=== PATIENT | female | born 1945 ===

== ENCOUNTER 2017-05-14 15:07 | Inpatient (IN) | payer MEDICARE, OTHER ==
[~2017-05-14] VITALS: Ht 154.9 cm; Wt 58.3 kg
[2017-05-14] MEDS ORDERED: OLAN10VI2 IM (16:03)
[2017-05-14] MEDS ORDERED: CYAN500T17 PO (16:03)
[2017-05-14] MEDS ORDERED: QUET25TA5 PO (16:03)
[2017-05-14] MEDS ORDERED: MELA3TAB2 PO (16:03)
[2017-05-14] MEDS ORDERED: LORA2VIA4 IJ (16:03)
[2017-05-14] MEDS ORDERED: LORA-434 PO (16:03)
[2017-05-14] MEDS ORDERED: OLAN5TAB9 PO (16:03)
[2017-05-14] MEDS ORDERED: METHYL SALICYLATE/MENTHOL TOPICAL OINTMENT 29GM TUBE. TP PRN (17:15)
[2017-05-14] MEDS ORDERED: ACETAMINOPHEN 325 MG TABLET PO PRN (17:15)
[2017-05-14] MEDS ORDERED: MAG HYDROX/AL HYDROX/SIMETH 30 ML ORAL.SUSP PO PRN (17:15)
[2017-05-14] MEDS ORDERED: MAGNESIUM HYDROXIDE 2,400 MG/30 ML ORAL.SUSP. PO PRN (17:15)
[2017-05-14] MEDS ORDERED: NON FORMULARY ITEM (Melatonin 1 TAB) PO PRN (18:30)
[2017-05-14 18:38] LABS: ALBUMIN 3.4 g/dL (3.4-5.0); ALBUMIN/GLOBULIN RATIO 0.9 (1.0-1.7); CALCIUM 9.3 mg/dL (8.5-10.1); CREATININE 1.1 mg/dL (0.6-1.0); GFR 49.1; MAGNESIUM 2.1 mg/dL (1.8-2.4); POTASSIUM 4.9 mmol/L (3.5-5.1); TOTAL BILIRUBIN 0.3 mg/dL (0.2-1.0); TOTAL PROTEIN 7.4 g/dL (6.4-8.2)
[2017-05-14] MEDS: QUEtiapine 50 MG TABLET. PO SCH (20:24)
--- NOTE | 2017-05-14 21:56 | PDOC ---
Exam Jasper Demential Exam: Jasper Note: Please also refer to the separate dictated note~for this date of service dictated separately.~Patient seen individually. Discussed the patient with Nursing staff reviewed the chart.~Reviewed interim history and current functioning. Reviewed vital signs,~Labs/ Radiology~and current medications noted below. Continue current treatment with the changes noted in the dictated addendum note Assessment: I&O Intake and Output 05/15/17 07:00 Intake Total 240 ml Balance 240 ml Intake Oral 240 ml Labs: Laboratory Tests Test 05/14/17 18:15 Sodium Level 141 mmol/L (136-145) Potassium Level 4.9 mmol/L (3.5-5.1) Chloride Level 104 mmol/L (98-107) Carbon Dioxide Level 26 mmol/L (21-32) Anion Gap 11 (6-14) Blood Urea Nitrogen 26 mg/dL (7-20) H Creatinine 1.1 mg/dL (0.6-1.0) H Estimated GFR (Cockcroft-Gault) 49.1 BUN/Creatinine Ratio 24 (6-20) H Glucose Level 125 mg/dL (70-99) H Calcium Level 9.3 mg/dL (8.5-10.1) Magnesium Level 2.1 mg/dL (1.8-2.4) Total Bilirubin 0.3 mg/dL (0.2-1.0) Aspartate Amino Transferase (AST) 39 U/L (15-37) H Alanine Aminotransferase (ALT) 35 U/L (14-59) Alkaline Phosphatase 110 U/L (46-116) Total Protein 7.4 g/dL (6.4-8.2) Albumin 3.4 g/dL (3.4-5.0) Albumin/Globulin Ratio 0.9 (1.0-1.7) L Current Medications: Meds: Current Medications Acetaminophen (Tylenol) 650 mg PRN Q6HRS PRN PO PAIN / TEMP; Start 05/14/17 at 17:15 Multi-Ingredient Ointment (Analgesic [place]) 1 ene PRN QID PRN TP MUSCLE PAIN; Start 05/14/17 at 17:15 Al Hydroxide/Mg Hydroxide (Mylanta Plus Xs) 15 ml PRN AFTMEALHC PRN PO DYSPEPSIA; Start 05/14/17 at 17:15 Magnesium Hydroxide (Milk Of Magnesia) 2,400 mg PRN QHS PRN PO CONSTIPATION; Start 05/14/17 at 17:15 Lorazepam (Ativan) 1 mg PRN Q6HRS PRN PO ANXIETY / AGITATION; Start 05/14/17 at 18:30 Olanzapine (ZyPREXA) 5 mg PRN Q6HRS PRN PO ANXIETY / AGITATION; Start at 18:30 Quetiapine Fumarate (SEROquel) 50 mg BID PO Last administered on 05/14/17t 20: 24; Start 05/14/17 at 21:00 Non-Formulary Medication 1 tab QHS PRN PO INSOMNIA; Start 05/14/17 at 18:30; Status UNV Cyanocobalamin (Vitamin B-12) 1,000 mcg DAILY PO ; Start 05/15/17 at 09:00 Pneumococcal Polyvalent Vaccine (Pneumovax 23) 0.5 ml ONCE ONCE VAX IM ; Start 05/15/17 at 09:00; Stop 05/15/17 at 09:01 Influenza Virus Vaccine Quadrival (Fluarix Quad [id number] Syringe) 0.5 ml ONCE ONCE VAX IM ; Start 05/15/17 at 09:00; Stop 05/15/17 at 09:01 Active Scripts Active Reported Seroquel (Quetiapine Fumarate) 25 Mg Tablet 2 Tab PO BID Olanzapine 5 Mg Tablet 1 Tab PO PRN Q6HRS PRN Olanzapine Inj (Olanzapine) 10 Mg Vial 5 Mg IM PRN Q6HRS PRN Melatonin 3 Mg Tablet 1 Tab PO QHS PRN Ativan (Lorazepam) 1 Mg Tablet 1 Mg PO PRN Q6HRS PRN Ativan (Lorazepam) 2 Mg/1 Ml Vial 1 Mg IJ PRN Q6HRS PRN B-12 (Cyanocobalamin (Vitamin B-12)) 500 Mcg Tablet 1,000 Mcg PO DAILY Diagnosis: Problems: (1) Anxiety disorder (2) Dementia in Alzheimer's disease with delusions (3) Dementia in Alzheimer's disease with depression (4) Dementia, vascular, with delusions (5) Dementia, vascular, with depression (6) Impulse control disorder MAX BIGGS MD May 14, 2017 21:56
--- NOTE | 2017-05-14 23:25 | HP ---
ADMIT DATE: 05/14/2017 PSYCHIATRIC ADMISSION HISTORY/EVALUATION She is referred by her primary care physician, Dr. Reinaldo Casiano, telephone . IDENTIFYING DATA: The patient is a 71-year-old female referred to us from [facility] after she was medically stabilized. She presented there from home on account of increasing confusion, delusions, and agitation. Once she was medically stabilized, she was still extremely delusional, agitated, refusing cares and showers, anxious, compulsive, laps hysterically at nothing, paranoid about her medications and thinks her is stealing from her, had to be on one-on-one status at [facility] post-resolution of her UTI. She had failed outpatient psychiatric interventions and was referred for inpatient psychiatric stabilization to us. The patient was seen individually the evening of 05/14/2016. Discussed with nursing staff, reviewed the chart. This note covers the elements not covered in my initial note of 05/14/2017. CHIEF COMPLAINT: "No, I am not going there." I attempted to direct the patient to the dining room for her supper, but she is extremely paranoid, delusional, refusing to go, joking away from me. HISTORY OF PRESENT ILLNESS: The patient has a history of dementia, Alzheimer's vascular type. She has been residing at home, getting more confused, delusional, agitated, and then went to [facility]. The patient has had sleep and appetite changes. No clear history of bipolar disorder, suicidal or homicidal ideation, but behaviors have been dangerous needing a one-on-one to contain her. PAST PSYCHIATRIC HISTORY: As above. MEDICAL HISTORY: Status post tonsillectomy, colonoscopy, recent UTI and B12 deficiency. CODE STATUS: Full code. ALLERGIES: No known drug allergies. FAMILY HISTORY: Noncontributory. SOCIAL HISTORY: No alcohol, drug abuse, physical, sexual or elder abuse. She is not known to be a perpetrator. REACTION TO HOSPITALIZATION: The patient oblivious to assets, supportive, and family. MENTAL STATUS EXAMINATION: The patient is oriented to herself. I met with her the evening of 05/14/2017. She is very paranoid, delusional, refusing to go to the dining room, believes people are stealing from her, rapid in her speech, distractable. Insight, judgment, recent and remote memory, attention, concentration, fund of knowledge poor, consistent with her diagnosis mentioned in my initial note. LABORATORY DATA: Reviewed. IMPRESSION: Major Neurocognitive disorder, Alzheimer, vascular with depression, delusion, behavioral disturbance; anxiety disorder, unspecified; impulse control disorder, unspecified; psychotic disorder, unspecified. Rest as above. PLAN: Admit to the Geropsychiatry Unit at [facility]. I will see the patient daily individually from a psychiatric standpoint, medical followup per Dr. Sorensen/Dr. Haro. Continue the patient on her current psychotropics, observe baseline then adjust as clinically indicated. MAN Amauri BIGGS MD DR: MONICA/nts JOB#: [id number] / [id number]
[2017-05-15] MEDS: LORazepam 1 MG TABLET PO PRN (00:12)
[2017-05-15] MEDS: OLANZapine 5 MG TABLET PO PRN (02:02)
[2017-05-15] MEDS ORDERED: PNEUMOC CONJ VACC 23-VALENT 0.5 ML VIAL. VAX IM ONE (09:00)
[2017-05-15] MEDS ORDERED: FLU VACC QS2017-18 (36MOS+)/PF 0.5 ML SYRINGE. VAX IM ONE (09:00)
[2017-05-15] MEDS: QUEtiapine 50 MG TABLET. PO SCH (11:45)
[2017-05-15] MEDS: CYANOCOBALAMIN (VITAMIN B-12) 1,000 MCG TABLET. PO SCH ×2 (11:46→12:10)
--- NOTE | 2017-05-15 13:51 | CONS ---
DATE OF CONSULTATION: 05/15/2017 REASON FOR CONSULTATION: Medical management. HISTORY OF PRESENT ILLNESS: The patient is a 71-year-old female patient who apparently was admitted to [facility] by the police after the hairmasters manager called 911 as the patient was disturbing workers that were trying to clean carpets one apartment across from her apartment. Apparently, 2 guys moved out, the patient called the boy that moved out as her brother and said that her brother lives in [place]. She appeared to be confused, unable to complete sentences and she was evaluated initially in the Emergency Room, was found to have urinary tract infection where she was treated with IV antibiotic. She was also found to have vitamin B12 deficiency that was addressed; however, the patient continued to have periods of agitation, gets very argumentative and lacks insight into her behavior. She does not recognize her and after she completed treatment for her UTI, she was [facility] inpatient psychiatric stabilization where she continued to be completely confused and disorganized. PAST MEDICAL HISTORY: Really unremarkable. The patient herself does not give any useful information, extremely confused and there is no significant apparently past medical history in the reports from [facility]. PAST SURGICAL HISTORY: Unremarkable. ALLERGIES: She has no known drug allergies. MEDICATIONS: She is currently on following medications: She is on cyanocobalamin 1000 mcg once a day, lorazepam 1 mg every 6 hours as needed, lorazepam 1 mg every 6 hours orally, melatonin 3 mg at bedtime, olanzapine 5 mg every 6 hours intramuscularly, quetiapine fumarate 50 mg twice a day. FAMILY HISTORY: Unremarkable. SOCIAL HISTORY: She is and lives with her . She does not smoke according to her or drink alcohol. She was unable to be more specific. PAST SURGICAL HISTORY: She did have apparently tonsillectomy, colonoscopy, which was normal. REVIEW OF SYSTEMS: As per history of present illness. PHYSICAL EXAMINATION GENERAL: When I examined her, she was resting flat, comfortably in bed, in no apparent distress. She is awake, alert, but extremely confused. Apparently, the patient was extremely agitated and refused to have her vital signs checked; however, when I saw her this afternoon, she was resting flat, comfortably in bed, in no apparent distress, was pale, but no jaundice, cyanosis, lymphadenopathy or thyromegaly. No jugular venous distension. No lower limb edema. HEENT: Showed normocephalic, atraumatic. NECK: Supple. HEART: Showed normal first and second heart sounds with no gallop, rub or murmur. CHEST: Clear to auscultation. No crepitation or rhonchi. ABDOMEN: Slightly distended, soft, nontender. NEUROLOGIC: She is awake, but extremely confused and disoriented. All her cranial nerves intact. EXTREMITIES: She moves extremities without difficulty. She is able to ambulate without assistance or assistive devices. LABORATORY DATA: As of this morning showed a serum sodium of 141, potassium 4.9, chloride 104, bicarbonate 26, anion gap of 11, BUN 26, creatinine 1.1, estimated GFR was 49 mL per minute. His glucose was 125, calcium was 9.3, magnesium was 2.1. Total bilirubin, AST, ALT, alkaline phosphatase were normal. Her total protein was 7.4, albumin 3.4. She patient apparently was admitted to [facility] where she was diagnosed with UTI, acute psychosis, chronic confusion, delirium of mixed origin and paranoid behavior. She was also found to have B12 deficiency. She apparently has completed her antibiotic treatment. Her vitamin B12 was replenished and was transferred to [facility] for inpatient psychiatric stabilization. Her most recent blood count on 05/09/2017 showed a white cell count of 11,300, hemoglobin 34, MCV 93, white cell count of 7,500 and platelet count of 277,000. ASSESSMENT AND PLAN: In summary, this is a 71-year-old female patient who was admitted with acute psychosis, chronic confusion, delirium, paranoid behavior. She was treated for acute urinary tract infection due to Escherichia coli and completed her antibiotic therapy there. Her vitamin B12 was low and apparently was replenished there, although I do not have the actual values. She was admitted for inpatient psychiatric stabilization. From a medical point of view, she seemed to be stable. Her vital signs was done at [facility], her lab work are all within acceptable range. Thank you Dr. Zayas for allowing me to participate in the care of this patient. WES BRENNAN MD DR: ELYSE/daniel JOB#: [id number] / [id number]
[2017-05-15 16:24] VITALS: BP 134/82
[2017-05-15 20:11] LABS: BASO # 0.1 x10^3/uL (0.0-0.2); BASO % 1 % (0-3); EOS # 0.6 x10^3/uL (0.0-0.7); EOS % 4 % (0-3); HEMATOCRIT 38.3 % (36.0-47.0); HEMOGLOBIN 12.8 g/dL (12.0-15.5); LYMPH # 2.6 x10^3/uL (1.0-4.8); LYMPH % 19 % (24-48); MEAN CORPUSCULAR HEMOGLOBIN 31 pg (25-35); MEAN CORPUSCULAR HGB CONC 34 g/dL (31-37); MEAN CORPUSCULAR VOLUME 92 fL (79-100); MONO # 1.1 x10^3/uL (0.0-1.1); MONO % 8 % (0-9); NEUT # 9.1 x10^3uL (1.8-7.7); NEUT % 68 % (31-73); PLATELET COUNT 417 x10^3/uL (140-400); RED BLOOD COUNT 4.18 x10^6/uL (3.50-5.40); RED CELL DISTRIBUTION WIDTH 14.1 % (11.5-14.5); WHITE BLOOD COUNT 13.4 x10^3/uL (4.0-11.0)
[2017-05-15] MEDS: risperiDONE 0.25 MG TABLET. PO SCH (20:25)
[2017-05-15] MEDS: traZODone 50 MG TABLET. PO PRN ×2 (20:25→23:26)
--- NOTE | 2017-05-15 20:57 | PDOC ---
Exam Jasper Demential Exam: Jasper Note: Please also refer to the separate dictated note~for this date of service dictated separately.~Patient seen individually. Discussed the patient with Nursing staff reviewed the chart.~Reviewed interim history and current functioning. Reviewed vital signs,~Labs/ Radiology~and current medications noted below. Continue current treatment with the changes noted in the dictated addendum note Assessment: Vital Signs: Vital Signs Date Time Temp Pulse Resp B/P (MAP) Pulse Ox O2 Delivery O2 Flow Rate FiO2 05/15/17 16:24 97.3 6 20 134/82 (99) 95 Room Air I&O Intake and Output 05/16/17 07:00 Intake Total 240 ml Balance 240 ml Intake Oral 240 ml Labs: Laboratory Tests Test 05/15/17 19:55 White Blood Count 13.4 x10^3/uL (4.0-11.0) H Red Blood Count 4.18 x10^6/uL (3.50-5.40) Hemoglobin 12.8 g/dL (12.0-15.5) Hematocrit 38.3 % (36.0-47.0) Mean Corpuscular Volume 92 fL (79-100) Mean Corpuscular Hemoglobin 31 pg (25-35) Mean Corpuscular Hemoglobin Concent 34 g/dL (31-37) Red Cell Distribution Width 14.1 % (11.5-14.5) Platelet Count 417 x10^3/uL (140-400) H Neutrophils (%) (Auto) 68 % (31-73) Lymphocytes (%) (Auto) 19 % (24-48) L Monocytes (%) (Auto) 8 % (0-9) Eosinophils (%) (Auto) 4 % (0-3) H Basophils (%) (Auto) 1 % (0-3) Neutrophils # (Auto) 9.1 x10^3uL (1.8-7.7) H Lymphocytes # (Auto) 2.6 x10^3/uL (1.0-4.8) Monocytes # (Auto) 1.1 x10^3/uL (0.0-1.1) Eosinophils # (Auto) 0.6 x10^3/uL (0.0-0.7) Basophils # (Auto) 0.1 x10^3/uL (0.0-0.2) Current Medications: Meds: Current Medications Acetaminophen (Tylenol) 650 mg PRN Q6HRS PRN PO PAIN / TEMP; Start 05/14/17 at 17:15 Multi-Ingredient Ointment (Analgesic [place]) 1 ene PRN QID PRN TP MUSCLE PAIN; Start 05/14/17 at 17:15 Al Hydroxide/Mg Hydroxide (Mylanta Plus Xs) 15 ml PRN AFTMEALHC PRN PO DYSPEPSIA; Start 05/14/17 at 17:15 Magnesium Hydroxide (Milk Of Magnesia) 2,400 mg PRN QHS PRN PO CONSTIPATION; Start 05/14/17 at 17:15 Lorazepam (Ativan) 1 mg PRN Q6HRS PRN PO ANXIETY / AGITATION Last administered on 05/15/17 00:12; Start 05/14/17 at 18:30 Olanzapine (ZyPREXA) 5 mg PRN Q6HRS PRN PO ANXIETY / AGITATION Last administered on 05/15/17 02:02; Start 05/14/17 at 18:30 Quetiapine Fumarate (SEROquel) 50 mg BID PO Last administered on 05/15/17 11: 45; Start 05/14/17 at 21:00; Stop 05/15/17 at 19:07; Status DC Non-Formulary Medication 1 tab QHS PRN PO INSOMNIA; Start 05/14/17 at 18:30; Status UNV Cyanocobalamin (Vitamin B-12) 1,000 mcg DAILY PO ; Start 05/15/17 at 09:00 Pneumococcal Polyvalent Vaccine (Pneumovax 23) 0.5 ml ONCE ONCE VAX IM ; Start 05/15/17 at 09:00; Stop 05/15/17 at 09:01; Status DC Influenza Virus Vaccine Quadrival (Fluarix Quad Syringe) 0.5 ml ONCE ONCE VAX IM ; Start 05/15/17 at 09:00; Stop 05/15/17 at 09:01; Status DC Melatonin 3 mg PRN QHS PRN PO INSOMNIA; Start 05/15/17 at 07:30 Pneumococcal Polyvalent Vaccine (Pneumovax 23) 0.5 ml ONCE ONCE VAX IM ; Start 05/17/17 at 09:00; Stop 05/17/17 at 09:01 Influenza Virus Vaccine Quadrival (Fluarix Quad Syringe) 0.5 ml ONCE ONCE VAX IM ; Start 05/17/17 at 09:00; Stop 05/17/17 at 09:01 Mirtazapine (Remeron) 7.5 mg QHS PO Last administered on 05/15/17 20:25; Start 05/15/17 at 21:00 Risperidone (RisperDAL) 0.25 mg BID PO Last administered on 05/15/17 20:25; Start 05/15/17 at 21:00 Trazodone HCl (Desyrel) 50 mg PRN QHS PRN PO INSOMNIA, MAY REPEAT X1 Last administered on 05/15/17 20:25; Start 05/15/17 at 19:15 Active Scripts Active Reported Seroquel (Quetiapine Fumarate) 25 Mg Tablet 2 Tab PO BID Olanzapine 5 Mg Tablet 1 Tab PO PRN Q6HRS PRN Olanzapine Inj (Olanzapine) 10 Mg Vial 5 Mg IM PRN Q6HRS PRN Melatonin 3 Mg Tablet 1 Tab PO QHS PRN Ativan (Lorazepam) 1 Mg Tablet 1 Mg PO PRN Q6HRS PRN Ativan (Lorazepam) 2 Mg/1 Ml Vial 1 Mg IJ PRN Q6HRS PRN B-12 (Cyanocobalamin (Vitamin B-12)) 500 Mcg Tablet 1,000 Mcg PO DAILY Diagnosis: Problems: (1) Anxiety disorder (2) Dementia in Alzheimer's disease with delusions (3) Dementia in Alzheimer's disease with depression (4) Dementia, vascular, with delusions (5) Dementia, vascular, with depression (6) Impulse control disorder MAX BIGGS MD May 15, 2017 20:57
[2017-05-15] MEDS ORDERED: MIRTAZAPINE 7.5 MG TABLET. PO SCH (21:00)
[2017-05-15] MEDS: MELATONIN 3 MG TABLET PO PRN (23:27)
[2017-05-16 07:28] VITALS: BP 122/63
[2017-05-16] MEDS: risperiDONE 0.25 MG TABLET. PO SCH ×2 (08:43→19:04)
[2017-05-16] MEDS: CYANOCOBALAMIN (VITAMIN B-12) 1,000 MCG TABLET. PO SCH (08:50)
[2017-05-16 11:58] LABS: THYROID STIM HORMONE (TSH) 1.837 uIU/mL (0.358-3.740)
[2017-05-16] MEDS: PRENATAL MULTIVITAMIN TABLET. PO SCH (16:18)
[2017-05-16] MEDS: LORazepam 1 MG TABLET PO PRN (17:01)
[2017-05-16] MEDS ORDERED: traZODone 100 MG TABLET. PO PRN (18:30)
[2017-05-16] MEDS: MELATONIN 3 MG TABLET PO PRN (19:06)
[2017-05-16 19:09] LABS: HEMOGLOBIN A1C 5.4 % (4.8-5.6)
[2017-05-16] MEDS: MIRTAZAPINE 15 MG TABLET PO SCH (19:33)
[2017-05-16] MEDS: ATORVASTATIN CALCIUM 20 MG TABLET PO SCH (19:33)
--- NOTE | 2017-05-16 21:34 | PDOC ---
Exam Jasper Demential Exam: Jasper Note: Please also refer to the separate dictated note~for this date of service dictated separately.~Patient seen individually. Discussed the patient with Nursing staff reviewed the chart.~Reviewed interim history and current functioning. Reviewed vital signs,~Labs/ Radiology~and current medications noted below. Continue current treatment with the changes noted in the dictated addendum note Assessment: Vital Signs: Vital Signs Date Time Temp Pulse Resp B/P (MAP) Pulse Ox O2 Delivery O2 Flow Rate FiO2 05/16/17 07:28 98.1 78 18 122/63 (82) 97 05/15/17 16:24 Room Air I&O Intake and Output 05/17/17 07:00 Intake Total 840 ml Balance 840 ml Intake Oral 840 ml Current Medications: Meds: Current Medications Acetaminophen (Tylenol) 650 mg PRN Q6HRS PRN PO PAIN / TEMP; Start 05/14/17 at 17:15 Multi-Ingredient Ointment (Analgesic [place]) 1 ene PRN QID PRN TP MUSCLE PAIN; Start 05/14/17 at 17:15 Al Hydroxide/Mg Hydroxide (Mylanta Plus Xs) 15 ml PRN AFTMEALHC PRN PO DYSPEPSIA; Start 05/14/17 at 17:15 Magnesium Hydroxide (Milk Of Magnesia) 2,400 mg PRN QHS PRN PO CONSTIPATION; Start 05/14/17 at 17:15 Lorazepam (Ativan) 1 mg PRN Q6HRS PRN PO ANXIETY / AGITATION Last administered on 05/16/17 17:01; Start 05/14/17 at 18:30 Olanzapine (ZyPREXA) 5 mg PRN Q6HRS PRN PO ANXIETY / AGITATION Last administered on 05/15/17 02:02; Start 05/14/17 at 18:30 Quetiapine Fumarate (SEROquel) 50 mg BID PO Last administered on 05/15/17 11: 45; Start 05/14/17 at 21:00; Stop 05/15/17 at 19:07; Status DC Non-Formulary Medication 1 tab QHS PRN PO INSOMNIA; Start 05/14/17 at 18:30; Status UNV Cyanocobalamin (Vitamin B-12) 1,000 mcg DAILY PO ; Start 05/15/17 at 09:00 Pneumococcal Polyvalent Vaccine (Pneumovax 23) 0.5 ml ONCE ONCE VAX IM ; Start 05/15/17 at 09:00; Stop 05/15/17 at 09:01; Status DC Influenza Virus Vaccine Quadrival (Fluarix Quad [id number] Syringe) 0.5 ml ONCE ONCE VAX IM ; Start 05/15/17 at 09:00; Stop 05/15/17 at 09:01; Status DC Melatonin 3 mg PRN QHS PRN PO INSOMNIA Last administered on 05/16/17 19:06; Start 05/15/17 at 07:30 Pneumococcal Polyvalent Vaccine (Pneumovax 23) 0.5 ml ONCE ONCE VAX IM ; Start 05/17/17 at 09:00; Stop 05/17/17 at 09:01 Influenza Virus Vaccine Quadrival (Fluarix Quad Syringe) 0.5 ml ONCE ONCE VAX IM ; Start 05/17/17 at 09:00; Stop 05/17/17 at 09:01 Mirtazapine (Remeron) 7.5 mg QHS PO Last administered on 05/15/17 20:25; Start 05/15/17 at 21:00; Stop 05/16/17 at 18:21; Status DC Risperidone (RisperDAL) 0.25 mg BID PO Last administered on 05/16/17 19:04; Start 05/15/17 at 21:00 Trazodone HCl (Desyrel) 50 mg PRN QHS PRN PO INSOMNIA, MAY REPEAT X1 Last administered on 05/15/17 23:26; Start 05/15/17 at 19:15; Stop 05/16/17 at 18 :21; Status DC Prenat Multivit/ [place]/Iron/Folic Ac (Multivitamin ) 1 tab DAILYBFRSUP PO ; Start 05/16/17 at 17:00 Atorvastatin Calcium (Lipitor) 20 mg QHS PO Last administered on 05/16/17 19: 33; Start 05/16/17 at 21:00 Divalproex Sodium (Depakote [place]) 125 mg BID92 PO ; Start 05/17/17 at 09: 00 Mirtazapine (Remeron) 15 mg QHS PO Last administered on 05/16/17 19:33; Start 05/16/17 at 21:00 Trazodone HCl (Desyrel) 100 mg PRN QHS PRN PO INSOMNIA, MAY REPEAT X1 Last administered on 05/16/17t 19:06; Start 05/16/17 at 18:30 Active Scripts Active Reported Seroquel (Quetiapine Fumarate) 25 Mg Tablet 2 Tab PO BID Olanzapine 5 Mg Tablet 1 Tab PO PRN Q6HRS PRN Olanzapine Inj (Olanzapine) 10 Mg Vial 5 Mg IM PRN Q6HRS PRN Melatonin 3 Mg Tablet 1 Tab PO QHS PRN Ativan (Lorazepam) 1 Mg Tablet 1 Mg PO PRN Q6HRS PRN Ativan (Lorazepam) 2 Mg/1 Ml Vial 1 Mg IJ PRN Q6HRS PRN B-12 (Cyanocobalamin (Vitamin B-12)) 500 Mcg Tablet 1,000 Mcg PO DAILY Diagnosis: Problems: (1) Anxiety disorder (2) Dementia in Alzheimer's disease with delusions (3) Dementia in Alzheimer's disease with depression (4) Dementia, vascular, with delusions (5) Dementia, vascular, with depression (6) Impulse control disorder MAX BIGGS MD May 16, 2017 21:34
--- NOTE | 2017-05-16 23:02 | PN ---
DATE: 05/15/2017 PSYCHIATRIC PROGRESS NOTE This late entry 05/15/2017 covers elements, not covered in my initial note of 05/15/2017. SUBJECTIVE: I met with the patient in the evening of 05/15/2017. The patient remains confused, anxious, restless, quite paranoid, suspicious, slept very poorly the previous evening. She is quite intrusive, difficult to redirect at times. REVIEW OF SYSTEMS: No CV, , pulmonary, eye, ENT system symptoms on review. Reliability poor. MENTAL STATUS EXAM: Oriented to herself. Insight, judgment, recent and remote memory, attention, concentration, fund of knowledge poor, consistent with her diagnosis mentioned in my initial note. LABORATORY DATA: Reviewed. IMPRESSION: Major neurocognitive disorder, Alzheimer, vascular with depression, delusion, behavioral disturbance; anxiety disorder, unspecified; impulse control disorder, unspecified; Rest unchanged, status post urinary tract infection. PLAN: Change the Seroquel 50 mg b.i.d. to Risperdal 0.25 mg twice a day; start Remeron 7.5 mg at bedtime, trazodone 50 mg at bedtime p.r.n., may repeat x1 for insomnia. Continue Ativan p.r.n., melatonin 3 mg at bedtime p.r.n., Zyprexa p.r.n. Reviewed drug interactions. Risk/benefit ratio favors no further change at this time. MAN Amauri BIGGS MD DR: MONICA/daniel JOB#: [id number] / [id number]
[2017-05-16 23:08] LABS: T3 TOTAL 90 ng/dL (71-180)
[2017-05-17 06:22] VITALS: BP 101/63
[2017-05-17 06:50] LABS: BASO # 0.1 x10^3/uL (0.0-0.2); BASO % 1 % (0-3); EOS # 0.4 x10^3/uL (0.0-0.7); EOS % 6 % (0-3); HEMATOCRIT 34.1 % (36.0-47.0); HEMOGLOBIN 11.6 g/dL (12.0-15.5); LYMPH % 26 % (24-48); MEAN CORPUSCULAR HEMOGLOBIN 31 pg (25-35); MEAN CORPUSCULAR HGB CONC 34 g/dL (31-37); MEAN CORPUSCULAR VOLUME 91 fL (79-100); MONO # 0.8 x10^3/uL (0.0-1.1); MONO % 10 % (0-9); NEUT # 4.5 x10^3uL (1.8-7.7); NEUT % 58 % (31-73); PLATELET COUNT 328 x10^3/uL (140-400); RED BLOOD COUNT 3.74 x10^6/uL (3.50-5.40); RED CELL DISTRIBUTION WIDTH 14.1 % (11.5-14.5); WHITE BLOOD COUNT 7.8 x10^3/uL (4.0-11.0)
[2017-05-17 06:59] LABS: CALCIUM 8.6 mg/dL (8.5-10.1); CREATININE 1.1 mg/dL (0.6-1.0); GFR 49.1; POTASSIUM 4.2 mmol/L (3.5-5.1)
[2017-05-17] MEDS ORDERED: FLU VACC QS2017-18 (36MOS+)/PF 0.5 ML SYRINGE. VAX IM ONE (09:00)
[2017-05-17] MEDS ORDERED: PNEUMOC CONJ VACC 23-VALENT 0.5 ML VIAL. VAX IM ONE (09:00)
[2017-05-17] MEDS: risperiDONE 0.25 MG TABLET. PO SCH ×2 (09:10→19:50)
[2017-05-17] MEDS: CYANOCOBALAMIN (VITAMIN B-12) 1,000 MCG TABLET. PO SCH (09:10)
[2017-05-17] MEDS: DIVALPROEX 125 MG CAP.SPRINK PO SCH ×2 (09:11→15:36)
[2017-05-17] MEDS: PRENATAL MULTIVITAMIN TABLET. PO SCH (15:36)
[2017-05-17 16:12] VITALS: BP 135/72
[2017-05-17] MEDS: MELATONIN 3 MG TABLET PO PRN (19:50)
[2017-05-17] MEDS: MIRTAZAPINE 15 MG TABLET PO SCH (19:50)
[2017-05-17] MEDS: ATORVASTATIN CALCIUM 20 MG TABLET PO SCH (19:50)
--- NOTE | 2017-05-17 20:32 | PDOC ---
Exam Jasper Demential Exam: Jasper Note: Please also refer to the separate dictated note~for this date of service dictated separately.~Patient seen individually. Discussed the patient with Nursing staff reviewed the chart.~Reviewed interim history and current functioning. Reviewed vital signs,~Labs/ Radiology~and current medications noted below. Continue current treatment with the changes noted in the dictated addendum note Assessment: Vital Signs: Vital Signs Date Time Temp Pulse Resp B/P (MAP) Pulse Ox O2 Delivery O2 Flow Rate FiO2 05/17/17 16:12 98.1 93 20 135/72 (93) 97 05/15/17 16:24 Room Air I&O Intake and Output 05/18/17 07:00 Intake Total 1080 ml Balance 1080 ml Intake Oral 1080 ml Labs: Laboratory Tests Test 05/17/17 06:41 White Blood Count 7.8 x10^3/uL (4.0-11.0) Red Blood Count 3.74 x10^6/uL (3.50-5.40) Hemoglobin 11.6 g/dL (12.0-15.5) L Hematocrit 34.1 % (36.0-47.0) L Mean Corpuscular Volume 91 fL (79-100) Mean Corpuscular Hemoglobin 31 pg (25-35) Mean Corpuscular Hemoglobin Concent 34 g/dL (31-37) Red Cell Distribution Width 14.1 % (11.5-14.5) Platelet Count 328 x10^3/uL (140-400) Neutrophils (%) (Auto) 58 % (31-73) Lymphocytes (%) (Auto) 26 % (24-48) Monocytes (%) (Auto) 10 % (0-9) H Eosinophils (%) (Auto) 6 % (0-3) H Basophils (%) (Auto) 1 % (0-3) Neutrophils # (Auto) 4.5 x10^3uL (1.8-7.7) Lymphocytes # (Auto) 2.0 x10^3/uL (1.0-4.8) Monocytes # (Auto) 0.8 x10^3/uL (0.0-1.1) Eosinophils # (Auto) 0.4 x10^3/uL (0.0-0.7) Basophils # (Auto) 0.1 x10^3/uL (0.0-0.2) Sodium Level 142 mmol/L (136-145) Potassium Level 4.2 mmol/L (3.5-5.1) Chloride Level 108 mmol/L (98-107) H Carbon Dioxide Level 28 mmol/L (21-32) Anion Gap 6 (6-14) Blood Urea Nitrogen 25 mg/dL (7-20) H Creatinine 1.1 mg/dL (0.6-1.0) H Estimated GFR (Cockcroft-Gault) 49.1 Glucose Level 104 mg/dL (70-99) H Calcium Level 8.6 mg/dL (8.5-10.1) Current Medications: Meds: Current Medications Acetaminophen (Tylenol) 650 mg PRN Q6HRS PRN PO PAIN / TEMP; Start 05/14/17 at 17:15 Multi-Ingredient Ointment (Analgesic [place]) 1 ene PRN QID PRN TP MUSCLE PAIN; Start 05/14/17 at 17:15 Al Hydroxide/Mg Hydroxide (Mylanta Plus Xs) 15 ml PRN AFTMEALHC PRN PO DYSPEPSIA; Start 05/14/17 at 17:15 Magnesium Hydroxide (Milk Of Magnesia) 2,400 mg PRN QHS PRN PO CONSTIPATION; Start 05/14/17 at 17:15 Lorazepam (Ativan) 1 mg PRN Q6HRS PRN PO ANXIETY / AGITATION Last administered on 05/16/17t 17:01; Start 05/14/17 at 18:30 Olanzapine (ZyPREXA) 5 mg PRN Q6HRS PRN PO ANXIETY / AGITATION Last administered on 05/15/17 02:02; Start 05/14/17 at 18:30 Quetiapine Fumarate (SEROquel) 50 mg BID PO Last administered on 05/15/17 11: 45; Start 05/14/17 at 21:00; Stop 05/15/17 at 19:07; Status DC Non-Formulary Medication 1 tab QHS PRN PO INSOMNIA; Start 05/14/17 at 18:30; Status UNV Cyanocobalamin (Vitamin B-12) 1,000 mcg DAILY PO Last administered on 09:10; Start 05/15/17 at 09:00 Pneumococcal Polyvalent Vaccine (Pneumovax 23) 0.5 ml ONCE ONCE VAX IM ; Start 05/15/17 at 09:00; Stop 05/15/17 at 09:01; Status DC Influenza Virus Vaccine Quadrival (Fluarix Quad Syringe) 0.5 ml ONCE ONCE VAX IM ; Start 05/15/17 at 09:00; Stop 05/15/17 at 09:01; Status DC Melatonin 3 mg PRN QHS PRN PO INSOMNIA Last administered on 05/17/17 19:50; Start 05/15/17 at 07:30 Pneumococcal Polyvalent Vaccine (Pneumovax 23) 0.5 ml ONCE ONCE VAX IM ; Start 05/17/17 at 09:00; Stop 05/17/17 at 09:01; Status DC Influenza Virus Vaccine Quadrival (Fluarix Quad Syringe) 0.5 ml ONCE ONCE VAX IM ; Start 05/17/17 at 09:00; Stop 05/17/17 at 09:01; Status DC Mirtazapine (Remeron) 7.5 mg QHS PO Last administered on 05/15/17 20:25; Start 05/15/17 at 21:00; Stop 05/16/17 at 18:21; Status DC Risperidone (RisperDAL) 0.25 mg BID PO Last administered on 05/17/17 19:50; Start 05/15/17 at 21:00 Trazodone HCl (Desyrel) 50 mg PRN QHS PRN PO INSOMNIA, MAY REPEAT X1 Last administered on 05/15/17 23:26; Start 05/15/17 at 19:15; Stop 05/16/17 at 18 :21; Status DC Prenat Multivit/ [employer]/Iron/Folic Ac (Multivitamin ) 1 tab DAILYBFRSUP PO ; Start 05/16/17 at 17:00 Atorvastatin Calcium (Lipitor) 20 mg QHS PO Last administered on 05/17/17 19: 50; Start 05/16/17 at 21:00 Divalproex Sodium (Depakote Sprinkles) 125 mg BID92 PO Last administered on 15:36; Start 05/17/17 at 09:00 Mirtazapine (Remeron) 15 mg QHS PO Last administered on 05/17/17 19:50; Start 10/16/17 at 21:00 Trazodone HCl (Desyrel) 100 mg PRN QHS PRN PO INSOMNIA, MAY REPEAT X1 Last administered on 05/16/17t 19:06; Start 05/16/17 at 18:30 Influenza Virus Vaccine Quadrival (Fluarix Quad 0279-1464 Syringe) 0.5 ml ONCE ONCE VAX IM ; Start 05/19/17 at 09:00; Stop 05/19/17 at 09:01 Pneumococcal Polyvalent Vaccine (Pneumovax 23) 0.5 ml ONCE ONCE VAX IM ; Start 05/19/17 at 09:00; Stop 05/19/17 at 09:01 Active Scripts Active Reported Seroquel (Quetiapine Fumarate) 25 Mg Tablet 2 Tab PO BID Olanzapine 5 Mg Tablet 1 Tab PO PRN Q6HRS PRN Olanzapine Inj (Olanzapine) 10 Mg Vial 5 Mg IM PRN Q6HRS PRN Melatonin 3 Mg Tablet 1 Tab PO QHS PRN Ativan (Lorazepam) 1 Mg Tablet 1 Mg PO PRN Q6HRS PRN Ativan (Lorazepam) 2 Mg/1 Ml Vial 1 Mg IJ PRN Q6HRS PRN B-12 (Cyanocobalamin (Vitamin B-12)) 500 Mcg Tablet 1,000 Mcg PO DAILY Diagnosis: Problems: (1) Anxiety disorder (2) Dementia in Alzheimer's disease with delusions (3) Dementia in Alzheimer's disease with depression (4) Dementia, vascular, with delusions (5) Dementia, vascular, with depression (6) Impulse control disorder MAX BIGGS MD May 17, 2017 20:32
--- NOTE | 2017-05-18 03:19 | PN ---
DATE: 05/16/2017 PSYCHIATRIC PROGRESS NOTE This is a late entry for 05/16/2017, covers the elements not covered in my initial note of 05/16/2017. SUBJECTIVE: I met with the patient the evening of 05/16/2017. The patient did better in the morning of 05/16/2017, later was more agitated, more so in the evening, irritable, labile, suspicious, paranoid, especially with another demented patient on the unit. REVIEW OF SYSTEMS: No CV, , pulmonary, eye, ENT system symptoms on review. Reliability poor. She slept poorly the previous evening, was up till 5:00 a.m. MENTAL STATUS EXAM: Oriented to herself. Insight, judgment, recent and remote memory, attention, concentration, fund of knowledge poor, consistent with her diagnosis as mentioned in my initial note. PLAN: Increase Remeron from 7.5 mg at bedtime to 15 mg at bedtime, trazodone from 50 mg at bedtime p.r.n. ____ to 100 mg at bedtime p.r.n., may repeat x 1, continue Ativan p.r.n., melatonin 3 mg at bedtime p.r.n., Zyprexa p.r.n., Risperdal 0.25 mg b.i.d., start Depakote Sprinkles 125 mg twice a day as a mood stabilizer 9:00 a.m. and 2 p.m. Check CBC, CMP, valproic acid level in 3 days. Reviewed drug interactions, risk/benefit ratio favors no further change. MAX BIGGS MD DR: MONICA/daniel JOB#: [id number] / [id number]
[2017-05-18 06:05] VITALS: BP 129/68
[2017-05-18] MEDS: DIVALPROEX 125 MG CAP.SPRINK PO SCH ×2 (09:30→14:51)
[2017-05-18] MEDS: risperiDONE 0.25 MG TABLET. PO SCH ×2 (09:30→19:18)
[2017-05-18] MEDS: CYANOCOBALAMIN (VITAMIN B-12) 1,000 MCG TABLET. PO SCH (09:30)
[2017-05-18 16:23] VITALS: BP 139/96
[2017-05-18] MEDS: PRENATAL MULTIVITAMIN TABLET. PO SCH (17:07)
[2017-05-18] MEDS: MIRTAZAPINE 15 MG TABLET PO SCH (19:18)
[2017-05-18] MEDS: ATORVASTATIN CALCIUM 20 MG TABLET PO SCH (19:18)
--- NOTE | 2017-05-18 21:02 | PDOC ---
Exam Jasper Demential Exam: Jasper Note: Please also refer to the separate dictated note~for this date of service dictated separately.~Patient seen individually. Discussed the patient with Nursing staff reviewed the chart.~Reviewed interim history and current functioning. Reviewed vital signs,~Labs/ Radiology~and current medications noted below. Continue current treatment with the changes noted in the dictated addendum note Assessment: Vital Signs: Vital Signs Date Time Temp Pulse Resp B/P (MAP) Pulse Ox O2 Delivery O2 Flow Rate FiO2 05/18/17 16:23 97.8 101 20 139/96 (110) 97 05/15/17 16:24 Room Air I&O Intake and Output 05/19/17 06:59 Intake Total 720 ml Balance 720 ml Intake Oral 720 ml Current Medications: Meds: Current Medications Acetaminophen (Tylenol) 650 mg PRN Q6HRS PRN PO PAIN / TEMP; Start 05/14/17 at 17:15 Multi-Ingredient Ointment (Analgesic [place]) 1 ene PRN QID PRN TP MUSCLE PAIN; Start 05/14/17 at 17:15 Al Hydroxide/Mg Hydroxide (Mylanta Plus Xs) 15 ml PRN AFTMEALHC PRN PO DYSPEPSIA; Start 05/14/17 at 17:15 Magnesium Hydroxide (Milk Of Magnesia) 2,400 mg PRN QHS PRN PO CONSTIPATION; Start 05/14/17 at 17:15 Lorazepam (Ativan) 1 mg PRN Q6HRS PRN PO ANXIETY / AGITATION Last administered on 05/16/17 17:01; Start 05/14/17 at 18:30 Olanzapine (ZyPREXA) 5 mg PRN Q6HRS PRN PO ANXIETY / AGITATION Last administered on 05/15/17 02:02; Start 05/14/17 at 18:30 Quetiapine Fumarate (SEROquel) 50 mg BID PO Last administered on 05/15/17 11: 45; Start 05/14/17 at 21:00; Stop 05/15/17 at 19:07; Status DC Non-Formulary Medication 1 tab QHS PRN PO INSOMNIA; Start 05/14/17 at 18:30; Status UNV Cyanocobalamin (Vitamin B-12) 1,000 mcg DAILY PO Last administered on 09:30; Start 05/15/17 at 09:00 Pneumococcal Polyvalent Vaccine (Pneumovax 23) 0.5 ml ONCE ONCE VAX IM ; Start 05/15/17 at 09:00; Stop 05/15/17 at 09:01; Status DC Influenza Virus Vaccine Quadrival (Fluarix Quad Syringe) 0.5 ml ONCE ONCE VAX IM ; Start 05/15/17 at 09:00; Stop 05/15/17 at 09:01; Status DC Melatonin 3 mg PRN QHS PRN PO INSOMNIA Last administered on 05/17/17 19:50; Start 05/15/17 at 07:30 Pneumococcal Polyvalent Vaccine (Pneumovax 23) 0.5 ml ONCE ONCE VAX IM ; Start 05/17/17 at 09:00; Stop 05/17/17 at 09:01; Status DC Influenza Virus Vaccine Quadrival (Fluarix Quad Syringe) 0.5 ml ONCE ONCE VAX IM ; Start 05/17/17 at 09:00; Stop 05/17/17 at 09:01; Status DC Mirtazapine (Remeron) 7.5 mg QHS PO Last administered on 05/15/17 20:25; Start 05/15/17 at 21:00; Stop 05/16/17 at 18:21; Status DC Risperidone (RisperDAL) 0.25 mg BID PO Last administered on 05/18/17 19:18; Start 05/15/17 at 21:00 Trazodone HCl (Desyrel) 50 mg PRN QHS PRN PO INSOMNIA, MAY REPEAT X1 Last administered on 05/15/17 23:26; Start 05/15/17 at 19:15; Stop 05/16/17 at 18 :21; Status DC Prenat Multivit/ [place]/Iron/Folic Ac (Multivitamin ) 1 tab DAILYBFRSUP PO Last administered on 05/18/17 17:07; Start 05/16/17 at 17:00 Atorvastatin Calcium (Lipitor) 20 mg QHS PO Last administered on 05/18/17 19: 18; Start 05/16/17 at 21:00 Divalproex Sodium (Depakote Sprinkles) 125 mg BID92 PO Last administered on 14:51; Start 05/17/17 at 09:00 Mirtazapine (Remeron) 15 mg QHS PO Last administered on 05/18/17 19:18; Start 05/16/17 at 21:00 Trazodone HCl (Desyrel) 100 mg PRN QHS PRN PO INSOMNIA, MAY REPEAT X1 Last administered on 05/16/17 19:06; Start 05/16/17 at 18:30 Influenza Virus Vaccine Quadrival (Fluarix Quad [id number] Syringe) 0.5 ml ONCE ONCE VAX IM ; Start 05/19/17 at 09:00; Stop 05/19/17 at 09:01 Pneumococcal Polyvalent Vaccine (Pneumovax 23) 0.5 ml ONCE ONCE VAX IM ; Start 05/19/17 at 09:00; Stop 05/19/17 at 09:01 Active Scripts Active Reported Seroquel (Quetiapine Fumarate) 25 Mg Tablet 2 Tab PO BID Olanzapine 5 Mg Tablet 1 Tab PO PRN Q6HRS PRN Olanzapine Inj (Olanzapine) 10 Mg Vial 5 Mg IM PRN Q6HRS PRN Melatonin 3 Mg Tablet 1 Tab PO QHS PRN Ativan (Lorazepam) 1 Mg Tablet 1 Mg PO PRN Q6HRS PRN Ativan (Lorazepam) 2 Mg/1 Ml Vial 1 Mg IJ PRN Q6HRS PRN B-12 (Cyanocobalamin (Vitamin B-12)) 500 Mcg Tablet 1,000 Mcg PO DAILY Diagnosis: Problems: (1) Anxiety disorder (2) Dementia in Alzheimer's disease with delusions (3) Dementia in Alzheimer's disease with depression (4) Dementia, vascular, with delusions (5) Dementia, vascular, with depression (6) Impulse control disorder MAX BIGGS MD May 18, 2017 21:02
--- NOTE | 2017-05-19 04:08 | PN ---
DATE: 05/17/2017 This late entry 05/17/2017 covers elements not covered in my initial note of 05/17/2017. SUBJECTIVE: I met with the patient in the evening of 05/17/2016. Per nursing report, the patient remains confused, disorganized, labile, frequently not compliant with medications, often takes it crushed in ice cream, quite paranoid, delusional, slept 8 hours the previous evening. REVIEW OF SYSTEMS: No CV, , pulmonary, eye, ENT system symptoms on review. Reliability poor. MENTAL STATUS EXAM: Oriented to herself. Insight, judgment, recent and remote memory, attention, concentration, fund of knowledge poor, consistent with her diagnosis. She is expansive, lapse inappropriately. LABORATORY DATA: Reviewed. IMPRESSION: Unchanged from initial note. Major neurocognitive disorder, Alzheimer, vascular with depression, delusion, behavioral disturbance; anxiety disorder, unspecified; impulse control disorder, unspecified; bipolar 1 disorder, mixed, probable. LABORATORY DATA: Reviewed. PLAN: Increase Risperdal from 0.25 mg b.i.d. to 0.25 mg 3 times a day. Continue Depakote 125 mg b.i.d. Check labs level, adjust to reach a therapeutic level. Maintain Ativan p.r.n., melatonin p.r.n., Zyprexa p.r.n., Remeron 15 mg at bedtime, trazodone 100 mg at bedtime p.r.n., may repeat x 1 for insomnia. Reviewed drug interactions. Risk/benefit ratio favors no further change for now. MAX BIGGS MD DR: MONICA/daniel JOB#: [id number] / [id number]
[2017-05-19 06:41] VITALS: BP 108/58
[2017-05-19] MEDS ORDERED: FLU VACC QS2017-18 (36MOS+)/PF 0.5 ML SYRINGE. VAX IM ONE (09:00)
[2017-05-19] MEDS ORDERED: PNEUMOC CONJ VACC 23-VALENT 0.5 ML VIAL. VAX IM ONE (09:00)
[2017-05-19] MEDS: DIVALPROEX 125 MG CAP.SPRINK PO SCH ×2 (09:12→17:51)
[2017-05-19] MEDS: risperiDONE 0.25 MG TABLET. PO SCH ×2 (09:12→19:40)
[2017-05-19] MEDS: CYANOCOBALAMIN (VITAMIN B-12) 1,000 MCG TABLET. PO SCH (09:12)
[2017-05-19] MEDS: PRENATAL MULTIVITAMIN TABLET. PO SCH (17:51)
[2017-05-19] MEDS: MIRTAZAPINE 15 MG TABLET PO SCH (19:40)
[2017-05-19] MEDS: ATORVASTATIN CALCIUM 20 MG TABLET PO SCH (19:40)
[2017-05-19] MEDS: traZODone 100 MG TABLET. PO SCH (19:40)
--- NOTE | 2017-05-19 21:04 | PDOC ---
Exam Jasper Demential Exam: Jasper Note: Please also refer to the separate dictated note~for this date of service dictated separately.~Patient seen individually. Discussed the patient with Nursing staff reviewed the chart.~Reviewed interim history and current functioning. Reviewed vital signs,~Labs/ Radiology~and current medications noted below. Continue current treatment with the changes noted in the dictated addendum note Assessment: Vital Signs: Vital Signs Date Time Temp Pulse Resp B/P (MAP) Pulse Ox O2 Delivery O2 Flow Rate FiO2 05/19/17 16:26 97.7 18 05/19/17 06:41 73 108/58 (75) 97 05/15/17 16:24 Room Air I&O Intake and Output 05/20/17 07:00 Intake Total 740 ml Balance 740 ml Intake Oral 740 ml Current Medications: Meds: Current Medications Acetaminophen (Tylenol) 650 mg PRN Q6HRS PRN PO PAIN / TEMP; Start 05/14/17 at 17:15 Multi-Ingredient Ointment (Analgesic [place]) 1 ene PRN QID PRN TP MUSCLE PAIN; Start 05/14/17 at 17:15 Al Hydroxide/Mg Hydroxide (Mylanta Plus Xs) 15 ml PRN AFTMEALHC PRN PO DYSPEPSIA; Start 05/14/17 at 17:15 Magnesium Hydroxide (Milk Of Magnesia) 2,400 mg PRN QHS PRN PO CONSTIPATION; Start 05/14/17 at 17:15 Lorazepam (Ativan) 1 mg PRN Q6HRS PRN PO ANXIETY / AGITATION Last administered on 05/16/17 17:01; Start 05/14/17 at 18:30 Olanzapine (ZyPREXA) 5 mg PRN Q6HRS PRN PO ANXIETY / AGITATION Last administered on 05/15/17 02:02; Start 05/14/17 at 18:30 Quetiapine Fumarate (SEROquel) 50 mg BID PO Last administered on 05/15/17 11: 45; Start 05/14/17 at 21:00; Stop 05/15/17 at 19:07; Status DC Non-Formulary Medication 1 tab QHS PRN PO INSOMNIA; Start 05/14/17 at 18:30; Status UNV Cyanocobalamin (Vitamin B-12) 1,000 mcg DAILY PO Last administered on 09:12; Start 05/15/17 at 09:00 Pneumococcal Polyvalent Vaccine (Pneumovax 23) 0.5 ml ONCE ONCE VAX IM ; Start 05/15/17 at 09:00; Stop 05/15/17 at 09:01; Status DC Influenza Virus Vaccine Quadrival (Fluarix Quad Syringe) 0.5 ml ONCE ONCE VAX IM ; Start 05/15/17 at 09:00; Stop 05/15/17 at 09:01; Status DC Melatonin 3 mg PRN QHS PRN PO INSOMNIA Last administered on 05/17/17 19:50; Start 05/15/17 at 07:30 Pneumococcal Polyvalent Vaccine (Pneumovax 23) 0.5 ml ONCE ONCE VAX IM ; Start 05/17/17 at 09:00; Stop 05/17/17 at 09:01; Status DC Influenza Virus Vaccine Quadrival (Fluarix Quad Syringe) 0.5 ml ONCE ONCE VAX IM ; Start 05/17/17 at 09:00; Stop 05/17/17 at 09:01; Status DC Mirtazapine (Remeron) 7.5 mg QHS PO Last administered on 05/15/17 20:25; Start 05/15/17 at 21:00; Stop 05/16/17 at 18:21; Status DC Risperidone (RisperDAL) 0.25 mg BID PO Last administered on 05/19/17 19:40; Start 05/15/17 at 21:00 Trazodone HCl (Desyrel) 50 mg PRN QHS PRN PO INSOMNIA, MAY REPEAT X1 Last administered on 05/15/17 23:26; Start 05/15/17 at 19:15; Stop 05/16/17 at 18 :21; Status DC Prenat Multivit/ [place]/Iron/Folic Ac (Multivitamin ) 1 tab DAILYBFRSUP PO Last administered on 05/19/17 17:51; Start 05/16/17 at 17:00 Atorvastatin Calcium (Lipitor) 20 mg QHS PO Last administered on 05/19/17 19: 40; Start 05/16/17 at 21:00 Divalproex Sodium (Depakote Sprinkles) 125 mg BID92 PO Last administered on 17:51; Start 05/17/17 at 09:00 Mirtazapine (Remeron) 15 mg QHS PO Last administered on 05/19/17 19:40; Start 05/16/17 at 21:00 Trazodone HCl (Desyrel) 100 mg PRN QHS PRN PO INSOMNIA, MAY REPEAT X1 Last administered on 05/16/17 19:06; Start 05/16/17 at 18:30; Stop 05/19/17 at 11 :08; Status DC Influenza Virus Vaccine Quadrival (Fluarix Quad Syringe) 0.5 ml ONCE ONCE VAX IM ; Start 05/19/17 at 09:00; Stop 05/19/17 at 09:01; Status DC Pneumococcal Polyvalent Vaccine (Pneumovax 23) 0.5 ml ONCE ONCE VAX IM ; Start 05/19/17 at 09:00; Stop 05/19/17 at 09:01; Status DC Trazodone HCl (Desyrel) 100 mg HS PO Last administered on 05/19/17 19:40; Start 05/19/17 at 21:00 Pneumococcal Polyvalent Vaccine (Pneumovax 23) 0.5 ml ONCE ONCE VAX IM ; Start 05/23/17 at 09:00; Stop 05/23/17 at 09:01 Influenza Virus Vaccine Quadrival (Fluarix Quad Syringe) 0.5 ml ONCE ONCE VAX IM ; Start 05/23/17 at 09:00; Stop 05/23/17 at 09:01 Active Scripts Active Reported Seroquel (Quetiapine Fumarate) 25 Mg Tablet 2 Tab PO BID Olanzapine 5 Mg Tablet 1 Tab PO PRN Q6HRS PRN Olanzapine Inj (Olanzapine) 10 Mg Vial 5 Mg IM PRN Q6HRS PRN Melatonin 3 Mg Tablet 1 Tab PO QHS PRN Ativan (Lorazepam) 1 Mg Tablet 1 Mg PO PRN Q6HRS PRN Ativan (Lorazepam) 2 Mg/1 Ml Vial 1 Mg IJ PRN Q6HRS PRN B-12 (Cyanocobalamin (Vitamin B-12)) 500 Mcg Tablet 1,000 Mcg PO DAILY Diagnosis: Problems: (1) Anxiety disorder (2) Dementia in Alzheimer's disease with delusions (3) Dementia in Alzheimer's disease with depression (4) Dementia, vascular, with delusions (5) Dementia, vascular, with depression (6) Impulse control disorder MAX BIGGS MD May 19, 2017 21:04
[2017-05-19] MEDS: OLANZapine 5 MG TABLET PO PRN (23:20)
[2017-05-20 06:05] VITALS: BP 103/49
--- NOTE | 2017-05-20 06:21 | PN ---
DATE: 05/18/2017 PSYCHIATRIC PROGRESS NOTE This is a late entry for 05/18/2017, covers elements not covered in my initial note of 05/18/2017. SUBJECTIVE: I met with the patient the evening of 05/18/2017. The patient takes her medications in ice cream, needs to be coaxed for taking her medications, often spits them out. Somewhat withdrawn, laughing somewhat inappropriately, weird in her verbal comments at times, disorganized, confused. REVIEW OF SYSTEMS: No CV, , pulmonary, eye, ENT system symptoms on review. Reliability poor. MENTAL STATUS EXAM: Oriented to herself. Insight, judgment, recent and remote memory, attention, concentration, fund of knowledge poor, consistent with her diagnosis mentioned in my initial note. PLAN: Continue current psychotropics. Reviewed drug interactions. Risk/benefit ratio favors no further change. Overall, she is doing better, less psychotic, and we will have to adjust further as clinically indicated. MAX BIGGS MD DR: MONICA/daniel JOB#: [id number] / [id number]
[2017-05-20] MEDS: DIVALPROEX 125 MG CAP.SPRINK PO SCH ×3 (07:31→19:44)
[2017-05-20] MEDS: CYANOCOBALAMIN (VITAMIN B-12) 1,000 MCG TABLET. PO SCH (07:31)
[2017-05-20] MEDS: risperiDONE 0.25 MG TABLET. PO SCH ×2 (07:31→19:43)
[2017-05-20 07:39] LABS: BASO # 0.1 x10^3/uL (0.0-0.2); BASO % 1 % (0-3); EOS # 0.4 x10^3/uL (0.0-0.7); EOS % 5 % (0-3); HEMATOCRIT 31.3 % (36.0-47.0); HEMOGLOBIN 10.7 g/dL (12.0-15.5); LYMPH % 24 % (24-48); MEAN CORPUSCULAR HEMOGLOBIN 31 pg (25-35); MEAN CORPUSCULAR HGB CONC 34 g/dL (31-37); MEAN CORPUSCULAR VOLUME 91 fL (79-100); MONO # 0.8 x10^3/uL (0.0-1.1); MONO % 9 % (0-9); NEUT # 5.2 x10^3uL (1.8-7.7); NEUT % 61 % (31-73); PLATELET COUNT 320 x10^3/uL (140-400); RED BLOOD COUNT 3.46 x10^6/uL (3.50-5.40); RED CELL DISTRIBUTION WIDTH 13.6 % (11.5-14.5); WHITE BLOOD COUNT 8.4 x10^3/uL (4.0-11.0)
[2017-05-20 07:56] LABS: ALBUMIN 2.8 g/dL (3.4-5.0); ALBUMIN/GLOBULIN RATIO 0.9 (1.0-1.7); ALK PHOS 81 U/L (46-116); ALT (SGPT) 23 U/L (14-59); ANION GAP 8 (6-14); AST (SGOT) 16 U/L (15-37); BLOOD UREA NITROGEN 21 mg/dL (7-20); BUN/CREATININE RATIO 21 (6-20); CALCIUM 8.9 mg/dL (8.5-10.1); CARBON DIOXIDE 27 mmol/L (21-32); CHLORIDE 106 mmol/L (98-107); GFR 54.8; GLUCOSE 94 mg/dL (70-99); POTASSIUM 4.2 mmol/L (3.5-5.1); SODIUM 141 mmol/L (136-145); TOTAL BILIRUBIN 0.4 mg/dL (0.2-1.0)
[2017-05-20 07:57] LABS: VAL ACID 21 mcg/mL (50-100)
[2017-05-20 16:39] VITALS: BP 112/46
[2017-05-20] MEDS: PRENATAL MULTIVITAMIN TABLET. PO SCH (16:48)
[2017-05-20] MEDS: traZODone 100 MG TABLET. PO SCH (19:43)
[2017-05-20] MEDS: MIRTAZAPINE 15 MG TABLET PO SCH (19:43)
[2017-05-20] MEDS: ATORVASTATIN CALCIUM 20 MG TABLET PO SCH (19:43)
[2017-05-20] MEDS: MELATONIN 3 MG TABLET PO PRN (19:44)
--- NOTE | 2017-05-20 21:01 | PDOC ---
Exam Jasper Demential Exam: Jasper Note: Please also refer to the separate dictated note~for this date of service dictated separately.~Patient seen individually. Discussed the patient with Nursing staff reviewed the chart.~Reviewed interim history and current functioning. Reviewed vital signs,~Labs/ Radiology~and current medications noted below. Continue current treatment with the changes noted in the dictated addendum note Assessment: Vital Signs: Vital Signs Date Time Temp Pulse Resp B/P (MAP) Pulse Ox O2 Delivery O2 Flow Rate FiO2 05/20/17 16:39 98.0 75 18 112/46 (68) 99 05/15/17 16:24 Room Air I&O Intake and Output 05/21/17 07:00 Intake Total 240 ml Balance 240 ml Intake Oral 240 ml Labs: Laboratory Tests Test 05/20/17 07:25 White Blood Count 8.4 x10^3/uL (4.0-11.0) Red Blood Count 3.46 x10^6/uL (3.50-5.40) L Hemoglobin 10.7 g/dL (12.0-15.5) L Hematocrit 31.3 % (36.0-47.0) L Mean Corpuscular Volume 91 fL (79-100) Mean Corpuscular Hemoglobin 31 pg (25-35) Mean Corpuscular Hemoglobin Concent 34 g/dL (31-37) Red Cell Distribution Width 13.6 % (11.5-14.5) Platelet Count 320 x10^3/uL (140-400) Neutrophils (%) (Auto) 61 % (31-73) Lymphocytes (%) (Auto) 24 % (24-48) Monocytes (%) (Auto) 9 % (0-9) Eosinophils (%) (Auto) 5 % (0-3) H Basophils (%) (Auto) 1 % (0-3) Neutrophils # (Auto) 5.2 x10^3uL (1.8-7.7) Lymphocytes # (Auto) 2.0 x10^3/uL (1.0-4.8) Monocytes # (Auto) 0.8 x10^3/uL (0.0-1.1) Eosinophils # (Auto) 0.4 x10^3/uL (0.0-0.7) Basophils # (Auto) 0.1 x10^3/uL (0.0-0.2) Sodium Level 141 mmol/L (136-145) Potassium Level 4.2 mmol/L (3.5-5.1) Chloride Level 106 mmol/L (98-107) Carbon Dioxide Level 27 mmol/L (21-32) Anion Gap 8 (6-14) Blood Urea Nitrogen 21 mg/dL (7-20) H Creatinine 1.0 mg/dL (0.6-1.0) Estimated GFR (Cockcroft-Gault) 54.8 BUN/Creatinine Ratio 21 (6-20) H Glucose Level 94 mg/dL (70-99) Calcium Level 8.9 mg/dL (8.5-10.1) Total Bilirubin 0.4 mg/dL (0.2-1.0) Aspartate Amino Transferase (AST) 16 U/L (15-37) Alanine Aminotransferase (ALT) 23 U/L (14-59) Alkaline Phosphatase 81 U/L (46-116) Total Protein 6.0 g/dL (6.4-8.2) L Albumin 2.8 g/dL (3.4-5.0) L Albumin/Globulin Ratio 0.9 (1.0-1.7) L Valproic Acid Level 21 mcg/mL (50-100) L Valproic Acid Last Dose Date 05/19/17 Valproic Acid Last Dose Time 1400 Current Medications: Meds: Current Medications Acetaminophen (Tylenol) 650 mg PRN Q6HRS PRN PO PAIN / TEMP; Start 05/14/17 at 17:15 Multi-Ingredient Ointment (Analgesic Daniel) 1 ene PRN QID PRN TP MUSCLE PAIN; Start 05/14/17 at 17:15 Al Hydroxide/Mg Hydroxide (Mylanta Plus Xs) 15 ml PRN AFTMEALHC PRN PO DYSPEPSIA; Start 05/14/17 at 17:15 Magnesium Hydroxide (Milk Of Magnesia) 2,400 mg PRN QHS PRN PO CONSTIPATION; Start 05/14/17 at 17:15 Lorazepam (Ativan) 1 mg PRN Q6HRS PRN PO ANXIETY / AGITATION Last administered on 05/16/17 17:01; Start 05/14/17 at 18:30 Olanzapine (ZyPREXA) 5 mg PRN Q6HRS PRN PO ANXIETY / AGITATION Last administered on 05/19/17t 23:20; Start 05/14/17 at 18:30 Quetiapine Fumarate (SEROquel) 50 mg BID PO Last administered on 05/15/17 11: 45; Start 05/14/17 at 21:00; Stop 05/15/17 at 19:07; Status DC Non-Formulary Medication 1 tab QHS PRN PO INSOMNIA; Start 05/14/17 at 18:30; Status UNV Cyanocobalamin (Vitamin B-12) 1,000 mcg DAILY PO Last administered on 07:31; Start 05/15/17 at 09:00 Pneumococcal Polyvalent Vaccine (Pneumovax 23) 0.5 ml ONCE ONCE VAX IM ; Start 05/15/17 at 09:00; Stop 05/15/17 at 09:01; Status DC Influenza Virus Vaccine Quadrival (Fluarix Quad Syringe) 0.5 ml ONCE ONCE VAX IM ; Start 05/15/17 at 09:00; Stop 05/15/17 at 09:01; Status DC Melatonin 3 mg PRN QHS PRN PO INSOMNIA Last administered on 05/20/17 19:44; Start 05/15/17 at 07:30 Pneumococcal Polyvalent Vaccine (Pneumovax 23) 0.5 ml ONCE ONCE VAX IM ; Start 05/17/17 at 09:00; Stop 05/17/17 at 09:01; Status DC Influenza Virus Vaccine Quadrival (Fluarix Quad Syringe) 0.5 ml ONCE ONCE VAX IM ; Start 05/17/17 at 09:00; Stop 05/17/17 at 09:01; Status DC Mirtazapine (Remeron) 7.5 mg QHS PO Last administered on 05/15/17 20:25; Start 05/15/17 at 21:00; Stop 05/16/17 at 18:21; Status DC Risperidone (RisperDAL) 0.25 mg BID PO Last administered on 05/20/17 19:43; Start 05/15/17 at 21:00 Trazodone HCl (Desyrel) 50 mg PRN QHS PRN PO INSOMNIA, MAY REPEAT X1 Last administered on 05/15/17 23:26; Start 05/15/17 at 19:15; Stop 05/16/17 at 18 :21; Status DC Prenat Multivit/ Supply Coordinator/Iron/Folic Ac (Multivitamin ) 1 tab DAILYBFRSUP PO Last administered on 05/19/17 17:51; Start 05/16/17 at 17:00 Atorvastatin Calcium (Lipitor) 20 mg QHS PO Last administered on 05/20/17 19: 43; Start 05/16/17 at 21:00 Divalproex Sodium (Depakote Sprinkles) 125 mg BID92 PO Last administered on 12:25; Start 05/17/17 at 09:00 Mirtazapine (Remeron) 15 mg QHS PO Last administered on 05/20/17 19:43; Start 05/16/17 at 21:00 Trazodone HCl (Desyrel) 100 mg PRN QHS PRN PO INSOMNIA, MAY REPEAT X1 Last administered on 05/16/17 19:06; Start 05/16/17 at 18:30; Stop 05/19/17 at 11 :08; Status DC Influenza Virus Vaccine Quadrival (Fluarix Quad Syringe) 0.5 ml ONCE ONCE VAX IM ; Start 05/19/17 at 09:00; Stop 05/19/17 at 09:01; Status DC Pneumococcal Polyvalent Vaccine (Pneumovax 23) 0.5 ml ONCE ONCE VAX IM ; Start 05/19/17 at 09:00; Stop 05/19/17 at 09:01; Status DC Trazodone HCl (Desyrel) 100 mg HS PO Last administered on 05/20/17 19:43; Start 05/19/17 at 21:00 Pneumococcal Polyvalent Vaccine (Pneumovax 23) 0.5 ml ONCE ONCE VAX IM ; Start 05/23/17 at 09:00; Stop 05/23/17 at 09:01 Influenza Virus Vaccine Quadrival (Fluarix Quad Syringe) 0.5 ml ONCE ONCE VAX IM ; Start 05/23/17 at 09:00; Stop 05/23/17 at 09:01 Divalproex Sodium (Depakote Sprinkles) 250 mg HS PO Last administered on 19:44; Start 05/20/17 at 21:00 Active Scripts Active Reported Seroquel (Quetiapine Fumarate) 25 Mg Tablet 2 Tab PO BID Olanzapine 5 Mg Tablet 1 Tab PO PRN Q6HRS PRN Olanzapine Inj (Olanzapine) 10 Mg Vial 5 Mg IM PRN Q6HRS PRN Melatonin 3 Mg Tablet 1 Tab PO QHS PRN Ativan (Lorazepam) 1 Mg Tablet 1 Mg PO PRN Q6HRS PRN Ativan (Lorazepam) 2 Mg/1 Ml Vial 1 Mg IJ PRN Q6HRS PRN B-12 (Cyanocobalamin (Vitamin B-12)) 500 Mcg Tablet 1,000 Mcg PO DAILY Diagnosis: Problems: (1) Anxiety disorder (2) Dementia in Alzheimer's disease with delusions (3) Dementia in Alzheimer's disease with depression (4) Dementia, vascular, with delusions (5) Dementia, vascular, with depression (6) Impulse control disorder MAX BIGGS MD May 20, 2017 21:01
--- NOTE | 2017-05-21 04:33 | PN ---
DATE: 05/19/2017 PSYCHIATRIC PROGRESS NOTE This late entry, date of service, 05/19/2017 covers elements not covered in my initial note of 05/19/2017. SUBJECTIVE: I met with the patient individually evening of 05/19/2017 and the patient was staffed at a treatment team meeting with the entire team morning of 05/19/2017 and her , Giancarlo attended the conference. Reviewed the patient's history of worsening confusion, memory deficits and then the onset of psychosis. has visited the patient almost daily in the hospital and he is seeing improvement with her psychosis, agitation, restlessness and is pleased with this. She slept 4-1/2 hours previous evening, takes her meds in ice cream, showing less mood lability per nursing staff, slept 4-1/2 hours. REVIEW OF SYSTEMS: No CV, , pulmonary, eye, ENT system symptoms on review. Reliability poor. MENTAL STATUS EXAM: Oriented to herself. Insight, judgment, recent and remote memory, attention, concentration, fund of knowledge poor, consistent with her diagnosis. The evening of 05/19/2017, per nursing report, she has been somewhat arguing, sarcastic, wandering into rooms of other patients, refusing to leave, paranoid the previous evening, thought staff are talking about her. LABORATORIES: Reviewed. IMPRESSION: Unchanged from initial note. PLAN: Change the p.r.n. trazodone 100 mg to scheduled 100 mg at bedtime, may repeat x 1 p.r.n. insomnia. Continue Depakote along with Ativan p.r.n., melatonin p.r.n., Zyprexa p.r.n., Remeron, Risperdal is 0.25 mg 3 times a day and we may need to increase this depending on her ongoing psychosis. Review drug interactions, risk/benefit ratio favors no further change for now. MAX BIGGS MD DR: MONICA/daniel JOB#: [id number] / [id number]
[2017-05-21 06:04] VITALS: BP 102/65
[2017-05-21] MEDS: risperiDONE 0.25 MG TABLET. PO SCH ×2 (08:46→20:26)
[2017-05-21] MEDS: DIVALPROEX 125 MG CAP.SPRINK PO SCH ×3 (08:46→20:26)
[2017-05-21] MEDS: CYANOCOBALAMIN (VITAMIN B-12) 1,000 MCG TABLET. PO SCH (08:47)
[2017-05-21 16:33] VITALS: BP 104/72
[2017-05-21] MEDS: PRENATAL MULTIVITAMIN TABLET. PO SCH (17:04)
[2017-05-21] MEDS: ATORVASTATIN CALCIUM 20 MG TABLET PO SCH (20:26)
[2017-05-21] MEDS: MIRTAZAPINE 15 MG TABLET PO SCH (20:26)
[2017-05-21] MEDS: traZODone 150 MG TABLET. PO SCH (20:27)
--- NOTE | 2017-05-21 22:06 | PDOC ---
Exam Jasper Demential Exam: Jasper Note: Please also refer to the separate dictated note~for this date of service dictated separately.~Patient seen individually. Discussed the patient with Nursing staff reviewed the chart.~Reviewed interim history and current functioning. Reviewed vital signs,~Labs/ Radiology~and current medications noted below. Continue current treatment with the changes noted in the dictated addendum note Assessment: Vital Signs: Vital Signs Date Time Temp Pulse Resp B/P (MAP) Pulse Ox O2 Delivery O2 Flow Rate FiO2 05/21/17 16:33 98.2 72 20 104/72 (83) 97 05/21/17 06:04 Room Air I&O Intake and Output 05/22/17 07:00 Intake Total 720 ml Balance 720 ml Intake Oral 720 ml Current Medications: Meds: Current Medications Acetaminophen (Tylenol) 650 mg PRN Q6HRS PRN PO PAIN / TEMP; Start 05/14/17 at 17:15 Multi-Ingredient Ointment (Analgesic [place]) 1 ene PRN QID PRN TP MUSCLE PAIN; Start 05/14/17 at 17:15 Al Hydroxide/Mg Hydroxide (Mylanta Plus Xs) 15 ml PRN AFTMEALHC PRN PO DYSPEPSIA; Start 05/14/17 at 17:15 Magnesium Hydroxide (Milk Of Magnesia) 2,400 mg PRN QHS PRN PO CONSTIPATION; Start 05/14/17 at 17:15 Lorazepam (Ativan) 1 mg PRN Q6HRS PRN PO ANXIETY / AGITATION Last administered on 05/16/17 17:01; Start 05/14/17 at 18:30 Olanzapine (ZyPREXA) 5 mg PRN Q6HRS PRN PO ANXIETY / AGITATION Last administered on 05/19/17 23:20; Start 05/14/17 at 18:30 Quetiapine Fumarate (SEROquel) 50 mg BID PO Last administered on 05/15/17 11: 45; Start 05/14/17 at 21:00; Stop 05/15/17 at 19:07; Status DC Non-Formulary Medication 1 tab QHS PRN PO INSOMNIA; Start 05/14/17 at 18:30; Status UNV Cyanocobalamin (Vitamin B-12) 1,000 mcg DAILY PO Last administered on 08:47; Start 05/15/17 at 09:00 Pneumococcal Polyvalent Vaccine (Pneumovax 23) 0.5 ml ONCE ONCE VAX IM ; Start 05/15/17 at 09:00; Stop 05/15/17 at 09:01; Status DC Influenza Virus Vaccine Quadrival (Fluarix Quad Syringe) 0.5 ml ONCE ONCE VAX IM ; Start 05/15/17 at 09:00; Stop 05/15/17 at 09:01; Status DC Melatonin 3 mg PRN QHS PRN PO INSOMNIA Last administered on 05/20/17 19:44; Start 05/15/17 at 07:30 Pneumococcal Polyvalent Vaccine (Pneumovax 23) 0.5 ml ONCE ONCE VAX IM ; Start 05/17/17 at 09:00; Stop 05/17/17 at 09:01; Status DC Influenza Virus Vaccine Quadrival (Fluarix Quad Syringe) 0.5 ml ONCE ONCE VAX IM ; Start 05/17/17 at 09:00; Stop 05/17/17 at 09:01; Status DC Mirtazapine (Remeron) 7.5 mg QHS PO Last administered on 05/15/17 20:25; Start 05/15/17 at 21:00; Stop 05/16/17 at 18:21; Status DC Risperidone (RisperDAL) 0.25 mg BID PO Last administered on 05/21/17 20:26; Start 05/15/17 at 21:00 Trazodone HCl (Desyrel) 50 mg PRN QHS PRN PO INSOMNIA, MAY REPEAT X1 Last administered on 05/15/17 23:26; Start 05/15/17 at 19:15; Stop 05/16/17 at 18 :21; Status DC Prenat Multivit/ Ray/Iron/Folic Ac (Multivitamin ) 1 tab DAILYBFRSUP PO Last administered on 05/21/17 17:04; Start 05/16/17 at 17:00 Atorvastatin Calcium (Lipitor) 20 mg QHS PO Last administered on 05/21/17 20: 26; Start 05/16/17 at 21:00 Divalproex Sodium (Depakote Sprinkles) 125 mg BID92 PO Last administered on 13:43; Start 05/17/17 at 09:00 Mirtazapine (Remeron) 15 mg QHS PO Last administered on 05/21/17 20:26; Start 05/16/17 at 21:00 Trazodone HCl (Desyrel) 100 mg PRN QHS PRN PO INSOMNIA, MAY REPEAT X1 Last administered on 05/16/17 19:06; Start 05/16/17 at 18:30; Stop 05/19/17 at 11 :08; Status DC Influenza Virus Vaccine Quadrival (Fluarix Quad Syringe) 0.5 ml ONCE ONCE VAX IM ; Start 05/19/17 at 09:00; Stop 05/19/17 at 09:01; Status DC Pneumococcal Polyvalent Vaccine (Pneumovax 23) 0.5 ml ONCE ONCE VAX IM ; Start 05/19/17 at 09:00; Stop 05/19/17 at 09:01; Status DC Trazodone HCl (Desyrel) 100 mg HS PO Last administered on 05/20/17 19:43; Start 05/19/17 at 21:00; Stop 05/21/17 at 07:59; Status DC Pneumococcal Polyvalent Vaccine (Pneumovax 23) 0.5 ml ONCE ONCE VAX IM ; Start 05/23/17 at 09:00; Stop 05/23/17 at 09:01 Influenza Virus Vaccine Quadrival (Fluarix Quad Syringe) 0.5 ml ONCE ONCE VAX IM ; Start 05/23/17 at 09:00; Stop 05/23/17 at 09:01 Divalproex Sodium (Depakote Sprinkles) 250 mg HS PO Last administered on 20:26; Start 05/20/17 at 21:00 Trazodone HCl (Desyrel) 150 mg HS PO Last administered on 05/21/17 20:27; Start 05/21/17 at 21:00 Trazodone HCl (Desyrel) 50 mg PRN QHS PRN PO INSOMNIA; Start 05/21/17 at 08:00 Active Scripts Active Reported Seroquel (Quetiapine Fumarate) 25 Mg Tablet 2 Tab PO BID Olanzapine 5 Mg Tablet 1 Tab PO PRN Q6HRS PRN Olanzapine Inj (Olanzapine) 10 Mg Vial 5 Mg IM PRN Q6HRS PRN Melatonin 3 Mg Tablet 1 Tab PO QHS PRN Ativan (Lorazepam) 1 Mg Tablet 1 Mg PO PRN Q6HRS PRN Ativan (Lorazepam) 2 Mg/1 Ml Vial 1 Mg IJ PRN Q6HRS PRN B-12 (Cyanocobalamin (Vitamin B-12)) 500 Mcg Tablet 1,000 Mcg PO DAILY Diagnosis: Problems: (1) Anxiety disorder (2) Dementia in Alzheimer's disease with delusions (3) Dementia in Alzheimer's disease with depression (4) Dementia, vascular, with delusions (5) Dementia, vascular, with depression (6) Impulse control disorder MAX BIGGS MD May 21, 2017 22:06
[2017-05-22 06:10] VITALS: BP 91/52
[2017-05-22] MEDS: CYANOCOBALAMIN (VITAMIN B-12) 1,000 MCG TABLET. PO SCH (08:09)
[2017-05-22] MEDS: DIVALPROEX 125 MG CAP.SPRINK PO SCH ×3 (08:09→19:25)
[2017-05-22] MEDS: risperiDONE 0.25 MG TABLET. PO SCH ×2 (08:09→19:25)
[2017-05-22] MEDS: PRENATAL MULTIVITAMIN TABLET. PO SCH (08:10)
--- NOTE | 2017-05-22 14:22 | PN ---
DATE: 05/21/2017 PSYCHIATRIC PROGRESS NOTE This note covers the elements not covered in my initial note of 05/21/2017. I met with the patient in her room. Overall, she did well the previous evening, took her medications whole with some coaxing, not hidden. REVIEW OF SYSTEMS: No CV, , pulmonary, eye, ENT system symptoms on review. Reliability poor. MENTAL STATUS EXAM: Oriented to herself. Insight, judgment, recent and remote memory, attention, concentration, fund of knowledge poor, consistent with her diagnosis mentioned in my initial note. PLAN: Continue current psychotropics. Reviewed drug interactions. Risk/benefit ratio favors no further change. MAX BIGGS MD DR: MONICA/daniel JOB#: [id number] / [id number]
[2017-05-22 16:14] VITALS: BP 122/87
[2017-05-22] MEDS: ATORVASTATIN CALCIUM 20 MG TABLET PO SCH (19:25)
[2017-05-22] MEDS: traZODone 150 MG TABLET. PO SCH (19:25)
[2017-05-22] MEDS: MIRTAZAPINE 15 MG TABLET PO SCH (19:25)
[2017-05-23 06:15] VITALS: BP 119/54
[2017-05-23] MEDS: DIVALPROEX 125 MG CAP.SPRINK PO SCH ×3 (08:35→19:39)
[2017-05-23] MEDS: CYANOCOBALAMIN (VITAMIN B-12) 1,000 MCG TABLET. PO SCH (08:35)
[2017-05-23] MEDS: risperiDONE 0.25 MG TABLET. PO SCH ×2 (08:35→19:39)
[2017-05-23] MEDS: PRENATAL MULTIVITAMIN TABLET. PO SCH (08:38)
[2017-05-23] MEDS ORDERED: PNEUMOC CONJ VACC 23-VALENT 0.5 ML VIAL. VAX IM ONE (09:00)
[2017-05-23] MEDS ORDERED: FLU VACC QS2017-18 (36MOS+)/PF 0.5 ML SYRINGE. VAX IM ONE (09:00)
[2017-05-23 09:57] LABS: BASO # 0.1 x10^3/uL (0.0-0.2); BASO % 1 % (0-3); EOS # 0.5 x10^3/uL (0.0-0.7); EOS % 7 % (0-3); HEMATOCRIT 36.8 % (36.0-47.0); HEMOGLOBIN 12.4 g/dL (12.0-15.5); LYMPH # 2.5 x10^3/uL (1.0-4.8); LYMPH % 31 % (24-48); MEAN CORPUSCULAR HEMOGLOBIN 31 pg (25-35); MEAN CORPUSCULAR HGB CONC 34 g/dL (31-37); MEAN CORPUSCULAR VOLUME 92 fL (79-100); MONO # 0.4 x10^3/uL (0.0-1.1); MONO % 5 % (0-9); NEUT # 4.6 x10^3uL (1.8-7.7); NEUT % 56 % (31-73); PLATELET COUNT 349 x10^3/uL (140-400); RED BLOOD COUNT 4.02 x10^6/uL (3.50-5.40); WHITE BLOOD COUNT 8.1 x10^3/uL (4.0-11.0)
[2017-05-23 10:06] LABS: ALBUMIN 3.1 g/dL (3.4-5.0); ALBUMIN/GLOBULIN RATIO 0.9 (1.0-1.7); ALK PHOS 88 U/L (46-116); ALT (SGPT) 26 U/L (14-59); ANION GAP 10 (6-14); AST (SGOT) 16 U/L (15-37); BLOOD UREA NITROGEN 22 mg/dL (7-20); BUN/CREATININE RATIO 20 (6-20); CARBON DIOXIDE 26 mmol/L (21-32); CHLORIDE 107 mmol/L (98-107); CREATININE 1.1 mg/dL (0.6-1.0); GFR 49.1; GLUCOSE 119 mg/dL (70-99); POTASSIUM 3.9 mmol/L (3.5-5.1); SODIUM 143 mmol/L (136-145); TOTAL BILIRUBIN 0.3 mg/dL (0.2-1.0); TOTAL PROTEIN 6.6 g/dL (6.4-8.2)
[2017-05-23 10:12] LABS: VAL ACID 67 mcg/mL (50-100)
--- NOTE | 2017-05-23 11:29 | PN ---
DATE: 05/20/2017 This late entry, date of service 05/20/2017, covers elements not covered in my initial note of 05/20/2017. The patient slept two and quarter hours previous evening. She has been withdrawn, less sarcastic. Previous evening, she got quite agitated when nursing staff assisted her with a shower. She was using verbal profanities. REVIEW OF SYSTEMS: No CV, , pulmonary, eye, ENT system symptoms on review. Reliability poor. She is pleasant, smiling, quite confused as I met with her individually. MENTAL STATUS EXAM: Oriented to herself. Insight, judgment, recent and remote memory, attention, concentration, fund of knowledge poor, consistent with her diagnosis mentioned in my initial note. PLAN: Continue Depakote Sprinkles 125 mg b.i.d., level subtherapeutic at 21, we will add 250 mg p.o. at bedtime to the current dosage. Check CBC, CMP, valproic acid level in 3 days starting 05/21/2017. We will also increase the bedtime trazodone to 250 mg, may repeat x 1 for insomnia. I do feel as the Depakote helps her with the mood stabilization, the sleeping pattern will improve as well. Reviewed drug interactions, risk/benefit ratio favors no further change. MAX BIGGS MD DR: MONICA/daniel JOB#: [id number] / [id number]
[2017-05-23 16:16] VITALS: BP 125/61
[2017-05-23] MEDS: traZODone 150 MG TABLET. PO SCH (19:39)
[2017-05-23] MEDS: MIRTAZAPINE 15 MG TABLET PO SCH (19:39)
[2017-05-23] MEDS: ATORVASTATIN CALCIUM 20 MG TABLET PO SCH (19:39)
[2017-05-23] MEDS: traZODone 50 MG TABLET. PO PRN (21:17)
[2017-05-23] MEDS: LORazepam 1 MG TABLET PO PRN (21:18)
[2017-05-23] MEDS: MELATONIN 3 MG TABLET PO PRN (21:18)
--- NOTE | 2017-05-24 03:07 | PN ---
DATE: 05/23/2017 SUBJECTIVE: The patient was seen today, met with the staff, chart reviewed. Staff reports no major problems. The patient apparently has shown some improvement. The patient on admission was refusing medication, compulsive, aggressive and also delusional. The patient also had episodic confusion and behavior problems. OBJECTIVE: VITAL SIGNS: Temperature 97.5, blood pressure 119/54, respirations 20, pulse 100, slept about 6 hours last night. The patient did not have any falls. MEDICATIONS: Reviewed. Currently on Depakote Sprinkles, Remeron, Risperdal and trazodone. The patient is not presenting with any major behavior problems at this time. The patient is not having any side effects to the medications. ASSESSMENT: Major neurocognitive disorder, Alzheimer's, vascular with depression, delusions and behavioral disturbances. PLAN: To continue with the medications. The patient also planned for discharge as soon as the placement is available. JESSICA OTRO MD DR: ADRIANA/daniel JOB#: [id number] / [id number]
[2017-05-24 06:44] VITALS: BP 119/68
[2017-05-24] MEDS: risperiDONE 0.25 MG TABLET. PO SCH ×2 (08:53→19:19)
[2017-05-24] MEDS: DIVALPROEX 125 MG CAP.SPRINK PO SCH ×3 (08:53→19:19)
[2017-05-24] MEDS: CYANOCOBALAMIN (VITAMIN B-12) 1,000 MCG TABLET. PO SCH (08:53)
[2017-05-24 15:34] VITALS: BP 103/71
[2017-05-24] MEDS: PRENATAL MULTIVITAMIN TABLET. PO SCH (16:56)
[2017-05-24] MEDS: ATORVASTATIN CALCIUM 20 MG TABLET PO SCH (19:19)
[2017-05-24] MEDS: traZODone 150 MG TABLET. PO SCH (19:19)
[2017-05-24] MEDS: MIRTAZAPINE 15 MG TABLET PO SCH (19:19)
[2017-05-24] MEDS: MELATONIN 3 MG TABLET PO PRN (19:20)
--- NOTE | 2017-05-25 01:50 | PN ---
DATE: 05/24/2017 SUBJECTIVE: The patient was seen today, met with the staff, chart reviewed. The patient has shown some improvement. The patient is still confused, able to walk, but incoherent. The patient has difficulty holding a conversation. OBSERVATION: VITAL SIGNS: Temperature 97.7, blood pressure 118/78, pulse 81, respirations 16. CURRENT MEDICATIONS: Continue on all the medications. No change. PLAN: The patient is planned for discharge today. JESSICA TORO MD DR: ADRIANA/daniel JOB#: [id number] / [id number]
[2017-05-25 06:10] VITALS: BP 111/70
[2017-05-25] MEDS: DIVALPROEX 125 MG CAP.SPRINK PO SCH ×3 (08:56→19:07)
[2017-05-25] MEDS: CYANOCOBALAMIN (VITAMIN B-12) 1,000 MCG TABLET. PO SCH (08:56)
[2017-05-25] MEDS: risperiDONE 0.25 MG TABLET. PO SCH ×2 (08:56→19:07)
--- NOTE | 2017-05-25 10:05 | PN ---
DATE: 05/24/2017 SUBJECTIVE: The patient was seen today, met with the staff, chart reviewed. Staff reports no major problems. Still at times, refusing her meds and periods of delusional behaviors. Continues to have episodic confusion. OBSERVATION: VITAL SIGNS: Temperature 97.8, blood pressure 119/68, pulse 71, respiration 18, O2 sat 96%. Slept about 6 hours last night. CURRENT MEDICATIONS: The patient's current medications include Depakote Sprinkles, Remeron, Risperdal, and trazodone. The patient is not presenting with any major side effects. The patient denies of any physical problems. ASSESSMENT: Major neurocognitive disorder, Alzheimer's, vascular with depression, delusion and behavioral disturbances. PLAN: To continue with the medication. Awaiting for placement. JESSICA TORO MD DR: ADRIANA/daniel JOB#: [id number] / [id number]
[2017-05-25] MEDS: PRENATAL MULTIVITAMIN TABLET. PO SCH (16:05)
[2017-05-25 16:19] VITALS: BP 118/46
[2017-05-25] MEDS: ATORVASTATIN CALCIUM 20 MG TABLET PO SCH (19:07)
[2017-05-25] MEDS: MIRTAZAPINE 15 MG TABLET PO SCH (19:07)
[2017-05-25] MEDS: traZODone 150 MG TABLET. PO SCH (19:07)
[2017-05-25] MEDS: MELATONIN 3 MG TABLET PO PRN (19:07)
--- NOTE | 2017-05-26 05:02 | PN ---
DATE: 05/25/2017 SUBJECTIVE: The patient was seen today, met with the staff, chart reviewed. Staff reports no major problems, continues to be confused, significant cognitive deficits. The patient did not have any falls. OBSERVATION: VITAL SIGNS: Temperature 97.4, blood pressure 111/70, pulse 73, respirations 18, O2 sat 98%. Slept about 5-1/2 hours last night. CURRENT MEDICATIONS: The patient's current medications include Depakote Sprinkles 125 mg b.i.d., Ativan 1 mg q. 6 hours p.r.n., melatonin 3 mg at night p.r.n., Zyprexa 5 mg q. 6h p.r.n., Remeron 15 mg at night, Risperdal 0.25 mg b.i.d., trazodone 150 mg at night, Depakote Sprinkles 250 mg at night. The patient is not having any side effects to the medications. The patient's last Depakote level was 67. ASSESSMENT: Major neurocognitive disorder, Alzheimer's, vascular with depression, delusions and behavioral disturbances. PLAN: To continue with the treatment. She is awaiting for placement. JESSICA TORO MD DR: ADRIANA/daniel JOB#: [id number] / [id number]
[2017-05-26 06:02] VITALS: BP 105/49
[2017-05-26] MEDS: CYANOCOBALAMIN (VITAMIN B-12) 1,000 MCG TABLET. PO SCH (09:00)
[2017-05-26] MEDS: DIVALPROEX 125 MG CAP.SPRINK PO SCH ×3 (09:00→19:51)
[2017-05-26] MEDS: risperiDONE 0.25 MG TABLET. PO SCH ×2 (09:00→19:52)
[2017-05-26 15:39] VITALS: BP 106/53
[2017-05-26] MEDS: PRENATAL MULTIVITAMIN TABLET. PO SCH (15:50)
[2017-05-26] MEDS: ATORVASTATIN CALCIUM 20 MG TABLET PO SCH (19:52)
[2017-05-26] MEDS: MIRTAZAPINE 15 MG TABLET PO SCH (19:52)
[2017-05-26] MEDS: traZODone 150 MG TABLET. PO SCH (19:52)
[2017-05-27 05:55] VITALS: BP 119/68
--- NOTE | 2017-05-27 08:05 | PN ---
DATE: 05/26/2017 SUBJECTIVE: Discussed the treatment issues regarding the patient today in the treatment review conference. The patient continues to have problems, mostly behavior compulsive, aggressive, refusing medications, needing assistance with the ADL and also misidentification of people, at times gets paranoid and suspicious. OBSERVATION: VITAL SIGNS: Temperature 96.5, blood pressure 105/49, pulse 59, respirations 16, O2 sat 96%. Slept about 6 hours last night. CURRENT MEDICATIONS: The patient's current medications include Depakote Sprinkles 125 mg b.i.d., Ativan 1 mg q. 6 hours p.r.n., melatonin 3 mg at night p.r.n., Zyprexa 5 mg q. 6 hours p.r.n., Remeron 15 mg at night, Risperdal 0.25 mg b.i.d., trazodone 150 mg at night, and Depakote Sprinkles 250 mg at night. The patient is not having any side effects from any of these medications. No falls. ASSESSMENT: Major neurocognitive disorder, Alzheimer's, vascular with depression, delusions, and behavioral disturbances. PLAN: To continue with the treatment. Still awaiting for placement. JESSICA TORO MD DR: ADRIANA/daniel JOB#: [id number] / [id number]
[2017-05-27] MEDS: DIVALPROEX 125 MG CAP.SPRINK PO SCH ×3 (10:18→20:46)
[2017-05-27] MEDS: risperiDONE 0.25 MG TABLET. PO SCH ×2 (10:19→20:47)
[2017-05-27] MEDS: CYANOCOBALAMIN (VITAMIN B-12) 1,000 MCG TABLET. PO SCH (10:19)
[2017-05-27 16:42] VITALS: BP 115/70
[2017-05-27] MEDS: PRENATAL MULTIVITAMIN TABLET. PO SCH (17:41)
[2017-05-27] MEDS: traZODone 150 MG TABLET. PO SCH (20:46)
[2017-05-27] MEDS: MIRTAZAPINE 15 MG TABLET PO SCH (20:46)
[2017-05-27] MEDS: ATORVASTATIN CALCIUM 20 MG TABLET PO SCH (20:46)
[2017-05-28 06:01] VITALS: BP 121/62
[2017-05-28] MEDS: PRENATAL MULTIVITAMIN TABLET. PO SCH (08:26)
[2017-05-28] MEDS: DIVALPROEX 125 MG CAP.SPRINK PO SCH ×3 (08:26→19:49)
[2017-05-28] MEDS: CYANOCOBALAMIN (VITAMIN B-12) 1,000 MCG TABLET. PO SCH (08:26)
[2017-05-28] MEDS: risperiDONE 0.25 MG TABLET. PO SCH ×2 (08:26→19:49)
[2017-05-28 16:01] VITALS: BP 120/54
[2017-05-28] MEDS: traZODone 150 MG TABLET. PO SCH (19:48)
[2017-05-28] MEDS: MIRTAZAPINE 15 MG TABLET PO SCH (19:49)
[2017-05-28] MEDS: ATORVASTATIN CALCIUM 20 MG TABLET PO SCH (19:49)
--- NOTE | 2017-05-29 03:18 | PN ---
DATE: 05/28/2017 SUBJECTIVE: The patient was seen today, met with the staff, chart reviewed. Staff reports no falls. The patient continues to exhibit compulsive behaviors aggressiveness, refuses medications and also needing assistance with ADLs. The patient also getting confused with the ____ staff thinking that all her family members also get paranoid when they do not respond to her. OBSERVATION: VITAL SIGNS: Temperature 98, blood pressure ____/62, pulse 84, respiration 18, O2 sat 95%. Slept about 6 hours last night. CURRENT MEDICATIONS: The patient's current medications include Depakote Sprinkles 125 mg b.i.d., Ativan 1 mg q.6 hours p.r.n., melatonin 3 mg at night p.r.n., and Zyprexa 5 mg every 6 hours p.r.n. The patient is also on Risperdal 0.25 mg b.i.d., trazodone 150 mg at night, Remeron 15 mg at night. The patient is not having any side effects to the medications. ASSESSMENT: Major neurocognitive disorder, Alzheimer's, vascular with depression, delusion and behavioral disturbances. PLAN: To continue with the treatment, still awaiting for placement. JESSICA TORO MD DR: ADRIANA/daniel JOB#: [id number] / [id number]
[2017-05-29 06:03] VITALS: BP 114/69
[2017-05-29] MEDS: risperiDONE 0.25 MG TABLET. PO SCH ×2 (08:31→19:52)
[2017-05-29] MEDS: DIVALPROEX 125 MG CAP.SPRINK PO SCH ×3 (08:31→19:52)
[2017-05-29] MEDS: PRENATAL MULTIVITAMIN TABLET. PO SCH (08:33)
[2017-05-29] MEDS: CYANOCOBALAMIN (VITAMIN B-12) 1,000 MCG TABLET. PO SCH (08:33)
[2017-05-29 16:55] VITALS: BP 102/55
[2017-05-29] MEDS: traZODone 150 MG TABLET. PO SCH (19:52)
[2017-05-29] MEDS: ATORVASTATIN CALCIUM 20 MG TABLET PO SCH (19:52)
[2017-05-29] MEDS: MIRTAZAPINE 15 MG TABLET PO SCH (19:53)
[2017-05-29] MEDS ORDERED: OLANZapine ZYDIS 15 MG TAB.RAPDIS PO ONE (21:00)
[2017-05-29] MEDS: traZODone 50 MG TABLET. PO PRN (21:14)
--- NOTE | 2017-05-30 05:30 | PN ---
DATE: 05/29/2017 SUBJECTIVE: The patient was seen today, met with the staff, chart reviewed. The patient's behavior has improved, much calmer, presents no major behavior problems at this time. OBSERVATION: VITAL SIGNS: Temperature 97.5, blood pressure 114/69, pulse 70, respirations 14, O2 sat 96%. Slept about 6 hours last night. CURRENT MEDICATIONS: The patient's current medications include Depakote 125 mg twice a day, 250 at night; melatonin 3 mg at night; mirtazapine 15 mg at night; Zyprexa 5 mg p.r.n. q. 6 h.; Risperdal 0.25 mg b.i.d.; trazodone 150 mg at night. The patient is not having any physical complaints. ASSESSMENT: Major neurocognitive disorder, Alzheimer's, vascular with depression, delusions and behavioral disturbances. PLAN: To continue with the treatment. JESSICA TORO MD DR: ADRIANA/daniel JOB#: [id number] / [id number]
[2017-05-30 06:31] VITALS: BP 117/74
[2017-05-30 06:33] VITALS: BP 117/74
[2017-05-30] MEDS: risperiDONE 0.25 MG TABLET. PO SCH ×2 (08:52→19:41)
[2017-05-30] MEDS: DIVALPROEX 125 MG CAP.SPRINK PO SCH ×3 (08:52→19:41)
[2017-05-30] MEDS: CYANOCOBALAMIN (VITAMIN B-12) 1,000 MCG TABLET. PO SCH (08:52)
--- NOTE | 2017-05-30 12:37 | PN ---
DATE: 05/27/2017 SUBJECTIVE: The patient was seen today, met with the staff, chart reviewed. The patient's behavior remains the same. Episodes of agitation, aggressive behaviors, refusing the medications, needing assistance with ADLs, and also paranoid and suspicious at times. OBSERVATION: VITAL SIGNS: Stable. Her appetite and sleep have improved. MEDICATIONS: The patient's current medications include trazodone 150 mg at night, Depakote 250 mg at night and 125 mg b.i.d., mirtazapine 15 mg at night, Risperdal 0.25 mg b.i.d. and melatonin 3 mg at night p.r.n. The patient is also on olanzapine and lorazepam as p.r.n. The patient is not having any physical complaints. No side effects. ASSESSMENT: Major neurocognitive disorder, Alzheimer's, vascular with depression, delusion and behavioral disturbances. PLAN: To continue with the treatment. JESSICA TORO MD DR: ADRIANA/daniel JOB#: [id number] / [id number]
[2017-05-30 16:08] VITALS: BP 146/57
[2017-05-30] MEDS: PRENATAL MULTIVITAMIN TABLET. PO SCH (16:40)
[2017-05-30] MEDS: MIRTAZAPINE 15 MG TABLET PO SCH (19:41)
[2017-05-30] MEDS: ATORVASTATIN CALCIUM 20 MG TABLET PO SCH (19:41)
[2017-05-30] MEDS: traZODone 150 MG TABLET. PO SCH (19:41)
[2017-05-30] MEDS: MELATONIN 3 MG TABLET PO PRN (19:42)
--- NOTE | 2017-05-30 20:52 | PDOC ---
Exam Jasper Demential Exam: Jasper Note: Please also refer to the separate dictated note~for this date of service dictated separately.~Patient seen individually. Discussed the patient with Nursing staff reviewed the chart.~Reviewed interim history and current functioning. Reviewed vital signs,~Labs/ Radiology~and current medications noted below. Continue current treatment with the changes noted in the dictated addendum note Assessment: Vital Signs: Vital Signs Date Time Temp Pulse Resp B/P (MAP) Pulse Ox O2 Delivery O2 Flow Rate FiO2 05/30/17 16:08 97.5 92 20 146/57 (86) 100 05/30/17 06:31 Room Air I&O Intake and Output 05/31/17 07:00 Intake Total 300 ml Balance 300 ml Intake Oral 300 ml Current Medications: Meds: Current Medications Acetaminophen (Tylenol) 650 mg PRN Q6HRS PRN PO PAIN / TEMP; Start 05/14/17 at 17:15 Multi-Ingredient Ointment (Analgesic [place]) 1 ene PRN QID PRN TP MUSCLE PAIN; Start 05/14/17 at 17:15 Al Hydroxide/Mg Hydroxide (Mylanta Plus Xs) 15 ml PRN AFTMEALHC PRN PO DYSPEPSIA; Start 05/14/17 at 17:15 Magnesium Hydroxide (Milk Of Magnesia) 2,400 mg PRN QHS PRN PO CONSTIPATION; Start 05/14/17 at 17:15 Lorazepam (Ativan) 1 mg PRN Q6HRS PRN PO ANXIETY / AGITATION Last administered on 05/23/17 21:18; Start 05/14/17 at 18:30 Olanzapine (ZyPREXA) 5 mg PRN Q6HRS PRN PO ANXIETY / AGITATION Last administered on 05/19/17 23:20; Start 05/14/17 at 18:30 Quetiapine Fumarate (SEROquel) 50 mg BID PO Last administered on 05/15/17 11: 45; Start 05/14/17 at 21:00; Stop 05/15/17 at 19:07; Status DC Non-Formulary Medication 1 tab QHS PRN PO INSOMNIA; Start 05/14/17 at 18:30; Status UNV Cyanocobalamin (Vitamin B-12) 1,000 mcg DAILY PO Last administered on 08:52; Start 05/15/17 at 09:00 Pneumococcal Polyvalent Vaccine (Pneumovax 23) 0.5 ml ONCE ONCE VAX IM ; Start 05/15/17 at 09:00; Stop 05/15/17 at 09:01; Status DC Influenza Virus Vaccine Quadrival (Fluarix Quad Syringe) 0.5 ml ONCE ONCE VAX IM ; Start 05/15/17 at 09:00; Stop 05/15/17 at 09:01; Status DC Melatonin 3 mg PRN QHS PRN PO INSOMNIA Last administered on 05/30/17 19:42; Start 05/15/17 at 07:30 Pneumococcal Polyvalent Vaccine (Pneumovax 23) 0.5 ml ONCE ONCE VAX IM ; Start 05/17/17 at 09:00; Stop 05/17/17 at 09:01; Status DC Influenza Virus Vaccine Quadrival (Fluarix Quad Syringe) 0.5 ml ONCE ONCE VAX IM ; Start 05/17/17 at 09:00; Stop 05/17/17 at 09:01; Status DC Mirtazapine (Remeron) 7.5 mg QHS PO Last administered on 05/15/17 20:25; Start 05/15/17 at 21:00; Stop 05/16/17 at 18:21; Status DC Risperidone (RisperDAL) 0.25 mg BID PO Last administered on 05/30/17 19:41; Start 05/15/17 at 21:00 Trazodone HCl (Desyrel) 50 mg PRN QHS PRN PO INSOMNIA, MAY REPEAT X1 Last administered on 05/15/17 23:26; Start 05/15/17 at 19:15; Stop 05/16/17 at 18 :21; Status DC Prenat Multivit/ [place]/Iron/Folic Ac (Multivitamin ) 1 tab DAILYBFRSUP PO Last administered on 05/30/17 16:40; Start 05/16/17 at 17:00 Atorvastatin Calcium (Lipitor) 20 mg QHS PO Last administered on 05/30/17 19: 41; Start 05/16/17 at 21:00 Divalproex Sodium (Depakote Sprinkles) 125 mg BID92 PO Last administered on 13:57; Start 05/17/17 at 09:00 Mirtazapine (Remeron) 15 mg QHS PO Last administered on 05/30/17 19:41; Start 05/16/17 at 21:00 Trazodone HCl (Desyrel) 100 mg PRN QHS PRN PO INSOMNIA, MAY REPEAT X1 Last administered on 05/16/17 19:06; Start 05/16/17 at 18:30; Stop 05/19/17 at 11 :08; Status DC Influenza Virus Vaccine Quadrival (Fluarix Quad Syringe) 0.5 ml ONCE ONCE VAX IM ; Start 05/19/17 at 09:00; Stop 05/19/17 at 09:01; Status DC Pneumococcal Polyvalent Vaccine (Pneumovax 23) 0.5 ml ONCE ONCE VAX IM ; Start 05/19/17 at 09:00; Stop 05/19/17 at 09:01; Status DC Trazodone HCl (Desyrel) 100 mg HS PO Last administered on 05/20/17 19:43; Start 05/19/17 at 21:00; Stop 05/21/17 at 07:59; Status DC Pneumococcal Polyvalent Vaccine (Pneumovax 23) 0.5 ml ONCE ONCE VAX IM ; Start 05/23/17 at 09:00; Stop 05/23/17 at 09:02; Status DC Influenza Virus Vaccine Quadrival (Fluarix Quad Syringe) 0.5 ml ONCE ONCE VAX IM ; Start 05/23/17 at 09:00; Stop 05/23/17 at 09:02; Status DC Divalproex Sodium (Depakote Sprinkles) 250 mg HS PO Last administered on 19:41; Start 05/20/17 at 21:00 Trazodone HCl (Desyrel) 150 mg HS PO Last administered on 05/30/17 19:41; Start 05/21/17 at 21:00 Trazodone HCl (Desyrel) 50 mg PRN QHS PRN PO INSOMNIA Last administered on 21:14; Start 05/21/17 at 08:00 Olanzapine (ZyPREXA ZYDIS) 15 mg 1X ONCE PO Last administered on 05/29/17 19 :55; Start 05/29/17 at 21:00; Stop 05/29/17 at 21:01; Status DC Active Scripts Active Reported Seroquel (Quetiapine Fumarate) 25 Mg Tablet 2 Tab PO BID Olanzapine 5 Mg Tablet 1 Tab PO PRN Q6HRS PRN Olanzapine Inj (Olanzapine) 10 Mg Vial 5 Mg IM PRN Q6HRS PRN Melatonin 3 Mg Tablet 1 Tab PO QHS PRN Ativan (Lorazepam) 1 Mg Tablet 1 Mg PO PRN Q6HRS PRN Ativan (Lorazepam) 2 Mg/1 Ml Vial 1 Mg IJ PRN Q6HRS PRN B-12 (Cyanocobalamin (Vitamin B-12)) 500 Mcg Tablet 1,000 Mcg PO DAILY Diagnosis: Problems: (1) Anxiety disorder (2) Dementia in Alzheimer's disease with delusions (3) Dementia in Alzheimer's disease with depression (4) Dementia, vascular, with delusions (5) Dementia, vascular, with depression (6) Impulse control disorder MAX BIGGS MD May 30, 2017 20:52
[2017-05-31 05:58] VITALS: BP 128/82
[2017-05-31 07:06] LABS: ALBUMIN 2.8 g/dL (3.4-5.0); ALBUMIN/GLOBULIN RATIO 0.9 (1.0-1.7); CALCIUM 8.6 mg/dL (8.5-10.1); CREATININE 1.1 mg/dL (0.6-1.0); GFR 49.1; POTASSIUM 4.4 mmol/L (3.5-5.1); TOTAL BILIRUBIN 0.2 mg/dL (0.2-1.0); TOTAL PROTEIN 5.8 g/dL (6.4-8.2)
[2017-05-31 07:15] LABS: BASO # 0.1 x10^3/uL (0.0-0.2); BASO % 1 % (0-3); EOS # 0.7 x10^3/uL (0.0-0.7); EOS % 6 % (0-3); HEMOGLOBIN 11.4 g/dL (12.0-15.5); LYMPH # 2.4 x10^3/uL (1.0-4.8); LYMPH % 21 % (24-48); MEAN CORPUSCULAR HEMOGLOBIN 31 pg (25-35); MEAN CORPUSCULAR HGB CONC 34 g/dL (31-37); MEAN CORPUSCULAR VOLUME 92 fL (79-100); MONO # 1.2 x10^3/uL (0.0-1.1); MONO % 11 % (0-9); NEUT # 6.8 x10^3uL (1.8-7.7); NEUT % 61 % (31-73); PLATELET COUNT 227 x10^3/uL (140-400); RED CELL DISTRIBUTION WIDTH 14.2 % (11.5-14.5); WHITE BLOOD COUNT 11.1 x10^3/uL (4.0-11.0)
[2017-05-31 08:02] LABS: PLATELET CLUMP PRESENT; PLT ESTIMATE ADEQUATE (ADEQUATE)
[2017-05-31] MEDS: CYANOCOBALAMIN (VITAMIN B-12) 1,000 MCG TABLET. PO SCH (08:35)
[2017-05-31] MEDS: risperiDONE 0.25 MG TABLET. PO SCH ×2 (08:35→20:11)
[2017-05-31] MEDS: DIVALPROEX 125 MG CAP.SPRINK PO SCH ×3 (08:35→20:11)
[2017-05-31] MEDS: PRENATAL MULTIVITAMIN TABLET. PO SCH (13:12)
[2017-05-31 16:18] VITALS: BP 123/72
[2017-05-31] MEDS: ATORVASTATIN CALCIUM 20 MG TABLET PO SCH (20:11)
[2017-05-31] MEDS: traZODone 150 MG TABLET. PO SCH (20:11)
[2017-05-31] MEDS: MIRTAZAPINE 15 MG TABLET PO SCH (20:11)
--- NOTE | 2017-05-31 22:20 | PDOC ---
Exam Jasper Demential Exam: Jasper Note: Please also refer to the separate dictated note~for this date of service dictated separately.~Patient seen individually. Discussed the patient with Nursing staff reviewed the chart.~Reviewed interim history and current functioning. Reviewed vital signs,~Labs/ Radiology~and current medications noted below. Continue current treatment with the changes noted in the dictated addendum note Assessment: Vital Signs: Vital Signs Date Time Temp Pulse Resp B/P (MAP) Pulse Ox O2 Delivery O2 Flow Rate FiO2 05/31/17 16:18 97.5 73 20 123/72 (89) 99 05/30/17 06:31 Room Air I&O Intake and Output 06/01/17 07:00 Intake Total 1320 ml Balance 1320 ml Intake Oral 1320 ml Labs: Laboratory Tests Test 05/31/17 06:45 White Blood Count 11.1 x10^3/uL (4.0-11.0) H Red Blood Count 3.70 x10^6/uL (3.50-5.40) Hemoglobin 11.4 g/dL (12.0-15.5) L Hematocrit 34.0 % (36.0-47.0) L Mean Corpuscular Volume 92 fL (79-100) Mean Corpuscular Hemoglobin 31 pg (25-35) Mean Corpuscular Hemoglobin Concent 34 g/dL (31-37) Red Cell Distribution Width 14.2 % (11.5-14.5) Platelet Count 227 x10^3/uL (140-400) Neutrophils (%) (Auto) 61 % (31-73) Lymphocytes (%) (Auto) 21 % (24-48) L Monocytes (%) (Auto) 11 % (0-9) H Eosinophils (%) (Auto) 6 % (0-3) H Basophils (%) (Auto) 1 % (0-3) Neutrophils # (Auto) 6.8 x10^3uL (1.8-7.7) Lymphocytes # (Auto) 2.4 x10^3/uL (1.0-4.8) Monocytes # (Auto) 1.2 x10^3/uL (0.0-1.1) H Eosinophils # (Auto) 0.7 x10^3/uL (0.0-0.7) Basophils # (Auto) 0.1 x10^3/uL (0.0-0.2) Platelet Estimate Adequate (ADEQUATE) Platelet Clumps, EDTA Present Sodium Level 143 mmol/L (136-145) Potassium Level 4.4 mmol/L (3.5-5.1) Chloride Level 108 mmol/L (98-107) H Carbon Dioxide Level 29 mmol/L (21-32) Anion Gap 6 (6-14) Blood Urea Nitrogen 23 mg/dL (7-20) H Creatinine 1.1 mg/dL (0.6-1.0) H Estimated GFR (Cockcroft-Gault) 49.1 BUN/Creatinine Ratio 21 (6-20) H Glucose Level 90 mg/dL (70-99) Calcium Level 8.6 mg/dL (8.5-10.1) Magnesium Level 2.0 mg/dL (1.8-2.4) Total Bilirubin 0.2 mg/dL (0.2-1.0) Aspartate Amino Transferase (AST) 30 U/L (15-37) Alanine Aminotransferase (ALT) 37 U/L (14-59) Alkaline Phosphatase 79 U/L (46-116) Total Protein 5.8 g/dL (6.4-8.2) L Albumin 2.8 g/dL (3.4-5.0) L Albumin/Globulin Ratio 0.9 (1.0-1.7) L Current Medications: Meds: Current Medications Acetaminophen (Tylenol) 650 mg PRN Q6HRS PRN PO PAIN / TEMP; Start 05/14/17 at 17:15 Multi-Ingredient Ointment (Analgesic [place]) 1 ene PRN QID PRN TP MUSCLE PAIN; Start 05/14/17 at 17:15 Al Hydroxide/Mg Hydroxide (Mylanta Plus Xs) 15 ml PRN AFTMEALHC PRN PO DYSPEPSIA; Start 05/14/17 at 17:15 Magnesium Hydroxide (Milk Of Magnesia) 2,400 mg PRN QHS PRN PO CONSTIPATION; Start 05/14/17 at 17:15 Lorazepam (Ativan) 1 mg PRN Q6HRS PRN PO ANXIETY / AGITATION Last administered on 05/23/17t 21:18; Start 05/14/17 at 18:30 Olanzapine (ZyPREXA) 5 mg PRN Q6HRS PRN PO ANXIETY / AGITATION Last administered on 05/19/17 23:20; Start 05/14/17 at 18:30 Quetiapine Fumarate (SEROquel) 50 mg BID PO Last administered on 05/15/17 11: 45; Start 05/14/17 at 21:00; Stop 05/15/17 at 19:07; Status DC Non-Formulary Medication 1 tab QHS PRN PO INSOMNIA; Start 05/14/17 at 18:30; Status UNV Cyanocobalamin (Vitamin B-12) 1,000 mcg DAILY PO Last administered on 08:35; Start 05/15/17 at 09:00 Pneumococcal Polyvalent Vaccine (Pneumovax 23) 0.5 ml ONCE ONCE VAX IM ; Start 05/15/17 at 09:00; Stop 05/15/17 at 09:01; Status DC Influenza Virus Vaccine Quadrival (Fluarix Quad Syringe) 0.5 ml ONCE ONCE VAX IM ; Start 05/15/17 at 09:00; Stop 05/15/17 at 09:01; Status DC Melatonin 3 mg PRN QHS PRN PO INSOMNIA Last administered on 05/30/17 19:42; Start 05/15/17 at 07:30 Pneumococcal Polyvalent Vaccine (Pneumovax 23) 0.5 ml ONCE ONCE VAX IM ; Start 05/17/17 at 09:00; Stop 05/17/17 at 09:01; Status DC Influenza Virus Vaccine Quadrival (Fluarix Quad Syringe) 0.5 ml ONCE ONCE VAX IM ; Start 05/17/17 at 09:00; Stop 05/17/17 at 09:01; Status DC Mirtazapine (Remeron) 7.5 mg QHS PO Last administered on 05/15/17 20:25; Start 05/15/17 at 21:00; Stop 05/16/17 at 18:21; Status DC Risperidone (RisperDAL) 0.25 mg BID PO Last administered on 05/31/17 20:11; Start 05/15/17 at 21:00 Trazodone HCl (Desyrel) 50 mg PRN QHS PRN PO INSOMNIA, MAY REPEAT X1 Last administered on 05/15/17 23:26; Start 05/15/17 at 19:15; Stop 05/16/17 at 18 :21; Status DC Prenat Multivit/ [place]/Iron/Folic Ac (Multivitamin ) 1 tab DAILYBFRSUP PO Last administered on 05/31/17 13:12; Start 05/16/17 at 17:00 Atorvastatin Calcium (Lipitor) 20 mg QHS PO Last administered on 05/31/17 20: 11; Start 05/16/17 at 21:00 Divalproex Sodium (Depakote Sprinkles) 125 mg BID92 PO Last administered on 13:12; Start 05/17/17 at 09:00 Mirtazapine (Remeron) 15 mg QHS PO Last administered on 05/31/17 20:11; Start 05/16/17 at 21:00 Trazodone HCl (Desyrel) 100 mg PRN QHS PRN PO INSOMNIA, MAY REPEAT X1 Last administered on 05/16/17 19:06; Start 05/16/17 at 18:30; Stop 05/19/17 at 11 :08; Status DC Influenza Virus Vaccine Quadrival (Fluarix Quad Syringe) 0.5 ml ONCE ONCE VAX IM ; Start 05/19/17 at 09:00; Stop 05/19/17 at 09:01; Status DC Pneumococcal Polyvalent Vaccine (Pneumovax 23) 0.5 ml ONCE ONCE VAX IM ; Start 05/19/17 at 09:00; Stop 05/19/17 at 09:01; Status DC Trazodone HCl (Desyrel) 100 mg HS PO Last administered on 05/20/17 19:43; Start 05/19/17 at 21:00; Stop 05/21/17 at 07:59; Status DC Pneumococcal Polyvalent Vaccine (Pneumovax 23) 0.5 ml ONCE ONCE VAX IM ; Start 05/23/17 at 09:00; Stop 05/23/17 at 09:02; Status DC Influenza Virus Vaccine Quadrival (Fluarix Quad Syringe) 0.5 ml ONCE ONCE VAX IM ; Start 05/23/17 at 09:00; Stop 05/23/17 at 09:02; Status DC Divalproex Sodium (Depakote Sprinkles) 250 mg HS PO Last administered on 20:11; Start 05/20/17 at 21:00 Trazodone HCl (Desyrel) 150 mg HS PO Last administered on 05/31/17 20:11; Start 05/21/17 at 21:00 Trazodone HCl (Desyrel) 50 mg PRN QHS PRN PO INSOMNIA Last administered on 21:14; Start 05/21/17 at 08:00 Olanzapine (ZyPREXA ZYDIS) 15 mg 1X ONCE PO Last administered on 05/29/17 19 :55; Start 05/29/17 at 21:00; Stop 05/29/17 at 21:01; Status DC Sertraline HCl (Zoloft) 25 mg DAILY PO ; Start 06/01/17 at 09:00 Active Scripts Active Reported Seroquel (Quetiapine Fumarate) 25 Mg Tablet 2 Tab PO BID Olanzapine 5 Mg Tablet 1 Tab PO PRN Q6HRS PRN Olanzapine Inj (Olanzapine) 10 Mg Vial 5 Mg IM PRN Q6HRS PRN Melatonin 3 Mg Tablet 1 Tab PO QHS PRN Ativan (Lorazepam) 1 Mg Tablet 1 Mg PO PRN Q6HRS PRN Ativan (Lorazepam) 2 Mg/1 Ml Vial 1 Mg IJ PRN Q6HRS PRN B-12 (Cyanocobalamin (Vitamin B-12)) 500 Mcg Tablet 1,000 Mcg PO DAILY Diagnosis: Problems: (1) Anxiety disorder (2) Dementia in Alzheimer's disease with delusions (3) Dementia in Alzheimer's disease with depression (4) Dementia, vascular, with delusions (5) Dementia, vascular, with depression (6) Impulse control disorder MAX BIGGS MD May 31, 2017 22:20
[2017-05-31] MEDS: OLANZapine 5 MG TABLET PO PRN (22:30)
--- NOTE | 2017-06-01 02:06 | PN ---
DATE: 05/30/2017 This late entry, date of service 05/30/2017, covers elements not covered in my initial note of 05/30/2017. Met with the patient in the evening of 05/30/2017. The patient is oriented to herself, unaware of the year, but little less labile per nursing reports, wandering, redirectable. REVIEW OF SYSTEMS: No CV, , pulmonary, eye, ENT system symptoms on review. Reliability poor. MENTAL STATUS EXAM: Oriented to herself. Insight, judgment, recent and remote memory, attention, concentration, fund of knowledge poor, consistent with her diagnosis mentioned in my initial note. Valproic acid level therapeutic at 67. IMPRESSION: Unchanged from initial note. PLAN: Continue psychotropics mentioned in my initial note. Start Zoloft 25 mg a day for her mood, anxiety symptoms. Continue rest of psychotropics mentioned in my initial note. Reviewed drug interactions, risk/benefit ratio favors no further change. MAX BIGGS MD DR: MONICA/daniel JOB#: [id number] / [id number]
[2017-06-01 06:05] VITALS: BP 116/71
[2017-06-01] MEDS: risperiDONE 0.25 MG TABLET. PO SCH ×2 (09:09→20:06)
[2017-06-01] MEDS: CYANOCOBALAMIN (VITAMIN B-12) 1,000 MCG TABLET. PO SCH (09:09)
[2017-06-01] MEDS: DIVALPROEX 125 MG CAP.SPRINK PO SCH ×3 (09:09→20:05)
[2017-06-01] MEDS: PRENATAL MULTIVITAMIN TABLET. PO SCH (09:09)
[2017-06-01] MEDS ORDERED: SERTRALINE 25 MG TABLET. ONE (09:10)
[2017-06-01] MEDS: SERTRALINE 25 MG TABLET. PO SCH (09:10)
[2017-06-01 16:40] VITALS: BP 112/52
[2017-06-01] MEDS: ATORVASTATIN CALCIUM 20 MG TABLET PO SCH (20:05)
[2017-06-01] MEDS: MIRTAZAPINE 15 MG TABLET PO SCH (20:05)
[2017-06-01] MEDS: traZODone 150 MG TABLET. PO SCH (20:05)
--- NOTE | 2017-06-01 21:00 | PDOC ---
Exam Jasper Demential Exam: Jasper Note: Please also refer to the separate dictated note~for this date of service dictated separately.~Patient seen individually. Discussed the patient with Nursing staff reviewed the chart.~Reviewed interim history and current functioning. Reviewed vital signs,~Labs/ Radiology~and current medications noted below. Continue current treatment with the changes noted in the dictated addendum note Assessment: Vital Signs: Vital Signs Date Time Temp Pulse Resp B/P (MAP) Pulse Ox O2 Delivery O2 Flow Rate FiO2 06/01/17 16:40 97.2 80 22 112/52 (72) 96 Room Air I&O Intake and Output 06/02/17 07:00 Intake Total 480 ml Balance 480 ml Intake Oral 480 ml Current Medications: Meds: Current Medications Acetaminophen (Tylenol) 650 mg PRN Q6HRS PRN PO PAIN / TEMP; Start 05/14/17 at 17:15 Multi-Ingredient Ointment (Analgesic [place]) 1 ene PRN QID PRN TP MUSCLE PAIN; Start 05/14/17 at 17:15 Al Hydroxide/Mg Hydroxide (Mylanta Plus Xs) 15 ml PRN AFTMEALHC PRN PO DYSPEPSIA; Start 05/14/17 at 17:15 Magnesium Hydroxide (Milk Of Magnesia) 2,400 mg PRN QHS PRN PO CONSTIPATION; Start 05/14/17 at 17:15 Lorazepam (Ativan) 1 mg PRN Q6HRS PRN PO ANXIETY / AGITATION Last administered on 05/23/17 21:18; Start 05/14/17 at 18:30 Olanzapine (ZyPREXA) 5 mg PRN Q6HRS PRN PO ANXIETY / AGITATION Last administered on 05/31/17 22:30; Start 05/14/17 at 18:30 Quetiapine Fumarate (SEROquel) 50 mg BID PO Last administered on 05/15/17 11: 45; Start 05/14/17 at 21:00; Stop 05/15/17 at 19:07; Status DC Non-Formulary Medication 1 tab QHS PRN PO INSOMNIA; Start 05/14/17 at 18:30; Status UNV Cyanocobalamin (Vitamin B-12) 1,000 mcg DAILY PO Last administered on 09:09; Start 05/15/17 at 09:00 Pneumococcal Polyvalent Vaccine (Pneumovax 23) 0.5 ml ONCE ONCE VAX IM ; Start 05/15/17 at 09:00; Stop 05/15/17 at 09:01; Status DC Influenza Virus Vaccine Quadrival (Fluarix Quad Syringe) 0.5 ml ONCE ONCE VAX IM ; Start 05/15/17 at 09:00; Stop 05/15/17 at 09:01; Status DC Melatonin 3 mg PRN QHS PRN PO INSOMNIA Last administered on 05/30/17 19:42; Start 05/15/17 at 07:30 Pneumococcal Polyvalent Vaccine (Pneumovax 23) 0.5 ml ONCE ONCE VAX IM ; Start 05/17/17 at 09:00; Stop 05/17/17 at 09:01; Status DC Influenza Virus Vaccine Quadrival (Fluarix Quad Syringe) 0.5 ml ONCE ONCE VAX IM ; Start 05/17/17 at 09:00; Stop 05/17/17 at 09:01; Status DC Mirtazapine (Remeron) 7.5 mg QHS PO Last administered on 05/15/17 20:25; Start 05/15/17 at 21:00; Stop 05/16/17 at 18:21; Status DC Risperidone (RisperDAL) 0.25 mg BID PO Last administered on 06/01/17 20:06; Start 05/15/17 at 21:00 Trazodone HCl (Desyrel) 50 mg PRN QHS PRN PO INSOMNIA, MAY REPEAT X1 Last administered on 05/15/17 23:26; Start 05/15/17 at 19:15; Stop 05/16/17 at 18 :21; Status DC Prenat Multivit/ [place]/Iron/Folic Ac (Multivitamin ) 1 tab DAILYBFRSUP PO Last administered on 06/01/17 09:09; Start 05/16/17 at 17:00 Atorvastatin Calcium (Lipitor) 20 mg QHS PO Last administered on 06/01/17 20: 05; Start 05/16/17 at 21:00 Divalproex Sodium (Depakote Sprinkles) 125 mg BID92 PO Last administered on 14:42; Start 05/17/17 at 09:00 Mirtazapine (Remeron) 15 mg QHS PO Last administered on 06/01/17 20:05; Start 05/16/17 at 21:00 Trazodone HCl (Desyrel) 100 mg PRN QHS PRN PO INSOMNIA, MAY REPEAT X1 Last administered on 05/16/17 19:06; Start 05/16/17 at 18:30; Stop 05/19/17 at 11 :08; Status DC Influenza Virus Vaccine Quadrival (Fluarix Quad Syringe) 0.5 ml ONCE ONCE VAX IM ; Start 05/19/17 at 09:00; Stop 05/19/17 at 09:01; Status DC Pneumococcal Polyvalent Vaccine (Pneumovax 23) 0.5 ml ONCE ONCE VAX IM ; Start 05/19/17 at 09:00; Stop 05/19/17 at 09:01; Status DC Trazodone HCl (Desyrel) 100 mg HS PO Last administered on 05/20/17 19:43; Start 05/19/17 at 21:00; Stop 05/21/17 at 07:59; Status DC Pneumococcal Polyvalent Vaccine (Pneumovax 23) 0.5 ml ONCE ONCE VAX IM ; Start 05/23/17 at 09:00; Stop 05/23/17 at 09:02; Status DC Influenza Virus Vaccine Quadrival (Fluarix Quad Syringe) 0.5 ml ONCE ONCE VAX IM ; Start 05/23/17 at 09:00; Stop 05/23/17 at 09:02; Status DC Divalproex Sodium (Depakote Sprinkles) 250 mg HS PO Last administered on 20:05; Start 05/20/17 at 21:00 Trazodone HCl (Desyrel) 150 mg HS PO Last administered on 06/01/17 20:05; Start 05/21/17 at 21:00 Trazodone HCl (Desyrel) 50 mg PRN QHS PRN PO INSOMNIA Last administered on 21:14; Start 05/21/17 at 08:00 Olanzapine (ZyPREXA ZYDIS) 15 mg 1X ONCE PO Last administered on 05/29/17 19 :55; Start 05/29/17 at 21:00; Stop 05/29/17 at 21:01; Status DC Sertraline HCl (Zoloft) 25 mg DAILY PO Last administered on 06/01/17 09:10; Start 06/01/17 at 09:00 Sertraline HCl (Zoloft) 25 mg STK-MED ONCE .ROUTE Last administered on 09:10; Start 06/01/17 at 09:10; Stop 06/01/17 at 09:11; Status DC Active Scripts Active Reported Seroquel (Quetiapine Fumarate) 25 Mg Tablet 2 Tab PO BID Olanzapine 5 Mg Tablet 1 Tab PO PRN Q6HRS PRN Olanzapine Inj (Olanzapine) 10 Mg Vial 5 Mg IM PRN Q6HRS PRN Melatonin 3 Mg Tablet 1 Tab PO QHS PRN Ativan (Lorazepam) 1 Mg Tablet 1 Mg PO PRN Q6HRS PRN Ativan (Lorazepam) 2 Mg/1 Ml Vial 1 Mg IJ PRN Q6HRS PRN B-12 (Cyanocobalamin (Vitamin B-12)) 500 Mcg Tablet 1,000 Mcg PO DAILY Diagnosis: Problems: (1) Anxiety disorder (2) Dementia in Alzheimer's disease with delusions (3) Dementia in Alzheimer's disease with depression (4) Dementia, vascular, with delusions (5) Dementia, vascular, with depression (6) Impulse control disorder MAX BIGGS MD Jun 01, 2017 21:00
[2017-06-02 06:24] VITALS: BP 149/75
[2017-06-02] MEDS: PRENATAL MULTIVITAMIN TABLET. PO SCH (09:04)
[2017-06-02] MEDS: DIVALPROEX 125 MG CAP.SPRINK PO SCH ×3 (09:04→19:36)
[2017-06-02] MEDS: risperiDONE 0.25 MG TABLET. PO SCH ×2 (09:05→19:35)
[2017-06-02] MEDS: CYANOCOBALAMIN (VITAMIN B-12) 1,000 MCG TABLET. PO SCH (09:05)
[2017-06-02] MEDS: SERTRALINE 25 MG TABLET. PO SCH (09:05)
[2017-06-02 16:30] VITALS: BP 115/53
--- NOTE | 2017-06-02 17:31 | PN ---
DATE: 05/31/2017 PSYCHIATRIC PROGRESS NOTE This is a late entry. Covers elements not covered in my initial note of 05/31/2017, met with the patient evening of 05/31/2017. The patient's WBC is 11.1, we will defer to Dr. Sorensen as patient is asymptomatic. At times, she would state she does not like the Depakote because it sticks to her tongue, but did not say so on 05/31/2017, more redirectable. REVIEW OF SYSTEMS: No CV, , pulmonary, eye, ENT system symptoms on review. Reliability poor. She is quite oblivious of her surroundings, confused. MENTAL STATUS EXAM: Oriented to herself. Insight, judgment, recent and remote memory, attention, concentration, fund of knowledge poor, consistent with her diagnosis mentioned in my initial note. PLAN: Continue current psychotropics, reviewed drug interaction, stress benefit ratio favors no further change for now. MAX BIGGS MD DR: MONICA/daniel JOB#: [id number] / [id number]
[2017-06-02] MEDS: ATORVASTATIN CALCIUM 20 MG TABLET PO SCH (19:35)
[2017-06-02] MEDS: MIRTAZAPINE 15 MG TABLET PO SCH (19:35)
[2017-06-02] MEDS: traZODone 150 MG TABLET. PO SCH (19:36)
--- NOTE | 2017-06-02 20:56 | PDOC ---
Exam Jasper Demential Exam: Jasper Note: Please also refer to the separate dictated note~for this date of service dictated separately.~Patient seen individually. Discussed the patient with Nursing staff reviewed the chart.~Reviewed interim history and current functioning. Reviewed vital signs,~Labs/ Radiology~and current medications noted below. Continue current treatment with the changes noted in the dictated addendum note Assessment: Vital Signs: Vital Signs Date Time Temp Pulse Resp B/P (MAP) Pulse Ox O2 Delivery O2 Flow Rate FiO2 06/02/17 16:30 97.9 81 18 115/53 (73) 97 Room Air I&O Intake and Output 06/03/17 07:00 Intake Total 480 ml Balance 480 ml Intake Oral 480 ml Current Medications: Meds: Current Medications Acetaminophen (Tylenol) 650 mg PRN Q6HRS PRN PO PAIN / TEMP; Start 05/14/17 at 17:15 Multi-Ingredient Ointment (Analgesic [place]) 1 ene PRN QID PRN TP MUSCLE PAIN; Start 05/14/17 at 17:15 Al Hydroxide/Mg Hydroxide (Mylanta Plus Xs) 15 ml PRN AFTMEALHC PRN PO DYSPEPSIA; Start 05/14/17 at 17:15 Magnesium Hydroxide (Milk Of Magnesia) 2,400 mg PRN QHS PRN PO CONSTIPATION; Start 05/14/17 at 17:15 Lorazepam (Ativan) 1 mg PRN Q6HRS PRN PO ANXIETY / AGITATION Last administered on 05/23/17 21:18; Start 05/14/17 at 18:30 Olanzapine (ZyPREXA) 5 mg PRN Q6HRS PRN PO ANXIETY / AGITATION Last administered on 05/31/17 22:30; Start 05/14/17 at 18:30 Quetiapine Fumarate (SEROquel) 50 mg BID PO Last administered on 05/15/17 11: 45; Start 05/14/17 at 21:00; Stop 05/15/17 at 19:07; Status DC Non-Formulary Medication 1 tab QHS PRN PO INSOMNIA; Start 05/14/17 at 18:30; Status UNV Cyanocobalamin (Vitamin B-12) 1,000 mcg DAILY PO Last administered on 09:05; Start 05/15/17 at 09:00 Pneumococcal Polyvalent Vaccine (Pneumovax 23) 0.5 ml ONCE ONCE VAX IM ; Start 05/15/17 at 09:00; Stop 05/15/17 at 09:01; Status DC Influenza Virus Vaccine Quadrival (Fluarix Quad Syringe) 0.5 ml ONCE ONCE VAX IM ; Start 05/15/17 at 09:00; Stop 05/15/17 at 09:01; Status DC Melatonin 3 mg PRN QHS PRN PO INSOMNIA Last administered on 05/30/17 19:42; Start 05/15/17 at 07:30 Pneumococcal Polyvalent Vaccine (Pneumovax 23) 0.5 ml ONCE ONCE VAX IM ; Start 05/17/17 at 09:00; Stop 05/17/17 at 09:01; Status DC Influenza Virus Vaccine Quadrival (Fluarix Quad Syringe) 0.5 ml ONCE ONCE VAX IM ; Start 05/17/17 at 09:00; Stop 05/17/17 at 09:01; Status DC Mirtazapine (Remeron) 7.5 mg QHS PO Last administered on 05/15/17 20:25; Start 05/15/17 at 21:00; Stop 05/16/17 at 18:21; Status DC Risperidone (RisperDAL) 0.25 mg BID PO Last administered on 06/02/17 19:35; Start 05/15/17 at 21:00 Trazodone HCl (Desyrel) 50 mg PRN QHS PRN PO INSOMNIA, MAY REPEAT X1 Last administered on 05/15/17 23:26; Start 05/15/17 at 19:15; Stop 05/16/17 at 18 :21; Status DC Prenat Multivit/ Gallitzin/Iron/Folic Ac (Multivitamin ) 1 tab DAILYBFRSUP PO Last administered on 06/02/17 09:04; Start 05/16/17 at 17:00 Atorvastatin Calcium (Lipitor) 20 mg QHS PO Last administered on 06/02/17 19: 35; Start 05/16/17 at 21:00 Divalproex Sodium (Depakote Sprinkles) 125 mg BID92 PO Last administered on 14:19; Start 05/17/17 at 09:00 Mirtazapine (Remeron) 15 mg QHS PO Last administered on 06/02/17 19:35; Start 05/16/17 at 21:00 Trazodone HCl (Desyrel) 100 mg PRN QHS PRN PO INSOMNIA, MAY REPEAT X1 Last administered on 05/16/17 19:06; Start 05/16/17 at 18:30; Stop 05/19/17 at 11 :08; Status DC Influenza Virus Vaccine Quadrival (Fluarix Quad Syringe) 0.5 ml ONCE ONCE VAX IM ; Start 05/19/17 at 09:00; Stop 05/19/17 at 09:01; Status DC Pneumococcal Polyvalent Vaccine (Pneumovax 23) 0.5 ml ONCE ONCE VAX IM ; Start 05/19/17 at 09:00; Stop 05/19/17 at 09:01; Status DC Trazodone HCl (Desyrel) 100 mg HS PO Last administered on 05/20/17 19:43; Start 05/19/17 at 21:00; Stop 05/21/17 at 07:59; Status DC Pneumococcal Polyvalent Vaccine (Pneumovax 23) 0.5 ml ONCE ONCE VAX IM ; Start 05/23/17 at 09:00; Stop 05/23/17 at 09:02; Status DC Influenza Virus Vaccine Quadrival (Fluarix Quad Syringe) 0.5 ml ONCE ONCE VAX IM ; Start 05/23/17 at 09:00; Stop 05/23/17 at 09:02; Status DC Divalproex Sodium (Depakote Sprinkles) 250 mg HS PO Last administered on 19:36; Start 05/20/17 at 21:00 Trazodone HCl (Desyrel) 150 mg HS PO Last administered on 06/02/17 19:36; Start 05/21/17 at 21:00 Trazodone HCl (Desyrel) 50 mg PRN QHS PRN PO INSOMNIA Last administered on 21:14; Start 05/21/17 at 08:00 Olanzapine (ZyPREXA ZYDIS) 15 mg 1X ONCE PO Last administered on 05/29/17 19 :55; Start 05/29/17 at 21:00; Stop 05/29/17 at 21:01; Status DC Sertraline HCl (Zoloft) 25 mg DAILY PO Last administered on 06/02/17 09:05; Start 06/01/17 at 09:00 Sertraline HCl (Zoloft) 25 mg STK-MED ONCE .ROUTE Last administered on 09:10; Start 06/01/17 at 09:10; Stop 06/01/17 at 09:11; Status DC Active Scripts Active Reported Seroquel (Quetiapine Fumarate) 25 Mg Tablet 2 Tab PO BID Olanzapine 5 Mg Tablet 1 Tab PO PRN Q6HRS PRN Olanzapine Inj (Olanzapine) 10 Mg Vial 5 Mg IM PRN Q6HRS PRN Melatonin 3 Mg Tablet 1 Tab PO QHS PRN Ativan (Lorazepam) 1 Mg Tablet 1 Mg PO PRN Q6HRS PRN Ativan (Lorazepam) 2 Mg/1 Ml Vial 1 Mg IJ PRN Q6HRS PRN B-12 (Cyanocobalamin (Vitamin B-12)) 500 Mcg Tablet 1,000 Mcg PO DAILY Diagnosis: Problems: (1) Anxiety disorder (2) Dementia in Alzheimer's disease with delusions (3) Dementia in Alzheimer's disease with depression (4) Dementia, vascular, with delusions (5) Dementia, vascular, with depression (6) Impulse control disorder MAX BIGGS MD Jun 02, 2017 20:56
--- NOTE | 2017-06-02 23:31 | PN ---
DATE: 06/01/2017 This late entry 06/01/2017 covers elements not covered in my initial note of 06/01/2017. SUBJECTIVE: The patient was seen individually in the evening of 06/01/2017, staffed at treatment team meeting with the entire team in the morning of 06/01/2017. Reviewed the patient's history, diagnosis, current psychotropics, discharge and aftercare plans. wants her to return home rather than nursing facility. He does work and intends to leave her by herself for short periods of time and we are recommending against this that there should be someone with the patient at home at all times. Social service staff will address this with . She has been more social in the evening, slept through breakfast, took her Depakote. REVIEW OF SYSTEMS: No CV, , pulmonary, eye, ENT system symptoms on review. Reliability poor. MENTAL STATUS EXAM: Oriented to herself. Insight, judgment, recent and remote memory, attention, concentration, fund of knowledge poor, consistent with her diagnosis, quite pleasant, smiling, verbal, but quite disorganized as I met with her individually in the evening of 06/01/2017. LABORATORY DATA: Reviewed. IMPRESSION: Unchanged from initial note. PLAN: Continue current psychotropics mentioned in my initial note. Reviewed drug interactions. Risk/benefit ratio favors no further change for now. MAN Amauri BIGGS MD DR: MONICA/daniel JOB#: [id number] / [id number]
[2017-06-03 06:20] VITALS: BP 98/63
[2017-06-03] MEDS: DIVALPROEX 125 MG CAP.SPRINK PO SCH ×3 (08:15→19:38)
[2017-06-03] MEDS: CYANOCOBALAMIN (VITAMIN B-12) 1,000 MCG TABLET. PO SCH (08:15)
[2017-06-03] MEDS: SERTRALINE 25 MG TABLET. PO SCH (08:15)
[2017-06-03] MEDS: risperiDONE 0.25 MG TABLET. PO SCH ×2 (08:16→19:39)
[2017-06-03] MEDS: PRENATAL MULTIVITAMIN TABLET. PO SCH (08:16)
[2017-06-03 16:21] VITALS: BP 120/53
[2017-06-03] MEDS: traZODone 150 MG TABLET. PO SCH (19:38)
[2017-06-03] MEDS: ATORVASTATIN CALCIUM 20 MG TABLET PO SCH (19:39)
[2017-06-03] MEDS: MIRTAZAPINE 15 MG TABLET PO SCH (19:39)
--- NOTE | 2017-06-03 21:04 | PDOC ---
Exam Jasper Demential Exam: Jasper Note: Please also refer to the separate dictated note~for this date of service dictated separately.~Patient seen individually. Discussed the patient with Nursing staff reviewed the chart.~Reviewed interim history and current functioning. Reviewed vital signs,~Labs/ Radiology~and current medications noted below. Continue current treatment with the changes noted in the dictated addendum note Assessment: Vital Signs: Vital Signs Date Time Temp Pulse Resp B/P (MAP) Pulse Ox O2 Delivery O2 Flow Rate FiO2 06/03/17 16:21 98.4 73 20 120/53 (75) 99 06/02/17 16:30 Room Air I&O Intake and Output 06/04/17 07:00 Intake Total 840 ml Balance 840 ml Intake Oral 840 ml Current Medications: Meds: Current Medications Acetaminophen (Tylenol) 650 mg PRN Q6HRS PRN PO PAIN / TEMP; Start 05/14/17 at 17:15 Multi-Ingredient Ointment (Analgesic Advance) 1 ene PRN QID PRN TP MUSCLE PAIN; Start 05/14/17 at 17:15 Al Hydroxide/Mg Hydroxide (Mylanta Plus Xs) 15 ml PRN AFTMEALHC PRN PO DYSPEPSIA; Start 05/14/17 at 17:15 Magnesium Hydroxide (Milk Of Magnesia) 2,400 mg PRN QHS PRN PO CONSTIPATION; Start 05/14/17 at 17:15 Lorazepam (Ativan) 1 mg PRN Q6HRS PRN PO ANXIETY / AGITATION Last administered on 05/23/17 21:18; Start 05/14/17 at 18:30 Olanzapine (ZyPREXA) 5 mg PRN Q6HRS PRN PO ANXIETY / AGITATION Last administered on 05/31/17 22:30; Start 05/14/17 at 18:30 Quetiapine Fumarate (SEROquel) 50 mg BID PO Last administered on 05/15/17 11: 45; Start 05/14/17 at 21:00; Stop 05/15/17 at 19:07; Status DC Non-Formulary Medication 1 tab QHS PRN PO INSOMNIA; Start 05/14/17 at 18:30; Status UNV Cyanocobalamin (Vitamin B-12) 1,000 mcg DAILY PO Last administered on 08:15; Start 05/15/17 at 09:00 Pneumococcal Polyvalent Vaccine (Pneumovax 23) 0.5 ml ONCE ONCE VAX IM ; Start 05/15/17 at 09:00; Stop 05/15/17 at 09:01; Status DC Influenza Virus Vaccine Quadrival (Fluarix Quad Syringe) 0.5 ml ONCE ONCE VAX IM ; Start 05/15/17 at 09:00; Stop 05/15/17 at 09:01; Status DC Melatonin 3 mg PRN QHS PRN PO INSOMNIA Last administered on 05/30/17 19:42; Start 05/15/17 at 07:30 Pneumococcal Polyvalent Vaccine (Pneumovax 23) 0.5 ml ONCE ONCE VAX IM ; Start 05/17/17 at 09:00; Stop 05/17/17 at 09:01; Status DC Influenza Virus Vaccine Quadrival (Fluarix Quad Syringe) 0.5 ml ONCE ONCE VAX IM ; Start 05/17/17 at 09:00; Stop 05/17/17 at 09:01; Status DC Mirtazapine (Remeron) 7.5 mg QHS PO Last administered on 05/15/17 20:25; Start 05/15/17 at 21:00; Stop 05/16/17 at 18:21; Status DC Risperidone (RisperDAL) 0.25 mg BID PO Last administered on 06/03/17 19:39; Start 05/15/17 at 21:00 Trazodone HCl (Desyrel) 50 mg PRN QHS PRN PO INSOMNIA, MAY REPEAT X1 Last administered on 05/15/17 23:26; Start 05/15/17 at 19:15; Stop 05/16/17 at 18 :21; Status DC Prenat Multivit/ [employer]/Iron/Folic Ac (Multivitamin ) 1 tab DAILYBFRSUP PO Last administered on 06/03/17 08:16; Start 05/16/17 at 17:00 Atorvastatin Calcium (Lipitor) 20 mg QHS PO Last administered on 06/03/17 19: 39; Start 05/16/17 at 21:00 Divalproex Sodium (Depakote Sprinkles) 125 mg BID92 PO Last administered on 13:53; Start 05/17/17 at 09:00 Mirtazapine (Remeron) 15 mg QHS PO Last administered on 06/03/17 19:39; Start 05/16/17 at 21:00 Trazodone HCl (Desyrel) 100 mg PRN QHS PRN PO INSOMNIA, MAY REPEAT X1 Last administered on 05/16/17 19:06; Start 05/16/17 at 18:30; Stop 05/19/17 at 11 :08; Status DC Influenza Virus Vaccine Quadrival (Fluarix Quad Syringe) 0.5 ml ONCE ONCE VAX IM ; Start 05/19/17 at 09:00; Stop 05/19/17 at 09:01; Status DC Pneumococcal Polyvalent Vaccine (Pneumovax 23) 0.5 ml ONCE ONCE VAX IM ; Start 05/19/17 at 09:00; Stop 05/19/17 at 09:01; Status DC Trazodone HCl (Desyrel) 100 mg HS PO Last administered on 05/20/17 19:43; Start 05/19/17 at 21:00; Stop 05/21/17 at 07:59; Status DC Pneumococcal Polyvalent Vaccine (Pneumovax 23) 0.5 ml ONCE ONCE VAX IM ; Start 05/23/17 at 09:00; Stop 05/23/17 at 09:02; Status DC Influenza Virus Vaccine Quadrival (Fluarix Quad Syringe) 0.5 ml ONCE ONCE VAX IM ; Start 05/23/17 at 09:00; Stop 05/23/17 at 09:02; Status DC Divalproex Sodium (Depakote Sprinkles) 250 mg HS PO Last administered on 19:38; Start 05/20/17 at 21:00 Trazodone HCl (Desyrel) 150 mg HS PO Last administered on 06/03/17 19:38; Start 05/21/17 at 21:00 Trazodone HCl (Desyrel) 50 mg PRN QHS PRN PO INSOMNIA Last administered on 21:14; Start 05/21/17 at 08:00 Olanzapine (ZyPREXA ZYDIS) 15 mg 1X ONCE PO Last administered on 05/29/17 19 :55; Start 05/29/17 at 21:00; Stop 05/29/17 at 21:01; Status DC Sertraline HCl (Zoloft) 25 mg DAILY PO Last administered on 06/03/17 08:15; Start 06/01/17 at 09:00 Sertraline HCl (Zoloft) 25 mg STK-MED ONCE .ROUTE Last administered on 09:10; Start 06/01/17 at 09:10; Stop 06/01/17 at 09:11; Status DC Active Scripts Active Reported Seroquel (Quetiapine Fumarate) 25 Mg Tablet 2 Tab PO BID Olanzapine 5 Mg Tablet 1 Tab PO PRN Q6HRS PRN Olanzapine Inj (Olanzapine) 10 Mg Vial 5 Mg IM PRN Q6HRS PRN Melatonin 3 Mg Tablet 1 Tab PO QHS PRN Ativan (Lorazepam) 1 Mg Tablet 1 Mg PO PRN Q6HRS PRN Ativan (Lorazepam) 2 Mg/1 Ml Vial 1 Mg IJ PRN Q6HRS PRN B-12 (Cyanocobalamin (Vitamin B-12)) 500 Mcg Tablet 1,000 Mcg PO DAILY Diagnosis: Problems: (1) Anxiety disorder (2) Dementia in Alzheimer's disease with delusions (3) Dementia in Alzheimer's disease with depression (4) Dementia, vascular, with delusions (5) Dementia, vascular, with depression (6) Impulse control disorder MAX BIGGS MD Jun 03, 2017 21:04
[2017-06-04] MEDS ORDERED: ACET325T9 PO (01:46)
[2017-06-04] MEDS ORDERED: ATOR20TA58 PO (01:46)
[2017-06-04] MEDS ORDERED: DIVA125C PO ×2 (01:48)
[2017-06-04] MEDS ORDERED: MAGN400O7 PO (01:50)
[2017-06-04] MEDS ORDERED: MAG30ORA2 PO (01:50)
[2017-06-04] MEDS ORDERED: MIRT15TA PO (01:52)
[2017-06-04] MEDS ORDERED: METH29OI TP (01:52)
[2017-06-04] MEDS ORDERED: PREN1TAB58 PO (01:54)
[2017-06-04] MEDS ORDERED: SERT25TA PO (01:55)
[2017-06-04] MEDS ORDERED: TRAZ150T49 PO (01:56)
[2017-06-04] MEDS ORDERED: RISP0.2519 PO (01:56)
[2017-06-04] MEDS ORDERED: TRAZ50TA15 PO (01:57)
[2017-06-04 06:09] VITALS: BP 114/64
[2017-06-04] MEDS: risperiDONE 0.25 MG TABLET. PO SCH (08:32)
[2017-06-04] MEDS: SERTRALINE 25 MG TABLET. PO SCH (08:32)
[2017-06-04] MEDS: CYANOCOBALAMIN (VITAMIN B-12) 1,000 MCG TABLET. PO SCH (08:32)
[2017-06-04] MEDS: DIVALPROEX 125 MG CAP.SPRINK PO SCH (08:32)
--- NOTE | 2017-06-04 22:50 | PN ---
DATE: 06/03/2017 This late entry 06/03/2017 covers elements not covered in my initial note of 06/03/2017. SUBJECTIVE: Met with the patient evening of 06/03/2017. Overall, the patient remains confused, but not agitated, aggressive. REVIEW OF SYSTEMS: No eye, ENT, CV, , pulmonary system symptoms on review. MENTAL STATUS EXAM: Oriented to herself. Insight, judgment, recent and remote memory, attention, concentration, fund of knowledge poor, consistent with her diagnosis mentioned in my initial note. PLAN: Continue current psychotropics. The wants to discharge her home and we have recommended that she would do better in a placement structured with staff members present, but he is quite clear on wanting her home and we have recommended that someone be with her at all times since apparently the still works at times. Reviewed drug interactions, risk/benefit ratio favors no further change for now. MAN Amauri IBGGS MD DR: MONICA/daniel JOB#: [id number] / [id number]
--- NOTE | 2017-06-05 21:43 | DS ---
DATE OF DISCHARGE: 06/04/2017 DISCHARGE SUMMARY AND PSYCHIATRIC PROGRESS NOTE REASON FOR ADMISSION: Please refer to the admission history for details. Briefly, the patient is a 71-year-old female, referred to us from [facility] where she presented from home and after she was medically stabilized and was extremely psychotic, disorganized, refusing care, refusing medications, compulsive, aggressive, paranoid, did not believe her was who he said he was. Behaviors were deemed dangerous, unmanageable and had failed outpatient psychiatric interventions. She was referred for inpatient psychiatric stabilization. SIGNIFICANT FINDINGS AND CLINICAL COURSE: Following admission, the patient was seen daily individually by myself, followed medically per Dr. Sorensen/Dr. Haro. Following admission, the patient was extremely psychotic, disorganized, agitated, aggressive, disruptive. Adjustments were made in her psychotropics and she seemed to respond to a combination of Depakote Sprinkles 125 mg b.i.d., Ativan p.r.n., melatonin 3 mg at bedtime p.r.n., Zyprexa p.r.n., Remeron 15 mg at bedtime, Risperdal 0.25 mg b.i.d., trazodone 50 mg at bedtime and 50 mg at bedtime p.r.n. insomnia, Depakote Sprinkles 250 mg at bedtime, Zoloft 25 mg a day. REVIEW OF SYSTEMS: Prior to discharge on 06/04/2017, no CV, , eye, ENT or pulmonary system symptoms on review. Reliability poor. MENTAL STATUS EXAM: Oriented to herself. Insight, judgment, recent and remote memory, attention, concentration, fund of knowledge poor, consistent with her diagnoses. She was pleasant, smiling, not aggressive. CONDITION AT DISCHARGE: Improved. FINAL DIAGNOSES: Major neurocognitive disorder, Alzheimer, vascular with depression, delusion, behavioral disturbance; anxiety disorder, unspecified; impulse control disorder, unspecified. Rest unchanged from admission. DISCHARGE MEDICATIONS: Please refer to the MRAD. At discharge, we had recommended group home placement, though the was quite clear he wanted her home. He still works and we recommended that someone should be with the patient at all times. Outpatient psychiatric and medical followup was arranged prior to discharge. Time for discharge day management is greater than 30 minutes. MAN Amauri BIGGS MD DR: Brandee JOB#: [id number] / [id number]
--- NOTE | 2017-06-06 10:39 | PN ---
DATE: 06/02/2017 This late entry 06/02/2017 covers elements not covered in my note of 06/02/2017. I met with the patient evening of 06/02/2017. The patient remains confused, otherwise appropriate. Not aggressive, disruptive, no clear hallucinations noted. REVIEW OF SYSTEMS: No CV, , pulmonary, eye, ENT system symptoms on review. Reliability poor. MENTAL STATUS EXAM: Oriented to herself. Insight, judgment, recent and remote memory, attention, concentration, fund of knowledge poor consistent with her diagnosis mentioned in my initial note. PLAN: Continue current psychotropics mentioned in my initial note. Review drug interactions. Risk/benefit ratio favors no further change. AMX BIGGS MD DR: MONICA/daniel JOB#: [id number] / [id number]
== END 2017-06-04 11:59 | disposition home or self-care (01) | DRG 884 ==
LOC: EEVIPCON → GEROPSY 17:26
PROVIDERS: ADMIT Psychiatry & Neurology Psychiatry; ATTEND Psychiatry & Neurology Psychiatry
DX: F01.51 Vascular dementia, unspecified severity, with behavioral disturbance (principal); G30.9 Alzheimer's disease, unspecified; F02.81 Dementia in other diseases classified elsewhere, unspecified severity, with behavioral disturbance; F23 Brief psychotic disorder; F31.60 Bipolar disorder, current episode mixed, unspecified; G47.00 Insomnia, unspecified; E53.8 Deficiency of other specified B group vitamins; F41.9 Anxiety disorder, unspecified; F63.9 Impulse disorder, unspecified; Z79.899 Other long term (current) drug therapy; Z87.440 Personal history of urinary (tract) infections; Z91.14 Patient's other noncompliance with medication regimen; Z90.49 Acquired absence of other specified parts of digestive tract; Z91.83 Wandering in diseases classified elsewhere
CPT/HCPCS: 36415; 80048; 80053; 80061; 80164; 82306; 83036; 83540; 83550; 83735; 84436; 84443; 84480; 85025; 86592; 86593; 97110; 97530; 97535

== ENCOUNTER 2018-01-11 18:29 | Inpatient (IN) | payer MEDICARE, OTHER ==
[~2018-01-11] VITALS: Ht 154.9 cm; Wt 75.3 kg
[~2018-01-11 18:29] MED LIST: ACET325T9 PO; ATOR20TA58 PO; CYAN500T17 PO; DIVA125C PO; LORA-254 PO; LORA2VIA4 IJ; MAG30ORA2 PO; MAGN400O7 PO; MELA3TAB2 PO; METH29OI TP; MIRT15TA PO; OLAN10VI2 IM; OLAN5TAB9 PO; PREN1TAB58 PO; QUET25TA5 PO; RISP0.2519 PO; SERT25TA PO; TRAZ-85 PO; TRAZ150T49 PO
[2018-01-11 20:10] LABS: BASO # 0.1 x10^3/uL (0.0-0.2); BASO % 1 % (0-3); EOS # 0.5 x10^3/uL (0.0-0.7); EOS % 4 % (0-3); HEMATOCRIT 38.4 % (36.0-47.0); HEMOGLOBIN 12.8 g/dL (12.0-15.5); LYMPH # 2.6 x10^3/uL (1.0-4.8); LYMPH % 21 % (24-48); MEAN CORPUSCULAR HEMOGLOBIN 30 pg (25-35); MEAN CORPUSCULAR HGB CONC 33 g/dL (31-37); MEAN CORPUSCULAR VOLUME 90 fL (79-100); MONO # 1.1 x10^3/uL (0.0-1.1); MONO % 9 % (0-9); NEUT # 8.2 x10^3uL (1.8-7.7); NEUT % 66 % (31-73); PLATELET COUNT 317 x10^3/uL (140-400); RED BLOOD COUNT 4.26 x10^6/uL (3.50-5.40); RED CELL DISTRIBUTION WIDTH 13.6 % (11.5-14.5); WHITE BLOOD COUNT 12.4 x10^3/uL (4.0-11.0)
[2018-01-11 20:24] LABS: ALBUMIN 3.2 g/dL (3.4-5.0); ALBUMIN/GLOBULIN RATIO 0.8 (1.0-1.7); CALCIUM 8.9 mg/dL (8.5-10.1); CREATININE 1.1 mg/dL (0.6-1.0); TOTAL BILIRUBIN 0.3 mg/dL (0.2-1.0); TOTAL PROTEIN 7.2 g/dL (6.4-8.2)
[2018-01-11] MEDS ORDERED: DOCU100C28 PO (21:22)
[2018-01-11] MEDS ORDERED: DEXT1CAP PO (21:22)
[2018-01-11] MEDS ORDERED: HYDR453.3 TP (21:22)
[2018-01-11] MEDS ORDERED: POLY17PO5 PO (21:22)
--- NOTE | 2018-01-11 22:21 | PHYS DOC ---
Past History Past Medical History: Dementia, Depression Past Surgical History: No Surgical History Alcohol Use: None Drug Use: None Adult General Chief Complaint Chief Complaint: PSYCH EVALUATION HPI HPI Patient is a 72-year-old female who presents to the emergency department for medical clearance [facility] Patient was sent from [facility] where she was noted to have a change in mental status. Staff note that the patient has been having increasing agitation and has been causing disruption due to screaming, laughing, and these also state patient has been grabbing at males at the facility. Patient has history of dementia. The facility contacted the [facility] and patient was accepted pending a physical exam to the emergency department. Patient currently has no complaints and is cooperative the patient is oriented to self only at this time and is a poor historian. Review of Systems Review of Systems Caveat: Patient demented and very poor historian Constitutional: Denies fever or chills [] Eyes: Denies change in visual acuity, redness, or eye pain [] HENT: Denies nasal congestion or sore throat [] Respiratory: Denies cough or shortness of breath [] Cardiovascular: Denies chest pain or edema[] GI: Denies abdominal pain, nausea, vomiting, bloody stools or diarrhea [] : Denies dysuria or hematuria [] Musculoskeletal: Denies back pain or joint pain [] Integument: Denies rash or skin lesions [] Neurologic: Denies headache, focal weakness or sensory changes [] All other systems were reviewed and found to be within normal limits, except as documented in this note. Allergies Allergies Allergies Coded Allergies Type Severity Reaction Last Updated Verified No Known Drug Allergies 05/14/17 No Physical Exam Physical Exam Constitutional: Alert, afebrile, no acute distress. [] HENT: Normocephalic, atraumatic, bilateral external ears normal, oropharynx moist, no oral exudates, nose normal. [] Eyes: PERRLA, EOMI, conjunctiva normal, no discharge. [] Neck: Normal range of motion, no tenderness, supple, no stridor. [] Cardiovascular:Heart rate regular rhythm, no murmur [] Lungs & Thorax: Bilateral breath sounds clear to auscultation [] Abdomen: Bowel sounds normal, soft, no tenderness, no masses, no pulsatile masses. [] Skin: Warm, dry, no erythema, no rash. [] Back: No tenderness, no CVA tenderness. [] Extremities: No tenderness, no cyanosis, no clubbing, ROM intact, no edema. [] Neurologic: Alert, oriented to self only, normal motor function, normal sensory function, no focal deficits noted. [] Current Patient Data Vital Signs Vital Signs Date Time Temp Pulse Resp B/P (MAP) Pulse Ox O2 Delivery O2 Flow Rate FiO2 01/11/18 19:42 98.1 88 18 95 Room Air Lab Results Laboratory Tests Test 01/11/18 19:56 White Blood Count 12.4 x10^3/uL (4.0-11.0) H Red Blood Count 4.26 x10^6/uL (3.50-5.40) Hemoglobin 12.8 g/dL (12.0-15.5) Hematocrit 38.4 % (36.0-47.0) Mean Corpuscular Volume 90 fL (79-100) Mean Corpuscular Hemoglobin 30 pg (25-35) Mean Corpuscular Hemoglobin Concent 33 g/dL (31-37) Red Cell Distribution Width 13.6 % (11.5-14.5) Platelet Count 317 x10^3/uL (140-400) Neutrophils (%) (Auto) 66 % (31-73) Lymphocytes (%) (Auto) 21 % (24-48) L Monocytes (%) (Auto) 9 % (0-9) Eosinophils (%) (Auto) 4 % (0-3) H Basophils (%) (Auto) 1 % (0-3) Neutrophils # (Auto) 8.2 x10^3uL (1.8-7.7) H Lymphocytes # (Auto) 2.6 x10^3/uL (1.0-4.8) Monocytes # (Auto) 1.1 x10^3/uL (0.0-1.1) Eosinophils # (Auto) 0.5 x10^3/uL (0.0-0.7) Basophils # (Auto) 0.1 x10^3/uL (0.0-0.2) Sodium Level 143 mmol/L (136-145) Potassium Level 4.0 mmol/L (3.5-5.1) Chloride Level 105 mmol/L (98-107) Carbon Dioxide Level 26 mmol/L (21-32) Anion Gap 12 (6-14) Blood Urea Nitrogen 19 mg/dL (7-20) Creatinine 1.1 mg/dL (0.6-1.0) H Estimated GFR (Cockcroft-Gault) 49.0 BUN/Creatinine Ratio 17 (6-20) Glucose Level 105 mg/dL (70-99) H Calcium Level 8.9 mg/dL (8.5-10.1) Magnesium Level 2.0 mg/dL (1.8-2.4) Total Bilirubin 0.3 mg/dL (0.2-1.0) Aspartate Amino Transferase (AST) 15 U/L (15-37) Alanine Aminotransferase (ALT) 21 U/L (14-59) Alkaline Phosphatase 134 U/L (46-116) H Total Protein 7.2 g/dL (6.4-8.2) Albumin 3.2 g/dL (3.4-5.0) L Albumin/Globulin Ratio 0.8 (1.0-1.7) L EKG EKG Interpreted by me: Heart rate 67, sinus rhythm, normal intervals, normal axis, no acute ST/T-wave abnormalities present[] Radiology/Procedures Radiology/Procedures Not performed[] Course & Med Decision Making Course & Med Decision Making Pertinent Labs and Imaging studies reviewed. (See chart for details) Blood work showed a mild leukocytosis but no other significant findings. Multiple attempts were made to obtain a urine sample from the patient, however she is continuing to refuse a straight catheter for collection. [facility] issue and they stated that they would go ahead and accept patient to the unit. Patient is otherwise medically cleared. Dragon Disclaimer Dragon Disclaimer This electronic medical record was generated, in whole or in part, using a voice recognition dictation system. Departure Departure: Impression: Primary Impression: Medical clearance for psychiatric admission Disposition: 65 XFER TO PSYCH HOSP/UNIT Admitting Physician: Other Condition: STABLE Referrals: BALJINDER NEW DO (PCP) DUNCAN PENN MD Jan 11, 2018 22:21
--- NOTE | 2018-01-12 01:59 | NUR ---
Admission Note with Justification for Admission to [facility] Patient admitted to [facility] for protective oversight for emergency stabilization of acute psychiatric crisis. Pt admitted from: Hospital ER Mode of arrival: EMS Accompanied By: [facility] Staff Precipitating behaviors that initiated intake and admission:Increased agitation, grabbing men and cat calling, yelling out frequently, maniacal laughing and screaming Description of failure of out patient attempts at stabilization in previous setting list behavior and medication trials: treated for UA on 12/30, med changes, moved to [facility] memory unit Behaviors and assessment findings upon admission: Nervous, giggly, compliant but fearful Plan: Admit for protective oversight for adjustment and stabilization of medications, behaviors and mood. Intense treatment regimen including groups, medication adjustments, therapy, consistent regimen for ADL's, self care, and sleep hygiene. Daily monitoring by Inpatient staff, Psychiatry, and Medical Physician.
[2018-01-12] MEDS ORDERED: ACETAMINOPHEN 325 MG TABLET PO PRN ×2 (02:00→02:15)
[2018-01-12] MEDS ORDERED: METHYL SALICYLATE/MENTHOL TOPICAL OINTMENT 29GM TUBE. TP PRN (02:00)
[2018-01-12] MEDS ORDERED: MAGNESIUM HYDROXIDE 2,400 MG/30 ML ORAL.SUSP. PO PRN (02:00)
[2018-01-12] MEDS ORDERED: MAG HYDROX/AL HYDROX/SIMETH 30 ML ORAL.SUSP PO PRN (02:00)
[2018-01-12 02:19] VITALS: BP 147/82
[2018-01-12 02:48] LABS: BACTERIA,URINE 0 /HPF (0-FEW); BILIRUBIN,URINE NEG (NEG); CLARITY,URINE CLEAR; COLOR,URINE YELLOW; GLUCOSE,URINE NEG (NEG); NITRITE,URINE NEG (NEG); SQUAMOUS EPITHELIAL CELL,UR FEW /LPF; UROBILINOGEN,URINE 0.2 mg/dL (0.2 mg/dL)
[2018-01-12 02:58] LABS: VAL ACID 22 mcg/mL (50-100)
--- NOTE | 2018-01-12 07:08 | EKG ---
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
[2018-01-12] MEDS: HYDROCORTISONE 1% TOPICAL CREAM 30GM TUBE. TP SCH ×2 (09:00→20:18)
[2018-01-12] MEDS: POLYETHYLENE GLYCOL 3350 17 GM PACKET. PO SCH (12:18)
[2018-01-12] MEDS: DIVALPROEX 125 MG CAP.SPRINK PO SCH ×2 (12:18→13:37)
[2018-01-12] MEDS: DOCUSATE SODIUM 100 MG CAPSULE PO SCH ×2 (12:18→20:18)
[2018-01-12] MEDS: DEXTROMETHORPHAN/QUINIDINE 20/10MG CAPSULE. PO SCH ×2 (12:19→20:18)
[2018-01-12 12:21] LABS: THYROID STIM HORMONE (TSH) 2.702 uIU/mL (0.358-3.740)
--- NOTE | 2018-01-12 12:48 | HP ---
ADMIT DATE: 01/12/2018 PSYCHIATRIC ADMISSION HISTORY/EVALUATION This note covers elements not covered in the initial note of 01/12/2018. IDENTIFYING DATA: The patient is a 72-year-old female referred to us from [facility] by her primary care physician, Dr. Rahman on account of "increased agitation, grabbing man and cat calling, she has been screaming and laughing maniacally.'' Reportedly, the patient has had active hallucinations, extremely significant mood swings and behaviors have been deemed dangerous. She has failed outpatient psychiatric interventions including changes in her psychotropics initiated by Dr. Rahman and moving to the long-term care unit, memory unit. She has failed all of these interventions resulting in this referral. CHIEF COMPLAINT: "Get out of here." ''I am going to stay here forever." HISTORY OF PRESENT ILLNESS: The patient has a history of dementia, Alzheimer's vascular type. She has been residing at the above facility for some time, but more recently has been getting increasingly agitated, psychotic, aggressive. She has had sleep and appetite changes, marked mood lability, questionable episodes of manic behavior. No active suicidal or homicidal ideation other than above. PAST PSYCHIATRIC HISTORY: As above. PAST MEDICAL HISTORY: Medical history is positive for hyperlipidemia, dysphagia, frequent falls, muscle weakness, pseudobulbar affect. DRUG ALLERGIES: Negative. CODE STATUS: Full code. ACCU-CHEKS: Negative. DIET: Regular. She ambulates total left in wheelchair. CURRENT PSYCHOTROPICS: Depakote Sprinkles 125 mg b.i.d., Nuedexta 20/10 mg q. 12 hours. FAMILY HISTORY: Noncontributory. SOCIAL HISTORY: No history of alcohol, drug abuse, physical, sexual or elder abuse history is noted. Not known to be a perpetrator. REACTION TO HOSPITALIZATION: The patient is oblivious of this. ASSETS: Supportive living at the senior care. MENTAL STATUS EXAMINATION: The patient was seen individually in morning of 01/12/2018. She is oriented to herself, rambling in her speech, extremely angry, labile, paranoid, psychotic. Insight, judgment, recent, remote memory, attention, concentration, fund of knowledge is poor, consistent with her diagnoses. Association is loose. LABORATORY DATA: Reviewed. IMPRESSION: Major neurocognitive disorder, Alzheimer, vascular with delusion, depression, behavioral disturbance; anxiety disorder, unspecified; impulse control disorder, unspecified. Rest as above. PLAN: Admit to Geropsychiatry Unit at [facility], psychiatric followup with myself daily individually, and medical followup with Dr. Haro/Dr. Allen. Continue current psychotropics. Add Zyprexa p.r.n. Observe baseline. Check valproic acid level. Adjust further post-baseline assessment. MAX BIGGS MD DR: MONICA/daniel JOB#: [id number] / [id number]
--- NOTE | 2018-01-12 16:04 | NUR ---
Behavior Intervention Response and Plan: BIRP Note: Behavior: Assumed Care of patient, patient located in Dining Room at shift change. Patient exhibited the following behavior Interactive, Disorganized, Resistive. Brief assessment on rounds of vital signs, medication needs, lab studies, and pain. Treatment plan problems . Intervention: Patient assessed and the following interventions initiated safety checks 15 Minute Checks Head to toe Assessment , Medications , Cognitive Assessment. Response: After interactions and interventions patient responded in the following manner, Interactive , Disorganized ,Irritable. Continue to assess behaviors and condition will continue to monitor throughout the shift as needed. Patient educated on ADL's, and hand hygiene. 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 Continue to assess patient for changes in above assessment. Monitor for medication needs, pain, and safety concerns. Hourly rounding performed to ensure safe environment.
[2018-01-12 16:49] VITALS: BP 152/71
[2018-01-12] MEDS: ATORVASTATIN CALCIUM 20 MG TABLET PO SCH (20:18)
--- NOTE | 2018-01-12 20:20 | NUR ---
Behavior Intervention Response and Plan: BIRP Note: Behavior: Assumed Care of patient, patient located in Day Room at shift change. Patient exhibited the following behavior Interactive, Disorganized, Compliant. Brief assessment on rounds of vital signs, medication needs, lab studies, and pain. Treatment plan problems . Intervention: Patient assessed and the following interventions initiated safety checks 15 Minute Checks Cognitive Assessment , Head to toe Assessment , Medications. Response: After interactions and interventions patient responded in the following manner, Interactive , Disorganized ,Compliant. Continue to assess behaviors and condition will continue to monitor throughout the shift as needed. Patient educated on ADL's, and hand hygiene. Plan: Continue to monitor Master Treatment Plan for patient's progress toward short term goals of Decreased Agitation, Decreased Aggression, [facility] goals to return to previous living setting vs placement. Continue to assess patient for changes in above assessment. Monitor for medication needs, pain, and safety concerns. Hourly rounding performed to ensure safe environment.
--- NOTE | 2018-01-12 22:28 | PDOC ---
Exam Note: Jasper Note: Please also refer to the separate dictated note~for this date of service dictated separately.~Patient seen individually. Discussed the patient with Nursing staff reviewed the chart.~Reviewed interim history and current functioning. Reviewed vital signs,~Labs/ Radiology~and current medications noted below. Continue current treatment with the changes noted in the dictated addendum note Assessment: Vital Signs: Vital Signs Date Time Temp Pulse Resp B/P (MAP) Pulse Ox O2 Delivery O2 Flow Rate FiO2 01/12/18 16:49 97.9 109 22 152/71 (98) 92 Room Air Labs: Laboratory Tests Test 01/12/18 02:15 Urine Collection Type U cath Urine Color Yellow Urine Clarity Clear Urine pH 5.5 Urine Specific [place] 1.020 Urine Protein Neg (NEG-TRACE) Urine Glucose (UA) Neg mg/dL (NEG) Urine Ketones (Stick) Trace mg/dL (NEG) Urine Blood Small (NEG) Urine Nitrite Neg (NEG) Urine Bilirubin Neg (NEG) Urine Urobilinogen Dipstick 0.2 mg/dL (0.2 mg/dL) Urine Leukocyte Esterase Trace (NEG) Urine RBC 3-5 /HPF (0-2) Urine WBC 1-4 /HPF (0-4) Urine Squamous Epithelial Cells Few /LPF Urine Bacteria 0 /HPF (0-FEW) Current Medications: Meds: Current Medications Acetaminophen (Tylenol) 650 mg PRN Q6HRS PRN PO PAIN / TEMP; Start 01/12/18 at 02:00 Multi-Ingredient Ointment (Analgesic [place]) 1 eusebio PRN QID PRN TP MUSCLE PAIN; Start 01/12/18 at 02:00 Al Hydroxide/Mg Hydroxide (Mylanta Plus Xs) 15 ml PRN AFTMEALHC PRN PO DYSPEPSIA; Start 01/12/18 at 02:00 Magnesium Hydroxide (Milk Of Magnesia) 2,400 mg PRN QHS PRN PO CONSTIPATION; Start 01/12/18 at 02:00 Acetaminophen (Tylenol) 650 mg PRN Q6HRS PRN PO PAIN / TEMP; Start 01/12/18 at 02:15; Status UNV Atorvastatin Calcium (Lipitor) 20 mg QHS PO Last administered on 01/12/18at 20: 18; Start 01/12/18 at 21:00 Docusate Sodium (Colace) 100 mg BID PO Last administered on 01/12/18at 20:18; Start 01/12/18 at 09:00 Hydrocortisone (Cortaid) 1 eusebio BID TP Last administered on 01/12/18at 09:00; Start 01/12/18 at 09:00 Polyethylene Glycol (miraLAX) 17 gm DAILY PO Last administered on 01/12/18at 12: 18; Start 01/12/18 at 09:00 Dextromethorphan/ Quinidine (Nuedexta 20-10 Mg Capsule) 1 cap Q12HR PO Last administered on 01/12/18 20:18; Start 01/12/18 at 09:00 Divalproex Sodium (Depakote Sprinkles) 125 mg BID92 PO Last administered on 13:37; Start 01/12/18 at 09:00 Active Scripts Active Reported Miralax (Polyethylene Glycol 3350) 17 Gm Powd.pack 17 Gm PO DAILY Nuedexta 20-10 Mg Capsule (Dextromethorphan Hbr/Quinidine) 1 Each Capsule 1 Cap PO Q12HR Hydrocortisone 453.6 Gm Cream..g. 1 Eusebio TP BID Docusate Sodium 100 Mg Capsule 100 Mg PO BID Depakote Sprinkle (Divalproex Sodium) 125 Mg Cap.sprink 125 Mg PO BID92 Atorvastatin Calcium 20 Mg Tablet 20 Mg PO QHS Tylenol (Acetaminophen) 325 Mg Tablet 650 Mg PO PRN Q6HRS PRN I have reviewed the current psychotropics carefully including drug interactions. Risk benefit ratio favors no change other than as noted in my dictated progress note. Diagnosis: Problems: (1) Anxiety disorder (2) Dementia in Alzheimer's disease with delusions (3) Dementia in Alzheimer's disease with depression (4) Dementia, vascular, with delusions (5) Dementia, vascular, with depression (6) Impulse control disorder (7) Medical clearance for psychiatric admission MAX BIGGS MD Jan 12, 2018 22:28
[2018-01-13 00:10] LABS: THYROXINE 5.9 ug/dL (4.5-12.0)
[2018-01-13 02:12] LABS: HEMOGLOBIN A1C 5.5 % (4.8-5.6)
[2018-01-13 06:47] VITALS: BP 121/84
[2018-01-13] MEDS: POLYETHYLENE GLYCOL 3350 17 GM PACKET. PO SCH (08:28)
[2018-01-13] MEDS: DOCUSATE SODIUM 100 MG CAPSULE PO SCH ×2 (08:28→19:35)
[2018-01-13] MEDS: HYDROCORTISONE 1% TOPICAL CREAM 30GM TUBE. TP SCH ×2 (08:28→19:34)
[2018-01-13] MEDS: DIVALPROEX 125 MG CAP.SPRINK PO SCH ×2 (08:28→13:13)
[2018-01-13] MEDS: DEXTROMETHORPHAN/QUINIDINE 20/10MG CAPSULE. PO SCH ×2 (08:28→19:35)
--- NOTE | 2018-01-13 09:08 | NUR ---
Behavior Intervention Response and Plan: BIRP Note: Behavior: Assumed Care of patient, patient located in Dining Room at shift change. Patient exhibited the following behavior Interactive, Disorganized, Compliant. Brief assessment on rounds of vital signs, medication needs, lab studies, and pain. Treatment plan problems . Intervention: Patient assessed and the following interventions initiated safety checks 15 Minute Checks Cognitive Assessment , Head to toe Assessment , Medications. Response: After interactions and interventions patient responded in the following manner, Agitated , Disorganized ,Compliant. Continue to assess behaviors and condition will continue to monitor throughout the shift as needed. Patient educated on ADL's, and hand hygiene. Plan: Continue to monitor Master Treatment Plan for patient's progress toward short term goals of Decreased Agitation, Decreased Aggression, group home goals to return to previous living setting vs placement. Continue to assess patient for changes in above assessment. Monitor for medication needs, pain, and safety concerns. Hourly rounding performed to ensure safe environment.
--- NOTE | 2018-01-13 12:29 | HP ---
ADMIT DATE: 01/12/2018 PSYCHIATRIC ADMISSION HISTORY/EVALUATION This late entry 01/12/2018 covers elements not covered in my initial note of 01/12/2018. I met with the patient in the morning of 01/12/2018 and had previously discussed with nursing staff on several occasions to gather and review referral information from Dr. Hernandez Rahman at [facility] referring the patient for inpatient psychiatric hospitalization on account of increased agitation, calling out, more grabbing at men, cat calling. These have been worse after her 's visit. She has been screaming and laughing, psychotic and adjustments in her psychotropics at the [facility] had failed and she was tested for a UTI, which was negative thus resulting in this referral. IDENTIFYING DATA: A 72-year-old female referred as noted from [facility] by Dr. Hernandez Rahman, her primary care physician on account of the above behaviors. CHIEF COMPLAINT: ''Get out of here." The patient is quite agitated, labile, psychotic, paranoid, in her wheelchair, yelling out. HISTORY OF PRESENT ILLNESS: The patient has history of dementia, Alzheimer's vascular type. She has been residing at the [facility] for some time, but over the past 10 days or so behaviors have been worsening significantly. In addition to above, she has had sleep and appetite changes. No clear history of bipolar disorder, suicidal or homicidal ideation. She has been moved to a long-term Memory Care Unit and all of these interventions have failed. PAST PSYCHIATRIC HISTORY: As above. PAST MEDICAL HISTORY: Hyperlipidemia, dysphagia, falls, muscle weakness, pseudobulbar affect. She is total left in wheelchair. CODE STATUS: Full code. ALLERGIES: Negative. DIET: Regular. CURRENT PSYCHOTROPICS: Depakote Sprinkles 125 mg b.i.d., Nuedexta 20/10 mg q. 12 hours. FAMILY HISTORY: Noncontributory. SOCIAL HISTORY: No alcohol, drug abuse, physical, sexual or elder abuse history is noted. Not known to be a perpetrator. REACTION TO HOSPITALIZATION: The patient is oblivious of this. ASSETS: Supportive living at the [facility]. MENTAL STATUS EXAM: The patient was seen individually in morning of 01/12/2018. She is in a wheelchair, up and down the hallway. Insight, judgment, recent and remote memory, attention, concentration, fund of knowledge is poor, consistent with her diagnoses. She is quite labile, paranoid, psychotic, yelling, screaming at times. LABORATORY DATA: Reviewed. IMPRESSION: Major neurocognitive disorder, Alzheimer, vascular with delusion, depression, behavioral disturbance; anxiety disorder, unspecified; impulse control disorder, unspecified. Rest as above. PLAN: Admit to Geropsychiatry Unit at [facility]. I will see the patient daily individually from a psychiatric standpoint, medical followup per Dr. Haro/Dr Allen. Continue the patient on her current psychotropics. Check a valproic acid level. Adjust Depakote to reach therapeutic level. Consider adding Seroquel as a mood stabilizer. Maintain Nuedexta. Estimated length of stay 10-12 days. DISPOSITION: Will be back to [facility]. MAN Amauri BIGGS MD DR: MONICA/daniel JOB#: [id number] / [id number]
--- NOTE | 2018-01-13 15:10 | NUR ---
Activity Therapy Assessment: Patient was sitting down in her wheelchair during the assessment. Patient was not able to remember her past, present, location, or age. Patient needed to be redirected various times during observation and assessment and can verbally express herself. Patient will need help with ADLs and uses a wheelchair to ambulate. Initial Treatment Goals: To engage in 5 groups per week that will increase time management and assertiveness. Addendum: 01/20/18 at 0920 by RO FARNSWORTH ACT Goal changed 01/19/2018. New goal: Pt. will participate fully in at least three groups before discharge Addendum: 02/01/18 at 1446 by RO FARNSWORTH ACT Goal change 02/01/2018: Pt. will participate fully in at least three groups per week
[2018-01-13 16:37] VITALS: BP 152/92
[2018-01-13] MEDS: ATORVASTATIN CALCIUM 20 MG TABLET PO SCH (19:35)
--- NOTE | 2018-01-13 19:35 | NUR ---
Behavior Intervention Response and Plan: BIRP Note: Behavior: Assumed Care of patient, patient located in Day Room at shift change. Patient exhibited the following behavior Interactive, Disorganized, Compliant. Brief assessment on rounds of vital signs, medication needs, lab studies, and pain. Treatment plan problems . Intervention: Patient assessed and the following interventions initiated safety checks 15 Minute Checks Cognitive Assessment , Head to toe Assessment , Medications. Response: After interactions and interventions patient responded in the following manner, Interactive , Disorganized ,Compliant. Continue to assess behaviors and condition will continue to monitor throughout the shift as needed. Patient educated on ADL's, and hand hygiene. 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 Continue to assess patient for changes in above assessment. Monitor for medication needs, pain, and safety concerns. Hourly rounding performed to ensure safe environment.
--- NOTE | 2018-01-13 22:29 | PDOC ---
Exam Note: Jasper Note: Please also refer to the separate dictated note~for this date of service dictated separately.~Patient seen individually. Discussed the patient with Nursing staff reviewed the chart.~Reviewed interim history and current functioning. Reviewed vital signs,~Labs/ Radiology~and current medications noted below. Continue current treatment with the changes noted in the dictated addendum note Assessment: Vital Signs: Vital Signs Date Time Temp Pulse Resp B/P (MAP) Pulse Ox O2 Delivery O2 Flow Rate FiO2 01/13/18 16:37 98.0 75 20 152/92 (112) 94 Room Air I&O Intake and Output 01/13/18 07:00 Intake Total 480 ml Balance 480 ml Intake Oral 480 ml # Bowel Movements 1 Current Medications: Meds: Current Medications Acetaminophen (Tylenol) 650 mg PRN Q6HRS PRN PO PAIN / TEMP; Start 01/12/18 at 02:00 Multi-Ingredient Ointment (Analgesic [place]) 1 eusebio PRN QID PRN TP MUSCLE PAIN; Start 01/12/18 at 02:00 Al Hydroxide/Mg Hydroxide (Mylanta Plus Xs) 15 ml PRN AFTMEALHC PRN PO DYSPEPSIA; Start 01/12/18 at 02:00 Magnesium Hydroxide (Milk Of Magnesia) 2,400 mg PRN QHS PRN PO CONSTIPATION; Start 01/12/18 at 02:00 Acetaminophen (Tylenol) 650 mg PRN Q6HRS PRN PO PAIN / TEMP; Start 01/12/18 at 02:15; Status UNV Atorvastatin Calcium (Lipitor) 20 mg QHS PO Last administered on 01/13/18at 19: 35; Start 01/12/18 at 21:00 Docusate Sodium (Colace) 100 mg BID PO Last administered on 01/13/18 19:35; Start 01/12/18 at 09:00 Hydrocortisone (Cortaid) 1 eusebio BID TP Last administered on 01/13/18 19:34; Start 01/12/18 at 09:00 Polyethylene Glycol (miraLAX) 17 gm DAILY PO Last administered on 01/13/18at 08: 28; Start 01/12/18 at 09:00 Dextromethorphan/ Quinidine (Nuedexta 20-10 Mg Capsule) 1 cap Q12HR PO Last administered on 01/13/18at 19:35; Start 01/12/18 at 09:00 Divalproex Sodium (Depakote Sprinkles) 125 mg BID92 PO Last administered on at 13:13; Start 01/12/18 at 09:00 Sertraline HCl (Zoloft) 25 mg DAILY PO ; Start 01/14/18 at 09:00 Active Scripts Active Reported Miralax (Polyethylene Glycol 3350) 17 Gm Powd.pack 17 Gm PO DAILY Nuedexta 20-10 Mg Capsule (Dextromethorphan Hbr/Quinidine) 1 Each Capsule 1 Cap PO Q12HR Hydrocortisone 453.6 Gm Cream..g. 1 Eusebio TP BID Docusate Sodium 100 Mg Capsule 100 Mg PO BID Depakote Sprinkle (Divalproex Sodium) 125 Mg Cap.sprink 125 Mg PO BID92 Atorvastatin Calcium 20 Mg Tablet 20 Mg PO QHS Tylenol (Acetaminophen) 325 Mg Tablet 650 Mg PO PRN Q6HRS PRN I have reviewed the current psychotropics carefully including drug interactions. Risk benefit ratio favors no change other than as noted in my dictated progress note. Diagnosis: Problems: (1) Anxiety disorder (2) Dementia in Alzheimer's disease with delusions (3) Dementia in Alzheimer's disease with depression (4) Dementia, vascular, with delusions (5) Dementia, vascular, with depression (6) Impulse control disorder (7) Medical clearance for psychiatric admission MAX BIGGS MD Jan 13, 2018 22:29
--- NOTE | 2018-01-14 00:13 | CONS ---
DATE OF CONSULTATION: 01/13/2018 REASON FOR CONSULTATION: Medical management. HISTORY OF PRESENT ILLNESS: The patient is a 72-year-old female patient, a resident at [facility], who was referred by primary care physician on account of increased agitation, calling out more grabbing men, cat calling and these have been worse after her 's visit. She has been screaming and laughing psychotic and adjustment of her psychotropic medication at [facility] has failed and she was admitted for inpatient psychiatric stabilization. PAST PSYCHIATRIC HISTORY: Her past psychiatric history is significant for dementia, Alzheimer's, vascular type. PAST MEDICAL HISTORY: Her past medical history is significant for hyperlipidemia, dysphagia, falls and she has also marked muscle weakness, pseudobulbar affect. She is wheelchair bound. ALLERGIES: She has no known drug allergies. MEDICATIONS: She is currently on following medications, she is on atorvastatin 20 mg at bedtime, Tylenol 650 mg every 6 hours, divalproex sodium 125 mg twice a day, Nuedexta 20/10 twice a day, docusate sodium 100 mg twice a day, polyethylene glycol 17 grams daily, and hydrocortisone cream apply topically twice a day. FAMILY HISTORY: Unremarkable. SOCIAL HISTORY: She is , has no children of her own. She has never smoked, but drinks alcohol occasionally. 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 REVIEW OF SYSTEMS: Review of systems is difficult to obtain. PHYSICAL EXAMINATION: GENERAL: When I examined her this afternoon, she was sitting comfortably in her wheelchair, attempting to wean herself around. She did not seem to be in any respiratory distress. There was no pallor, jaundice, cyanosis, or thyromegaly. No jugular venous distention. No lower limb edema. VITAL SIGNS: Her heart rate was 73, blood pressure was 121/84, her temperature was 96.6, respiratory rate was 15, and oxygen saturation was 95% on room air. HEAD, EYES, EARS, NOSE AND THROAT: Showed she is normocephalic, atraumatic. NECK: Supple. HEART: Showed normal first and second sounds. No gallop, rub or murmur. CHEST: Clear to auscultation. No crepitation or rhonchi. ABDOMEN: Distended, soft, nontender. No guarding or rigidity. No organomegaly. Hernial orifices intact. Bowel sounds normal. NEUROLOGIC: She is awake, alert, responding appropriately. All her cranial nerves are intact. She moves her upper extremities to a much greater extent than lower extremities. She is mostly bedbound, chair bound. LABORATORY DATA: Her lab work showed a white cell count 12,400, hemoglobin 12.8, hematocrit 38, MCV 90, and platelet count of 317,000. Her chemistry showed that her serum sodium was 143, potassium 4, chloride 105, bicarbonate 26, anion gap of 12, BUN 19, creatinine 1.1, estimated GFR was 49 mL per minute. Her glucose was 105, calcium was 8.9, magnesium 2. Serum iron was 338, TIBC was 316, and iron percent saturation was 12. Alkaline phosphatase was slightly elevated. Total protein was 7.2, albumin was 3.2. Her vitamin B12 was 338 picogram/mL. Her TSH was 2.72, and her total T4 and total T3 were normal. Her 25-hydroxy vitamin D3 was 24.8 and her total bilirubin, AST, ALT, alkaline phosphatase was normal. Urinalysis was essentially unremarkable and toxic screen was negative. Her Treponema pallidum antibodies were nonreactive. IMPRESSION: So, in summary, this is a 72-year-old female patient, who was a resident at [facility], was admitted on account of increased agitation, calling out more grabbing men, cat calling. Apparently, this behavior was worsened after her visits. She has been screaming, laughing, psychotic. Adjustments to her psychotropic medication has failed and she was tested for urinary tract infection, which was negative and therefore she was admitted for inpatient psychiatric stabilization. Medically, she seemed to be stable, all her vital signs are within acceptable range. Her lab works are mostly within acceptable range. She has only vitamin D deficiency that I will start her on cholecalciferol 50,000 units once a week. Thank you, Dr. Zayas for allowing me to participate in the care of this patient. WES BRENNAN MD DR: ELYSE/daniel JOB#: [id number] / [id number]
[2018-01-14 06:34] VITALS: BP 137/67
[2018-01-14] MEDS: POLYETHYLENE GLYCOL 3350 17 GM PACKET. PO SCH (08:40)
[2018-01-14] MEDS: DOCUSATE SODIUM 100 MG CAPSULE PO SCH ×2 (08:41→19:36)
[2018-01-14] MEDS: DIVALPROEX 125 MG CAP.SPRINK PO SCH ×2 (08:41→14:05)
[2018-01-14] MEDS: HYDROCORTISONE 1% TOPICAL CREAM 30GM TUBE. TP SCH ×2 (08:41→19:36)
[2018-01-14] MEDS: DEXTROMETHORPHAN/QUINIDINE 20/10MG CAPSULE. PO SCH ×2 (08:41→19:36)
[2018-01-14] MEDS: SERTRALINE 25 MG TABLET. PO SCH (08:45)
[2018-01-14 16:49] VITALS: BP 139/67
--- NOTE | 2018-01-14 19:35 | NUR ---
Behavior Intervention Response and Plan: BIRP Note: Behavior: Assumed Care of patient, patient located in Day Room at shift change. Patient exhibited the following behavior Interactive, Disorganized, Social. Brief assessment on rounds of vital signs, medication needs, lab studies, and pain. Treatment plan problems . Intervention: Patient assessed and the following interventions initiated safety checks 15 Minute Checks Cognitive Assessment , Head to toe Assessment , Medications. Response: After interactions and interventions patient responded in the following manner, Interactive , Disorganized ,Resistive. Continue to assess behaviors and condition will continue to monitor throughout the shift as needed. Patient educated on ADL's, and hand hygiene. 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 Continue to assess patient for changes in above assessment. Monitor for medication needs, pain, and safety concerns. Hourly rounding performed to ensure safe environment.
[2018-01-14] MEDS: ATORVASTATIN CALCIUM 20 MG TABLET PO SCH (19:36)
--- NOTE | 2018-01-14 22:32 | PDOC ---
Exam Note: Jasper Note: Please also refer to the separate dictated note~for this date of service dictated separately.~Patient seen individually. Discussed the patient with Nursing staff reviewed the chart.~Reviewed interim history and current functioning. Reviewed vital signs,~Labs/ Radiology~and current medications noted below. Continue current treatment with the changes noted in the dictated addendum note Assessment: Vital Signs: Vital Signs Date Time Temp Pulse Resp B/P (MAP) Pulse Ox O2 Delivery O2 Flow Rate FiO2 01/14/18 16:49 98.0 69 20 139/67 (91) 01/14/18 06:34 94 Room Air I&O Intake and Output 01/14/18 07:01 Intake Total 780 ml Balance 780 ml Intake Oral 780 ml Current Medications: Meds: Current Medications Acetaminophen (Tylenol) 650 mg PRN Q6HRS PRN PO PAIN / TEMP; Start 01/12/18 at 02:00 Multi-Ingredient Ointment (Analgesic [place]) 1 eusebio PRN QID PRN TP MUSCLE PAIN; Start 01/12/18 at 02:00 Al Hydroxide/Mg Hydroxide (Mylanta Plus Xs) 15 ml PRN AFTMEALHC PRN PO DYSPEPSIA; Start 01/12/18 at 02:00 Magnesium Hydroxide (Milk Of Magnesia) 2,400 mg PRN QHS PRN PO CONSTIPATION; Start 01/12/18 at 02:00 Acetaminophen (Tylenol) 650 mg PRN Q6HRS PRN PO PAIN / TEMP; Start 01/12/18 at 02:15; Status UNV Atorvastatin Calcium (Lipitor) 20 mg QHS PO Last administered on 01/14/18at 19: 36; Start 01/12/18 at 21:00 Docusate Sodium (Colace) 100 mg BID PO Last administered on 01/14/18 19:36; Start 01/12/18 at 09:00 Hydrocortisone (Cortaid) 1 eusebio BID TP Last administered on 01/14/18 19:36; Start 01/12/18 at 09:00 Polyethylene Glycol (miraLAX) 17 gm DAILY PO Last administered on 01/14/18at 08: 40; Start 01/12/18 at 09:00 Dextromethorphan/ Quinidine (Nuedexta 20-10 Mg Capsule) 1 cap Q12HR PO Last administered on 6/16/18at 19:36; Start 01/12/18 at 09:00 Divalproex Sodium (Depakote Sprinkles) 125 mg BID92 PO Last administered on at 14:05; Start 01/12/18 at 09:00 Sertraline HCl (Zoloft) 25 mg DAILY PO Last administered on 01/14/18at 08:45; Start 01/14/18 at 09:00 Quetiapine Fumarate (SEROquel) 12.5 mg TID@0900,1300,1700 PO ; Start 01/15/18 at 09:00 Active Scripts Active Reported Miralax (Polyethylene Glycol 3350) 17 Gm Powd.pack 17 Gm PO DAILY Nuedexta 20-10 Mg Capsule (Dextromethorphan Hbr/Quinidine) 1 Each Capsule 1 Cap PO Q12HR Hydrocortisone 453.6 Gm Cream..g. 1 Eusebio TP BID Docusate Sodium 100 Mg Capsule 100 Mg PO BID Depakote Sprinkle (Divalproex Sodium) 125 Mg Cap.sprink 125 Mg PO BID92 Atorvastatin Calcium 20 Mg Tablet 20 Mg PO QHS Tylenol (Acetaminophen) 325 Mg Tablet 650 Mg PO PRN Q6HRS PRN I have reviewed the current psychotropics carefully including drug interactions. Risk benefit ratio favors no change other than as noted in my dictated progress note. Diagnosis: Problems: (1) Anxiety disorder (2) Dementia in Alzheimer's disease with delusions (3) Dementia in Alzheimer's disease with depression (4) Dementia, vascular, with delusions (5) Dementia, vascular, with depression (6) Impulse control disorder (7) Medical clearance for psychiatric admission MAX BIGGS MD Jan 14, 2018 22:32
[2018-01-15] MEDS: SERTRALINE 25 MG TABLET. PO SCH (10:04)
[2018-01-15] MEDS: DOCUSATE SODIUM 100 MG CAPSULE PO SCH ×2 (10:04→19:40)
[2018-01-15] MEDS: DIVALPROEX 125 MG CAP.SPRINK PO SCH ×2 (10:04→13:11)
[2018-01-15] MEDS: DEXTROMETHORPHAN/QUINIDINE 20/10MG CAPSULE. PO SCH ×2 (10:05→19:40)
[2018-01-15] MEDS: POLYETHYLENE GLYCOL 3350 17 GM PACKET. PO SCH (10:05)
[2018-01-15] MEDS: QUEtiapine 25 MG TABLET. PO SCH ×3 (10:06→17:17)
[2018-01-15] MEDS: HYDROCORTISONE 1% TOPICAL CREAM 30GM TUBE. TP SCH ×2 (12:09→19:40)
--- NOTE | 2018-01-15 14:11 | NUR ---
Nursing Note: Behavior Pt put herself on the floor in the dining room; as staff was helping pt back into chair, pt began to yell at staff, asking, "Are you going to kill me now?" Pt in the day room suddenly got up from her wheelchair and walked approximately 15 feet w/o any obvious difficultly and began to yell nonsensically pointing to a patient saying he was the son of someone she knows. On patient's intake form it states that she is full lift and WC bound.
[2018-01-15 15:51] VITALS: BP 132/71
--- NOTE | 2018-01-15 17:10 | NUR ---
Nursing Note: Pt's visited in the afternoon. Pt yelled at repeatedly even after asked pt to calm down. Pt was in room with pt and left the room to inquire about what was being served for dinner, asked pt to remain seated. When returned, pt had walked from her room to a chair in the hallway without assistance. remarked to this nurse in front of pt that it had been about two months since she had walked that far w/o assistance.
--- NOTE | 2018-01-15 17:13 | NUR ---
Behavior Intervention Response and Plan: BIRP Note: Behavior: Assumed Care of patient, patient located in Day Room at shift change. Patient exhibited the following behavior Restless, Disorganized, Resistive. Brief assessment on rounds of vital signs, medication needs, lab studies, and pain. Treatment plan problems dementia w/ bd and fall risk. Intervention: Patient assessed and the following interventions initiated safety checks 15 Minute Checks Head to toe Assessment , Cognitive Assessment , Medications. Response: After interactions and interventions patient responded in the following manner, Restless , Disorganized ,Resistive. Continue to assess behaviors and condition will continue to monitor throughout the shift as needed. Patient educated on ADL's, and hand hygiene. 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 Continue to assess patient for changes in above assessment. Monitor for medication needs, pain, and safety concerns. Hourly rounding performed to ensure safe environment.
[2018-01-15] MEDS: ATORVASTATIN CALCIUM 20 MG TABLET PO SCH (19:40)
--- NOTE | 2018-01-15 21:03 | PDOC ---
Exam Note: Jasper Note: Please also refer to the separate dictated note~for this date of service dictated separately.~Patient seen individually. Discussed the patient with Nursing staff reviewed the chart.~Reviewed interim history and current functioning. Reviewed vital signs,~Labs/ Radiology~and current medications noted below. Continue current treatment with the changes noted in the dictated addendum note Assessment: Vital Signs: Vital Signs Date Time Temp Pulse Resp B/P (MAP) Pulse Ox O2 Delivery O2 Flow Rate FiO2 01/15/18 15:51 97.6 84 20 132/71 (91) 98 01/14/18 06:34 Room Air I&O Intake and Output 01/15/18 07:01 Intake Total 965 ml Balance 965 ml Intake Oral 965 ml # Bowel Movements 2 Current Medications: Meds: Current Medications Acetaminophen (Tylenol) 650 mg PRN Q6HRS PRN PO PAIN / TEMP; Start 01/12/18 at 02:00 Multi-Ingredient Ointment (Analgesic [place]) 1 eusebio PRN QID PRN TP MUSCLE PAIN; Start 01/12/18 at 02:00 Al Hydroxide/Mg Hydroxide (Mylanta Plus Xs) 15 ml PRN AFTMEALHC PRN PO DYSPEPSIA; Start 01/12/18 at 02:00 Magnesium Hydroxide (Milk Of Magnesia) 2,400 mg PRN QHS PRN PO CONSTIPATION; Start 01/12/18 at 02:00 Acetaminophen (Tylenol) 650 mg PRN Q6HRS PRN PO PAIN / TEMP; Start 01/12/18 at 02:15; Status UNV Atorvastatin Calcium (Lipitor) 20 mg QHS PO Last administered on 01/15/18at 19: 40; Start 01/12/18 at 21:00 Docusate Sodium (Colace) 100 mg BID PO Last administered on 01/15/18at 19:40; Start 01/12/18 at 09:00 Hydrocortisone (Cortaid) 1 eusebio BID TP Last administered on 01/15/18at 19:40; Start 01/12/18 at 09:00 Polyethylene Glycol (miraLAX) 17 gm DAILY PO Last administered on 01/15/18at 10: 05; Start 01/12/18 at 09:00 Dextromethorphan/ Quinidine (Nuedexta 20-10 Mg Capsule) 1 cap Q12HR PO Last administered on 01/15/18at 19:40; Start 01/12/18 at 09:00 Divalproex Sodium (Depakote Sprinkles) 125 mg BID92 PO Last administered on at 13:11; Start 01/12/18 at 09:00 Sertraline HCl (Zoloft) 25 mg DAILY PO Last administered on 01/15/18at 10:04; Start 01/14/18 at 09:00 Quetiapine Fumarate (SEROquel) 12.5 mg TID@0900,1300,1700 PO Last administered on 01/15/18at 17:17; Start 01/15/18 at 09:00 Active Scripts Active Reported Miralax (Polyethylene Glycol 3350) 17 Gm Powd.pack 17 Gm PO DAILY Nuedexta 20-10 Mg Capsule (Dextromethorphan Hbr/Quinidine) 1 Each Capsule 1 Cap PO Q12HR Hydrocortisone 453.6 Gm Cream..g. 1 Eusebio TP BID Docusate Sodium 100 Mg Capsule 100 Mg PO BID Depakote Sprinkle (Divalproex Sodium) 125 Mg Cap.sprink 125 Mg PO BID92 Atorvastatin Calcium 20 Mg Tablet 20 Mg PO QHS Tylenol (Acetaminophen) 325 Mg Tablet 650 Mg PO PRN Q6HRS PRN I have reviewed the current psychotropics carefully including drug interactions. Risk benefit ratio favors no change other than as noted in my dictated progress note. Diagnosis: Problems: (1) Anxiety disorder (2) Dementia in Alzheimer's disease with delusions (3) Dementia in Alzheimer's disease with depression (4) Dementia, vascular, with delusions (5) Dementia, vascular, with depression (6) Impulse control disorder (7) Medical clearance for psychiatric admission MAX BIGGS MD Jan 15, 2018 21:03
--- NOTE | 2018-01-15 23:59 | NUR ---
Behavior Intervention Response and Plan: BIRP Note: Behavior: Assumed Care of patient, patient located in Hallway at shift change. Patient exhibited the following behavior Disorganized, Attention Seeking, Non Compliant. Brief assessment on rounds of vital signs, medication needs, lab studies, and pain. Treatment plan problems 1-2. Intervention: Patient assessed and the following interventions initiated safety checks 15 Minute Checks Cognitive Assessment , Head to toe Assessment , Medications. Response: After interactions and interventions patient responded in the following manner, Disorganized , Compulsive ,Resistive. Continue to assess behaviors and condition will continue to monitor throughout the shift as needed. Patient educated on ADL's, and hand hygiene. Plan: Continue to monitor Master Treatment Plan for patient's progress toward short term goals of Decreased Agitation, Decreased Anxiety, longterm goals to return to previous living setting vs placement. Continue to assess patient for changes in above assessment. Monitor for medication needs, pain, and safety concerns. Hourly rounding performed to ensure safe environment.
--- NOTE | 2018-01-16 02:39 | PN ---
DATE: 01/13/2018 PSYCHIATRIC PROGRESS NOTE This late entry 01/13/2018, covers elements not covered in my initial note. SUBJECTIVE: Met with the patient in the evening. The patient remains confused, anxious, laughing, yelling at times, extremely intrusive, disruptive. REVIEW OF SYSTEMS: Ambulation is impaired, in wheelchair. No CV, , pulmonary, eye, ENT system symptoms on review. Reliability is poor. MENTAL STATUS EXAM: Oriented to herself. Insight, judgment, recent, remote memory, attention, concentration, fund of knowledge is poor, consistent with her diagnoses mentioned in my initial note. PLAN: Start Zoloft 25 mg a day. Continue Nuedexta and Depakote. Adjust further as clinically indicated. MAN Amauri BIGGS MD DR: MONICA/daniel JOB#: [id number] / [id number]
[2018-01-16 06:24] VITALS: BP 120/67
[2018-01-16] MEDS: QUEtiapine 25 MG TABLET. PO SCH ×3 (09:16→16:04)
[2018-01-16] MEDS: DIVALPROEX 125 MG CAP.SPRINK PO SCH ×2 (09:16→13:34)
[2018-01-16] MEDS: SERTRALINE 25 MG TABLET. PO SCH (09:17)
[2018-01-16] MEDS: POLYETHYLENE GLYCOL 3350 17 GM PACKET. PO SCH (09:17)
[2018-01-16] MEDS: DEXTROMETHORPHAN/QUINIDINE 20/10MG CAPSULE. PO SCH ×2 (09:17→19:55)
[2018-01-16] MEDS: DOCUSATE SODIUM 100 MG CAPSULE PO SCH ×2 (09:17→19:55)
[2018-01-16] MEDS: HYDROCORTISONE 1% TOPICAL CREAM 30GM TUBE. TP SCH ×2 (09:22→19:56)
--- NOTE | 2018-01-16 14:42 | PN ---
DATE: 01/15/2018 PSYCHIATRIC PROGRESS NOTE This late entry 01/15/2018 covers elements not covered in my initial note. SUBJECTIVE: Met with the patient in the evening. The patient has had a difficult day, to be isolated in the [address] from stimuli from other patients, labile resistive with cares, screaming at times. Late in the evening after I met with her, she turned around rather rapidly fell on the floor. No injury noted. Her had calmed earlier in the day and she was able to ambulate, looking for him, which is quite an improvement. He said he has not seen her walking in about 2 months. Takes meds in pudding. REVIEW OF SYSTEMS: No CV, , eye, ENT system symptoms on review. Reliability poor. Gait is unsteady in wheelchair. MENTAL STATUS EXAM: Oriented to herself. Insight, judgment, recent, remote memory, attention, concentration, fund of knowledge is poor, consistent with her diagnoses mentioned in my initial note. PLAN: Continue current psychotropics, monitor past orthostatic blood pressures, dizziness is a problem. Maintain Seroquel, Depakote, Nuedexta, and Zoloft. MAN Amauri BIGGS MD DR: MONICA/daniel JOB#: [id number] / [id number]
--- NOTE | 2018-01-16 14:50 | PN ---
DATE: 01/14/2018 PSYCHIATRIC PROGRESS NOTE This late entry 01/14/2018 covers elements, not covered in my initial note. SUBJECTIVE: I met with the patient in the evening. The patient has been quite disruptive, confused, up and down the hallway in her wheelchair, loud, rambling in her speech, disorganized. REVIEW OF SYSTEMS: Ambulation impaired, in wheelchair. No CV, , pulmonary, eye, ENT system symptoms on review. MENTAL STATUS EXAM: Oriented to herself. Insight, judgment, recent and remote memory, attention, concentration, fund of knowledge poor, consistent with her diagnosis mentioned in my initial note. PLAN: Start Seroquel 12.5 mg 9 a.m., 1 p.m., 5 p.m. Continue rest unchanged. MAN Amauri BIGGS MD DR: MONICA/daniel JOB#: [id number] / [id number]
--- NOTE | 2018-01-16 14:51 | NUR ---
Behavior Intervention Response and Plan: BIRP Note: Behavior: Assumed Care of patient, patient located in Hallway at shift change. Patient exhibited the following behavior Disorganized, Irritable, Anxious. Brief assessment on rounds of vital signs, medication needs, lab studies, and pain. Treatment plan problems demtnia w/ bd and fall risk. Intervention: Patient assessed and the following interventions initiated safety checks 15 Minute Checks Head to toe Assessment , Cognitive Assessment , Medications. Response: After interactions and interventions patient responded in the following manner, Restless , Disorganized ,Interactive. Continue to assess behaviors and condition will continue to monitor throughout the shift as needed. Patient educated on ADL's, and hand hygiene. Plan: Continue to monitor Master Treatment Plan for patient's progress toward short term goals of Decreased Agitation, No harm To self/ others, senior care goals to return to previous living setting vs placement. Continue to assess patient for changes in above assessment. Monitor for medication needs, pain, and safety concerns. Hourly rounding performed to ensure safe environment.
[2018-01-16 16:20] VITALS: BP 148/63
--- NOTE | 2018-01-16 18:30 | NUR ---
Nursing Note: Behavior Pt became extremely agitated with cares, yelling, cursing at staff. Pt also tried to throw herself out of wheelchair. PRN given.
[2018-01-16] MEDS: ATORVASTATIN CALCIUM 20 MG TABLET PO SCH (19:55)
--- NOTE | 2018-01-16 20:58 | NUR ---
NUrsing note: Assumed care of patient in dayroom. She was cooperative, but mouthy w/other residents and staff, trying to insert herself into everyone's business. She was compliant w/meds and assessment. Pt attempts to stand w/o asst and gets irritated when redirected. She is often loud and vocal.
--- NOTE | 2018-01-16 21:05 | PDOC ---
Exam Note: Jasper Note: Please also refer to the separate dictated note~for this date of service dictated separately.~Patient seen individually. Discussed the patient with Nursing staff reviewed the chart.~Reviewed interim history and current functioning. Reviewed vital signs,~Labs/ Radiology~and current medications noted below. Continue current treatment with the changes noted in the dictated addendum note Assessment: Vital Signs: Vital Signs Date Time Temp Pulse Resp B/P (MAP) Pulse Ox O2 Delivery O2 Flow Rate FiO2 01/16/18 16:20 98.2 75 20 148/63 (91) 98 Room Air I&O Intake and Output 01/16/18 07:01 Intake Total 480 ml Balance 480 ml Intake Oral 480 ml Current Medications: Meds: Current Medications Acetaminophen (Tylenol) 650 mg PRN Q6HRS PRN PO PAIN / TEMP; Start 01/12/18 at 02:00 Multi-Ingredient Ointment (Analgesic [place]) 1 eusebio PRN QID PRN TP MUSCLE PAIN; Start 01/12/18 at 02:00 Al Hydroxide/Mg Hydroxide (Mylanta Plus Xs) 15 ml PRN AFTMEALHC PRN PO DYSPEPSIA; Start 01/12/18 at 02:00 Magnesium Hydroxide (Milk Of Magnesia) 2,400 mg PRN QHS PRN PO CONSTIPATION; Start 01/12/18 at 02:00 Acetaminophen (Tylenol) 650 mg PRN Q6HRS PRN PO PAIN / TEMP; Start 01/12/18 at 02:15; Status UNV Atorvastatin Calcium (Lipitor) 20 mg QHS PO Last administered on 01/16/18at 19: 55; Start 01/12/18 at 21:00 Docusate Sodium (Colace) 100 mg BID PO Last administered on 01/16/18at 19:55; Start 01/12/18 at 09:00 Hydrocortisone (Cortaid) 1 eusebio BID TP Last administered on 01/16/18 19:56; Start 01/12/18 at 09:00 Polyethylene Glycol (miraLAX) 17 gm DAILY PO Last administered on 01/16/18at 09: 17; Start 01/12/18 at 09:00 Dextromethorphan/ Quinidine (Nuedexta 20-10 Mg Capsule) 1 cap Q12HR PO Last administered on 01/16/18at 19:55; Start 01/12/18 at 09:00 Divalproex Sodium (Depakote Sprinkles) 125 mg BID92 PO Last administered on at 13:34; Start 01/12/18 at 09:00; Stop 01/16/18 at 18:21; Status DC Sertraline HCl (Zoloft) 25 mg DAILY PO Last administered on 01/16/18at 09:17; Start 01/14/18 at 09:00 Quetiapine Fumarate (SEROquel) 12.5 mg TID@0900,1300,1700 PO Last administered on 01/16/18at 16:04; Start 01/15/18 at 09:00; Stop 01/16/18 at 18:31; Status DC Olanzapine (ZyPREXA ZYDIS) 2.5 mg PRN Q2HR PRN PO PSYCHOSIS Last administered on 01/16/18at 18:33; Start 01/16/18 at 18:30 Divalproex Sodium (Depakote Sprinkles) 250 mg BID92 PO ; Start 01/17/18 at 09:00 Quetiapine Fumarate (SEROquel) 25 mg TID@0900,1300,1700 PO ; Start 01/17/18 at 09:00 Active Scripts Active Reported Miralax (Polyethylene Glycol 3350) 17 Gm Powd.pack 17 Gm PO DAILY Nuedexta 20-10 Mg Capsule (Dextromethorphan Hbr/Quinidine) 1 Each Capsule 1 Cap PO Q12HR Hydrocortisone 453.6 Gm Cream..g. 1 Eusebio TP BID Docusate Sodium 100 Mg Capsule 100 Mg PO BID Depakote Sprinkle (Divalproex Sodium) 125 Mg Cap.sprink 125 Mg PO BID92 Atorvastatin Calcium 20 Mg Tablet 20 Mg PO QHS Tylenol (Acetaminophen) 325 Mg Tablet 650 Mg PO PRN Q6HRS PRN I have reviewed the current psychotropics carefully including drug interactions. Risk benefit ratio favors no change other than as noted in my dictated progress note. Diagnosis: Problems: (1) Anxiety disorder (2) Dementia in Alzheimer's disease with delusions (3) Dementia in Alzheimer's disease with depression (4) Dementia, vascular, with delusions (5) Dementia, vascular, with depression (6) Impulse control disorder (7) Medical clearance for psychiatric admission MAX BIGGS MD Jan 16, 2018 21:05
[2018-01-17 06:34] VITALS: BP 146/71
[2018-01-17] MEDS: HYDROCORTISONE 1% TOPICAL CREAM 30GM TUBE. TP SCH ×2 (08:45→19:19)
[2018-01-17] MEDS: SERTRALINE 25 MG TABLET. PO SCH (08:46)
[2018-01-17] MEDS: POLYETHYLENE GLYCOL 3350 17 GM PACKET. PO SCH (08:46)
[2018-01-17] MEDS: DOCUSATE SODIUM 100 MG CAPSULE PO SCH ×2 (08:46→19:18)
[2018-01-17] MEDS: DEXTROMETHORPHAN/QUINIDINE 20/10MG CAPSULE. PO SCH ×2 (08:49→19:19)
[2018-01-17] MEDS: DIVALPROEX 125 MG CAP.SPRINK PO SCH ×2 (08:50→13:56)
[2018-01-17] MEDS: QUEtiapine 25 MG TABLET. PO SCH ×3 (08:55→17:05)
--- NOTE | 2018-01-17 11:56 | NUR ---
Behavior Intervention Response and Plan: BIRP Note: Behavior: Assumed Care of patient, patient located in Day Room at shift change. Patient exhibited the following behavior Disorganized, Interactive, Attention Seeking. Brief assessment on rounds of vital signs, medication needs, lab studies, and pain. Treatment plan problems 1-2. Intervention: Patient assessed and the following interventions initiated safety checks 15 Minute Checks Personal Alarm in place , Cognitive Assessment , Head to toe Assessment. Response: After interactions and interventions patient responded in the following manner, Disorganized , Compulsive ,Attention Seeking. Continue to assess behaviors and condition will continue to monitor throughout the shift as needed. Patient educated on ADL's, and hand hygiene. Plan: Continue to monitor Master Treatment Plan for patient's progress toward short term goals of Decreased Agitation, Decreased Aggression, custodial goals to return to previous living setting vs placement. Continue to assess patient for changes in above assessment. Monitor for medication needs, pain, and safety concerns. Hourly rounding performed to ensure safe environment.
--- NOTE | 2018-01-17 15:36 | NUR ---
Pt has been non compliant w whole medications. Meds have been hidden in food/coffee throughout the day. Pt has been argumentative and rude, calling staff names. Pt delusional, accusing staff of stealing money and stating that she is going to work. Pt has been intrusive with other pts and staff. Pt combative at times, attempting to bite, hit and scratch. When agitated, pt speaks [place]. PRN Ativan given in the afternoon. Addendum: 01/17/18 at 1551 by SMITHA LEMUS RN Note entered on wrong patient.
--- NOTE | 2018-01-17 15:41 | NUR ---
SW left a message for pt's /Guardian, Giancarlo to answer any potential questions and to invite to be a part of Treatment Team conference.
--- NOTE | 2018-01-17 15:41 | NUR ---
SW reviewed pt's insurance upon admit. Pt has Medicare part A, B and no part C. Pt also has [employer] for a secondary. No auth required.
--- NOTE | 2018-01-17 15:43 | NUR ---
Psychosocial Assessment completed w/Pt's , Nelson during previous admit on 05/2017. Pt. was born and raised in [place] w/ 3 sisters and 2 brothers. Pt's parents when Pt. was young and resided w/her grandparents for several years. PT's mother had Dementia. No family history of alcohol or substance abuse. Pt. completed HS and her first . Pt. has a son named Phoenix and a dtr named Alfredo w/her 1st . Pt and her 2nd , Nelson. Pt. has been since 1969. Pt. worked at [email or web address] and then they moved to [place] for Pt's 's employment. Pt. then worked at [employer] and [employer]. Pt. was diagnosed w/Dementia 7-8 years ago and has shown an increase in paranoia in the last 5 years. Pt. resided w/her in an apartment until she transitioned to [facility] in 10/16/17. Prior to moving to the apartment 3 years ago, Pt. sold her home and refused to leave the house. Pt. barricaded herself in the master bedroom and had to be detained by police. Pt's has contacted the police several times in the recent years due to Pt's inability to make safe or appropriate decisions. Pt. had refused services offered by [facility] including supports and counseling. Incidents at the apartment prior to moving to [facility] included Pt. wandering to her neighbor's apartment across the hallway and accusing them of stealing her things as they were moving out. Pt's attempted to detain her and Pt. became combative, police were called and [place] [facility] [place] then had her first admit to this facility 05/2017. Pt's was able to obtain Emergency Guardianship at that time due to PT's inability to make safe decisions due to her Dementia Diagnosis. GOALS: Decreased aggression 1. Strong marriage 2. Community Support
--- NOTE | 2018-01-17 15:52 | NUR ---
Pt has been very labile throughout the day. Pt's meds have been consumed crushed in pudding. Pt agitated and combative with cares. Pt restless in wheelchair at times, attempting to ambulate with unsteady gait.
[2018-01-17 15:54] VITALS: BP 116/51
--- NOTE | 2018-01-17 18:46 | NUR ---
Pt very argumentative and delusional this evening. Pt continuously yelling and was taken to [address]. Pt continued to yell and attempted to stand up from wheelchair numerous times. Pt placed on mats in quiet room for safety. Pt continues to yell. Will continue to monitor.
[2018-01-17] MEDS: ATORVASTATIN CALCIUM 20 MG TABLET PO SCH (19:18)
--- NOTE | 2018-01-17 20:53 | NUR ---
Nursing note: Assumed care of pt in dayroom. She was quiet and cooperative but had been in the quiet room d/t yelling and agitation. Pt is very labile. She was pleasant and took meds hidden in food. When pt was taken to bed she starte dyelling again and was difficult to redirect. Pt does not like to be touched.
--- NOTE | 2018-01-17 21:04 | PDOC ---
Exam Note: Jasper Note: Please also refer to the separate dictated note~for this date of service dictated separately.~Patient seen individually. Discussed the patient with Nursing staff reviewed the chart.~Reviewed interim history and current functioning. Reviewed vital signs,~Labs/ Radiology~and current medications noted below. Continue current treatment with the changes noted in the dictated addendum note Assessment: Vital Signs: Vital Signs Date Time Temp Pulse Resp B/P (MAP) Pulse Ox O2 Delivery O2 Flow Rate FiO2 01/17/18 15:54 97.2 72 20 116/51 (72) 99 01/16/18 16:20 Room Air I&O Intake and Output 01/17/18 07:00 Intake Total 720 ml Balance 720 ml Intake Oral 720 ml # Bowel Movements 1 Current Medications: Meds: Current Medications Acetaminophen (Tylenol) 650 mg PRN Q6HRS PRN PO PAIN / TEMP; Start 01/12/18 at 02:00 Multi-Ingredient Ointment (Analgesic [place]) 1 eusebio PRN QID PRN TP MUSCLE PAIN; Start 01/12/18 at 02:00 Al Hydroxide/Mg Hydroxide (Mylanta Plus Xs) 15 ml PRN AFTMEALHC PRN PO DYSPEPSIA; Start 01/12/18 at 02:00 Magnesium Hydroxide (Milk Of Magnesia) 2,400 mg PRN QHS PRN PO CONSTIPATION; Start 01/12/18 at 02:00 Acetaminophen (Tylenol) 650 mg PRN Q6HRS PRN PO PAIN / TEMP; Start 01/12/18 at 02:15; Status UNV Atorvastatin Calcium (Lipitor) 20 mg QHS PO Last administered on 01/17/18at 19: 18; Start 01/12/18 at 21:00 Docusate Sodium (Colace) 100 mg BID PO Last administered on 01/17/18at 19:18; Start 01/12/18 at 09:00 Hydrocortisone (Cortaid) 1 eusebio BID TP Last administered on 01/17/18at 19:19; Start 01/12/18 at 09:00 Polyethylene Glycol (miraLAX) 17 gm DAILY PO Last administered on 01/17/18at 08: 46; Start 01/12/18 at 09:00 Dextromethorphan/ Quinidine (Nuedexta 20-10 Mg Capsule) 1 cap Q12HR PO Last administered on 01/17/18at 19:19; Start 01/12/18 at 09:00 Divalproex Sodium (Depakote Sprinkles) 125 mg BID92 PO Last administered on at 13:34; Start 01/12/18 at 09:00; Stop 01/16/18 at 18:21; Status DC Sertraline HCl (Zoloft) 25 mg DAILY PO Last administered on 01/17/18at 08:46; Start 01/14/18 at 09:00; Stop 01/17/18 at 18:29; Status DC Quetiapine Fumarate (SEROquel) 12.5 mg TID@0900,1300,1700 PO Last administered on 01/16/18at 16:04; Start 01/15/18 at 09:00; Stop 01/16/18 at 18:31; Status DC Olanzapine (ZyPREXA ZYDIS) 2.5 mg PRN Q2HR PRN PO PSYCHOSIS Last administered on 01/16/18at 18:33; Start 01/16/18 at 18:30 Divalproex Sodium (Depakote Sprinkles) 250 mg BID92 PO Last administered on at 13:56; Start 01/17/18 at 09:00 Quetiapine Fumarate (SEROquel) 25 mg TID@0900,1300,1700 PO Last administered on 01/17/18at 17:05; Start 01/17/18 at 09:00 Sertraline HCl (Zoloft) 50 mg DAILY PO ; Start 01/18/18 at 09:00 Active Scripts Active Reported Miralax (Polyethylene Glycol 3350) 17 Gm Powd.pack 17 Gm PO DAILY Nuedexta 20-10 Mg Capsule (Dextromethorphan Hbr/Quinidine) 1 Each Capsule 1 Cap PO Q12HR Hydrocortisone 453.6 Gm Cream..g. 1 Eusebio TP BID Docusate Sodium 100 Mg Capsule 100 Mg PO BID Depakote Sprinkle (Divalproex Sodium) 125 Mg Cap.sprink 125 Mg PO BID92 Atorvastatin Calcium 20 Mg Tablet 20 Mg PO QHS Tylenol (Acetaminophen) 325 Mg Tablet 650 Mg PO PRN Q6HRS PRN I have reviewed the current psychotropics carefully including drug interactions. Risk benefit ratio favors no change other than as noted in my dictated progress note. Diagnosis: Problems: (1) Anxiety disorder (2) Dementia in Alzheimer's disease with delusions (3) Dementia in Alzheimer's disease with depression (4) Dementia, vascular, with delusions (5) Dementia, vascular, with depression (6) Impulse control disorder (7) Medical clearance for psychiatric admission MAX BIGGS MD Jan 17, 2018 21:04
--- NOTE | 2018-01-17 22:23 | PN ---
DATE: 01/16/2018 This is a late entry 01/16/2018 covers elements not covered in my initial note. SUBJECTIVE: I met with the patient in the evening. The patient slept 5-1/2 hours previous evening. Has had a very difficult day on 01/16/2018. She has been agitated, yelling at times with marked mood lability, agitated with cares and also when her visited, she was unable to settle her down. REVIEW OF SYSTEMS: Ambulation impaired, in wheelchair. No CV, , pulmonary, eye, ENT system symptoms on review. Reliability poor as I met with her individually. MENTAL STATUS EXAM: Oriented to herself. Insight, judgment, recent and remote memory, attention, concentration, fund of knowledge poor, consistent with her diagnosis mentioned in my initial note. PLAN: Increase Seroquel from 12.5 mg 3 times a day to 25 mg 3 times a day. Add Zyprexa 2.5 mg q.2 hours p.r.n. psychosis, agitation, max 15 mg in 24 hours. Increase Depakote Sprinkles from 125 mg b.i.d. with a level of ____ mg b.i.d. Check CBC, CMP, valproic acid level in 3 days. The patient slept 5-1/2 hours previous evening. MAN Amauri BIGGS MD DR: MONICA/daniel JOB#: [id number] / [id number]
[2018-01-18 06:06] VITALS: BP 129/58
[2018-01-18] MEDS: DIVALPROEX 125 MG CAP.SPRINK PO SCH ×2 (11:01→14:59)
[2018-01-18] MEDS: DOCUSATE SODIUM 100 MG CAPSULE PO SCH ×2 (11:01→19:08)
[2018-01-18] MEDS: QUEtiapine 25 MG TABLET. PO SCH ×3 (11:01→16:57)
[2018-01-18] MEDS: POLYETHYLENE GLYCOL 3350 17 GM PACKET. PO SCH (11:01)
[2018-01-18] MEDS: HYDROCORTISONE 1% TOPICAL CREAM 30GM TUBE. TP SCH ×2 (11:02→19:09)
[2018-01-18] MEDS: DEXTROMETHORPHAN/QUINIDINE 20/10MG CAPSULE. PO SCH ×2 (11:02→19:09)
[2018-01-18] MEDS: SERTRALINE 25 MG TABLET. PO SCH (11:03)
--- NOTE | 2018-01-18 11:15 | NUR ---
Nursing Note: Pt agitated, resistive w/ cares first thing this morning, yelling at staff the entire time they were helping her get ready in the morning. Medication hidden in pudding.
--- NOTE | 2018-01-18 13:56 | PN ---
DATE: 01/17/2018 PSYCHIATRIC PROGRESS NOTE This is a late entry 01/17/2018 covers elements not covered in my initial note. SUBJECTIVE: I met with the patient in the evening. The patient remains confused, very labile in her mood, combative with cares, yelling, worse in the evening. REVIEW OF SYSTEMS: No CV, , pulmonary, eye, ENT system symptoms on review. Reliability poor. MENTAL STATUS EXAM: Oriented to herself. Insight, judgment, recent and remote memory, attention, concentration, fund of knowledge poor, consistent with her diagnosis mentioned in my initial note. IMPRESSION: Major neurocognitive disorder, Alzheimer, vascular with delusion, depression, behavioral disturbance. PLAN: Continue current psychotropics from initial note. Increase Zoloft from 25 mg a day to 50 mg a day after she has been on 25 for 3 days. Continue rest unchanged per initial note. MAN Amauri BIGGS MD DR: MONICA/daniel JOB#: [id number] / [id number]
--- NOTE | 2018-01-18 15:00 | NUR ---
WEEKLY THERAPEUTIC RECREATION NOTE Date of Admission: 01/12/2018 Date of AT Assessment: 01/13/2018 Goal aimed: to increase time management and assertiveness Initial goal: Pt. will participate in at least five groups per week Weekly progress towards goal: achieved Group participation level: minimal Behaviors observed: disruptive, short attention span, tearful at times, yelling out, unpredictable emotions at times switches quickly, difficulty expressing needs Plan: change goal to: Pt. will participate fully in at least three groups before discharge
--- NOTE | 2018-01-18 16:10 | NUR ---
Behavior Intervention Response and Plan: BIRP Note: Behavior: Assumed Care of patient, patient located in Patient Room at shift change. Patient exhibited the following behavior Irritable, Disorganized, Agitated. Brief assessment on rounds of vital signs, medication needs, lab studies, and pain. Treatment plan problems dementia w/ bd and fall risk. Intervention: Patient assessed and the following interventions initiated safety checks 15 Minute Checks Head to toe Assessment , Cognitive Assessment , Medications. Response: After interactions and interventions patient responded in the following manner, Disorganized , Anxious ,Restless. Continue to assess behaviors and condition will continue to monitor throughout the shift as needed. Patient educated on ADL's, and hand hygiene. Plan: Continue to monitor Master Treatment Plan for patient's progress toward short term goals of Decreased Agitation, Decreased Anxiety, senior care goals to return to previous living setting vs placement. Continue to assess patient for changes in above assessment. Monitor for medication needs, pain, and safety concerns. Hourly rounding performed to ensure safe environment.
[2018-01-18 17:11] VITALS: BP 192/58
[2018-01-18] MEDS: ATORVASTATIN CALCIUM 20 MG TABLET PO SCH (19:08)
--- NOTE | 2018-01-18 20:10 | NUR ---
Nursing Note: Assumed care of pt in dayroom. As I walked into the dayroom she was saying that no one here cared about her. I walked up to her and said that I cared about her. She asked, do you really. I assured her that I did and she calmed down. She took her meds hidden in van pudding. She was compliant w/assessment but still very labile. Pt get s very agitated when touched.
--- NOTE | 2018-01-18 20:53 | PDOC ---
Exam Note: Jasper Note: Please also refer to the separate dictated note~for this date of service dictated separately.~Patient seen individually. Discussed the patient with Nursing staff reviewed the chart.~Reviewed interim history and current functioning. Reviewed vital signs,~Labs/ Radiology~and current medications noted below. Continue current treatment with the changes noted in the dictated addendum note Assessment: Vital Signs: Vital Signs Date Time Temp Pulse Resp B/P (MAP) Pulse Ox O2 Delivery O2 Flow Rate FiO2 01/18/18 17:11 97.6 96 22 192/58 (102) 99 01/16/18 16:20 Room Air I&O Intake and Output 01/18/18 07:00 Intake Total 720 ml Balance 720 ml Intake Oral 720 ml # Voids 1 # Bowel Movements 2 Current Medications: Meds: Current Medications Acetaminophen (Tylenol) 650 mg PRN Q6HRS PRN PO PAIN / TEMP; Start 01/12/18 at 02:00 Multi-Ingredient Ointment (Analgesic [place]) 1 eusebio PRN QID PRN TP MUSCLE PAIN; Start 01/12/18 at 02:00 Al Hydroxide/Mg Hydroxide (Mylanta Plus Xs) 15 ml PRN AFTMEALHC PRN PO DYSPEPSIA; Start 01/12/18 at 02:00 Magnesium Hydroxide (Milk Of Magnesia) 2,400 mg PRN QHS PRN PO CONSTIPATION; Start 01/12/18 at 02:00 Acetaminophen (Tylenol) 650 mg PRN Q6HRS PRN PO PAIN / TEMP; Start 01/12/18 at 02:15; Status UNV Atorvastatin Calcium (Lipitor) 20 mg QHS PO Last administered on 01/18/18at 19: 08; Start 01/12/18 at 21:00 Docusate Sodium (Colace) 100 mg BID PO Last administered on 01/18/18 19:08; Start 01/12/18 at 09:00 Hydrocortisone (Cortaid) 1 eusebio BID TP Last administered on 01/18/18 19:09; Start 01/12/18 at 09:00 Polyethylene Glycol (miraLAX) 17 gm DAILY PO Last administered on 01/18/18 11: 01; Start 01/12/18 at 09:00 Dextromethorphan/ Quinidine (Nuedexta 20-10 Mg Capsule) 1 cap Q12HR PO Last administered on 6/20/18at 19:09; Start 01/12/18 at 09:00 Divalproex Sodium (Depakote Sprinkles) 125 mg BID92 PO Last administered on at 13:34; Start 01/12/18 at 09:00; Stop 01/16/18 at 18:21; Status DC Sertraline HCl (Zoloft) 25 mg DAILY PO Last administered on 01/17/18at 08:46; Start 01/14/18 at 09:00; Stop 01/17/18 at 18:29; Status DC Quetiapine Fumarate (SEROquel) 12.5 mg TID@0900,1300,1700 PO Last administered on 01/16/18at 16:04; Start 01/15/18 at 09:00; Stop 01/16/18 at 18:31; Status DC Olanzapine (ZyPREXA ZYDIS) 2.5 mg PRN Q2HR PRN PO PSYCHOSIS Last administered on 01/16/18at 18:33; Start 01/16/18 at 18:30 Divalproex Sodium (Depakote Sprinkles) 250 mg BID92 PO Last administered on at 14:59; Start 01/17/18 at 09:00 Quetiapine Fumarate (SEROquel) 25 mg TID@0900,1300,1700 PO Last administered on 01/18/18at 16:57; Start 01/17/18 at 09:00 Sertraline HCl (Zoloft) 50 mg DAILY PO Last administered on 01/18/18at 11:03; Start 01/18/18 at 09:00 Active Scripts Active Reported Miralax (Polyethylene Glycol 3350) 17 Gm Powd.pack 17 Gm PO DAILY Nuedexta 20-10 Mg Capsule (Dextromethorphan Hbr/Quinidine) 1 Each Capsule 1 Cap PO Q12HR Hydrocortisone 453.6 Gm Cream..g. 1 Eusebio TP BID Docusate Sodium 100 Mg Capsule 100 Mg PO BID Depakote Sprinkle (Divalproex Sodium) 125 Mg Cap.sprink 125 Mg PO BID92 Atorvastatin Calcium 20 Mg Tablet 20 Mg PO QHS Tylenol (Acetaminophen) 325 Mg Tablet 650 Mg PO PRN Q6HRS PRN I have reviewed the current psychotropics carefully including drug interactions. Risk benefit ratio favors no change other than as noted in my dictated progress note. Diagnosis: Problems: (1) Anxiety disorder (2) Dementia in Alzheimer's disease with delusions (3) Dementia in Alzheimer's disease with depression (4) Dementia, vascular, with delusions (5) Dementia, vascular, with depression (6) Impulse control disorder (7) Medical clearance for psychiatric admission MAX BIGGS MD Jan 18, 2018 20:53
[2018-01-19 05:57] VITALS: BP 135/69
[2018-01-19 07:01] LABS: BASO # 0.1 x10^3/uL (0.0-0.2); BASO % 1 % (0-3); EOS # 0.6 x10^3/uL (0.0-0.7); EOS % 7 % (0-3); HEMATOCRIT 36.1 % (36.0-47.0); HEMOGLOBIN 12.1 g/dL (12.0-15.5); LYMPH # 2.6 x10^3/uL (1.0-4.8); LYMPH % 28 % (24-48); MEAN CORPUSCULAR HEMOGLOBIN 30 pg (25-35); MEAN CORPUSCULAR HGB CONC 34 g/dL (31-37); MEAN CORPUSCULAR VOLUME 90 fL (79-100); MONO # 0.8 x10^3/uL (0.0-1.1); MONO % 9 % (0-9); NEUT # 5.2 x10^3uL (1.8-7.7); NEUT % 56 % (31-73); PLATELET COUNT 313 x10^3/uL (140-400); RED BLOOD COUNT 4.01 x10^6/uL (3.50-5.40); WHITE BLOOD COUNT 9.3 x10^3/uL (4.0-11.0)
[2018-01-19 07:05] LABS: ALBUMIN 2.9 g/dL (3.4-5.0); ALBUMIN/GLOBULIN RATIO 0.8 (1.0-1.7); ALK PHOS 132 U/L (46-116); ALT (SGPT) 30 U/L (14-59); ANION GAP 8 (6-14); AST (SGOT) 17 U/L (15-37); BLOOD UREA NITROGEN 20 mg/dL (7-20); BUN/CREATININE RATIO 20 (6-20); CALCIUM 8.8 mg/dL (8.5-10.1); CARBON DIOXIDE 28 mmol/L (21-32); CHLORIDE 107 mmol/L (98-107); GFR 54.7; GLUCOSE 94 mg/dL (70-99); POTASSIUM 4.1 mmol/L (3.5-5.1); SODIUM 143 mmol/L (136-145); TOTAL BILIRUBIN 0.3 mg/dL (0.2-1.0); TOTAL PROTEIN 6.6 g/dL (6.4-8.2)
[2018-01-19 07:07] LABS: VAL ACID 38 mcg/mL (50-100)
[2018-01-19] MEDS: SERTRALINE 25 MG TABLET. PO SCH (09:24)
[2018-01-19] MEDS: DOCUSATE SODIUM 100 MG CAPSULE PO SCH ×2 (09:24→19:33)
[2018-01-19] MEDS: QUEtiapine 25 MG TABLET. PO SCH ×3 (09:24→17:05)
[2018-01-19] MEDS: POLYETHYLENE GLYCOL 3350 17 GM PACKET. PO SCH (09:24)
[2018-01-19] MEDS: DIVALPROEX 125 MG CAP.SPRINK PO SCH ×2 (09:24→13:31)
[2018-01-19] MEDS: DEXTROMETHORPHAN/QUINIDINE 20/10MG CAPSULE. PO SCH ×2 (09:25→19:33)
[2018-01-19] MEDS: HYDROCORTISONE 1% TOPICAL CREAM 30GM TUBE. TP SCH ×2 (09:25→19:32)
--- NOTE | 2018-01-19 15:02 | NUR ---
Behavior Intervention Response and Plan: BIRP Note: Behavior: Assumed Care of patient, patient located in Day Room at shift change. Patient exhibited the following behavior Labile, Restless, Disorganized. Brief assessment on rounds of vital signs, medication needs, lab studies, and pain. Treatment plan problems dementia w/ Bd and Fall risk. Intervention: Patient assessed and the following interventions initiated safety checks 15 Minute Checks Head to toe Assessment , Cognitive Assessment , Medications. Response: After interactions and interventions patient responded in the following manner, Restless , Disorganized ,Irritable. Continue to assess behaviors and condition will continue to monitor throughout the shift as needed. Patient educated on ADL's, and hand hygiene. 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 Continue to assess patient for changes in above assessment. Monitor for medication needs, pain, and safety concerns. Hourly rounding performed to ensure safe environment.
[2018-01-19 16:06] VITALS: BP 123/69
--- NOTE | 2018-01-19 16:59 | NUR ---
Nursing Note: Pt's visited today and brought a pair of sweat pants and two sweat shirts which were inventoried.
--- NOTE | 2018-01-19 19:30 | NUR ---
Behavior Intervention Response and Plan: BIRP Note: Behavior: Assumed Care of patient, patient located in Day Room at shift change. Patient exhibited the following behavior Interactive, Disorganized, Anxious. Brief assessment on rounds of vital signs, medication needs, lab studies, and pain. Treatment plan problems . Intervention: Patient assessed and the following interventions initiated safety checks 15 Minute Checks Cognitive Assessment , Head to toe Assessment , Medications. Response: After interactions and interventions patient responded in the following manner, Interactive , Disorganized ,Anxious. Continue to assess behaviors and condition will continue to monitor throughout the shift as needed. Patient educated on ADL's, and hand hygiene. 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 Continue to assess patient for changes in above assessment. Monitor for medication needs, pain, and safety concerns. Hourly rounding performed to ensure safe environment.
[2018-01-19] MEDS: ATORVASTATIN CALCIUM 20 MG TABLET PO SCH (19:33)
--- NOTE | 2018-01-19 20:52 | PDOC ---
Exam Note: Jasper Note: Please also refer to the separate dictated note~for this date of service dictated separately.~Patient seen individually. Discussed the patient with Nursing staff reviewed the chart.~Reviewed interim history and current functioning. Reviewed vital signs,~Labs/ Radiology~and current medications noted below. Continue current treatment with the changes noted in the dictated addendum note Assessment: Vital Signs: Vital Signs Date Time Temp Pulse Resp B/P (MAP) Pulse Ox O2 Delivery O2 Flow Rate FiO2 01/19/18 16:06 97.9 74 18 123/69 (87) 98 01/16/18 16:20 Room Air I&O Intake and Output 01/19/18 07:00 Intake Total 600 ml Balance 600 ml Intake Oral 600 ml # Bowel Movements 1 Labs: Laboratory Tests Test 01/19/18 06:41 White Blood Count 9.3 x10^3/uL (4.0-11.0) Red Blood Count 4.01 x10^6/uL (3.50-5.40) Hemoglobin 12.1 g/dL (12.0-15.5) Hematocrit 36.1 % (36.0-47.0) Mean Corpuscular Volume 90 fL (79-100) Mean Corpuscular Hemoglobin 30 pg (25-35) Mean Corpuscular Hemoglobin Concent 34 g/dL (31-37) Red Cell Distribution Width 14.0 % (11.5-14.5) Platelet Count 313 x10^3/uL (140-400) Neutrophils (%) (Auto) 56 % (31-73) Lymphocytes (%) (Auto) 28 % (24-48) Monocytes (%) (Auto) 9 % (0-9) Eosinophils (%) (Auto) 7 % (0-3) H Basophils (%) (Auto) 1 % (0-3) Neutrophils # (Auto) 5.2 x10^3uL (1.8-7.7) Lymphocytes # (Auto) 2.6 x10^3/uL (1.0-4.8) Monocytes # (Auto) 0.8 x10^3/uL (0.0-1.1) Eosinophils # (Auto) 0.6 x10^3/uL (0.0-0.7) Basophils # (Auto) 0.1 x10^3/uL (0.0-0.2) Sodium Level 143 mmol/L (136-145) Potassium Level 4.1 mmol/L (3.5-5.1) Chloride Level 107 mmol/L (98-107) Carbon Dioxide Level 28 mmol/L (21-32) Anion Gap 8 (6-14) Blood Urea Nitrogen 20 mg/dL (7-20) Creatinine 1.0 mg/dL (0.6-1.0) Estimated GFR (Cockcroft-Gault) 54.7 BUN/Creatinine Ratio 20 (6-20) Glucose Level 94 mg/dL (70-99) Calcium Level 8.8 mg/dL (8.5-10.1) Total Bilirubin 0.3 mg/dL (0.2-1.0) Aspartate Amino Transferase (AST) 17 U/L (15-37) Alanine Aminotransferase (ALT) 30 U/L (14-59) Alkaline Phosphatase 132 U/L (46-116) H Total Protein 6.6 g/dL (6.4-8.2) Albumin 2.9 g/dL (3.4-5.0) L Albumin/Globulin Ratio 0.8 (1.0-1.7) L Valproic Acid Level 38 mcg/mL (50-100) L Valproic Acid Last Dose Date 01/18/2018 Valproic Acid Last Dose Time 2100 Current Medications: Meds: Current Medications Acetaminophen (Tylenol) 650 mg PRN Q6HRS PRN PO PAIN / TEMP; Start 01/12/18 at 02:00 Multi-Ingredient Ointment (Analgesic [place]) 1 eusebio PRN QID PRN TP MUSCLE PAIN; Start 01/12/18 at 02:00 Al Hydroxide/Mg Hydroxide (Mylanta Plus Xs) 15 ml PRN AFTMEALHC PRN PO DYSPEPSIA; Start 01/12/18 at 02:00 Magnesium Hydroxide (Milk Of Magnesia) 2,400 mg PRN QHS PRN PO CONSTIPATION; Start 01/12/18 at 02:00 Acetaminophen (Tylenol) 650 mg PRN Q6HRS PRN PO PAIN / TEMP; Start 01/12/18 at 02:15; Status UNV Atorvastatin Calcium (Lipitor) 20 mg QHS PO Last administered on 01/19/18at 19: 33; Start 01/12/18 at 21:00 Docusate Sodium (Colace) 100 mg BID PO Last administered on 01/19/18 19:33; Start 01/12/18 at 09:00 Hydrocortisone (Cortaid) 1 eusebio BID TP Last administered on 01/19/18 19:32; Start 01/12/18 at 09:00 Polyethylene Glycol (miraLAX) 17 gm DAILY PO Last administered on 01/19/18 09: 24; Start 01/12/18 at 09:00 Dextromethorphan/ Quinidine (Nuedexta 20-10 Mg Capsule) 1 cap Q12HR PO Last administered on 01/19/18 19:33; Start 01/12/18 at 09:00 Divalproex Sodium (Depakote Sprinkles) 125 mg BID92 PO Last administered on 13:34; Start 01/12/18 at 09:00; Stop 01/16/18 at 18:21; Status DC Sertraline HCl (Zoloft) 25 mg DAILY PO Last administered on 01/17/18at 08:46; Start 01/14/18 at 09:00; Stop 01/17/18 at 18:29; Status DC Quetiapine Fumarate (SEROquel) 12.5 mg TID@0900,1300,1700 PO Last administered on 01/16/18 16:04; Start 01/15/18 at 09:00; Stop 01/16/18 at 18:31; Status DC Olanzapine (ZyPREXA ZYDIS) 2.5 mg PRN Q2HR PRN PO PSYCHOSIS Last administered on 01/16/18 18:33; Start 01/16/18 at 18:30 Divalproex Sodium (Depakote Sprinkles) 250 mg BID92 PO Last administered on 13:31; Start 01/17/18 at 09:00 Quetiapine Fumarate (SEROquel) 25 mg TID@0900,1300,1700 PO Last administered on 01/19/18 17:05; Start 01/17/18 at 09:00 Sertraline HCl (Zoloft) 50 mg DAILY PO Last administered on 01/19/18 09:24; Start 01/18/18 at 09:00 Active Scripts Active Reported Miralax (Polyethylene Glycol 3350) 17 Gm Powd.pack 17 Gm PO DAILY Nuedexta 20-10 Mg Capsule (Dextromethorphan Hbr/Quinidine) 1 Each Capsule 1 Cap PO Q12HR Hydrocortisone 453.6 Gm Cream..g. 1 Eusebio TP BID Docusate Sodium 100 Mg Capsule 100 Mg PO BID Depakote Sprinkle (Divalproex Sodium) 125 Mg Cap.sprink 125 Mg PO BID92 Atorvastatin Calcium 20 Mg Tablet 20 Mg PO QHS Tylenol (Acetaminophen) 325 Mg Tablet 650 Mg PO PRN Q6HRS PRN I have reviewed the current psychotropics carefully including drug interactions. Risk benefit ratio favors no change other than as noted in my dictated progress note. Diagnosis: Problems: (1) Anxiety disorder (2) Dementia in Alzheimer's disease with delusions (3) Dementia in Alzheimer's disease with depression (4) Dementia, vascular, with delusions (5) Dementia, vascular, with depression (6) Impulse control disorder (7) Medical clearance for psychiatric admission MAX BIGGS MD Jan 19, 2018 20:52
[2018-01-20 05:49] VITALS: BP 134/68
[2018-01-20 05:54] VITALS: BP 104/51
[2018-01-20] MEDS: HYDROCORTISONE 1% TOPICAL CREAM 30GM TUBE. TP SCH ×2 (09:00→19:43)
[2018-01-20] MEDS: POLYETHYLENE GLYCOL 3350 17 GM PACKET. PO SCH (09:19)
[2018-01-20] MEDS: DEXTROMETHORPHAN/QUINIDINE 20/10MG CAPSULE. PO SCH ×2 (09:19→19:43)
[2018-01-20] MEDS: DIVALPROEX 125 MG CAP.SPRINK PO SCH ×2 (09:19→14:19)
[2018-01-20] MEDS: SERTRALINE 25 MG TABLET. PO SCH (09:20)
[2018-01-20] MEDS: QUEtiapine 25 MG TABLET. PO SCH ×3 (09:20→18:13)
[2018-01-20] MEDS: DOCUSATE SODIUM 100 MG CAPSULE PO SCH ×2 (09:20→19:42)
--- NOTE | 2018-01-20 10:14 | NUR ---
Behavior Intervention Response and Plan: BIRP Note: Behavior: Assumed Care of patient, patient located in Hallway at shift change. Patient exhibited the following behavior Disorganized, Demanding, Resistive. Brief assessment on rounds of vital signs, medication needs, lab studies, and pain. Treatment plan problems 1-2. Intervention: Patient assessed and the following interventions initiated safety checks 15 Minute Checks Personal Alarm in place , Cognitive Assessment , Head to toe Assessment. Response: After interactions and interventions patient responded in the following manner, Disorganized , Restless ,Non Compliant. Continue to assess behaviors and condition will continue to monitor throughout the shift as needed. Patient educated on ADL's, and hand hygiene. 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 Continue to assess patient for changes in above assessment. Monitor for medication needs, pain, and safety concerns. Hourly rounding performed to ensure safe environment.
--- NOTE | 2018-01-20 10:16 | NUR ---
Pt very agitated in the shower. Pt yelling, attempting to bite and scratch. Staff members x3 assisted in shower. Pt taken to [facility] for de-escalation. AM medications administered crushed in vanilla pudding. Will continue to monitor.
[2018-01-20 16:14] VITALS: BP 107/68
--- NOTE | 2018-01-20 17:50 | NUR ---
Pt has been labile throughout the day. Pt goes back and forth between laughing and yelling/ cussing. Pt has been placed in the west hallway numerous times d/t disrupting group in the dayroom. Pt has been compliant with medications crushed in ice cream or pudding.
--- NOTE | 2018-01-20 18:09 | PN ---
DATE: 01/18/2018 PSYCHIATRIC PROGRESS NOTE This is a late entry, date of service on 01/18/2018, covers elements not covered in my initial note on 01/18/2018. SUBJECTIVE: I met with the patient in the evening, staffed at a treatment team meeting with the entire team earlier in the day. The patient is sleeping about 6-1/2 hours average at night. Appetite, eats about 80% of her meals, disorganized, labile, combative at times, yelling, loud, disruptive, compliant with medications. She was swinging at nursing aides earlier in the day. REVIEW OF SYSTEMS: Ambulation impaired, in wheelchair. No CV, , pulmonary, eye, ENT system symptoms on review. MENTAL STATUS EXAM: Oriented to herself. Insight, judgment, recent and remote memory, attention, concentration, fund of knowledge poor, consistent with her diagnosis mentioned in my initial note. PLAN: Continue current psychotropics. Her meds are being given in pudding. Adjust further as clinically indicated. MAX BIGGS MD DR: MONICA/daniel JOB#: [id number] / [id number]
--- NOTE | 2018-01-20 18:36 | PN ---
DATE: 01/19/2018 This late entry 01/19/2018 covers elements not covered in my initial note. SUBJECTIVE: I met with the patient in the evening. The patient slept 8-1/2 hours, quite agitated in the morning, labile. Her meds have to be hidden before she takes them. REVIEW OF SYSTEMS: Ambulation impaired, in wheelchair. No CV, , pulmonary, eye, ENT system symptoms on review. Reliability poor. MENTAL STATUS EXAM: Oriented to herself. Insight, judgment, recent and remote memory, attention, concentration, fund of knowledge poor, consistent with her diagnosis mentioned in my initial note. Valproic acid level is 38. PLAN: Continue psychotropics from initial note. Adjust further as clinically indicated. May need to increase Depakote. MAN Amauri BIGGS MD DR: MONICA/daniel JOB#: [id number] / [id number]
[2018-01-20] MEDS: ATORVASTATIN CALCIUM 20 MG TABLET PO SCH (19:42)
--- NOTE | 2018-01-20 20:52 | PDOC ---
Exam Note: Jasper Note: Please also refer to the separate dictated note~for this date of service dictated separately.~Patient seen individually. Discussed the patient with Nursing staff reviewed the chart.~Reviewed interim history and current functioning. Reviewed vital signs,~Labs/ Radiology~and current medications noted below. Continue current treatment with the changes noted in the dictated addendum note Assessment: Vital Signs: Vital Signs Date Time Temp Pulse Resp B/P (MAP) Pulse Ox O2 Delivery O2 Flow Rate FiO2 01/20/18 16:14 97.6 78 20 107/68 (81) 95 01/16/18 16:20 Room Air I&O Intake and Output 01/20/18 07:00 Intake Total 1200 ml Balance 1200 ml Intake Oral 1200 ml Current Medications: Meds: Current Medications Acetaminophen (Tylenol) 650 mg PRN Q6HRS PRN PO PAIN / TEMP; Start 01/12/18 at 02:00 Multi-Ingredient Ointment (Analgesic [place]) 1 eusebio PRN QID PRN TP MUSCLE PAIN; Start 01/12/18 at 02:00 Al Hydroxide/Mg Hydroxide (Mylanta Plus Xs) 15 ml PRN AFTMEALHC PRN PO DYSPEPSIA; Start 01/12/18 at 02:00 Magnesium Hydroxide (Milk Of Magnesia) 2,400 mg PRN QHS PRN PO CONSTIPATION; Start 01/12/18 at 02:00 Acetaminophen (Tylenol) 650 mg PRN Q6HRS PRN PO PAIN / TEMP; Start 01/12/18 at 02:15; Status UNV Atorvastatin Calcium (Lipitor) 20 mg QHS PO Last administered on 01/20/18at 19: 42; Start 01/12/18 at 21:00 Docusate Sodium (Colace) 100 mg BID PO Last administered on 01/20/18 19:42; Start 01/12/18 at 09:00 Hydrocortisone (Cortaid) 1 eusebio BID TP Last administered on 01/20/18 19:43; Start 01/12/18 at 09:00 Polyethylene Glycol (miraLAX) 17 gm DAILY PO Last administered on 01/20/18 09: 19; Start 01/12/18 at 09:00 Dextromethorphan/ Quinidine (Nuedexta 20-10 Mg Capsule) 1 cap Q12HR PO Last administered on 6/22/18at 19:43; Start 01/12/18 at 09:00 Divalproex Sodium (Depakote Sprinkles) 125 mg BID92 PO Last administered on at 13:34; Start 01/12/18 at 09:00; Stop 01/16/18 at 18:21; Status DC Sertraline HCl (Zoloft) 25 mg DAILY PO Last administered on 01/17/18at 08:46; Start 01/14/18 at 09:00; Stop 01/17/18 at 18:29; Status DC Quetiapine Fumarate (SEROquel) 12.5 mg TID@0900,1300,1700 PO Last administered on 01/16/18at 16:04; Start 01/15/18 at 09:00; Stop 01/16/18 at 18:31; Status DC Olanzapine (ZyPREXA ZYDIS) 2.5 mg PRN Q2HR PRN PO PSYCHOSIS Last administered on 01/16/18at 18:33; Start 01/16/18 at 18:30 Divalproex Sodium (Depakote Sprinkles) 250 mg BID92 PO Last administered on at 14:19; Start 01/17/18 at 09:00; Stop 01/20/18 at 17:35; Status DC Quetiapine Fumarate (SEROquel) 25 mg TID@0900,1300,1700 PO Last administered on 01/20/18at 18:13; Start 01/17/18 at 09:00 Sertraline HCl (Zoloft) 50 mg DAILY PO Last administered on 01/20/18at 09:20; Start 01/18/18 at 09:00 Divalproex Sodium (Depakote Sprinkles) 375 mg BID92 PO ; Start 01/21/18 at 09:00 Active Scripts Active Reported Miralax (Polyethylene Glycol 3350) 17 Gm Powd.pack 17 Gm PO DAILY Nuedexta 20-10 Mg Capsule (Dextromethorphan Hbr/Quinidine) 1 Each Capsule 1 Cap PO Q12HR Hydrocortisone 453.6 Gm Cream..g. 1 Eusebio TP BID Docusate Sodium 100 Mg Capsule 100 Mg PO BID Depakote Sprinkle (Divalproex Sodium) 125 Mg Cap.sprink 125 Mg PO BID92 Atorvastatin Calcium 20 Mg Tablet 20 Mg PO QHS Tylenol (Acetaminophen) 325 Mg Tablet 650 Mg PO PRN Q6HRS PRN I have reviewed the current psychotropics carefully including drug interactions. Risk benefit ratio favors no change other than as noted in my dictated progress note. Diagnosis: Problems: (1) Anxiety disorder (2) Dementia in Alzheimer's disease with delusions (3) Dementia in Alzheimer's disease with depression (4) Dementia, vascular, with delusions (5) Dementia, vascular, with depression (6) Impulse control disorder (7) Medical clearance for psychiatric admission MAX BIGGS MD Jan 20, 2018 20:52
--- NOTE | 2018-01-20 21:22 | NUR ---
Behavior Intervention Response and Plan: BIRP Note: Behavior: Assumed Care of patient, patient located in Hallway at shift change. Patient exhibited the following behavior Disorganized, Demanding, Resistive. Brief assessment on rounds of vital signs, medication needs, lab studies, and pain. Treatment plan problems 1-2. Intervention: Patient assessed and the following interventions initiated safety checks 15 Minute Checks Personal Alarm in place , Cognitive Assessment , Head to toe Assessment. Response: After interactions and interventions patient responded in the following manner, Disorganized , Restless ,Non Compliant. Continue to assess behaviors and condition will continue to monitor throughout the shift as needed. Patient educated on ADL's, and hand hygiene. 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 Continue to assess patient for changes in above assessment. Monitor for medication needs, pain, and safety concerns. Hourly rounding performed to ensure safe environment.
[2018-01-21 06:02] VITALS: BP 107/57
[2018-01-21] MEDS: DOCUSATE SODIUM 100 MG CAPSULE PO SCH ×2 (09:07→20:04)
[2018-01-21] MEDS: DEXTROMETHORPHAN/QUINIDINE 20/10MG CAPSULE. PO SCH ×2 (09:07→20:04)
[2018-01-21] MEDS: SERTRALINE 25 MG TABLET. PO SCH (09:07)
[2018-01-21] MEDS: POLYETHYLENE GLYCOL 3350 17 GM PACKET. PO SCH (09:07)
[2018-01-21] MEDS: QUEtiapine 25 MG TABLET. PO SCH ×3 (09:07→16:05)
[2018-01-21] MEDS: DIVALPROEX 125 MG CAP.SPRINK PO SCH ×2 (09:09→13:38)
[2018-01-21] MEDS: HYDROCORTISONE 1% TOPICAL CREAM 30GM TUBE. TP SCH ×2 (09:09→20:04)
--- NOTE | 2018-01-21 11:21 | NUR ---
Behavior Intervention Response and Plan: BIRP Note: Behavior: Assumed Care of patient, patient located in Day Room at shift change. Patient exhibited the following behavior Disorganized, Attention Seeking, Interactive. Brief assessment on rounds of vital signs, medication needs, lab studies, and pain. Treatment plan problems 1-2. Intervention: Patient assessed and the following interventions initiated safety checks 15 Minute Checks Cognitive Assessment , Head to toe Assessment , Medications. Response: After interactions and interventions patient responded in the following manner, Disorganized , Attention Seeking ,Non Compliant. Continue to assess behaviors and condition will continue to monitor throughout the shift as needed. Patient educated on ADL's, and hand hygiene. 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 Continue to assess patient for changes in above assessment. Monitor for medication needs, pain, and safety concerns. Hourly rounding performed to ensure safe environment.
[2018-01-21 16:03] VITALS: BP 107/57
--- NOTE | 2018-01-21 17:13 | NUR ---
Pt has been labile throughout the day. Pt has had episodes of yelling, screaming and crying. Pt screams when any cares are performed, even when staff is moving patient in her wheelchair from dining room to dayroom. All medications have been consumed crushed and hidden in ice cream or pudding. PRN Zyprexa administered at 1600 r/t pt screaming and crying, redirection unsuccessful.
[2018-01-21] MEDS: ATORVASTATIN CALCIUM 20 MG TABLET PO SCH (20:04)
--- NOTE | 2018-01-21 22:50 | PDOC ---
Exam Note: Jasper Note: Please also refer to the separate dictated note~for this date of service dictated separately.~Patient seen individually. Discussed the patient with Nursing staff reviewed the chart.~Reviewed interim history and current functioning. Reviewed vital signs,~Labs/ Radiology~and current medications noted below. Continue current treatment with the changes noted in the dictated addendum note Assessment: Vital Signs: Vital Signs Date Time Temp Pulse Resp B/P (MAP) Pulse Ox O2 Delivery O2 Flow Rate FiO2 01/21/18 16:03 97.7 83 18 107/57 (74) 97 01/16/18 16:20 Room Air I&O Intake and Output 01/21/18 07:00 Intake Total 620 ml Balance 620 ml Intake Oral 620 ml # Bowel Movements 1 Current Medications: Meds: Current Medications Acetaminophen (Tylenol) 650 mg PRN Q6HRS PRN PO PAIN / TEMP; Start 01/12/18 at 02:00 Multi-Ingredient Ointment (Analgesic [place]) 1 eusebio PRN QID PRN TP MUSCLE PAIN; Start 01/12/18 at 02:00 Al Hydroxide/Mg Hydroxide (Mylanta Plus Xs) 15 ml PRN AFTMEALHC PRN PO DYSPEPSIA; Start 01/12/18 at 02:00 Magnesium Hydroxide (Milk Of Magnesia) 2,400 mg PRN QHS PRN PO CONSTIPATION; Start 01/12/18 at 02:00 Acetaminophen (Tylenol) 650 mg PRN Q6HRS PRN PO PAIN / TEMP; Start 01/12/18 at 02:15; Status UNV Atorvastatin Calcium (Lipitor) 20 mg QHS PO Last administered on 01/21/18at 20: 04; Start 01/12/18 at 21:00 Docusate Sodium (Colace) 100 mg BID PO Last administered on 01/21/18at 20:04; Start 01/12/18 at 09:00 Hydrocortisone (Cortaid) 1 eusebio BID TP Last administered on 01/21/18 20:04; Start 01/12/18 at 09:00 Polyethylene Glycol (miraLAX) 17 gm DAILY PO Last administered on 01/21/18at 09: 07; Start 01/12/18 at 09:00 Dextromethorphan/ Quinidine (Nuedexta 20-10 Mg Capsule) 1 cap Q12HR PO Last administered on 01/21/18at 20:04; Start 01/12/18 at 09:00 Divalproex Sodium (Depakote Sprinkles) 125 mg BID92 PO Last administered on at 13:34; Start 01/12/18 at 09:00; Stop 01/16/18 at 18:21; Status DC Sertraline HCl (Zoloft) 25 mg DAILY PO Last administered on 01/17/18at 08:46; Start 01/14/18 at 09:00; Stop 01/17/18 at 18:29; Status DC Quetiapine Fumarate (SEROquel) 12.5 mg TID@0900,1300,1700 PO Last administered on 01/16/18 16:04; Start 01/15/18 at 09:00; Stop 01/16/18 at 18:31; Status DC Olanzapine (ZyPREXA ZYDIS) 2.5 mg PRN Q2HR PRN PO PSYCHOSIS Last administered on 01/21/18 16:05; Start 01/16/18 at 18:30 Divalproex Sodium (Depakote Sprinkles) 250 mg BID92 PO Last administered on at 14:19; Start 01/17/18 at 09:00; Stop 01/20/18 at 17:35; Status DC Quetiapine Fumarate (SEROquel) 25 mg TID@0900,1300,1700 PO Last administered on 01/21/18 16:05; Start 01/17/18 at 09:00 Sertraline HCl (Zoloft) 50 mg DAILY PO Last administered on 01/21/18at 09:07; Start 01/18/18 at 09:00 Divalproex Sodium (Depakote Sprinkles) 375 mg BID92 PO Last administered on at 13:38; Start 01/21/18 at 09:00 Active Scripts Active Reported Miralax (Polyethylene Glycol 3350) 17 Gm Powd.pack 17 Gm PO DAILY Nuedexta 20-10 Mg Capsule (Dextromethorphan Hbr/Quinidine) 1 Each Capsule 1 Cap PO Q12HR Hydrocortisone 453.6 Gm Cream..g. 1 Eusebio TP BID Docusate Sodium 100 Mg Capsule 100 Mg PO BID Depakote Sprinkle (Divalproex Sodium) 125 Mg Cap.sprink 125 Mg PO BID92 Atorvastatin Calcium 20 Mg Tablet 20 Mg PO QHS Tylenol (Acetaminophen) 325 Mg Tablet 650 Mg PO PRN Q6HRS PRN I have reviewed the current psychotropics carefully including drug interactions. Risk benefit ratio favors no change other than as noted in my dictated progress note. Diagnosis: Problems: (1) Anxiety disorder (2) Dementia in Alzheimer's disease with delusions (3) Dementia in Alzheimer's disease with depression (4) Dementia, vascular, with delusions (5) Dementia, vascular, with depression (6) Impulse control disorder (7) Medical clearance for psychiatric admission MAX BIGGS MD Jan 21, 2018 22:50
--- NOTE | 2018-01-21 23:00 | NUR ---
Behavior Intervention Response and Plan: BIRP Note: Behavior: Assumed Care of patient, patient located in Hallway at shift change. Patient exhibited the following behavior Disorganized, , Resistive. Brief assessment on rounds of vital signs, medication needs, lab studies, and pain. Treatment plan problems 1-2. Intervention: Patient assessed and the following interventions initiated safety checks 15 Minute Checks Personal Alarm in place , Cognitive Assessment , Head to toe Assessment. Response: After interactions and interventions patient responded in the following manner, Disorganized , Restless Compliant. Continue to assess behaviors and condition will continue to monitor throughout the shift as needed. Patient educated on ADL's, and hand hygiene. 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 Continue to assess patient for changes in above assessment. Monitor for medication needs, pain, and safety concerns. Hourly rounding performed to ensure safe environment.
[2018-01-22 06:49] VITALS: BP 103/46
[2018-01-22] MEDS: SERTRALINE 25 MG TABLET. PO SCH (09:21)
[2018-01-22] MEDS: POLYETHYLENE GLYCOL 3350 17 GM PACKET. PO SCH (09:21)
[2018-01-22] MEDS: DIVALPROEX 125 MG CAP.SPRINK PO SCH ×2 (09:21→13:38)
[2018-01-22] MEDS: DEXTROMETHORPHAN/QUINIDINE 20/10MG CAPSULE. PO SCH ×2 (09:21→20:24)
[2018-01-22] MEDS: DOCUSATE SODIUM 100 MG CAPSULE PO SCH ×2 (09:21→20:23)
[2018-01-22] MEDS: QUEtiapine 25 MG TABLET. PO SCH ×3 (09:21→16:37)
[2018-01-22] MEDS: HYDROCORTISONE 1% TOPICAL CREAM 30GM TUBE. TP SCH ×2 (09:23→20:25)
--- NOTE | 2018-01-22 10:50 | NUR ---
Behavior Intervention Response and Plan: BIRP Note: Behavior: Assumed Care of patient, patient located in Day Room at shift change. Patient exhibited the following behavior Disorganized, Demanding, Resistive. Brief assessment on rounds of vital signs, medication needs, lab studies, and pain. Treatment plan problems 1-2. Intervention: Patient assessed and the following interventions initiated safety checks 15 Minute Checks Personal Alarm in place , Cognitive Assessment , Head to toe Assessment. Response: After interactions and interventions patient responded in the following manner, Disorganized , Irritable ,Resistive. Continue to assess behaviors and condition will continue to monitor throughout the shift as needed. Patient educated on ADL's, and hand hygiene. 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 Continue to assess patient for changes in above assessment. Monitor for medication needs, pain, and safety concerns. Hourly rounding performed to ensure safe environment.
--- NOTE | 2018-01-22 15:21 | NUR ---
Pt very agitated in the shower this morning, yelling constantly and attempting to hit staff. Pt has had multiple occasions today of yelling out and tearfulness. Pt taken out of dining room during movie group d/t yelling and taken to the hallway. PRN Zyprexa administered in grape juice. Will continue to monitor.
[2018-01-22 16:18] VITALS: BP 146/83
--- NOTE | 2018-01-22 20:00 | NUR ---
Behavior Intervention Response and Plan: BIRP Note: Behavior: Assumed Care of patient, patient located in Hallway at shift change. Patient exhibited the following behavior Disorganized, Compulsive, Agitated. Brief assessment on rounds of vital signs, medication needs, lab studies, and pain. Treatment plan problems . Intervention: Patient assessed and the following interventions initiated safety checks 15 Minute Checks Cognitive Assessment , Head to toe Assessment , Medications. Response: After interactions and interventions patient responded in the following manner, Disorganized , Disorganized ,Irritable. Continue to assess behaviors and condition will continue to monitor throughout the shift as needed. Patient educated on ADL's, and hand hygiene. 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 Continue to assess patient for changes in above assessment. Monitor for medication needs, pain, and safety concerns. Hourly rounding performed to ensure safe environment.
[2018-01-22] MEDS: ATORVASTATIN CALCIUM 20 MG TABLET PO SCH (20:23)
--- NOTE | 2018-01-22 20:59 | PDOC ---
Exam Note: Jasper Note: Please also refer to the separate dictated note~for this date of service dictated separately.~Patient seen individually. Discussed the patient with Nursing staff reviewed the chart.~Reviewed interim history and current functioning. Reviewed vital signs,~Labs/ Radiology~and current medications noted below. Continue current treatment with the changes noted in the dictated addendum note Assessment: Vital Signs: Vital Signs Date Time Temp Pulse Resp B/P (MAP) Pulse Ox O2 Delivery O2 Flow Rate FiO2 01/22/18 16:18 97.6 83 18 146/83 (104) 98 01/16/18 16:20 Room Air I&O Intake and Output 01/22/18 07:00 Intake Total 540 ml Balance 540 ml Intake Oral 540 ml # Voids 1 # Bowel Movements 1 Current Medications: Meds: Current Medications Acetaminophen (Tylenol) 650 mg PRN Q6HRS PRN PO PAIN / TEMP; Start 01/12/18 at 02:00 Multi-Ingredient Ointment (Analgesic [place]) 1 eusebio PRN QID PRN TP MUSCLE PAIN; Start 01/12/18 at 02:00 Al Hydroxide/Mg Hydroxide (Mylanta Plus Xs) 15 ml PRN AFTMEALHC PRN PO DYSPEPSIA; Start 01/12/18 at 02:00 Magnesium Hydroxide (Milk Of Magnesia) 2,400 mg PRN QHS PRN PO CONSTIPATION; Start 01/12/18 at 02:00 Acetaminophen (Tylenol) 650 mg PRN Q6HRS PRN PO PAIN / TEMP; Start 01/12/18 at 02:15; Status UNV Atorvastatin Calcium (Lipitor) 20 mg QHS PO Last administered on 01/22/18at 20: 23; Start 01/12/18 at 21:00 Docusate Sodium (Colace) 100 mg BID PO Last administered on 01/22/18 20:23; Start 01/12/18 at 09:00 Hydrocortisone (Cortaid) 1 eusebio BID TP Last administered on 01/22/18 20:25; Start 01/12/18 at 09:00 Polyethylene Glycol (miraLAX) 17 gm DAILY PO Last administered on 01/22/18 09: 21; Start 01/12/18 at 09:00 Dextromethorphan/ Quinidine (Nuedexta 20-10 Mg Capsule) 1 cap Q12HR PO Last administered on 01/22/18 20:24; Start 01/12/18 at 09:00 Divalproex Sodium (Depakote Sprinkles) 125 mg BID92 PO Last administered on at 13:34; Start 01/12/18 at 09:00; Stop 01/16/18 at 18:21; Status DC Sertraline HCl (Zoloft) 25 mg DAILY PO Last administered on 01/17/18at 08:46; Start 01/14/18 at 09:00; Stop 01/17/18 at 18:29; Status DC Quetiapine Fumarate (SEROquel) 12.5 mg TID@0900,1300,1700 PO Last administered on 01/16/18 16:04; Start 01/15/18 at 09:00; Stop 01/16/18 at 18:31; Status DC Olanzapine (ZyPREXA ZYDIS) 2.5 mg PRN Q2HR PRN PO PSYCHOSIS Last administered on 01/22/18at 15:16; Start 01/16/18 at 18:30 Divalproex Sodium (Depakote Sprinkles) 250 mg BID92 PO Last administered on at 14:19; Start 01/17/18 at 09:00; Stop 01/20/18 at 17:35; Status DC Quetiapine Fumarate (SEROquel) 25 mg TID@0900,1300,1700 PO Last administered on 01/22/18at 16:37; Start 01/17/18 at 09:00 Sertraline HCl (Zoloft) 50 mg DAILY PO Last administered on 01/22/18 09:21; Start 01/18/18 at 09:00 Divalproex Sodium (Depakote Sprinkles) 375 mg BID92 PO Last administered on at 13:38; Start 01/21/18 at 09:00 Active Scripts Active Reported Miralax (Polyethylene Glycol 3350) 17 Gm Powd.pack 17 Gm PO DAILY Nuedexta 20-10 Mg Capsule (Dextromethorphan Hbr/Quinidine) 1 Each Capsule 1 Cap PO Q12HR Hydrocortisone 453.6 Gm Cream..g. 1 Eusebio TP BID Docusate Sodium 100 Mg Capsule 100 Mg PO BID Depakote Sprinkle (Divalproex Sodium) 125 Mg Cap.sprink 125 Mg PO BID92 Atorvastatin Calcium 20 Mg Tablet 20 Mg PO QHS Tylenol (Acetaminophen) 325 Mg Tablet 650 Mg PO PRN Q6HRS PRN I have reviewed the current psychotropics carefully including drug interactions. Risk benefit ratio favors no change other than as noted in my dictated progress note. Diagnosis: Problems: (1) Anxiety disorder (2) Dementia in Alzheimer's disease with delusions (3) Dementia in Alzheimer's disease with depression (4) Dementia, vascular, with delusions (5) Dementia, vascular, with depression (6) Impulse control disorder (7) Medical clearance for psychiatric admission MAX BIGGS MD Jan 22, 2018 20:59
--- NOTE | 2018-01-22 22:26 | PN ---
DATE: 01/20/2018 This is a late entry for 01/20/2018 covers elements not covered in my initial note. SUBJECTIVE: I met with the patient in the evening. Overall, the patient has been labile, laughing and smiling alternatively in rapid succession and then screaming out names. She had problems in the shower. REVIEW OF SYSTEMS: Ambulation impaired, in wheelchair. No CV, , pulmonary, eye, ENT system symptoms on review. Reliability poor. MENTAL STATUS EXAM: Oriented to herself. Insight, judgment, recent and remote memory, attention, concentration, fund of knowledge poor, consistent with her diagnosis mentioned in my initial note. PLAN: Valproic acid level is 38, subtherapeutic on Depakote Sprinkles 250 mg b.i.d. We will increase to 375 mg twice a day. Check CBC, CMP, valproic acid level in 3 days. Continue rest unchanged. MAN Amauri BIGGS MD DR: MONICA/daniel JOB#: [id number] / [id number]
--- NOTE | 2018-01-22 22:55 | PN ---
DATE: 01/21/2018 This is a late entry for 01/21/2018 covers elements not covered in my initial note. SUBJECTIVE: I met with the patient in the evening. The patient remains confused, anxious, restless in her wheelchair. Mood is labile, was mean to her during visits. REVIEW OF SYSTEMS: No CV, , pulmonary, eye, ENT system symptoms on review. Reliability poor, in a wheelchair. MENTAL STATUS EXAM: Oriented to herself. Insight, judgment, recent and remote memory, attention, concentration, fund of knowledge poor, consistent with her diagnosis from my initial note. PLAN: No change from a psychiatric standpoint from initial note. MAN Amauri BIGGS MD DR: MONICA/daniel JOB#: [id number] / [id number]
--- NOTE | 2018-01-22 23:31 | PN ---
DATE: 01/22/2018 This note covers the elements not covered in my initial note. SUBJECTIVE: I met with the patient in the evening. The patient slept 7-3/4 hours the previous evening. REVIEW OF SYSTEMS: Ambulation impaired, in wheelchair. No CV, , pulmonary, eye, ENT system symptoms on review. The patient is disorganized, very labile, and combative with cares at times. MENTAL STATUS EXAM: Oriented to herself. Insight, judgment, recent and remote memory, attention, concentration, fund of knowledge poor, consistent with her diagnosis as mentioned in my initial note. PLAN: Continue current psychotropics, follow labs level on 01/23/2018. For Depakote, adjust to reach therapeutic level. MAX BIGGS MD DR: MONICA/daniel JOB#: [id number] / [id number]
[2018-01-23 06:04] VITALS: BP 114/53
[2018-01-23 06:54] LABS: BASO # 0.1 x10^3/uL (0.0-0.2); BASO % 1 % (0-3); EOS # 0.6 x10^3/uL (0.0-0.7); EOS % 7 % (0-3); HEMATOCRIT 30.5 % (36.0-47.0); HEMOGLOBIN 10.3 g/dL (12.0-15.5); LYMPH % 25 % (24-48); MEAN CORPUSCULAR HEMOGLOBIN 30 pg (25-35); MEAN CORPUSCULAR HGB CONC 34 g/dL (31-37); MEAN CORPUSCULAR VOLUME 90 fL (79-100); MONO # 0.8 x10^3/uL (0.0-1.1); MONO % 9 % (0-9); NEUT # 4.7 x10^3uL (1.8-7.7); NEUT % 58 % (31-73); PLATELET COUNT 269 x10^3/uL (140-400); RED BLOOD COUNT 3.39 x10^6/uL (3.50-5.40); RED CELL DISTRIBUTION WIDTH 13.6 % (11.5-14.5); WHITE BLOOD COUNT 8.1 x10^3/uL (4.0-11.0)
[2018-01-23 07:09] LABS: ALBUMIN 2.4 g/dL (3.4-5.0); ALBUMIN/GLOBULIN RATIO 0.8 (1.0-1.7); ALK PHOS 100 U/L (46-116); ALT (SGPT) 17 U/L (14-59); ANION GAP 6 (6-14); AST (SGOT) 13 U/L (15-37); BLOOD UREA NITROGEN 16 mg/dL (7-20); BUN/CREATININE RATIO 16 (6-20); CALCIUM 8.3 mg/dL (8.5-10.1); CARBON DIOXIDE 28 mmol/L (21-32); CHLORIDE 108 mmol/L (98-107); GFR 54.7; GLUCOSE 88 mg/dL (70-99); POTASSIUM 4.3 mmol/L (3.5-5.1); SODIUM 142 mmol/L (136-145); TOTAL BILIRUBIN 0.3 mg/dL (0.2-1.0); TOTAL PROTEIN 5.5 g/dL (6.4-8.2)
[2018-01-23 07:13] LABS: VAL ACID 46 mcg/mL (50-100)
[2018-01-23] MEDS: QUEtiapine 25 MG TABLET. PO SCH ×3 (09:28→16:30)
[2018-01-23] MEDS: DOCUSATE SODIUM 100 MG CAPSULE PO SCH ×2 (09:28→20:05)
[2018-01-23] MEDS: SERTRALINE 25 MG TABLET. PO SCH (09:28)
[2018-01-23] MEDS: DIVALPROEX 125 MG CAP.SPRINK PO SCH ×2 (09:29→13:08)
[2018-01-23] MEDS: POLYETHYLENE GLYCOL 3350 17 GM PACKET. PO SCH (09:29)
[2018-01-23] MEDS: DEXTROMETHORPHAN/QUINIDINE 20/10MG CAPSULE. PO SCH ×2 (09:35→20:06)
[2018-01-23] MEDS: HYDROCORTISONE 1% TOPICAL CREAM 30GM TUBE. TP SCH ×2 (09:35→20:06)
--- NOTE | 2018-01-23 11:39 | NUR ---
Behavior Intervention Response and Plan: BIRP Note: Behavior: Assumed Care of patient, patient located in Day Room at shift change. Patient exhibited the following behavior Cooperative, Disorganized, Social. Brief assessment on rounds of vital signs, medication needs, lab studies, and pain. Treatment plan problems . Intervention: Patient assessed and the following interventions initiated safety checks 15 Minute Checks Head to toe Assessment , Medications , Cognitive Assessment. Response: After interactions and interventions patient responded in the following manner, Compliant , Social ,Cooperative. Continue to assess behaviors and condition will continue to monitor throughout the shift as needed. Patient educated on ADL's, and hand hygiene. Plan: Continue to monitor Master Treatment Plan for patient's progress toward short term goals of Improved Mood, Medication Compliance, nursing home goals to return to previous living setting vs placement. Continue to assess patient for changes in above assessment. Monitor for medication needs, pain, and safety concerns. Hourly rounding performed to ensure safe environment.
[2018-01-23 16:28] VITALS: BP 147/55
--- NOTE | 2018-01-23 20:00 | NUR ---
Behavior Intervention Response and Plan: BIRP Note: Behavior: Assumed Care of patient, patient located in Day Room at shift change. Patient exhibited the following behavior Interactive, Disorganized, Delusions. Brief assessment on rounds of vital signs, medication needs, lab studies, and pain. Treatment plan problems . Intervention: Patient assessed and the following interventions initiated safety checks 15 Minute Checks Cognitive Assessment , Head to toe Assessment , Medications. Response: After interactions and interventions patient responded in the following manner, Disorganized , Disorganized ,Resistive. Continue to assess behaviors and condition will continue to monitor throughout the shift as needed. Patient educated on ADL's, and hand hygiene. 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 Continue to assess patient for changes in above assessment. Monitor for medication needs, pain, and safety concerns. Hourly rounding performed to ensure safe environment.
[2018-01-23] MEDS: ATORVASTATIN CALCIUM 20 MG TABLET PO SCH (20:05)
--- NOTE | 2018-01-23 20:55 | PDOC ---
Exam Note: Jasper Note: Please also refer to the separate dictated note~for this date of service dictated separately.~Patient seen individually. Discussed the patient with Nursing staff reviewed the chart.~Reviewed interim history and current functioning. Reviewed vital signs,~Labs/ Radiology~and current medications noted below. Continue current treatment with the changes noted in the dictated addendum note Assessment: Vital Signs: Vital Signs Date Time Temp Pulse Resp B/P (MAP) Pulse Ox O2 Delivery O2 Flow Rate FiO2 01/23/18 16:28 97.6 69 20 147/55 (85) 94 Room Air I&O Intake and Output 01/23/18 07:01 Intake Total 1200 ml Balance 1200 ml Intake Oral 1200 ml Labs: Laboratory Tests Test 01/23/18 06:40 White Blood Count 8.1 x10^3/uL (4.0-11.0) Red Blood Count 3.39 x10^6/uL (3.50-5.40) L Hemoglobin 10.3 g/dL (12.0-15.5) L Hematocrit 30.5 % (36.0-47.0) L Mean Corpuscular Volume 90 fL (79-100) Mean Corpuscular Hemoglobin 30 pg (25-35) Mean Corpuscular Hemoglobin Concent 34 g/dL (31-37) Red Cell Distribution Width 13.6 % (11.5-14.5) Platelet Count 269 x10^3/uL (140-400) Neutrophils (%) (Auto) 58 % (31-73) Lymphocytes (%) (Auto) 25 % (24-48) Monocytes (%) (Auto) 9 % (0-9) Eosinophils (%) (Auto) 7 % (0-3) H Basophils (%) (Auto) 1 % (0-3) Neutrophils # (Auto) 4.7 x10^3uL (1.8-7.7) Lymphocytes # (Auto) 2.0 x10^3/uL (1.0-4.8) Monocytes # (Auto) 0.8 x10^3/uL (0.0-1.1) Eosinophils # (Auto) 0.6 x10^3/uL (0.0-0.7) Basophils # (Auto) 0.1 x10^3/uL (0.0-0.2) Sodium Level 142 mmol/L (136-145) Potassium Level 4.3 mmol/L (3.5-5.1) Chloride Level 108 mmol/L (98-107) H Carbon Dioxide Level 28 mmol/L (21-32) Anion Gap 6 (6-14) Blood Urea Nitrogen 16 mg/dL (7-20) Creatinine 1.0 mg/dL (0.6-1.0) Estimated GFR (Cockcroft-Gault) 54.7 BUN/Creatinine Ratio 16 (6-20) Glucose Level 88 mg/dL (70-99) Calcium Level 8.3 mg/dL (8.5-10.1) L Total Bilirubin 0.3 mg/dL (0.2-1.0) Aspartate Amino Transferase (AST) 13 U/L (15-37) L Alanine Aminotransferase (ALT) 17 U/L (14-59) Alkaline Phosphatase 100 U/L (46-116) Total Protein 5.5 g/dL (6.4-8.2) L Albumin 2.4 g/dL (3.4-5.0) L Albumin/Globulin Ratio 0.8 (1.0-1.7) L Valproic Acid Level 46 mcg/mL (50-100) L Valproic Acid Last Dose Date 01/22/2018 Valproic Acid Last Dose Time 2100 Current Medications: Meds: Current Medications Acetaminophen (Tylenol) 650 mg PRN Q6HRS PRN PO PAIN / TEMP; Start 01/12/18 at 02:00 Multi-Ingredient Ointment (Analgesic [place]) 1 eusebio PRN QID PRN TP MUSCLE PAIN; Start 01/12/18 at 02:00 Al Hydroxide/Mg Hydroxide (Mylanta Plus Xs) 15 ml PRN AFTMEALHC PRN PO DYSPEPSIA; Start 01/12/18 at 02:00 Magnesium Hydroxide (Milk Of Magnesia) 2,400 mg PRN QHS PRN PO CONSTIPATION; Start 01/12/18 at 02:00 Acetaminophen (Tylenol) 650 mg PRN Q6HRS PRN PO PAIN / TEMP; Start 01/12/18 at 02:15; Status UNV Atorvastatin Calcium (Lipitor) 20 mg QHS PO Last administered on 01/23/18at 20: 05; Start 01/12/18 at 21:00 Docusate Sodium (Colace) 100 mg BID PO Last administered on 01/23/18 20:05; Start 01/12/18 at 09:00 Hydrocortisone (Cortaid) 1 eusebio BID TP Last administered on 01/23/18 20:06; Start 01/12/18 at 09:00 Polyethylene Glycol (miraLAX) 17 gm DAILY PO Last administered on 01/23/18 09: 29; Start 01/12/18 at 09:00 Dextromethorphan/ Quinidine (Nuedexta 20-10 Mg Capsule) 1 cap Q12HR PO Last administered on 01/23/18 20:06; Start 01/12/18 at 09:00 Divalproex Sodium (Depakote Sprinkles) 125 mg BID92 PO Last administered on 13:34; Start 01/12/18 at 09:00; Stop 01/16/18 at 18:21; Status DC Sertraline HCl (Zoloft) 25 mg DAILY PO Last administered on 01/17/18at 08:46; Start 01/14/18 at 09:00; Stop 01/17/18 at 18:29; Status DC Quetiapine Fumarate (SEROquel) 12.5 mg TID@0900,1300,1700 PO Last administered on 01/16/18 16:04; Start 01/15/18 at 09:00; Stop 01/16/18 at 18:31; Status DC Olanzapine (ZyPREXA ZYDIS) 2.5 mg PRN Q2HR PRN PO PSYCHOSIS Last administered on 01/22/18 15:16; Start 01/16/18 at 18:30 Divalproex Sodium (Depakote Sprinkles) 250 mg BID92 PO Last administered on 14:19; Start 01/17/18 at 09:00; Stop 01/20/18 at 17:35; Status DC Quetiapine Fumarate (SEROquel) 25 mg TID@0900,1300,1700 PO Last administered on 01/23/18 16:30; Start 01/17/18 at 09:00 Sertraline HCl (Zoloft) 50 mg DAILY PO Last administered on 01/23/18 09:28; Start 01/18/18 at 09:00; Stop 01/23/18 at 11:23; Status DC Divalproex Sodium (Depakote Sprinkles) 375 mg BID92 PO Last administered on at 13:08; Start 01/21/18 at 09:00 Sertraline HCl (Zoloft) 50 mg DAILY PO ; Start 01/24/18 at 09:00 Active Scripts Active Reported Miralax (Polyethylene Glycol 3350) 17 Gm Powd.pack 17 Gm PO DAILY Nuedexta 20-10 Mg Capsule (Dextromethorphan Hbr/Quinidine) 1 Each Capsule 1 Cap PO Q12HR Hydrocortisone 453.6 Gm Cream..g. 1 Eusebio TP BID Docusate Sodium 100 Mg Capsule 100 Mg PO BID Depakote Sprinkle (Divalproex Sodium) 125 Mg Cap.sprink 125 Mg PO BID92 Atorvastatin Calcium 20 Mg Tablet 20 Mg PO QHS Tylenol (Acetaminophen) 325 Mg Tablet 650 Mg PO PRN Q6HRS PRN I have reviewed the current psychotropics carefully including drug interactions. Risk benefit ratio favors no change other than as noted in my dictated progress note. Diagnosis: Problems: (1) Anxiety disorder (2) Dementia in Alzheimer's disease with delusions (3) Dementia in Alzheimer's disease with depression (4) Dementia, vascular, with delusions (5) Dementia, vascular, with depression (6) Impulse control disorder (7) Medical clearance for psychiatric admission MAX BIGGS MD Jan 23, 2018 20:55
[2018-01-24 07:27] VITALS: BP 100/60
[2018-01-24] MEDS: DEXTROMETHORPHAN/QUINIDINE 20/10MG CAPSULE. PO SCH ×2 (08:46→20:09)
[2018-01-24] MEDS: QUEtiapine 25 MG TABLET. PO SCH ×3 (08:46→16:56)
[2018-01-24] MEDS: DOCUSATE SODIUM 100 MG CAPSULE PO SCH ×2 (08:46→20:09)
[2018-01-24] MEDS: POLYETHYLENE GLYCOL 3350 17 GM PACKET. PO SCH (08:46)
[2018-01-24] MEDS: DIVALPROEX 125 MG CAP.SPRINK PO SCH ×3 (08:46→16:56)
[2018-01-24] MEDS: SERTRALINE 50 MG TABLET. PO SCH (08:48)
[2018-01-24] MEDS: HYDROCORTISONE 1% TOPICAL CREAM 30GM TUBE. TP SCH ×2 (08:49→20:48)
--- NOTE | 2018-01-24 15:33 | NUR ---
Update faxed to [facility] including target d/c date possible next week.
[2018-01-24 16:40] VITALS: BP 124/52
--- NOTE | 2018-01-24 19:59 | PN ---
DATE: 01/23/2018 PSYCHIATRIC PROGRESS NOTE This is a late entry for 01/23/2018, covers elements not covered in my initial note. SUBJECTIVE: I met with the patient in the evening. The patient slept 7 hours previous evening. She has had a better day. No PRNs were given in the evening. She was agitated, labile, screaming at times, redirected. REVIEW OF SYSTEMS: Ambulation impaired, in wheelchair. No CV, , pulmonary, eye, ENT system symptoms on review. Reliability poor. MENTAL STATUS EXAM: Oriented to herself. Insight, judgment, recent and remote memory, attention, concentration, fund of knowledge poor, consistent with her diagnosis mentioned in my initial note. PLAN: Continue current psychotropics from initial note. Adjust further as clinically indicated. MAN Amauri BIGGS MD DR: MONICA/daniel JOB#: [id number] / [id number]
[2018-01-24] MEDS: ATORVASTATIN CALCIUM 20 MG TABLET PO SCH (20:09)
[2018-01-24] MEDS: DIVALPROEX SODIUM 250 MG TABLET.DR. PO SCH (20:10)
[2018-01-25 05:39] VITALS: BP 112/52
[2018-01-25] MEDS: POLYETHYLENE GLYCOL 3350 17 GM PACKET. PO SCH (09:25)
[2018-01-25] MEDS: HYDROCORTISONE 1% TOPICAL CREAM 30GM TUBE. TP SCH ×2 (09:26→19:25)
[2018-01-25] MEDS: SERTRALINE 50 MG TABLET. PO SCH (09:26)
[2018-01-25] MEDS: DEXTROMETHORPHAN/QUINIDINE 20/10MG CAPSULE. PO SCH ×2 (09:26→19:25)
[2018-01-25] MEDS: DOCUSATE SODIUM 100 MG CAPSULE PO SCH ×2 (09:26→19:24)
[2018-01-25] MEDS: QUEtiapine 25 MG TABLET. PO SCH ×3 (09:26→17:12)
[2018-01-25] MEDS: DIVALPROEX SODIUM 250 MG TABLET.DR. PO SCH (09:26)
[2018-01-25] MEDS: DIVALPROEX 125 MG CAP.SPRINK PO SCH ×2 (10:11→13:51)
--- NOTE | 2018-01-25 10:33 | NUR ---
Behavior Intervention Response and Plan: BIRP Note: Behavior: Assumed Care of patient, patient located in Hallway at shift change. Patient exhibited the following behavior Disorganized, Irritable, Non Compliant with Meds. Brief assessment on rounds of vital signs, medication needs, lab studies, and pain. Treatment plan problems 1-2. Intervention: Patient assessed and the following interventions initiated safety checks 15 Minute Checks Personal Alarm in place , Cognitive Assessment , Head to toe Assessment. Response: After interactions and interventions patient responded in the following manner, Disorganized , Restless ,Non Compliant with Meds. Continue to assess behaviors and condition will continue to monitor throughout the shift as needed. Patient educated on ADL's, and hand hygiene. Plan: Continue to monitor Master Treatment Plan for patient's progress toward short term goals of Medication Compliance, Improved Mood, supervisor intermediates goals to return to previous living setting vs placement. Continue to assess patient for changes in above assessment. Monitor for medication needs, pain, and safety concerns. Hourly rounding performed to ensure safe environment.
--- NOTE | 2018-01-25 10:39 | NUR ---
Pt compliant with crushed medications hidden in ice cream. Pt very agitated during her shower this morning, screaming the entire time. Addendum: 01/25/18 at 1522 by SMITHA LEMUS RN Pt is agitated during every brief change, refusing to bear weight and screaming the entire time.
--- NOTE | 2018-01-25 15:00 | NUR ---
WEEKLY THERAPEUTIC RECREATION NOTE Date of Admission: 01/12/2018 Date of AT Assessment: 01/13/2018 Goal aimed: to increase time management and assertiveness Goal change 01/19/2018: Pt. will participate fully in at least three groups before discharge Weekly progress towards goal: on track; group one of three: 01/19 coffee group Group participation level: varies Behaviors observed: sometimes disruptive and noncompliant, varies in participation level, seems more compliant and interested in groups in the morning Plan: no change to goal
[2018-01-25 15:59] VITALS: BP 97/54
[2018-01-25] MEDS: ATORVASTATIN CALCIUM 20 MG TABLET PO SCH (19:24)
--- NOTE | 2018-01-25 20:14 | PDOC ---
Exam Note: Jasper Note: Please also refer to the separate dictated note~for this date of service dictated separately.~Patient seen individually. Discussed the patient with Nursing staff reviewed the chart.~Reviewed interim history and current functioning. Reviewed vital signs,~Labs/ Radiology~and current medications noted below. Continue current treatment with the changes noted in the dictated addendum note Assessment: Vital Signs: Vital Signs Date Time Temp Pulse Resp B/P (MAP) Pulse Ox O2 Delivery O2 Flow Rate FiO2 01/25/18 15:59 98.2 75 22 97/54 (68) 96 Room Air I&O Intake and Output 01/25/18 07:00 Intake Total 720 ml Balance 720 ml Intake Oral 720 ml # Voids 1 # Bowel Movements 1 Current Medications: Meds: Current Medications Acetaminophen (Tylenol) 650 mg PRN Q6HRS PRN PO PAIN / TEMP; Start 01/12/18 at 02:00 Multi-Ingredient Ointment (Analgesic [place]) 1 eusebio PRN QID PRN TP MUSCLE PAIN; Start 01/12/18 at 02:00 Al Hydroxide/Mg Hydroxide (Mylanta Plus Xs) 15 ml PRN AFTMEALHC PRN PO DYSPEPSIA; Start 01/12/18 at 02:00 Magnesium Hydroxide (Milk Of Magnesia) 2,400 mg PRN QHS PRN PO CONSTIPATION; Start 01/12/18 at 02:00 Acetaminophen (Tylenol) 650 mg PRN Q6HRS PRN PO PAIN / TEMP; Start 01/12/18 at 02:15; Status UNV Atorvastatin Calcium (Lipitor) 20 mg QHS PO Last administered on 01/25/18at 19: 24; Start 01/12/18 at 21:00 Docusate Sodium (Colace) 100 mg BID PO Last administered on 01/25/18 19:24; Start 01/12/18 at 09:00 Hydrocortisone (Cortaid) 1 eusebio BID TP Last administered on 01/25/18 19:25; Start 01/12/18 at 09:00 Polyethylene Glycol (miraLAX) 17 gm DAILY PO Last administered on 01/25/18 09: 25; Start 01/12/18 at 09:00 Dextromethorphan/ Quinidine (Nuedexta 20-10 Mg Capsule) 1 cap Q12HR PO Last administered on 6/27/18at 19:25; Start 01/12/18 at 09:00 Divalproex Sodium (Depakote Sprinkles) 125 mg BID92 PO Last administered on at 13:34; Start 01/12/18 at 09:00; Stop 01/16/18 at 18:21; Status DC Sertraline HCl (Zoloft) 25 mg DAILY PO Last administered on 01/17/18at 08:46; Start 01/14/18 at 09:00; Stop 01/17/18 at 18:29; Status DC Quetiapine Fumarate (SEROquel) 12.5 mg TID@0900,1300,1700 PO Last administered on 01/16/18at 16:04; Start 01/15/18 at 09:00; Stop 01/16/18 at 18:31; Status DC Olanzapine (ZyPREXA ZYDIS) 2.5 mg PRN Q2HR PRN PO PSYCHOSIS Last administered on 01/22/18at 15:16; Start 01/16/18 at 18:30 Divalproex Sodium (Depakote Sprinkles) 250 mg BID92 PO Last administered on at 14:19; Start 01/17/18 at 09:00; Stop 01/20/18 at 17:35; Status DC Quetiapine Fumarate (SEROquel) 25 mg TID@0900,1300,1700 PO Last administered on 01/25/18at 17:12; Start 01/17/18 at 09:00 Sertraline HCl (Zoloft) 50 mg DAILY PO Last administered on 01/23/18at 09:28; Start 01/18/18 at 09:00; Stop 01/23/18 at 11:23; Status DC Divalproex Sodium (Depakote Sprinkles) 375 mg BID92 PO Last administered on at 16:56; Start 01/21/18 at 09:00; Stop 01/24/18 at 18:40; Status DC Sertraline HCl (Zoloft) 50 mg DAILY PO Last administered on 01/25/18at 09:26; Start 01/24/18 at 09:00 Divalproex Sodium (Depakote) 500 mg BID PO Last administered on 01/25/18at 09:26 ; Start 01/24/18 at 21:00; Stop 01/25/18 at 09:30; Status DC Divalproex Sodium (Depakote Sprinkles) 500 mg BID92 PO Last administered on at 13:51; Start 01/25/18 at 10:00 Active Scripts Active Reported Miralax (Polyethylene Glycol 3350) 17 Gm Powd.pack 17 Gm PO DAILY Nuedexta 20-10 Mg Capsule (Dextromethorphan Hbr/Quinidine) 1 Each Capsule 1 Cap PO Q12HR Hydrocortisone 453.6 Gm Cream..g. 1 Eusebio TP BID Docusate Sodium 100 Mg Capsule 100 Mg PO BID Depakote Sprinkle (Divalproex Sodium) 125 Mg Cap.sprink 125 Mg PO BID92 Atorvastatin Calcium 20 Mg Tablet 20 Mg PO QHS Tylenol (Acetaminophen) 325 Mg Tablet 650 Mg PO PRN Q6HRS PRN I have reviewed the current psychotropics carefully including drug interactions. Risk benefit ratio favors no change other than as noted in my dictated progress note. Diagnosis: Problems: (1) Anxiety disorder (2) Dementia in Alzheimer's disease with delusions (3) Dementia in Alzheimer's disease with depression (4) Dementia, vascular, with delusions (5) Dementia, vascular, with depression (6) Impulse control disorder (7) Medical clearance for psychiatric admission MAX BIGGS MD Jan 25, 2018 20:14
--- NOTE | 2018-01-25 20:14 | PDOC ---
Exam Note: Jasper Note: Late entry for date of service 24 January 2018. Please also refer to the separate dictated note~for this date of service dictated separately.~Patient seen individually. Discussed the patient with Nursing staff reviewed the chart.~ Reviewed interim history and current functioning. Reviewed vital signs,~Labs/ Radiology~and current medications noted below. Continue current treatment with the changes noted in the dictated addendum note Assessment: Vital Signs: VS - Last 72 Hours, by Label Date Time Temp Pulse Resp B/P (MAP) Pulse Ox O2 Delivery O2 Flow Rate FiO2 01/25/18 15:59 98.2 75 22 97/54 (68) 96 Room Air 01/25/18 05:39 97.5 68 20 112/52 (72) 97 Room Air 01/24/18 16:40 78 20 124/52 (76) 95 01/24/18 07:27 67 18 100/60 (73) 95 01/23/18 16:28 97.6 69 20 147/55 (85) 94 Room Air 01/23/18 06:04 97.6 86 18 114/53 (73) 97 Room Air Vital Signs Date Time Temp Pulse Resp B/P (MAP) Pulse Ox O2 Delivery O2 Flow Rate FiO2 01/25/18 15:59 98.2 75 22 97/54 (68) 96 Room Air I&O Intake and Output 01/25/18 07:00 Intake Total 720 ml Balance 720 ml Intake Oral 720 ml # Voids 1 # Bowel Movements 1 Current Medications: Meds: Current Medications Acetaminophen (Tylenol) 650 mg PRN Q6HRS PRN PO PAIN / TEMP; Start 01/12/18 at 02:00 Multi-Ingredient Ointment (Analgesic [place]) 1 eusebio PRN QID PRN TP MUSCLE PAIN; Start 01/12/18 at 02:00 Al Hydroxide/Mg Hydroxide (Mylanta Plus Xs) 15 ml PRN AFTMEALHC PRN PO DYSPEPSIA; Start 01/12/18 at 02:00 Magnesium Hydroxide (Milk Of Magnesia) 2,400 mg PRN QHS PRN PO CONSTIPATION; Start 01/12/18 at 02:00 Acetaminophen (Tylenol) 650 mg PRN Q6HRS PRN PO PAIN / TEMP; Start 01/12/18 at 02:15; Status UNV Atorvastatin Calcium (Lipitor) 20 mg QHS PO Last administered on 01/25/18 19: 24; Start 01/12/18 at 21:00 Docusate Sodium (Colace) 100 mg BID PO Last administered on 01/25/18 19:24; Start 01/12/18 at 09:00 Hydrocortisone (Cortaid) 1 eusebio BID TP Last administered on 01/25/18 19:25; Start 01/12/18 at 09:00 Polyethylene Glycol (miraLAX) 17 gm DAILY PO Last administered on 01/25/18 09: 25; Start 01/12/18 at 09:00 Dextromethorphan/ Quinidine (Nuedexta 20-10 Mg Capsule) 1 cap Q12HR PO Last administered on 01/25/18 19:25; Start 01/12/18 at 09:00 Divalproex Sodium (Depakote Sprinkles) 125 mg BID92 PO Last administered on 13:34; Start 01/12/18 at 09:00; Stop 01/16/18 at 18:21; Status DC Sertraline HCl (Zoloft) 25 mg DAILY PO Last administered on 01/17/18at 08:46; Start 01/14/18 at 09:00; Stop 01/17/18 at 18:29; Status DC Quetiapine Fumarate (SEROquel) 12.5 mg TID@0900,1300,1700 PO Last administered on 01/16/18at 16:04; Start 01/15/18 at 09:00; Stop 01/16/18 at 18:31; Status DC Olanzapine (ZyPREXA ZYDIS) 2.5 mg PRN Q2HR PRN PO PSYCHOSIS Last administered on 01/22/18 15:16; Start 01/16/18 at 18:30 Divalproex Sodium (Depakote Sprinkles) 250 mg BID92 PO Last administered on 14:19; Start 01/17/18 at 09:00; Stop 01/20/18 at 17:35; Status DC Quetiapine Fumarate (SEROquel) 25 mg TID@0900,1300,1700 PO Last administered on 01/25/18at 17:12; Start 01/17/18 at 09:00 Sertraline HCl (Zoloft) 50 mg DAILY PO Last administered on 01/23/18at 09:28; Start 01/18/18 at 09:00; Stop 01/23/18 at 11:23; Status DC Divalproex Sodium (Depakote Sprinkles) 375 mg BID92 PO Last administered on at 16:56; Start 01/21/18 at 09:00; Stop 01/24/18 at 18:40; Status DC Sertraline HCl (Zoloft) 50 mg DAILY PO Last administered on 01/25/18at 09:26; Start 01/24/18 at 09:00 Divalproex Sodium (Depakote) 500 mg BID PO Last administered on 01/25/18at 09:26 ; Start 01/24/18 at 21:00; Stop 01/25/18 at 09:30; Status DC Divalproex Sodium (Depakote Sprinkles) 500 mg BID92 PO Last administered on at 13:51; Start 01/25/18 at 10:00 Active Scripts Active Reported Miralax (Polyethylene Glycol 3350) 17 Gm Powd.pack 17 Gm PO DAILY Nuedexta 20-10 Mg Capsule (Dextromethorphan Hbr/Quinidine) 1 Each Capsule 1 Cap PO Q12HR Hydrocortisone 453.6 Gm Cream..g. 1 Eusebio TP BID Docusate Sodium 100 Mg Capsule 100 Mg PO BID Depakote Sprinkle (Divalproex Sodium) 125 Mg Cap.sprink 125 Mg PO BID92 Atorvastatin Calcium 20 Mg Tablet 20 Mg PO QHS Tylenol (Acetaminophen) 325 Mg Tablet 650 Mg PO PRN Q6HRS PRN I have reviewed the current psychotropics carefully including drug interactions. Risk benefit ratio favors no change other than as noted in my dictated progress note. Diagnosis: Problems: (1) Anxiety disorder (2) Dementia in Alzheimer's disease with delusions (3) Dementia in Alzheimer's disease with depression (4) Dementia, vascular, with delusions (5) Dementia, vascular, with depression (6) Impulse control disorder (7) Medical clearance for psychiatric admission MAX BIGGS MD Jan 25, 2018 20:14
--- NOTE | 2018-01-25 21:26 | PN ---
DATE: 01/24/2018 PSYCHIATRIC PROGRESS NOTE This late entry 01/24/2018 covers elements not covered in my initial note 01/24/2018. Met with the patient in the evening. The patient slept 6-3/4 hours previous evening, slept until noon. She is confused, unable to recognize her at times, telling him "you are not my ." REVIEW OF SYSTEMS: Ambulation impaired, in wheelchair. No CV, , pulmonary, eye, ENT system symptoms on review. MENTAL STATUS EXAM: Oriented to herself. Insight, judgment, recent and remote memory, attention, concentration, fund of knowledge poor, consistent with her diagnosis mentioned in my initial note. PLAN: Valproic acid level subtherapeutic at 46 on Depakote Sprinkles 375 mg b.i.d. We will increase to 500 mg b.i.d. Check CBC, CMP, valproic acid level in 3 days. Rest unchanged from initial note. MAN Amauri BIGGS MD DR: MONICA/daniel JOB#: [id number] / [id number]
--- NOTE | 2018-01-25 23:24 | NUR ---
Behavior Intervention Response and Plan: BIRP Note: Behavior: Assumed Care of patient, patient located in Day Room at shift change. Patient exhibited the following behavior Disorganized, Restless, Anxious. Brief assessment on rounds of vital signs, medication needs, lab studies, and pain. Treatment plan problems 1 and 2. Intervention: Patient assessed and the following interventions initiated safety checks 15 Minute Checks Cognitive Assessment , Head to toe Assessment , Medications. Response: After interactions and interventions patient responded in the following manner, Calm , Compliant ,Cooperative. Continue to assess behaviors and condition will continue to monitor throughout the shift as needed. Patient educated on ADL's, and hand hygiene. Plan: Continue to monitor Master Treatment Plan for patient's progress toward short term goals of Decreased Agitation, Decreased Aggression, fur dressing supervisor goals to return to previous living setting vs placement. Continue to assess patient for changes in above assessment. Monitor for medication needs, pain, and safety concerns. Hourly rounding performed to ensure safe environment.
[2018-01-26 05:33] VITALS: BP 134/55
[2018-01-26] MEDS: POLYETHYLENE GLYCOL 3350 17 GM PACKET. PO SCH (07:36)
[2018-01-26] MEDS: DIVALPROEX 125 MG CAP.SPRINK PO SCH ×2 (07:36→11:55)
[2018-01-26] MEDS: HYDROCORTISONE 1% TOPICAL CREAM 30GM TUBE. TP SCH (07:36)
[2018-01-26] MEDS: DEXTROMETHORPHAN/QUINIDINE 20/10MG CAPSULE. PO SCH ×2 (07:36→19:15)
[2018-01-26] MEDS: DOCUSATE SODIUM 100 MG CAPSULE PO SCH ×2 (07:36→19:15)
[2018-01-26] MEDS: SERTRALINE 50 MG TABLET. PO SCH (07:36)
[2018-01-26] MEDS: QUEtiapine 25 MG TABLET. PO SCH ×3 (07:36→16:43)
--- NOTE | 2018-01-26 09:04 | NUR ---
Behavior Intervention Response and Plan: BIRP Note: Behavior: Assumed Care of patient, patient located in Hallway at shift change. Patient exhibited the following behavior Disorganized, Irritable, compliant with meds. Brief assessment on rounds of vital signs, medication needs, lab studies, and pain. Treatment plan problems 1-2. Intervention: Patient assessed and the following interventions initiated safety checks 15 Minute Checks Personal Alarm in place , Cognitive Assessment , Head to toe Assessment. Response: After interactions and interventions patient responded in the following manner, Disorganized , Restless ,Non Compliant with Meds. Continue to assess behaviors and condition will continue to monitor throughout the shift as needed. Patient educated on ADL's, and hand hygiene. Pt labile and loud. Pt did take am medications. Plan: Continue to monitor Master Treatment Plan for patient's progress toward short term goals of Medication Compliance, Improved Mood, chcf goals to return to previous living setting vs placement. Continue to assess patient for changes in above assessment. Monitor for medication needs, pain, and safety concerns. Hourly rounding performed to ensure safe environment.
--- NOTE | 2018-01-26 14:39 | RAD ---
Portable chest, 01/26/2018: HISTORY: Shortness of breath, leg swelling No previous radiographs are available at this time for comparison purposes. The left ventricle is mildly prominent. The pulmonary vascularity is within normal limits. There is a mild streaky opacity laterally in the left base suggesting atelectasis or scarring. A small amount of left-sided pleural fluid cannot be excluded. The right lung is clear. The bony structures are demineralized. IMPRESSION: 1. Borderline cardiomegaly. 2. Mild left basilar opacity suggesting atelectasis or scarring. A small amount of pleural fluid cannot be excluded. Electronically signed by: Nadeem Rodriguez MD (01/26/2018 2:37 PM) [facility]
--- NOTE | 2018-01-26 15:19 | NUR ---
PT has 3 plus edema in Bilateral legs and Zainab with Dietary saw that the pt had a increased weight gain of 15 pounds. Unsure of how the pt was weighed. Xray done and no CHF noted on xray at this time. If pt sounds wet or problem exist pt may need updated lab with BNP. Will continue to monitor at this time. Jose Luis CUPOLA REPAIRER CMSRN [facility]
[2018-01-26 16:03] VITALS: BP 112/91
[2018-01-26] MEDS: ATORVASTATIN CALCIUM 20 MG TABLET PO SCH (19:15)
[2018-01-26] MEDS ORDERED: HYDROCORTISONE 1% TOPICAL CREAM 30GM TUBE. TP PRN (20:00)
--- NOTE | 2018-01-26 20:53 | PDOC ---
Exam Note: Jasper Note: Please also refer to the separate dictated note~for this date of service dictated separately.~Patient seen individually. Discussed the patient with Nursing staff reviewed the chart.~Reviewed interim history and current functioning. Reviewed vital signs,~Labs/ Radiology~and current medications noted below. Continue current treatment with the changes noted in the dictated addendum note Assessment: Vital Signs: Vital Signs Date Time Temp Pulse Resp B/P (MAP) Pulse Ox O2 Delivery O2 Flow Rate FiO2 01/26/18 16:03 98.4 74 20 112/91 (98) 99 Room Air I&O Intake and Output 01/26/18 06:59 Intake Total 720 ml Balance 720 ml Intake Oral 720 ml # Voids 1 # Bowel Movements 2 Current Medications: Meds: Current Medications Acetaminophen (Tylenol) 650 mg PRN Q6HRS PRN PO PAIN / TEMP; Start 01/12/18 at 02:00 Multi-Ingredient Ointment (Analgesic [place]) 1 eusebio PRN QID PRN TP MUSCLE PAIN; Start 01/12/18 at 02:00 Al Hydroxide/Mg Hydroxide (Mylanta Plus Xs) 15 ml PRN AFTMEALHC PRN PO DYSPEPSIA; Start 01/12/18 at 02:00 Magnesium Hydroxide (Milk Of Magnesia) 2,400 mg PRN QHS PRN PO CONSTIPATION; Start 01/12/18 at 02:00 Acetaminophen (Tylenol) 650 mg PRN Q6HRS PRN PO PAIN / TEMP; Start 01/12/18 at 02:15; Status UNV Atorvastatin Calcium (Lipitor) 20 mg QHS PO Last administered on 01/26/18at 19: 15; Start 01/12/18 at 21:00 Docusate Sodium (Colace) 100 mg BID PO Last administered on 01/26/18at 19:15; Start 01/12/18 at 09:00 Hydrocortisone (Cortaid) 1 eusebio BID TP Last administered on 01/26/18at 07:36; Start 01/12/18 at 09:00; Stop 01/26/18 at 13:57; Status DC Polyethylene Glycol (miraLAX) 17 gm DAILY PO Last administered on 01/26/18at 07: 36; Start 01/12/18 at 09:00 Dextromethorphan/ Quinidine (Nuedexta 20-10 Mg Capsule) 1 cap Q12HR PO Last administered on 01/26/18 19:15; Start 01/12/18 at 09:00 Divalproex Sodium (Depakote Sprinkles) 125 mg BID92 PO Last administered on at 13:34; Start 01/12/18 at 09:00; Stop 01/16/18 at 18:21; Status DC Sertraline HCl (Zoloft) 25 mg DAILY PO Last administered on 01/17/18at 08:46; Start 01/14/18 at 09:00; Stop 01/17/18 at 18:29; Status DC Quetiapine Fumarate (SEROquel) 12.5 mg TID@0900,1300,1700 PO Last administered on 01/16/18 16:04; Start 01/15/18 at 09:00; Stop 01/16/18 at 18:31; Status DC Olanzapine (ZyPREXA ZYDIS) 2.5 mg PRN Q2HR PRN PO PSYCHOSIS Last administered on 01/22/18at 15:16; Start 01/16/18 at 18:30 Divalproex Sodium (Depakote Sprinkles) 250 mg BID92 PO Last administered on 14:19; Start 01/17/18 at 09:00; Stop 01/20/18 at 17:35; Status DC Quetiapine Fumarate (SEROquel) 25 mg TID@0900,1300,1700 PO Last administered on 01/26/18at 16:43; Start 01/17/18 at 09:00 Sertraline HCl (Zoloft) 50 mg DAILY PO Last administered on 01/23/18 09:28; Start 01/18/18 at 09:00; Stop 01/23/18 at 11:23; Status DC Divalproex Sodium (Depakote Sprinkles) 375 mg BID92 PO Last administered on 16:56; Start 01/21/18 at 09:00; Stop 01/24/18 at 18:40; Status DC Sertraline HCl (Zoloft) 50 mg DAILY PO Last administered on 01/26/18 07:36; Start 01/24/18 at 09:00 Divalproex Sodium (Depakote) 500 mg BID PO Last administered on 6/27/18at 09:26 ; Start 01/24/18 at 21:00; Stop 01/25/18 at 09:30; Status DC Divalproex Sodium (Depakote Sprinkles) 500 mg BID92 PO Last administered on at 11:55; Start 01/25/18 at 10:00 Hydrocortisone (Cortaid) 1 eusebio BID PRN TP ITCHING; Start 01/26/18 at 20:00 Active Scripts Active Reported Miralax (Polyethylene Glycol 3350) 17 Gm Powd.pack 17 Gm PO DAILY Nuedexta 20-10 Mg Capsule (Dextromethorphan Hbr/Quinidine) 1 Each Capsule 1 Cap PO Q12HR Hydrocortisone 453.6 Gm Cream..g. 1 Eusebio TP BID Docusate Sodium 100 Mg Capsule 100 Mg PO BID Depakote Sprinkle (Divalproex Sodium) 125 Mg Cap.sprink 125 Mg PO BID92 Atorvastatin Calcium 20 Mg Tablet 20 Mg PO QHS Tylenol (Acetaminophen) 325 Mg Tablet 650 Mg PO PRN Q6HRS PRN I have reviewed the current psychotropics carefully including drug interactions. Risk benefit ratio favors no change other than as noted in my dictated progress note. Diagnosis: Problems: (1) Anxiety disorder (2) Dementia in Alzheimer's disease with delusions (3) Dementia in Alzheimer's disease with depression (4) Dementia, vascular, with delusions (5) Dementia, vascular, with depression (6) Impulse control disorder (7) Medical clearance for psychiatric admission MAX BIGGS MD Jan 26, 2018 20:53
--- NOTE | 2018-01-27 01:13 | NUR ---
Behavior Intervention Response and Plan: BIRP Note: Behavior: Assumed Care of patient, patient located in Day Room at shift change. Patient exhibited the following behavior Calm, Interactive, Social. Brief assessment on rounds of vital signs, medication needs, lab studies, and pain. Treatment plan problems . Intervention: Patient assessed and the following interventions initiated safety checks 15 Minute Checks Head to toe Assessment , Cognitive Assessment , Medications. Response: After interactions and interventions patient responded in the following manner, Compliant , Cooperative ,Delusions. Continue to assess behaviors and condition will continue to monitor throughout the shift as needed. Patient educated on ADL's, and hand hygiene. Plan: Continue to monitor Master Treatment Plan for patient's progress toward short term goals of Improved Mood, Decreased Agitation, snf goals to return to previous living setting vs placement. Continue to assess patient for changes in above assessment. Monitor for medication needs, pain, and safety concerns. Hourly rounding performed to ensure safe environment.
[2018-01-27 05:54] VITALS: BP 123/52
[2018-01-27 07:17] LABS: HEMATOCRIT 35.3 % (36.0-47.0); HEMOGLOBIN 11.7 g/dL (12.0-15.5); RED BLOOD COUNT 3.9 x10^6/uL (3.50-5.40); RED CELL DISTRIBUTION WIDTH 13.8 % (11.5-14.5); WHITE BLOOD COUNT 7.8 x10^3/uL (4.0-11.0)
[2018-01-27 07:32] LABS: ALBUMIN 2.8 g/dL (3.4-5.0); ALBUMIN/GLOBULIN RATIO 0.8 (1.0-1.7); ALK PHOS 113 U/L (46-116); ALT (SGPT) 16 U/L (14-59); ANION GAP 5 (6-14); AST (SGOT) 12 U/L (15-37); BLOOD UREA NITROGEN 26 mg/dL (7-20); BUN/CREATININE RATIO 24 (6-20); CALCIUM 8.9 mg/dL (8.5-10.1); CARBON DIOXIDE 30 mmol/L (21-32); CHLORIDE 108 mmol/L (98-107); CREATININE 1.1 mg/dL (0.6-1.0); GLUCOSE 92 mg/dL (70-99); POTASSIUM 4.6 mmol/L (3.5-5.1); SODIUM 143 mmol/L (136-145); TOTAL BILIRUBIN 0.2 mg/dL (0.2-1.0); TOTAL PROTEIN 6.4 g/dL (6.4-8.2)
[2018-01-27 07:41] LABS: VAL ACID 58 mcg/mL (50-100)
[2018-01-27] MEDS: POLYETHYLENE GLYCOL 3350 17 GM PACKET. PO SCH (09:26)
[2018-01-27] MEDS: DOCUSATE SODIUM 100 MG CAPSULE PO SCH ×2 (09:26→19:56)
[2018-01-27] MEDS: DIVALPROEX 125 MG CAP.SPRINK PO SCH ×2 (09:26→14:16)
[2018-01-27] MEDS: SERTRALINE 50 MG TABLET. PO SCH (09:26)
[2018-01-27] MEDS: QUEtiapine 25 MG TABLET. PO SCH ×3 (09:26→16:49)
[2018-01-27] MEDS: DEXTROMETHORPHAN/QUINIDINE 20/10MG CAPSULE. PO SCH (09:26)
--- NOTE | 2018-01-27 10:30 | NUR ---
Behavior Intervention Response and Plan: BIRP Note: Behavior: Assumed Care of patient, patient located in Day Room at shift change. Patient exhibited the following behavior Disorganized, Non Compliant with Meds, Interactive. Brief assessment on rounds of vital signs, medication needs, lab studies, and pain. Treatment plan problems 1-2. Intervention: Patient assessed and the following interventions initiated safety checks 15 Minute Checks Personal Alarm in place , Cognitive Assessment , Head to toe Assessment. Response: After interactions and interventions patient responded in the following manner, Disorganized , Social ,Non Compliant with Meds. Continue to assess behaviors and condition will continue to monitor throughout the shift as needed. Patient educated on ADL's, and hand hygiene. Plan: Continue to monitor Master Treatment Plan for patient's progress toward short term goals of Medication Compliance, Decreased Agitation, care home goals to return to previous living setting vs placement. Continue to assess patient for changes in above assessment. Monitor for medication needs, pain, and safety concerns. Hourly rounding performed to ensure safe environment.
[2018-01-27 15:56] VITALS: BP 121/56
[2018-01-27] MEDS: ATORVASTATIN CALCIUM 20 MG TABLET PO SCH (19:56)
--- NOTE | 2018-01-27 19:59 | PDOC ---
Exam Note: Jasper Note: Please also refer to the separate dictated note~for this date of service dictated separately.~Patient seen individually. Discussed the patient with Nursing staff reviewed the chart.~Reviewed interim history and current functioning. Reviewed vital signs,~Labs/ Radiology~and current medications noted below. Continue current treatment with the changes noted in the dictated addendum note Assessment: Vital Signs: Vital Signs Date Time Temp Pulse Resp B/P (MAP) Pulse Ox O2 Delivery O2 Flow Rate FiO2 01/27/18 15:56 98.6 73 20 121/56 (77) 93 01/26/18 16:03 Room Air I&O Intake and Output 01/27/18 06:59 Intake Total 840 ml Balance 840 ml Intake Oral 840 ml Labs: Laboratory Tests Test 01/27/18 07:04 White Blood Count 7.8 x10^3/uL (4.0-11.0) Red Blood Count 3.90 x10^6/uL (3.50-5.40) Hemoglobin 11.7 g/dL (12.0-15.5) L Hematocrit 35.3 % (36.0-47.0) L Mean Corpuscular Volume 91 fL (79-100) Mean Corpuscular Hemoglobin 30 pg (25-35) Mean Corpuscular Hemoglobin Concent 33 g/dL (31-37) Red Cell Distribution Width 13.8 % (11.5-14.5) Platelet Count 314 x10^3/uL (140-400) Sodium Level 143 mmol/L (136-145) Potassium Level 4.6 mmol/L (3.5-5.1) Chloride Level 108 mmol/L (98-107) H Carbon Dioxide Level 30 mmol/L (21-32) Anion Gap 5 (6-14) L Blood Urea Nitrogen 26 mg/dL (7-20) H Creatinine 1.1 mg/dL (0.6-1.0) H Estimated GFR (Cockcroft-Gault) 49.0 BUN/Creatinine Ratio 24 (6-20) H Glucose Level 92 mg/dL (70-99) Calcium Level 8.9 mg/dL (8.5-10.1) Total Bilirubin 0.2 mg/dL (0.2-1.0) Aspartate Amino Transferase (AST) 12 U/L (15-37) L Alanine Aminotransferase (ALT) 16 U/L (14-59) Alkaline Phosphatase 113 U/L (46-116) Total Protein 6.4 g/dL (6.4-8.2) Albumin 2.8 g/dL (3.4-5.0) L Albumin/Globulin Ratio 0.8 (1.0-1.7) L Valproic Acid Level 58 mcg/mL (50-100) Valproic Acid Last Dose Date 01/26/18 Valproic Acid Last Dose Time 2100 Current Medications: Meds: Current Medications Acetaminophen (Tylenol) 650 mg PRN Q6HRS PRN PO PAIN / TEMP; Start 01/12/18 at 02:00 Multi-Ingredient Ointment (Analgesic [place]) 1 eusebio PRN QID PRN TP MUSCLE PAIN; Start 01/12/18 at 02:00 Al Hydroxide/Mg Hydroxide (Mylanta Plus Xs) 15 ml PRN AFTMEALHC PRN PO DYSPEPSIA; Start 01/12/18 at 02:00 Magnesium Hydroxide (Milk Of Magnesia) 2,400 mg PRN QHS PRN PO CONSTIPATION; Start 01/12/18 at 02:00 Acetaminophen (Tylenol) 650 mg PRN Q6HRS PRN PO PAIN / TEMP; Start 01/12/18 at 02:15; Status UNV Atorvastatin Calcium (Lipitor) 20 mg QHS PO Last administered on 01/27/18at 19: 56; Start 01/12/18 at 21:00 Docusate Sodium (Colace) 100 mg BID PO Last administered on 01/27/18at 19:56; Start 01/12/18 at 09:00 Hydrocortisone (Cortaid) 1 eusebio BID TP Last administered on 01/26/18at 07:36; Start 01/12/18 at 09:00; Stop 01/26/18 at 13:57; Status DC Polyethylene Glycol (miraLAX) 17 gm DAILY PO Last administered on 01/27/18 09: 26; Start 01/12/18 at 09:00 Dextromethorphan/ Quinidine (Nuedexta 20-10 Mg Capsule) 1 cap Q12HR PO Last administered on 01/27/18 09:26; Start 01/12/18 at 09:00; Stop 01/27/18 at 18:22 ; Status DC Divalproex Sodium (Depakote Sprinkles) 125 mg BID92 PO Last administered on at 13:34; Start 01/12/18 at 09:00; Stop 01/16/18 at 18:21; Status DC Sertraline HCl (Zoloft) 25 mg DAILY PO Last administered on 01/17/18at 08:46; Start 01/14/18 at 09:00; Stop 01/17/18 at 18:29; Status DC Quetiapine Fumarate (SEROquel) 12.5 mg TID@0900,1300,1700 PO Last administered on 01/16/18at 16:04; Start 01/15/18 at 09:00; Stop 01/16/18 at 18:31; Status DC Olanzapine (ZyPREXA ZYDIS) 2.5 mg PRN Q2HR PRN PO PSYCHOSIS Last administered on 01/22/18at 15:16; Start 01/16/18 at 18:30 Divalproex Sodium (Depakote Sprinkles) 250 mg BID92 PO Last administered on at 14:19; Start 01/17/18 at 09:00; Stop 01/20/18 at 17:35; Status DC Quetiapine Fumarate (SEROquel) 25 mg TID@0900,1300,1700 PO Last administered on 01/27/18at 16:49; Start 01/17/18 at 09:00 Sertraline HCl (Zoloft) 50 mg DAILY PO Last administered on 01/23/18at 09:28; Start 01/18/18 at 09:00; Stop 01/23/18 at 11:23; Status DC Divalproex Sodium (Depakote Sprinkles) 375 mg BID92 PO Last administered on at 16:56; Start 01/21/18 at 09:00; Stop 01/24/18 at 18:40; Status DC Sertraline HCl (Zoloft) 50 mg DAILY PO Last administered on 01/27/18at 09:26; Start 01/24/18 at 09:00 Divalproex Sodium (Depakote) 500 mg BID PO Last administered on 01/25/18at 09:26 ; Start 01/24/18 at 21:00; Stop 01/25/18 at 09:30; Status DC Divalproex Sodium (Depakote Sprinkles) 500 mg BID92 PO Last administered on at 14:16; Start 01/25/18 at 10:00 Hydrocortisone (Cortaid) 1 eusebio BID PRN TP ITCHING; Start 01/26/18 at 20:00 Active Scripts Active Reported Miralax (Polyethylene Glycol 3350) 17 Gm Powd.pack 17 Gm PO DAILY Nuedexta 20-10 Mg Capsule (Dextromethorphan Hbr/Quinidine) 1 Each Capsule 1 Cap PO Q12HR Hydrocortisone 453.6 Gm Cream..g. 1 Eusebio TP BID Docusate Sodium 100 Mg Capsule 100 Mg PO BID Depakote Sprinkle (Divalproex Sodium) 125 Mg Cap.sprink 125 Mg PO BID92 Atorvastatin Calcium 20 Mg Tablet 20 Mg PO QHS Tylenol (Acetaminophen) 325 Mg Tablet 650 Mg PO PRN Q6HRS PRN I have reviewed the current psychotropics carefully including drug interactions. Risk benefit ratio favors no change other than as noted in my dictated progress note. Diagnosis: Problems: (1) Anxiety disorder (2) Dementia in Alzheimer's disease with delusions (3) Dementia in Alzheimer's disease with depression (4) Dementia, vascular, with delusions (5) Dementia, vascular, with depression (6) Impulse control disorder (7) Medical clearance for psychiatric admission MAX BIGGS MD Jan 27, 2018 19:59
--- NOTE | 2018-01-27 20:00 | NUR ---
Behavior Intervention Response and Plan: BIRP Note: Behavior: Assumed Care of patient, patient located in Day Room at shift change. Patient exhibited the following behavior Interactive, Disorganized, Compulsive. Brief assessment on rounds of vital signs, medication needs, lab studies, and pain. Treatment plan problems . Intervention: Patient assessed and the following interventions initiated safety checks 15 Minute Checks Cognitive Assessment , Head to toe Assessment , Medications. Response: After interactions and interventions patient responded in the following manner, Demanding , Compulsive ,Irritable. Continue to assess behaviors and condition will continue to monitor throughout the shift as needed. Patient educated on ADL's, and hand hygiene. 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 Continue to assess patient for changes in above assessment. Monitor for medication needs, pain, and safety concerns. Hourly rounding performed to ensure safe environment.
--- NOTE | 2018-01-28 00:02 | PN ---
DATE: 01/25/2018 PSYCHIATRIC PROGRESS NOTE This is a late entry 01/25/2018 covers elements not covered in my initial note. SUBJECTIVE: I met with the patient in the evening. The patient slept 7 hours previous evening, continues to have some mood lability, yelling at times, compliant with her medications. REVIEW OF SYSTEMS: No CV, , pulmonary, eye, ENT system symptoms on review. Reliability poor. She is in a wheelchair. MENTAL STATUS EXAM: Oriented to herself. Insight, judgment, recent and remote memory, attention, concentration, fund of knowledge poor, consistent with her diagnosis from initial note. PLAN: Continue psychotropics from initial note including Depakote. Valproic acid level is 46. Repeat labs on 01/27/2018 since Depakote was increased. MAN Amauri BIGGS MD DR: MONICA/daniel JOB#: [id number] / [id number]
--- NOTE | 2018-01-28 00:05 | PN ---
DATE: 01/26/2018 This is a late entry, 01/26/2018, covers the elements not covered in my initial note. SUBJECTIVE: The patient staffed at a treatment team meeting with the entire team in the morning, seen individually in the evening. Appetite 80%. Slept 6-3/4 hours previous evening, average 8 hours, compliant with medications, yells out with cares at times, loud, redirects. REVIEW OF SYSTEMS: Ambulation impaired, in wheelchair. No CV, , pulmonary, eye, ENT system symptoms on review. Reliability poor. MENTAL STATUS EXAM: Oriented to herself. Insight, judgment, recent and remote memory, attention, concentration, fund of knowledge poor, consistent with her diagnosis as mentioned in my initial note. PLAN: Continue current psychotropics. Repeat labs level on Depakote 01/27/2018, and then adjust to reach therapeutic level since last level was 46, subtherapeutic. MAX BIGGS MD DR: MONICA/daniel JOB#: [id number] / [id number]
[2018-01-28 05:57] VITALS: BP 119/45
[2018-01-28] MEDS: SERTRALINE 50 MG TABLET. PO SCH (08:58)
[2018-01-28] MEDS: DIVALPROEX 125 MG CAP.SPRINK PO SCH ×2 (08:58→12:31)
[2018-01-28] MEDS: QUEtiapine 25 MG TABLET. PO SCH ×3 (08:58→16:44)
[2018-01-28] MEDS: DOCUSATE SODIUM 100 MG CAPSULE PO SCH ×2 (08:59→19:22)
[2018-01-28] MEDS: POLYETHYLENE GLYCOL 3350 17 GM PACKET. PO SCH (08:59)
--- NOTE | 2018-01-28 10:49 | NUR ---
Behavior Intervention Response and Plan: BIRP Note: Behavior: Assumed Care of patient, patient located in Hallway at shift change. Patient exhibited the following behavior Disorganized, Demanding, Irritable. Brief assessment on rounds of vital signs, medication needs, lab studies, and pain. Treatment plan problems 1-2. Intervention: Patient assessed and the following interventions initiated safety checks 15 Minute Checks Cognitive Assessment , Head to toe Assessment , Medications. Response: After interactions and interventions patient responded in the following manner, Restless , Disorganized ,Demanding. Continue to assess behaviors and condition will continue to monitor throughout the shift as needed. Patient educated on ADL's, and hand hygiene. 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 Continue to assess patient for changes in above assessment. Monitor for medication needs, pain, and safety concerns. Hourly rounding performed to ensure safe environment.
[2018-01-28 16:16] VITALS: BP 130/82
[2018-01-28] MEDS: ATORVASTATIN CALCIUM 20 MG TABLET PO SCH (19:22)
--- NOTE | 2018-01-28 22:28 | PDOC ---
Exam Note: Jasper Note: Please also refer to the separate dictated note~for this date of service dictated separately.~Patient seen individually. Discussed the patient with Nursing staff reviewed the chart.~Reviewed interim history and current functioning. Reviewed vital signs,~Labs/ Radiology~and current medications noted below. Continue current treatment with the changes noted in the dictated addendum note Assessment: Vital Signs: Vital Signs Date Time Temp Pulse Resp B/P (MAP) Pulse Ox O2 Delivery O2 Flow Rate FiO2 01/28/18 16:16 98.4 70 18 130/82 (98) 96 01/26/18 16:03 Room Air I&O Intake and Output 01/28/18 06:59 Intake Total 1020 ml Balance 1020 ml Intake Oral 1020 ml # Bowel Movements 1 Current Medications: Meds: Current Medications Acetaminophen (Tylenol) 650 mg PRN Q6HRS PRN PO PAIN / TEMP; Start 01/12/18 at 02:00 Multi-Ingredient Ointment (Analgesic [place]) 1 eusebio PRN QID PRN TP MUSCLE PAIN; Start 01/12/18 at 02:00 Al Hydroxide/Mg Hydroxide (Mylanta Plus Xs) 15 ml PRN AFTMEALHC PRN PO DYSPEPSIA; Start 01/12/18 at 02:00 Magnesium Hydroxide (Milk Of Magnesia) 2,400 mg PRN QHS PRN PO CONSTIPATION; Start 01/12/18 at 02:00 Acetaminophen (Tylenol) 650 mg PRN Q6HRS PRN PO PAIN / TEMP; Start 01/12/18 at 02:15; Status UNV Atorvastatin Calcium (Lipitor) 20 mg QHS PO Last administered on 01/28/18at 19: 22; Start 01/12/18 at 21:00 Docusate Sodium (Colace) 100 mg BID PO Last administered on 01/28/18at 19:22; Start 01/12/18 at 09:00 Hydrocortisone (Cortaid) 1 eusebio BID TP Last administered on 01/26/18at 07:36; Start 01/12/18 at 09:00; Stop 01/26/18 at 13:57; Status DC Polyethylene Glycol (miraLAX) 17 gm DAILY PO Last administered on 01/28/18at 08: 59; Start 01/12/18 at 09:00 Dextromethorphan/ Quinidine (Nuedexta 20-10 Mg Capsule) 1 cap Q12HR PO Last administered on 01/27/18 09:26; Start 01/12/18 at 09:00; Stop 01/27/18 at 18:22 ; Status DC Divalproex Sodium (Depakote Sprinkles) 125 mg BID92 PO Last administered on at 13:34; Start 01/12/18 at 09:00; Stop 01/16/18 at 18:21; Status DC Sertraline HCl (Zoloft) 25 mg DAILY PO Last administered on 01/17/18at 08:46; Start 01/14/18 at 09:00; Stop 01/17/18 at 18:29; Status DC Quetiapine Fumarate (SEROquel) 12.5 mg TID@0900,1300,1700 PO Last administered on 01/16/18at 16:04; Start 01/15/18 at 09:00; Stop 01/16/18 at 18:31; Status DC Olanzapine (ZyPREXA ZYDIS) 2.5 mg PRN Q2HR PRN PO PSYCHOSIS Last administered on 01/22/18at 15:16; Start 01/16/18 at 18:30 Divalproex Sodium (Depakote Sprinkles) 250 mg BID92 PO Last administered on at 14:19; Start 01/17/18 at 09:00; Stop 01/20/18 at 17:35; Status DC Quetiapine Fumarate (SEROquel) 25 mg TID@0900,1300,1700 PO Last administered on 01/28/18at 16:44; Start 01/17/18 at 09:00 Sertraline HCl (Zoloft) 50 mg DAILY PO Last administered on 01/23/18 09:28; Start 01/18/18 at 09:00; Stop 01/23/18 at 11:23; Status DC Divalproex Sodium (Depakote Sprinkles) 375 mg BID92 PO Last administered on 16:56; Start 01/21/18 at 09:00; Stop 01/24/18 at 18:40; Status DC Sertraline HCl (Zoloft) 50 mg DAILY PO Last administered on 01/28/18at 08:58; Start 6/26/18 at 09:00 Divalproex Sodium (Depakote) 500 mg BID PO Last administered on 01/25/18at 09:26 ; Start 01/24/18 at 21:00; Stop 01/25/18 at 09:30; Status DC Divalproex Sodium (Depakote Sprinkles) 500 mg BID92 PO Last administered on at 12:31; Start 01/25/18 at 10:00 Hydrocortisone (Cortaid) 1 eusebio BID PRN TP ITCHING; Start 01/26/18 at 20:00 Active Scripts Active Reported Miralax (Polyethylene Glycol 3350) 17 Gm Powd.pack 17 Gm PO DAILY Nuedexta 20-10 Mg Capsule (Dextromethorphan Hbr/Quinidine) 1 Each Capsule 1 Cap PO Q12HR Hydrocortisone 453.6 Gm Cream..g. 1 Eusebio TP BID Docusate Sodium 100 Mg Capsule 100 Mg PO BID Depakote Sprinkle (Divalproex Sodium) 125 Mg Cap.sprink 125 Mg PO BID92 Atorvastatin Calcium 20 Mg Tablet 20 Mg PO QHS Tylenol (Acetaminophen) 325 Mg Tablet 650 Mg PO PRN Q6HRS PRN I have reviewed the current psychotropics carefully including drug interactions. Risk benefit ratio favors no change other than as noted in my dictated progress note. Diagnosis: Problems: (1) Anxiety disorder (2) Dementia in Alzheimer's disease with delusions (3) Dementia in Alzheimer's disease with depression (4) Dementia, vascular, with delusions (5) Dementia, vascular, with depression (6) Impulse control disorder (7) Medical clearance for psychiatric admission MAX BIGGS MD Jan 28, 2018 22:27
--- NOTE | 2018-01-28 22:51 | NUR ---
Behavior Intervention Response and Plan: BIRP Note: Behavior: Assumed Care of patient, patient located in Hallway at shift change. Patient exhibited the following behavior Disorganized, Irritable, Resistive. Brief assessment on rounds of vital signs, medication needs, lab studies, and pain. Treatment plan problems 1-2. Intervention: Patient assessed and the following interventions initiated safety checks 15 Minute Checks Personal Alarm in place , Cognitive Assessment , Head to toe Assessment. Response: After interactions and interventions patient responded in the following manner, Disorganized , Irritable ,Non Compliant. Continue to assess behaviors and condition will continue to monitor throughout the shift as needed. Patient educated on ADL's, and hand hygiene. 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 Continue to assess patient for changes in above assessment. Monitor for medication needs, pain, and safety concerns. Hourly rounding performed to ensure safe environment.
[2018-01-29 06:11] VITALS: BP 144/61
[2018-01-29] MEDS: QUEtiapine 25 MG TABLET. PO SCH ×3 (07:32→18:09)
[2018-01-29] MEDS: POLYETHYLENE GLYCOL 3350 17 GM PACKET. PO SCH (07:32)
[2018-01-29] MEDS: DIVALPROEX 125 MG CAP.SPRINK PO SCH ×2 (07:32→15:06)
[2018-01-29] MEDS: SERTRALINE 50 MG TABLET. PO SCH (07:32)
[2018-01-29] MEDS: DOCUSATE SODIUM 100 MG CAPSULE PO SCH ×2 (07:32→20:12)
--- NOTE | 2018-01-29 10:00 | NUR ---
Pt screaming at another pt in [place]. was taken to shower and screamed thru all ADL. was calm and quiet after shower. sitting in day room quietly.
--- NOTE | 2018-01-29 10:48 | NUR ---
Behavior Intervention Response and Plan: BIRP Note: Behavior: Assumed Care of patient, patient located in Dining Room at shift change. Patient exhibited the following behavior Calm, Disorganized, Compliant. Brief assessment on rounds of vital signs, medication needs, lab studies, and pain. Treatment plan problems . Intervention: Patient assessed and the following interventions initiated safety checks 15 Minute Checks Cognitive Assessment , Head to toe Assessment , Medications. Response: After interactions and interventions patient responded in the following manner, calm, Disorganized ,Compliant. Continue to assess behaviors and condition will continue to monitor throughout the shift as needed. Patient educated on ADL's, and hand hygiene. Plan: Continue to monitor Master Treatment Plan for patient's progress toward short term goals of Decreased Agitation, Decreased Aggression, intermediate goals to return to previous living setting vs placement. Continue to assess patient for changes in above assessment. Monitor for medication needs, pain, and safety concerns. Hourly rounding performed to ensure safe environment.
--- NOTE | 2018-01-29 16:05 | NUR ---
pt yelling at staff in afternoon. usually redirectable. meds taken in ice cream. usually sits quietly in [place].
[2018-01-29 16:21] VITALS: BP 142/76
[2018-01-29] MEDS: ATORVASTATIN CALCIUM 20 MG TABLET PO SCH (20:12)
--- NOTE | 2018-01-29 20:59 | PDOC ---
Exam Note: Jasper Note: Please also refer to the separate dictated note~for this date of service dictated separately.~Patient seen individually. Discussed the patient with Nursing staff reviewed the chart.~Reviewed interim history and current functioning. Reviewed vital signs,~Labs/ Radiology~and current medications noted below. Continue current treatment with the changes noted in the dictated addendum note Assessment: Vital Signs: Vital Signs Date Time Temp Pulse Resp B/P (MAP) Pulse Ox O2 Delivery O2 Flow Rate FiO2 01/29/18 16:21 98.0 65 18 142/76 (98) 96 01/29/18 06:11 Room Air I&O Intake and Output 01/29/18 07:00 Intake Total 365 ml Balance 365 ml Intake Oral 365 ml Current Medications: Meds: Current Medications Acetaminophen (Tylenol) 650 mg PRN Q6HRS PRN PO PAIN / TEMP; Start 01/12/18 at 02:00 Multi-Ingredient Ointment (Analgesic [place]) 1 eusebio PRN QID PRN TP MUSCLE PAIN; Start 01/12/18 at 02:00 Al Hydroxide/Mg Hydroxide (Mylanta Plus Xs) 15 ml PRN AFTMEALHC PRN PO DYSPEPSIA; Start 01/12/18 at 02:00 Magnesium Hydroxide (Milk Of Magnesia) 2,400 mg PRN QHS PRN PO CONSTIPATION; Start 01/12/18 at 02:00 Acetaminophen (Tylenol) 650 mg PRN Q6HRS PRN PO PAIN / TEMP; Start 01/12/18 at 02:15; Status UNV Atorvastatin Calcium (Lipitor) 20 mg QHS PO Last administered on 01/29/18at 20:12 ; Start 01/12/18 at 21:00 Docusate Sodium (Colace) 100 mg BID PO Last administered on 01/29/18at 20:12; Start 01/12/18 at 09:00 Hydrocortisone (Cortaid) 1 eusebio BID TP Last administered on 01/26/18at 07:36; Start 01/12/18 at 09:00; Stop 01/26/18 at 13:57; Status DC Polyethylene Glycol (miraLAX) 17 gm DAILY PO Last administered on 01/29/18at 07: 32; Start 01/12/18 at 09:00 Dextromethorphan/ Quinidine (Nuedexta 20-10 Mg Capsule) 1 cap Q12HR PO Last administered on 01/27/18at 09:26; Start 01/12/18 at 09:00; Stop 01/27/18 at 18:22 ; Status DC Divalproex Sodium (Depakote Sprinkles) 125 mg BID92 PO Last administered on at 13:34; Start 01/12/18 at 09:00; Stop 01/16/18 at 18:21; Status DC Sertraline HCl (Zoloft) 25 mg DAILY PO Last administered on 01/17/18at 08:46; Start 01/14/18 at 09:00; Stop 01/17/18 at 18:29; Status DC Quetiapine Fumarate (SEROquel) 12.5 mg TID@0900,1300,1700 PO Last administered on 01/16/18at 16:04; Start 01/15/18 at 09:00; Stop 01/16/18 at 18:31; Status DC Olanzapine (ZyPREXA ZYDIS) 2.5 mg PRN Q2HR PRN PO PSYCHOSIS Last administered on 01/22/18at 15:16; Start 01/16/18 at 18:30 Divalproex Sodium (Depakote Sprinkles) 250 mg BID92 PO Last administered on at 14:19; Start 01/17/18 at 09:00; Stop 01/20/18 at 17:35; Status DC Quetiapine Fumarate (SEROquel) 25 mg TID@0900,1300,1700 PO Last administered on 01/29/18at 18:09; Start 01/17/18 at 09:00 Sertraline HCl (Zoloft) 50 mg DAILY PO Last administered on 01/23/18at 09:28; Start 01/18/18 at 09:00; Stop 01/23/18 at 11:23; Status DC Divalproex Sodium (Depakote Sprinkles) 375 mg BID92 PO Last administered on at 16:56; Start 01/21/18 at 09:00; Stop 01/24/18 at 18:40; Status DC Sertraline HCl (Zoloft) 50 mg DAILY PO Last administered on 01/29/18at 07:32; Start 01/24/18 at 09:00 Divalproex Sodium (Depakote) 500 mg BID PO Last administered on 01/25/18at 09:26 ; Start 01/24/18 at 21:00; Stop 01/25/18 at 09:30; Status DC Divalproex Sodium (Depakote Sprinkles) 500 mg BID92 PO Last administered on 01/29at 15:06; Start 01/25/18 at 10:00 Hydrocortisone (Cortaid) 1 eusebio BID PRN TP ITCHING; Start 01/26/18 at 20:00 Active Scripts Active Reported Miralax (Polyethylene Glycol 3350) 17 Gm Powd.pack 17 Gm PO DAILY Nuedexta 20-10 Mg Capsule (Dextromethorphan Hbr/Quinidine) 1 Each Capsule 1 Cap PO Q12HR Hydrocortisone 453.6 Gm Cream..g. 1 Eusebio TP BID Docusate Sodium 100 Mg Capsule 100 Mg PO BID Depakote Sprinkle (Divalproex Sodium) 125 Mg Cap.sprink 125 Mg PO BID92 Atorvastatin Calcium 20 Mg Tablet 20 Mg PO QHS Tylenol (Acetaminophen) 325 Mg Tablet 650 Mg PO PRN Q6HRS PRN I have reviewed the current psychotropics carefully including drug interactions. Risk benefit ratio favors no change other than as noted in my dictated progress note. Diagnosis: Problems: (1) Anxiety disorder (2) Dementia in Alzheimer's disease with delusions (3) Dementia in Alzheimer's disease with depression (4) Dementia, vascular, with delusions (5) Dementia, vascular, with depression (6) Impulse control disorder (7) Medical clearance for psychiatric admission MAX BIGGS MD Jan 29, 2018 20:59
--- NOTE | 2018-01-30 00:21 | PN ---
DATE: 01/27/2018 PSYCHIATRIC PROGRESS NOTE This is a late entry 01/27/2018, covers elements not covered in my initial note 01/27/2018. SUBJECTIVE: I met with the patient evening of 01/27/2018. The patient slept 7-1/4 hours. She has had a difficult day, screaming in the showers and with cares and with moving her around the unit, but perhaps a little less so at times. REVIEW OF SYSTEMS: No CV, , pulmonary, eye, ENT system symptoms on review. Reliability poor. Gait unsteady in wheelchair. MENTAL STATUS EXAM: Oriented to herself. Insight, judgment, recent and remote memory, attention, concentration, fund of knowledge poor, consistent with her diagnoses from initial note. Valproic acid level is 58 therapeutic. PLAN: Discontinue the Nuedexta as it has probably little benefit for her. Continue rest unchanged and adjust as clinically indicated. MAX BIGGS MD DR: MONICA/daniel JOB#: [id number] / [id number]
--- NOTE | 2018-01-30 00:24 | PN ---
DATE: 01/28/2018 PSYCHIATRIC PROGRESS NOTE This is a late entry 01/28/2018, covers elements not covered in my initial note. SUBJECTIVE: I met with the patient evening of 01/28/2018. The patient slept 7-3/4 hours previous evening, has been better per nursing report. Her visited and reportedly she told the "I love you." This is unusual for her. She often refuses to recognize the for who he is. REVIEW OF SYSTEMS: No CV, , pulmonary, eye, ENT system symptoms on review. Gait unsteady in wheelchair. MENTAL STATUS EXAM: Oriented to herself. Insight, judgment, recent and remote memory, attention, concentration, fund of knowledge poor, consistent with the diagnoses unchanged from initial note. PLAN: No change from initial note. MAN Amauri BIGGS MD DR: MONICA/daniel JOB#: [id number] / [id number]
--- NOTE | 2018-01-30 00:30 | PN ---
DATE: 01/29/2018 PSYCHIATRIC PROGRESS NOTE This note covers elements not covered in my initial note 01/29/2018. SUBJECTIVE: I met with the patient in the evening of 01/29/2018. The patient slept 9 hours previous evening, takes her meds in ice cream, still yelling out at times, tearful at times, perhaps better than before. REVIEW OF SYSTEMS: Ambulation impaired, in wheelchair. No CV, , pulmonary, eye, ENT system symptoms on review. Reliability poor. MENTAL STATUS EXAM: Oriented to herself. Insight, judgment, recent and remote memory, attention, concentration, fund of knowledge poor, consistent with her diagnoses from initial note. PLAN: No change from initial note. MAN Amauri BIGGS MD DR: MONICA/daniel JOB#: [id number] / [id number]
--- NOTE | 2018-01-30 00:46 | NUR ---
Nursing note: At shift patient is sitting in the dayroom, at a table with staff members. She was quiet and cooperative, but yells out ever now and then. Pt is very labile. She was pleasant and took medications hidden in ice cream. When assisting patient to bed patient was very resistive with cares, crying and yelling out. Patient is currently resting comfortably in bed.
[2018-01-30 06:22] VITALS: BP 122/88
[2018-01-30] MEDS: DOCUSATE SODIUM 100 MG CAPSULE PO SCH ×2 (09:23→19:33)
[2018-01-30] MEDS: QUEtiapine 25 MG TABLET. PO SCH ×3 (09:23→17:29)
[2018-01-30] MEDS: DIVALPROEX 125 MG CAP.SPRINK PO SCH ×2 (09:23→13:36)
[2018-01-30] MEDS: SERTRALINE 50 MG TABLET. PO SCH (09:23)
[2018-01-30] MEDS: POLYETHYLENE GLYCOL 3350 17 GM PACKET. PO SCH (09:23)
--- NOTE | 2018-01-30 10:02 | NUR ---
Behavior Intervention Response and Plan: BIRP Note: Behavior: Assumed Care of patient, patient located in Day Room at shift change. Patient exhibited the following behavior Disorganized, Drowsy, Non Compliant with Meds. Brief assessment on rounds of vital signs, medication needs, lab studies, and pain. Treatment plan problems 1-2. Intervention: Patient assessed and the following interventions initiated safety checks 15 Minute Checks Personal Alarm in place , Cognitive Assessment , Head to toe Assessment. Response: After interactions and interventions patient responded in the following manner, Disorganized , Restless ,Drowsy. Continue to assess behaviors and condition will continue to monitor throughout the shift as needed. Patient educated on ADL's, and hand hygiene. 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 Continue to assess patient for changes in above assessment. Monitor for medication needs, pain, and safety concerns. Hourly rounding performed to ensure safe environment.
[2018-01-30 16:04] VITALS: BP 114/71
[2018-01-30] MEDS: ATORVASTATIN CALCIUM 20 MG TABLET PO SCH (19:33)
--- NOTE | 2018-01-30 21:01 | PDOC ---
Exam Note: Jasper Note: Please also refer to the separate dictated note~for this date of service dictated separately.~Patient seen individually. Discussed the patient with Nursing staff reviewed the chart.~Reviewed interim history and current functioning. Reviewed vital signs,~Labs/ Radiology~and current medications noted below. Continue current treatment with the changes noted in the dictated addendum note Assessment: Vital Signs: Vital Signs Date Time Temp Pulse Resp B/P (MAP) Pulse Ox O2 Delivery O2 Flow Rate FiO2 01/30/18 16:04 97.8 76 18 114/71 (85) 96 01/29/18 06:11 Room Air I&O Intake and Output 01/30/18 06:59 Intake Total 1320 ml Balance 1320 ml Intake Oral 1320 ml # Bowel Movements 1 Current Medications: Meds: Current Medications Acetaminophen (Tylenol) 650 mg PRN Q6HRS PRN PO PAIN / TEMP; Start 01/12/18 at 02:00 Multi-Ingredient Ointment (Analgesic [place]) 1 eusebio PRN QID PRN TP MUSCLE PAIN; Start 01/12/18 at 02:00 Al Hydroxide/Mg Hydroxide (Mylanta Plus Xs) 15 ml PRN AFTMEALHC PRN PO DYSPEPSIA; Start 01/12/18 at 02:00 Magnesium Hydroxide (Milk Of Magnesia) 2,400 mg PRN QHS PRN PO CONSTIPATION; Start 01/12/18 at 02:00 Acetaminophen (Tylenol) 650 mg PRN Q6HRS PRN PO PAIN / TEMP; Start 01/12/18 at 02:15; Status UNV Atorvastatin Calcium (Lipitor) 20 mg QHS PO Last administered on 01/30/18at 19:33 ; Start 01/12/18 at 21:00 Docusate Sodium (Colace) 100 mg BID PO Last administered on 01/30/18at 19:33; Start 01/12/18 at 09:00 Hydrocortisone (Cortaid) 1 eusebio BID TP Last administered on 01/26/18at 07:36; Start 01/12/18 at 09:00; Stop 01/26/18 at 13:57; Status DC Polyethylene Glycol (miraLAX) 17 gm DAILY PO Last administered on 01/30/18at 09: 23; Start 01/12/18 at 09:00 Dextromethorphan/ Quinidine (Nuedexta 20-10 Mg Capsule) 1 cap Q12HR PO Last administered on 01/27/18 09:26; Start 01/12/18 at 09:00; Stop 01/27/18 at 18:22 ; Status DC Divalproex Sodium (Depakote Sprinkles) 125 mg BID92 PO Last administered on at 13:34; Start 01/12/18 at 09:00; Stop 01/16/18 at 18:21; Status DC Sertraline HCl (Zoloft) 25 mg DAILY PO Last administered on 01/17/18at 08:46; Start 01/14/18 at 09:00; Stop 01/17/18 at 18:29; Status DC Quetiapine Fumarate (SEROquel) 12.5 mg TID@0900,1300,1700 PO Last administered on 01/16/18at 16:04; Start 01/15/18 at 09:00; Stop 01/16/18 at 18:31; Status DC Olanzapine (ZyPREXA ZYDIS) 2.5 mg PRN Q2HR PRN PO PSYCHOSIS Last administered on 01/22/18at 15:16; Start 01/16/18 at 18:30 Divalproex Sodium (Depakote Sprinkles) 250 mg BID92 PO Last administered on at 14:19; Start 01/17/18 at 09:00; Stop 01/20/18 at 17:35; Status DC Quetiapine Fumarate (SEROquel) 25 mg TID@0900,1300,1700 PO Last administered on 01/30/18 17:29; Start 01/17/18 at 09:00 Sertraline HCl (Zoloft) 50 mg DAILY PO Last administered on 01/23/18 09:28; Start 01/18/18 at 09:00; Stop 01/23/18 at 11:23; Status DC Divalproex Sodium (Depakote Sprinkles) 375 mg BID92 PO Last administered on 16:56; Start 01/21/18 at 09:00; Stop 01/24/18 at 18:40; Status DC Sertraline HCl (Zoloft) 50 mg DAILY PO Last administered on 01/30/18 09:23; Start 6/26/18 at 09:00 Divalproex Sodium (Depakote) 500 mg BID PO Last administered on 01/25/18at 09:26 ; Start 01/24/18 at 21:00; Stop 01/25/18 at 09:30; Status DC Divalproex Sodium (Depakote Sprinkles) 500 mg BID92 PO Last administered on 01/30at 13:36; Start 01/25/18 at 10:00 Hydrocortisone (Cortaid) 1 eusebio BID PRN TP ITCHING; Start 01/26/18 at 20:00 Active Scripts Active Reported Miralax (Polyethylene Glycol 3350) 17 Gm Powd.pack 17 Gm PO DAILY Nuedexta 20-10 Mg Capsule (Dextromethorphan Hbr/Quinidine) 1 Each Capsule 1 Cap PO Q12HR Hydrocortisone 453.6 Gm Cream..g. 1 Eusebio TP BID Docusate Sodium 100 Mg Capsule 100 Mg PO BID Depakote Sprinkle (Divalproex Sodium) 125 Mg Cap.sprink 125 Mg PO BID92 Atorvastatin Calcium 20 Mg Tablet 20 Mg PO QHS Tylenol (Acetaminophen) 325 Mg Tablet 650 Mg PO PRN Q6HRS PRN I have reviewed the current psychotropics carefully including drug interactions. Risk benefit ratio favors no change other than as noted in my dictated progress note. Diagnosis: Problems: (1) Anxiety disorder (2) Dementia in Alzheimer's disease with delusions (3) Dementia in Alzheimer's disease with depression (4) Dementia, vascular, with delusions (5) Dementia, vascular, with depression (6) Impulse control disorder (7) Medical clearance for psychiatric admission MAX BIGGS MD Jan 30, 2018 21:01
--- NOTE | 2018-01-31 00:34 | NUR ---
Nursing note: At shift patient is sitting in the dayroom watching TV. She was quiet and cooperative. Pt is very labile and tearful at times. She was pleasant and took medications hidden in ice cream. When assisting patient to bed patient was very resistive with cares, crying and yelling out. Patient is currently resting comfortably in bed.
[2018-01-31 06:28] VITALS: BP 143/72
[2018-01-31] MEDS: POLYETHYLENE GLYCOL 3350 17 GM PACKET. PO SCH (08:38)
[2018-01-31] MEDS: DIVALPROEX 125 MG CAP.SPRINK PO SCH ×2 (08:38→14:10)
[2018-01-31] MEDS: DOCUSATE SODIUM 100 MG CAPSULE PO SCH ×2 (08:38→19:42)
[2018-01-31] MEDS: QUEtiapine 25 MG TABLET. PO SCH ×3 (08:38→17:19)
[2018-01-31] MEDS: SERTRALINE 50 MG TABLET. PO SCH (08:38)
--- NOTE | 2018-01-31 09:45 | NUR ---
Behavior Intervention Response and Plan: BIRP Note: Behavior: Assumed Care of patient, patient located in Patient Room at shift change. Patient exhibited the following behavior Disorganized, Irritable, Resistive. Brief assessment on rounds of vital signs, medication needs, lab studies, and pain. Treatment plan problems 1 & 2. Intervention: Patient assessed and the following interventions initiated safety checks 15 Minute Checks Cognitive Assessment , Head to toe Assessment , Medications. Response: After interactions and interventions patient responded in the following manner, Calm , Appropriate ,Compliant. Continue to assess behaviors and condition will continue to monitor throughout the shift as needed. Patient educated on ADL's, and hand hygiene. 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 Continue to assess patient for changes in above assessment. Monitor for medication needs, pain, and safety concerns. Hourly rounding performed to ensure safe environment.
[2018-01-31 16:26] VITALS: BP 114/60
[2018-01-31] MEDS: ATORVASTATIN CALCIUM 20 MG TABLET PO SCH (19:42)
--- NOTE | 2018-01-31 20:00 | NUR ---
Behavior Intervention Response and Plan: BIRP Note: Behavior: Assumed Care of patient, patient located in Day Room at shift change. Patient exhibited the following behavior Calm, Interactive, Compliant. Brief assessment on rounds of vital signs, medication needs, lab studies, and pain. Treatment plan problems . Intervention: Patient assessed and the following interventions initiated safety checks Cognitive Assessment , Head to toe Assessment , Medications. Response: After interactions and interventions patient responded in the following manner, Interactive , Calm ,Compliant. Continue to assess behaviors and condition will continue to monitor throughout the shift as needed. Patient educated on ADL's, and hand hygiene. 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 Continue to assess patient for changes in above assessment. Monitor for medication needs, pain, and safety concerns. Hourly rounding performed to ensure safe environment.
--- NOTE | 2018-01-31 20:41 | PDOC ---
Exam Note: Jasper Note: Please also refer to the separate dictated note~for this date of service dictated separately.~Patient seen individually. Discussed the patient with Nursing staff reviewed the chart.~Reviewed interim history and current functioning. Reviewed vital signs,~Labs/ Radiology~and current medications noted below. Continue current treatment with the changes noted in the dictated addendum note Assessment: Vital Signs: Vital Signs Date Time Temp Pulse Resp B/P (MAP) Pulse Ox O2 Delivery O2 Flow Rate FiO2 01/31/18 16:26 97.6 72 20 114/60 (78) 98 01/29/18 06:11 Room Air I&O Intake and Output 01/31/18 06:59 Intake Total 720 ml Balance 720 ml Intake Oral 720 ml Current Medications: Meds: Current Medications Acetaminophen (Tylenol) 650 mg PRN Q6HRS PRN PO PAIN / TEMP; Start 01/12/18 at 02:00 Multi-Ingredient Ointment (Analgesic [place]) 1 eusebio PRN QID PRN TP MUSCLE PAIN; Start 01/12/18 at 02:00 Al Hydroxide/Mg Hydroxide (Mylanta Plus Xs) 15 ml PRN AFTMEALHC PRN PO DYSPEPSIA; Start 01/12/18 at 02:00 Magnesium Hydroxide (Milk Of Magnesia) 2,400 mg PRN QHS PRN PO CONSTIPATION; Start 01/12/18 at 02:00 Acetaminophen (Tylenol) 650 mg PRN Q6HRS PRN PO PAIN / TEMP; Start 01/12/18 at 02:15; Status UNV Atorvastatin Calcium (Lipitor) 20 mg QHS PO Last administered on 01/31/18at 19:42 ; Start 01/12/18 at 21:00 Docusate Sodium (Colace) 100 mg BID PO Last administered on 01/31/18at 19:42; Start 01/12/18 at 09:00 Hydrocortisone (Cortaid) 1 eusebio BID TP Last administered on 01/26/18at 07:36; Start 01/12/18 at 09:00; Stop 01/26/18 at 13:57; Status DC Polyethylene Glycol (miraLAX) 17 gm DAILY PO Last administered on 01/31/18at 08: 38; Start 01/12/18 at 09:00 Dextromethorphan/ Quinidine (Nuedexta 20-10 Mg Capsule) 1 cap Q12HR PO Last administered on 01/27/18 09:26; Start 01/12/18 at 09:00; Stop 01/27/18 at 18:22 ; Status DC Divalproex Sodium (Depakote Sprinkles) 125 mg BID92 PO Last administered on at 13:34; Start 01/12/18 at 09:00; Stop 01/16/18 at 18:21; Status DC Sertraline HCl (Zoloft) 25 mg DAILY PO Last administered on 01/17/18at 08:46; Start 01/14/18 at 09:00; Stop 01/17/18 at 18:29; Status DC Quetiapine Fumarate (SEROquel) 12.5 mg TID@0900,1300,1700 PO Last administered on 01/16/18at 16:04; Start 01/15/18 at 09:00; Stop 01/16/18 at 18:31; Status DC Olanzapine (ZyPREXA ZYDIS) 2.5 mg PRN Q2HR PRN PO PSYCHOSIS Last administered on 01/22/18at 15:16; Start 01/16/18 at 18:30 Divalproex Sodium (Depakote Sprinkles) 250 mg BID92 PO Last administered on at 14:19; Start 01/17/18 at 09:00; Stop 01/20/18 at 17:35; Status DC Quetiapine Fumarate (SEROquel) 25 mg TID@0900,1300,1700 PO Last administered on 01/31/18 17:19; Start 01/17/18 at 09:00; Stop 01/31/18 at 18:45; Status DC Sertraline HCl (Zoloft) 50 mg DAILY PO Last administered on 01/23/18at 09:28; Start 01/18/18 at 09:00; Stop 01/23/18 at 11:23; Status DC Divalproex Sodium (Depakote Sprinkles) 375 mg BID92 PO Last administered on at 16:56; Start 01/21/18 at 09:00; Stop 01/24/18 at 18:40; Status DC Sertraline HCl (Zoloft) 50 mg DAILY PO Last administered on 01/31/18at 08:38; Start 01/24/18 at 09:00 Divalproex Sodium (Depakote) 500 mg BID PO Last administered on 01/25/18at 09:26 ; Start 01/24/18 at 21:00; Stop 01/25/18 at 09:30; Status DC Divalproex Sodium (Depakote Sprinkles) 500 mg BID92 PO Last administered on 01/31at 14:10; Start 01/25/18 at 10:00 Hydrocortisone (Cortaid) 1 eusebio BID PRN TP ITCHING; Start 01/26/18 at 20:00 Quetiapine Fumarate (SEROquel) 25 mg 1300 PO ; Start 02/01/18 at 13:00 Quetiapine Fumarate (SEROquel) 37.5 mg 0900,1700 PO ; Start 02/01/18 at 09:00 Active Scripts Active Reported Miralax (Polyethylene Glycol 3350) 17 Gm Powd.pack 17 Gm PO DAILY Nuedexta 20-10 Mg Capsule (Dextromethorphan Hbr/Quinidine) 1 Each Capsule 1 Cap PO Q12HR Hydrocortisone 453.6 Gm Cream..g. 1 Eusebio TP BID Docusate Sodium 100 Mg Capsule 100 Mg PO BID Depakote Sprinkle (Divalproex Sodium) 125 Mg Cap.sprink 125 Mg PO BID92 Atorvastatin Calcium 20 Mg Tablet 20 Mg PO QHS Tylenol (Acetaminophen) 325 Mg Tablet 650 Mg PO PRN Q6HRS PRN I have reviewed the current psychotropics carefully including drug interactions. Risk benefit ratio favors no change other than as noted in my dictated progress note. Diagnosis: Problems: (1) Anxiety disorder (2) Dementia in Alzheimer's disease with delusions (3) Dementia in Alzheimer's disease with depression (4) Dementia, vascular, with delusions (5) Dementia, vascular, with depression (6) Impulse control disorder (7) Medical clearance for psychiatric admission MAX BIGGS MD Jan 31, 2018 20:41
--- NOTE | 2018-01-31 21:45 | PN ---
DATE: 01/30/2018 PSYCHIATRIC PROGRESS NOTE This is a late entry, 01/30/2018, covers elements not covered in my initial note of 01/30/2018. SUBJECTIVE: I met with the patient in the evening. The patient slept 5 hours previous evening, takes her medications, it mixed in food. She has been yelling less, was agitated with her at around dinnertime. REVIEW OF SYSTEMS: Ambulation impaired, in wheelchair. No CV, , pulmonary, eyes, ENT system symptoms on review. Reliability poor. MENTAL STATUS EXAM: Oriented to herself. Insight, judgment, recent and remote memory, attention, concentration, fund of knowledge poor, consistent with her diagnosis mentioned in my initial note. PLAN: Continue psychotropics from initial note. Valproic acid level therapeutic at 58, adjust as clinically indicated. MAN Amauri BIGGS MD DR: MONICA/daniel JOB#: [id number] / [id number]
[2018-02-01 06:19] VITALS: BP 106/57
[2018-02-01] MEDS: POLYETHYLENE GLYCOL 3350 17 GM PACKET. PO SCH (08:12)
[2018-02-01] MEDS: SERTRALINE 50 MG TABLET. PO SCH (08:13)
[2018-02-01] MEDS: DIVALPROEX 125 MG CAP.SPRINK PO SCH ×2 (08:13→13:22)
[2018-02-01] MEDS: DOCUSATE SODIUM 100 MG CAPSULE PO SCH ×2 (08:13→20:48)
[2018-02-01] MEDS: QUEtiapine 25 MG TABLET. PO SCH ×3 (08:14→17:04)
--- NOTE | 2018-02-01 09:10 | NUR ---
Behavior Intervention Response and Plan: BIRP Note: Behavior: Assumed Care of patient, patient located in Day Room at shift change. Patient exhibited the following behavior Interactive, Disorganized, Sarcastic. Brief assessment on rounds of vital signs, medication needs, lab studies, and pain. Treatment plan problems 1 & 2. Intervention: Patient assessed and the following interventions initiated safety checks 15 Minute Checks Cognitive Assessment , Head to toe Assessment , Medications. Response: After interactions and interventions patient responded in the following manner, Calm , Appropriate ,Compliant. Continue to assess behaviors and condition will continue to monitor throughout the shift as needed. Patient educated on ADL's, and hand hygiene. Plan: Continue to monitor Master Treatment Plan for patient's progress toward short term goals of Decreased Agitation, No harm To self/ others, senior living goals to return to previous living setting vs placement. Continue to assess patient for changes in above assessment. Monitor for medication needs, pain, and safety concerns. Hourly rounding performed to ensure safe environment.
--- NOTE | 2018-02-01 15:00 | NUR ---
WEEKLY ACTIVITY THERAPY NOTE Date of Admission: 01/12/2018 Date of AT Assessment: 01/13/2018 Goal aimed: to increase time management and assertiveness Goal change 01/19/2018: Pt. will participate fully in at least three groups before discharge Weekly progress towards goal: exceeded Group participation level: varies Behaviors observed: Pt. responds best to one on one interactions and engagement; Pt. noncompliance and combative behaviors seem to be most prominent in the evenings before dinner, during ADLs, and when moved from one location to the other (ex: from the dining room to the day room); With time and soothing words, Pt. is often de-escalated and redirected; Pt. laughs often and will occasionally sing along to music Plan: change goal- Pt. will participate fully in at least three groups per week
[2018-02-01 16:16] VITALS: BP 118/57
--- NOTE | 2018-02-01 20:39 | PDOC ---
Exam Note: Jasper Note: Please also refer to the separate dictated note~for this date of service dictated separately.~Patient seen individually. Discussed the patient with Nursing staff reviewed the chart.~Reviewed interim history and current functioning. Reviewed vital signs,~Labs/ Radiology~and current medications noted below. Continue current treatment with the changes noted in the dictated addendum note Assessment: Vital Signs: Vital Signs Date Time Temp Pulse Resp B/P (MAP) Pulse Ox O2 Delivery O2 Flow Rate FiO2 02/01/18 16:16 98.0 74 20 118/57 (77) 98 01/29/18 06:11 Room Air I&O Intake and Output 02/01/18 07:00 Intake Total 780 ml Balance 780 ml Intake Oral 780 ml # Voids 2 # Bowel Movements 1 Current Medications: Meds: Current Medications Acetaminophen (Tylenol) 650 mg PRN Q6HRS PRN PO PAIN / TEMP; Start 01/12/18 at 02:00 Multi-Ingredient Ointment (Analgesic [place]) 1 eusebio PRN QID PRN TP MUSCLE PAIN; Start 01/12/18 at 02:00 Al Hydroxide/Mg Hydroxide (Mylanta Plus Xs) 15 ml PRN AFTMEALHC PRN PO DYSPEPSIA; Start 01/12/18 at 02:00 Magnesium Hydroxide (Milk Of Magnesia) 2,400 mg PRN QHS PRN PO CONSTIPATION; Start 01/12/18 at 02:00 Acetaminophen (Tylenol) 650 mg PRN Q6HRS PRN PO PAIN / TEMP; Start 01/12/18 at 02:15; Status UNV Atorvastatin Calcium (Lipitor) 20 mg QHS PO Last administered on 01/31/18at 19:42 ; Start 01/12/18 at 21:00 Docusate Sodium (Colace) 100 mg BID PO Last administered on 02/01/18at 08:13; Start 01/12/18 at 09:00 Hydrocortisone (Cortaid) 1 eusebio BID TP Last administered on 01/26/18at 07:36; Start 01/12/18 at 09:00; Stop 01/26/18 at 13:57; Status DC Polyethylene Glycol (miraLAX) 17 gm DAILY PO Last administered on 02/01/18at 08: 12; Start 01/12/18 at 09:00 Dextromethorphan/ Quinidine (Nuedexta 20-10 Mg Capsule) 1 cap Q12HR PO Last administered on 01/27/18 09:26; Start 01/12/18 at 09:00; Stop 01/27/18 at 18:22 ; Status DC Divalproex Sodium (Depakote Sprinkles) 125 mg BID92 PO Last administered on at 13:34; Start 01/12/18 at 09:00; Stop 01/16/18 at 18:21; Status DC Sertraline HCl (Zoloft) 25 mg DAILY PO Last administered on 01/17/18at 08:46; Start 01/14/18 at 09:00; Stop 01/17/18 at 18:29; Status DC Quetiapine Fumarate (SEROquel) 12.5 mg TID@0900,1300,1700 PO Last administered on 01/16/18at 16:04; Start 01/15/18 at 09:00; Stop 01/16/18 at 18:31; Status DC Olanzapine (ZyPREXA ZYDIS) 2.5 mg PRN Q2HR PRN PO PSYCHOSIS Last administered on 01/22/18at 15:16; Start 01/16/18 at 18:30 Divalproex Sodium (Depakote Sprinkles) 250 mg BID92 PO Last administered on 14:19; Start 01/17/18 at 09:00; Stop 01/20/18 at 17:35; Status DC Quetiapine Fumarate (SEROquel) 25 mg TID@0900,1300,1700 PO Last administered on 01/31/18 17:19; Start 01/17/18 at 09:00; Stop 01/31/18 at 18:45; Status DC Sertraline HCl (Zoloft) 50 mg DAILY PO Last administered on 01/23/18 09:28; Start 01/18/18 at 09:00; Stop 01/23/18 at 11:23; Status DC Divalproex Sodium (Depakote Sprinkles) 375 mg BID92 PO Last administered on 16:56; Start 01/21/18 at 09:00; Stop 01/24/18 at 18:40; Status DC Sertraline HCl (Zoloft) 50 mg DAILY PO Last administered on 02/01/18 08:13; Start 01/24/18 at 09:00 Divalproex Sodium (Depakote) 500 mg BID PO Last administered on 01/25/18at 09:26 ; Start 01/24/18 at 21:00; Stop 01/25/18 at 09:30; Status DC Divalproex Sodium (Depakote Sprinkles) 500 mg BID92 PO Last administered on 02/01 13:22; Start 01/25/18 at 10:00 Hydrocortisone (Cortaid) 1 eusebio BID PRN TP ITCHING; Start 01/26/18 at 20:00 Quetiapine Fumarate (SEROquel) 25 mg 1300 PO Last administered on 02/01/18 13: 22; Start 02/01/18 at 13:00 Quetiapine Fumarate (SEROquel) 37.5 mg 0900,1700 PO Last administered on 17:04; Start 02/01/18 at 09:00 Active Scripts Active Reported Miralax (Polyethylene Glycol 3350) 17 Gm Powd.pack 17 Gm PO DAILY Nuedexta 20-10 Mg Capsule (Dextromethorphan Hbr/Quinidine) 1 Each Capsule 1 Cap PO Q12HR Hydrocortisone 453.6 Gm Cream..g. 1 Eusebio TP BID Docusate Sodium 100 Mg Capsule 100 Mg PO BID Depakote Sprinkle (Divalproex Sodium) 125 Mg Cap.sprink 125 Mg PO BID92 Atorvastatin Calcium 20 Mg Tablet 20 Mg PO QHS Tylenol (Acetaminophen) 325 Mg Tablet 650 Mg PO PRN Q6HRS PRN I have reviewed the current psychotropics carefully including drug interactions. Risk benefit ratio favors no change other than as noted in my dictated progress note. Diagnosis: Problems: (1) Anxiety disorder (2) Dementia in Alzheimer's disease with delusions (3) Dementia in Alzheimer's disease with depression (4) Dementia, vascular, with delusions (5) Dementia, vascular, with depression (6) Impulse control disorder (7) Medical clearance for psychiatric admission MAX BIGGS MD Feb 01, 2018 20:39
[2018-02-01] MEDS: ATORVASTATIN CALCIUM 20 MG TABLET PO SCH (20:48)
--- NOTE | 2018-02-02 01:05 | NUR ---
Behavior Intervention Response and Plan: BIRP Note: Behavior: Assumed Care of patient, patient located in Day Room at shift change. Patient exhibited the following behavior Interactive, Disorganized, Sarcastic. Brief assessment on rounds of vital signs, medication needs, lab studies, and pain. Treatment plan problems 1 & 2. Intervention: Patient assessed and the following interventions initiated safety checks 15 Minute Checks Cognitive Assessment , Head to toe Assessment , Medications. Response: After interactions and interventions patient responded in the following manner, Calm , Social ,Compliant. Continue to assess behaviors and condition will continue to monitor throughout the shift as needed. Patient educated on ADL's, and hand hygiene. Plan: Continue to monitor Master Treatment Plan for patient's progress toward short term goals of Decreased Agitation, No harm To self/ others, terminal carman goals to return to previous living setting vs placement. Continue to assess patient for changes in above assessment. Monitor for medication needs, pain, and safety concerns. Hourly rounding performed to ensure safe environment.
[2018-02-02 05:51] VITALS: BP 116/52
[2018-02-02] MEDS: SERTRALINE 50 MG TABLET. PO SCH (07:57)
[2018-02-02] MEDS: DIVALPROEX 125 MG CAP.SPRINK PO SCH ×2 (07:57→14:13)
[2018-02-02] MEDS: DOCUSATE SODIUM 100 MG CAPSULE PO SCH ×2 (07:57→19:24)
[2018-02-02] MEDS: QUEtiapine 25 MG TABLET. PO SCH ×3 (07:57→17:25)
[2018-02-02] MEDS: POLYETHYLENE GLYCOL 3350 17 GM PACKET. PO SCH (07:58)
[2018-02-02 09:44] LABS: BASO # 0.1 x10^3/uL (0.0-0.2); BASO % 1 % (0-3); EOS # 0.5 x10^3/uL (0.0-0.7); EOS % 5 % (0-3); HEMATOCRIT 37.1 % (36.0-47.0); HEMOGLOBIN 12.3 g/dL (12.0-15.5); LYMPH # 2.3 x10^3/uL (1.0-4.8); LYMPH % 26 % (24-48); MEAN CORPUSCULAR HEMOGLOBIN 30 pg (25-35); MEAN CORPUSCULAR HGB CONC 33 g/dL (31-37); MEAN CORPUSCULAR VOLUME 91 fL (79-100); MONO # 0.8 x10^3/uL (0.0-1.1); MONO % 9 % (0-9); NEUT # 5.2 x10^3uL (1.8-7.7); NEUT % 59 % (31-73); PLATELET COUNT 303 x10^3/uL (140-400); RED BLOOD COUNT 4.08 x10^6/uL (3.50-5.40); RED CELL DISTRIBUTION WIDTH 14.2 % (11.5-14.5); WHITE BLOOD COUNT 8.7 x10^3/uL (4.0-11.0)
[2018-02-02 10:01] LABS: ALBUMIN/GLOBULIN RATIO 0.8 (1.0-1.7); CALCIUM 9.1 mg/dL (8.5-10.1); CREATININE 1.1 mg/dL (0.6-1.0); MAGNESIUM 2.1 mg/dL (1.8-2.4); POTASSIUM 4.9 mmol/L (3.5-5.1); TOTAL BILIRUBIN 0.3 mg/dL (0.2-1.0); TOTAL PROTEIN 6.7 g/dL (6.4-8.2)
--- NOTE | 2018-02-02 12:55 | NUR ---
MAYELIN contacted pt's facility and spoke w/Miriam regarding dc plans for Tuesday. MAYELIN requested transport to be arranged. MAYELIN faxed updated clinicals.
[2018-02-02 16:07] VITALS: BP 114/56
[2018-02-02] MEDS: ATORVASTATIN CALCIUM 20 MG TABLET PO SCH (19:24)
--- NOTE | 2018-02-02 20:58 | PDOC ---
Exam Note: Jasper Note: Please also refer to the separate dictated note~for this date of service dictated separately.~Patient seen individually. Discussed the patient with Nursing staff reviewed the chart.~Reviewed interim history and current functioning. Reviewed vital signs,~Labs/ Radiology~and current medications noted below. Continue current treatment with the changes noted in the dictated addendum note Assessment: Vital Signs: Vital Signs Date Time Temp Pulse Resp B/P (MAP) Pulse Ox O2 Delivery O2 Flow Rate FiO2 02/02/18 16:07 98.2 83 18 114/56 (75) 96 01/29/18 06:11 Room Air I&O Intake and Output 02/02/18 06:59 Intake Total 650 ml Balance 650 ml Intake Oral 650 ml # Voids 1 Labs: Laboratory Tests Test 02/02/18 09:27 White Blood Count 8.7 x10^3/uL (4.0-11.0) Red Blood Count 4.08 x10^6/uL (3.50-5.40) Hemoglobin 12.3 g/dL (12.0-15.5) Hematocrit 37.1 % (36.0-47.0) Mean Corpuscular Volume 91 fL (79-100) Mean Corpuscular Hemoglobin 30 pg (25-35) Mean Corpuscular Hemoglobin Concent 33 g/dL (31-37) Red Cell Distribution Width 14.2 % (11.5-14.5) Platelet Count 303 x10^3/uL (140-400) Neutrophils (%) (Auto) 59 % (31-73) Lymphocytes (%) (Auto) 26 % (24-48) Monocytes (%) (Auto) 9 % (0-9) Eosinophils (%) (Auto) 5 % (0-3) H Basophils (%) (Auto) 1 % (0-3) Neutrophils # (Auto) 5.2 x10^3uL (1.8-7.7) Lymphocytes # (Auto) 2.3 x10^3/uL (1.0-4.8) Monocytes # (Auto) 0.8 x10^3/uL (0.0-1.1) Eosinophils # (Auto) 0.5 x10^3/uL (0.0-0.7) Basophils # (Auto) 0.1 x10^3/uL (0.0-0.2) Sodium Level 143 mmol/L (136-145) Potassium Level 4.9 mmol/L (3.5-5.1) Chloride Level 107 mmol/L (98-107) Carbon Dioxide Level 31 mmol/L (21-32) Anion Gap 5 (6-14) L Blood Urea Nitrogen 19 mg/dL (7-20) Creatinine 1.1 mg/dL (0.6-1.0) H Estimated GFR (Cockcroft-Gault) 49.0 BUN/Creatinine Ratio 17 (6-20) Glucose Level 145 mg/dL (70-99) H Calcium Level 9.1 mg/dL (8.5-10.1) Magnesium Level 2.1 mg/dL (1.8-2.4) Total Bilirubin 0.3 mg/dL (0.2-1.0) Aspartate Amino Transferase (AST) 14 U/L (15-37) L Alanine Aminotransferase (ALT) 14 U/L (14-59) Alkaline Phosphatase 119 U/L (46-116) H Total Protein 6.7 g/dL (6.4-8.2) Albumin 3.0 g/dL (3.4-5.0) L Albumin/Globulin Ratio 0.8 (1.0-1.7) L Current Medications: Meds: Current Medications Acetaminophen (Tylenol) 650 mg PRN Q6HRS PRN PO PAIN / TEMP; Start 01/12/18 at 02:00 Multi-Ingredient Ointment (Analgesic [place]) 1 eusebio PRN QID PRN TP MUSCLE PAIN; Start 01/12/18 at 02:00 Al Hydroxide/Mg Hydroxide (Mylanta Plus Xs) 15 ml PRN AFTMEALHC PRN PO DYSPEPSIA; Start 01/12/18 at 02:00 Magnesium Hydroxide (Milk Of Magnesia) 2,400 mg PRN QHS PRN PO CONSTIPATION; Start 01/12/18 at 02:00 Acetaminophen (Tylenol) 650 mg PRN Q6HRS PRN PO PAIN / TEMP; Start 01/12/18 at 02:15; Status UNV Atorvastatin Calcium (Lipitor) 20 mg QHS PO Last administered on 02/02/18at 19:24 ; Start 01/12/18 at 21:00 Docusate Sodium (Colace) 100 mg BID PO Last administered on 02/02/18at 19:24; Start 01/12/18 at 09:00 Hydrocortisone (Cortaid) 1 eusebio BID TP Last administered on 01/26/18 07:36; Start 01/12/18 at 09:00; Stop 01/26/18 at 13:57; Status DC Polyethylene Glycol (miraLAX) 17 gm DAILY PO Last administered on 02/02/18 07: 58; Start 01/12/18 at 09:00 Dextromethorphan/ Quinidine (Nuedexta 20-10 Mg Capsule) 1 cap Q12HR PO Last administered on 01/27/18 09:26; Start 01/12/18 at 09:00; Stop 01/27/18 at 18:22 ; Status DC Divalproex Sodium (Depakote Sprinkles) 125 mg BID92 PO Last administered on 13:34; Start 01/12/18 at 09:00; Stop 01/16/18 at 18:21; Status DC Sertraline HCl (Zoloft) 25 mg DAILY PO Last administered on 01/17/18at 08:46; Start 01/14/18 at 09:00; Stop 01/17/18 at 18:29; Status DC Quetiapine Fumarate (SEROquel) 12.5 mg TID@0900,1300,1700 PO Last administered on 01/16/18 16:04; Start 01/15/18 at 09:00; Stop 01/16/18 at 18:31; Status DC Olanzapine (ZyPREXA ZYDIS) 2.5 mg PRN Q2HR PRN PO PSYCHOSIS Last administered on 02/01/18 20:48; Start 01/16/18 at 18:30 Divalproex Sodium (Depakote Sprinkles) 250 mg BID92 PO Last administered on 14:19; Start 01/17/18 at 09:00; Stop 01/20/18 at 17:35; Status DC Quetiapine Fumarate (SEROquel) 25 mg TID@0900,1300,1700 PO Last administered on 01/31/18 17:19; Start 01/17/18 at 09:00; Stop 01/31/18 at 18:45; Status DC Sertraline HCl (Zoloft) 50 mg DAILY PO Last administered on 01/23/18 09:28; Start 01/18/18 at 09:00; Stop 01/23/18 at 11:23; Status DC Divalproex Sodium (Depakote Sprinkles) 375 mg BID92 PO Last administered on at 16:56; Start 01/21/18 at 09:00; Stop 01/24/18 at 18:40; Status DC Sertraline HCl (Zoloft) 50 mg DAILY PO Last administered on 02/02/18at 07:57; Start 01/24/18 at 09:00 Divalproex Sodium (Depakote) 500 mg BID PO Last administered on 01/25/18at 09:26 ; Start 01/24/18 at 21:00; Stop 01/25/18 at 09:30; Status DC Divalproex Sodium (Depakote Sprinkles) 500 mg BID92 PO Last administered on 02/02at 14:13; Start 01/25/18 at 10:00 Hydrocortisone (Cortaid) 1 eusebio BID PRN TP ITCHING; Start 01/26/18 at 20:00 Quetiapine Fumarate (SEROquel) 25 mg 1300 PO Last administered on 02/02/18at 14: 13; Start 02/01/18 at 13:00 Quetiapine Fumarate (SEROquel) 37.5 mg 0900,1700 PO Last administered on at 17:25; Start 02/01/18 at 09:00 Active Scripts Active Reported Miralax (Polyethylene Glycol 3350) 17 Gm Powd.pack 17 Gm PO DAILY Nuedexta 20-10 Mg Capsule (Dextromethorphan Hbr/Quinidine) 1 Each Capsule 1 Cap PO Q12HR Hydrocortisone 453.6 Gm Cream..g. 1 Eusebio TP BID Docusate Sodium 100 Mg Capsule 100 Mg PO BID Depakote Sprinkle (Divalproex Sodium) 125 Mg Cap.sprink 125 Mg PO BID92 Atorvastatin Calcium 20 Mg Tablet 20 Mg PO QHS Tylenol (Acetaminophen) 325 Mg Tablet 650 Mg PO PRN Q6HRS PRN I have reviewed the current psychotropics carefully including drug interactions. Risk benefit ratio favors no change other than as noted in my dictated progress note. Diagnosis: Problems: (1) Anxiety disorder (2) Dementia in Alzheimer's disease with delusions (3) Dementia in Alzheimer's disease with depression (4) Dementia, vascular, with delusions (5) Dementia, vascular, with depression (6) Impulse control disorder (7) Medical clearance for psychiatric admission MAX BIGGS MD Feb 02, 2018 20:58
--- NOTE | 2018-02-02 22:13 | PN ---
DATE: 01/31/2018 PSYCHIATRIC PROGRESS NOTE This is a late entry 01/31/2018, covers elements not covered in my initial note 01/31/2018. SUBJECTIVE: I met with the patient in the evening. The patient slept 6-3/4 hours previous evening, resistive, disorganized, screaming intermittently less so than before. REVIEW OF SYSTEMS: No CV, , pulmonary, eye, ENT system symptoms on review. Gait unsteady. Reliability poor. MENTAL STATUS EXAM: Oriented to herself. Insight, judgment, recent and remote memory, attention, concentration, fund of knowledge poor, consistent with her diagnoses mentioned in my initial note. PLAN: Continue psychotropics from initial note, increase Seroquel to 37.5 mg at 9:00 a.m., 5:00 p.m., 25 mg at 1:00 p.m. Adjust as clinically indicated. MAN MDestiny BIGGS MD DR: MONICA/daniel JOB#: [id number] / [id number]
--- NOTE | 2018-02-02 22:14 | PN ---
DATE: 02/01/2018 PSYCHIATRIC PROGRESS NOTE This late entry 02/01/2018 covers elements not covered in my initial note. SUBJECTIVE: I met with the patient in the afternoon. The patient slept 6-3/4 hours previous evening, doing about the same, confused, less screaming evident on 02/01/2018, yells out intermittently. REVIEW OF SYSTEMS: No CV, , pulmonary, eye, ENT system symptoms on review. Gait unsteady, in wheelchair. MENTAL STATUS EXAM: Oriented to herself. Insight, judgment, recent and remote memory, attention, concentration, fund of knowledge poor, consistent with her diagnosis. from initial note. PLAN: Continue current psychotropics and we have increased the Seroquel. We will adjust as clinically indicated. MAN Amauri BIGGS MD DR: MONICA/daniel JOB#: [id number] / [id number]
--- NOTE | 2018-02-02 22:59 | NUR ---
Pt sitting quietly in the day room watching television at shift change. Pt A/O to self. Pt calm, cooperative, disorganized, compliant w/medications crushed in ice cream. Pt cooperative and compliant w/assessment. Pt less agitated and combative w/cares this evening than previously. Pt currently resting quietly in bed at this time w/eyes closed.
[2018-02-03] MEDS ORDERED: MAG355OR11 PO (00:45)
[2018-02-03] MEDS ORDERED: MAGN2400 PO (00:45)
[2018-02-03] MEDS ORDERED: METH29OI TP (00:46)
[2018-02-03] MEDS ORDERED: OLAN5TAB7 PO (00:46)
[2018-02-03] MEDS ORDERED: QUET25TA5 PO ×2 (00:47→00:48)
[2018-02-03] MEDS ORDERED: SERT50TA PO (00:48)
[2018-02-03 05:53] VITALS: BP 114/72
--- NOTE | 2018-02-03 09:24 | NUR ---
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
[2018-02-03] MEDS: SERTRALINE 50 MG TABLET. PO SCH (09:52)
[2018-02-03] MEDS: DIVALPROEX 125 MG CAP.SPRINK PO SCH (09:52)
[2018-02-03] MEDS: QUEtiapine 25 MG TABLET. PO SCH (09:53)
[2018-02-03] MEDS: DOCUSATE SODIUM 100 MG CAPSULE PO SCH (09:53)
[2018-02-03] MEDS: POLYETHYLENE GLYCOL 3350 17 GM PACKET. PO SCH (09:53)
--- NOTE | 2018-02-03 09:55 | NUR ---
Behavior Intervention Response and Plan: BIRP Note: Behavior: Assumed Care of patient, patient located in Day Room at shift change. Patient exhibited the following behavior Restless, Disorganized, Compulsive. Brief assessment on rounds of vital signs, medication needs, lab studies, and pain. Treatment plan problems 1 & 2. Intervention: Patient assessed and the following interventions initiated safety checks 15 Minute Checks Cognitive Assessment , Head to toe Assessment , Medications. Response: After interactions and interventions patient responded in the following manner, Calm , Appropriate ,Compliant. Continue to assess behaviors and condition will continue to monitor throughout the shift as needed. Patient educated on ADL's, and hand hygiene. Plan: Continue to monitor Master Treatment Plan for patient's progress toward short term goals of Decreased Agitation, No harm To self/ others, supervisor intermediates goals to return to previous living setting vs placement. Continue to assess patient for changes in above assessment. Monitor for medication needs, pain, and safety concerns. Hourly rounding performed to ensure safe environment.
--- NOTE | 2018-02-03 10:00 | NUR ---
MAYELIN contacted pt's , Giancarlo, to notify of dc today. Giancarlo was very thankful for pt's great care while at this facility.
--- NOTE | 2018-02-03 10:30 | NUR ---
Transition Record was faxed to follow-up provider with the following elements: Reason for admission, procedures, tests, principal diagnosis, pending studies, patient instructions, 21/02 contact information for unit, phone number to obtain pending test results, plan for follow-up care, physician follow-up, advanced directive information, and medication list with dose, duration and instructions. This information was included in the following documents: History and physical, lab results, study results, progress notes, social work planning form, DC instruction form, patient visit summary, and medication reconciliation form. Date & time record faxed: 10:08 03 February 2018 [facility]/ report given to: CHARLES Gibson at [facility]
--- NOTE | 2018-02-03 19:10 | PDOC ---
Exam Note: Jasper Note: Please also refer to the separate dictated note~for this date of service dictated separately.~Patient seen individually. Discussed the patient with Nursing staff reviewed the chart.~Reviewed interim history and current functioning. Reviewed vital signs,~Labs/ Radiology~and current medications noted below. Continue current treatment with the changes noted in the dictated addendum note Assessment: Vital Signs: Vital Signs Date Time Temp Pulse Resp B/P (MAP) Pulse Ox O2 Delivery O2 Flow Rate FiO2 02/03/18 05:53 97.2 73 18 114/72 (86) 95 01/29/18 06:11 Room Air I&O Intake and Output 02/03/18 07:00 Intake Total 980 ml Balance 980 ml Intake Oral 980 ml # Voids 1 # Bowel Movements 2 Current Medications: Meds: Current Medications Acetaminophen (Tylenol) 650 mg PRN Q6HRS PRN PO PAIN / TEMP; Start 01/12/18 at 02:00; Stop 02/03/18 at 12:45; Status DC Multi-Ingredient Ointment (Analgesic [place]) 1 eusebio PRN QID PRN TP MUSCLE PAIN; Start 01/12/18 at 02:00; Stop 02/03/18 at 12:45; Status DC Al Hydroxide/Mg Hydroxide (Mylanta Plus Xs) 15 ml PRN AFTMEALHC PRN PO DYSPEPSIA; Start 01/12/18 at 02:00; Stop 02/03/18 at 12:45; Status DC Magnesium Hydroxide (Milk Of Magnesia) 2,400 mg PRN QHS PRN PO CONSTIPATION; Start 01/12/18 at 02:00; Stop 02/03/18 at 12:45; Status DC Acetaminophen (Tylenol) 650 mg PRN Q6HRS PRN PO PAIN / TEMP; Start 01/12/18 at 02:15; Status UNV Atorvastatin Calcium (Lipitor) 20 mg QHS PO Last administered on 02/02/18at 19:24 ; Start 01/12/18 at 21:00; Stop 02/03/18 at 12:45; Status DC Docusate Sodium (Colace) 100 mg BID PO Last administered on 02/03/18at 09:53; Start 01/12/18 at 09:00; Stop 02/03/18 at 12:45; Status DC Hydrocortisone (Cortaid) 1 eusebio BID TP Last administered on 01/26/18at 07:36; Start 01/12/18 at 09:00; Stop 01/26/18 at 13:57; Status DC Polyethylene Glycol (miraLAX) 17 gm DAILY PO Last administered on 02/03/18at 09: 53; Start 01/12/18 at 09:00; Stop 02/03/18 at 12:45; Status DC Dextromethorphan/ Quinidine (Nuedexta 20-10 Mg Capsule) 1 cap Q12HR PO Last administered on 01/27/18at 09:26; Start 01/12/18 at 09:00; Stop 01/27/18 at 18:22 ; Status DC Divalproex Sodium (Depakote Sprinkles) 125 mg BID92 PO Last administered on at 13:34; Start 01/12/18 at 09:00; Stop 01/16/18 at 18:21; Status DC Sertraline HCl (Zoloft) 25 mg DAILY PO Last administered on 01/17/18at 08:46; Start 01/14/18 at 09:00; Stop 01/17/18 at 18:29; Status DC Quetiapine Fumarate (SEROquel) 12.5 mg TID@0900,1300,1700 PO Last administered on 01/16/18at 16:04; Start 01/15/18 at 09:00; Stop 01/16/18 at 18:31; Status DC Olanzapine (ZyPREXA ZYDIS) 2.5 mg PRN Q2HR PRN PO PSYCHOSIS Last administered on 02/01/18at 20:48; Start 01/16/18 at 18:30; Stop 02/03/18 at 12:45; Status DC Divalproex Sodium (Depakote Sprinkles) 250 mg BID92 PO Last administered on at 14:19; Start 01/17/18 at 09:00; Stop 01/20/18 at 17:35; Status DC Quetiapine Fumarate (SEROquel) 25 mg TID@0900,1300,1700 PO Last administered on 01/31/18at 17:19; Start 01/17/18 at 09:00; Stop 01/31/18 at 18:45; Status DC Sertraline HCl (Zoloft) 50 mg DAILY PO Last administered on 01/23/18at 09:28; Start 01/18/18 at 09:00; Stop 01/23/18 at 11:23; Status DC Divalproex Sodium (Depakote Sprinkles) 375 mg BID92 PO Last administered on at 16:56; Start 01/21/18 at 09:00; Stop 01/24/18 at 18:40; Status DC Sertraline HCl (Zoloft) 50 mg DAILY PO Last administered on 02/03/18at 09:52; Start 01/24/18 at 09:00; Stop 02/03/18 at 12:45; Status DC Divalproex Sodium (Depakote) 500 mg BID PO Last administered on 01/25/18at 09:26 ; Start 01/24/18 at 21:00; Stop 01/25/18 at 09:30; Status DC Divalproex Sodium (Depakote Sprinkles) 500 mg BID92 PO Last administered on 02/03at 09:52; Start 01/25/18 at 10:00; Stop 02/03/18 at 12:45; Status DC Hydrocortisone (Cortaid) 1 eusebio BID PRN TP ITCHING; Start 01/26/18 at 20:00; Stop 02/03/18 at 12:45; Status DC Quetiapine Fumarate (SEROquel) 25 mg 1300 PO Last administered on 02/02/18at 14: 13; Start 02/01/18 at 13:00; Stop 02/03/18 at 12:45; Status DC Quetiapine Fumarate (SEROquel) 37.5 mg 899,1700 PO Last administered on at 09:53; Start 02/01/18 at 09:00; Stop 02/03/18 at 12:45; Status DC Active Scripts Active Reported Zoloft (Sertraline Hcl) 50 Mg Tablet 50 Mg PO DAILY Seroquel (Quetiapine Fumarate) 25 Mg Tablet 37.5 Mg PO BID AT 04/1700 Seroquel (Quetiapine Fumarate) 25 Mg Tablet 25 Mg PO DAILY AT 1300 Olanzapine Odt (Olanzapine) 5 Mg Tab.rapdis 2.5 Mg PO PRN Q2HR PRN Max 15mg/24 hours Analgesic [place] (Methyl Salicylate/Menthol) 28 Gm Oint...g. 1 Eusebio TP PRN QID PRN Milk Of Magnesia (Magnesium Hydroxide) 2,400 Mg/10 Ml Oral.susp 2,400 Mg PO PRN QHS PRN Maalox Advanced Suspension (Mag Hydrox/Aluminum Hyd/Simeth) 355 Ml Oral.susp 15 Ml PO PRN AFTMEALHC PRN Miralax (Polyethylene Glycol 3350) 17 Gm Powd.pack 17 Gm PO DAILY Hydrocortisone 453.6 Gm Cream..g. 1 Eusebio TP BID PRN Docusate Sodium 100 Mg Capsule 100 Mg PO BID Depakote Sprinkle (Divalproex Sodium) 125 Mg Cap.sprink 500 Mg PO BID92 Atorvastatin Calcium 20 Mg Tablet 20 Mg PO QHS Tylenol (Acetaminophen) 325 Mg Tablet 650 Mg PO PRN Q6HRS PRN I have reviewed the current psychotropics carefully including drug interactions. Risk benefit ratio favors no change other than as noted in my dictated progress note. Diagnosis: Problems: (1) Impulse control disorder (2) Dementia, vascular, with depression (3) Dementia, vascular, with delusions (4) Dementia in Alzheimer's disease with depression (5) Dementia in Alzheimer's disease with delusions (6) Anxiety disorder MAX BIGGS MD Feb 03, 2018 19:10
--- NOTE | 2018-02-04 01:38 | PN ---
DATE: 02/02/2018 PSYCHIATRIC PROGRESS NOTE This is a late entry for 02/02/2018, covers elements not covered in my initial note of 02/02/2018. SUBJECTIVE: I met with the patient in the evening, staffed at a treatment team meeting with the entire team in the morning. Reviewed the patient's history, diagnosis, progress, discharge plans. The patient slept 6 hours previous evening, remains confused, somewhat better, less labile. She sat in groups and sang and responds better when there is an individual person sitting with her. REVIEW OF SYSTEMS: No CV, , pulmonary, eye, ENT system symptoms on review. Reliability poor. Gait unsteady in wheelchair. MENTAL STATUS EXAM: Oriented to herself. Insight, judgment, recent and remote memory, attention, concentration, fund of knowledge poor, consistent with her diagnosis mentioned in my initial note. PLAN: Continue psychotropics from initial note. Adjust further as clinically indicated. MAX BIGGS MD DR: MONICA/daniel JOB#: [id number] / [id number]
--- NOTE | 2018-02-05 15:04 | DS ---
DATE OF DISCHARGE: 02/03/2018 This is a late entry 02/03/2018, covers elements not covered in my initial note of 02/03/2018. REASON FOR ADMISSION: Please refer to the admission history for details. Briefly, the patient is a 72-year-old female referred from [facility] on account of increased agitation, grabbing man and cat calling. She was screaming and laughing, was manic, extremely confused, psychotic. She had failed outpatient psychiatric interventions. SIGNIFICANT FINDINGS AND CLINICAL COURSE: Following admission, the patient was seen daily individually by myself, followed medically per Dr. Haro/Dr. Guevara. She was extremely loud, disruptive, psychotic, very confused, oriented just to herself, labile, quite disruptive on the unit. Adjustments were made in her psychotropics. She seemed to respond to a combination of Depakote Sprinkles 500 mg b.i.d. with a Valproic acid level therapeutic at 58. She was also on Zoloft 50 mg a day; Seroquel 25 mg at 1300, 37.5 mg at 9:00 a.m., 5:00 p.m.; Zyprexa p.r.n. Gradually mood appeared to improve. She was still confused, but much less labile delusions, yelling was much improved. No suicidal or homicidal ideation prior to discharge, 02/03/2018. REVIEW OF SYSTEMS: Ambulation impaired, in wheelchair. No CV, , pulmonary, eye, ENT system symptoms on review. MENTAL STATUS EXAM: Oriented to herself. Insight, judgment, recent and remote memory, attention, concentration, fund of knowledge poor, consistent with her diagnosis mentioned in my initial note. FINAL DIAGNOSES: Major neurocognitive disorder, Alzheimer, vascular with delusion, depression, behavioral disturbance; anxiety disorder, unspecified; impulse control disorder, unspecified. Rest unchanged from admission. DISCHARGE MEDICATIONS: Please refer to the EMRAD. DISCHARGE INSTRUCTIONS: Outpatient psychiatric and medical followup at the [facility]. MAN Amauri BIGGS MD DR: MONICA/daniel JOB#: [id number] / [id number]
== END 2018-02-03 10:30 | DRG 57 ==
LOC: ER 18:29 → GEROPSY 01-12 01:31
PROVIDERS: ADMIT Psychiatry & Neurology Psychiatry; ATTEND Psychiatry & Neurology Psychiatry
DX: G30.9 Alzheimer's disease, unspecified (principal); F02.81 Dementia in other diseases classified elsewhere, unspecified severity, with behavioral disturbance; F01.51 Vascular dementia, unspecified severity, with behavioral disturbance; F32.9 Major depressive disorder, single episode, unspecified; E55.9 Vitamin D deficiency, unspecified; E78.5 Hyperlipidemia, unspecified; W18.39XA Other fall on same level, initial encounter; F41.9 Anxiety disorder, unspecified; F63.9 Impulse disorder, unspecified; Z99.3 Dependence on wheelchair; Y93.89 Activity, other specified; Z79.899 Other long term (current) drug therapy; Y92.89 Other specified places as the place of occurrence of the external cause; Y99.8 Other external cause status
CPT/HCPCS: 36415; 71045; 80053; 80061; 80164; 81001; 82306; 82607; 83036; 83540; 83550; 83735; 84436; 84443; 84480; 85025; 85027; 86592; 87086; 93005; 99285-25